=== PATIENT | female | born 1955 | race Caucasian/White ===

== ENCOUNTER 2023-06-10 09:51 | Outpatient (OUT) | payer MEDICARE, SELFPAY ==
[2023-06-10 12:44] LABS: Chol HDL Ratio 7.1; Cholesterol 234 mg/dL (<=200); HDL Cholesterol 33 mg/dL (40-60); Triglycerides 616 mg/dL (<=150); VLDL CHOLESTEROL 123.2 mg/dL
[2023-06-10 12:45] LABS: LDL Cholesterol Direct 93 mg/dL
== END 2023-06-10 09:52 | disposition home or self-care (01) ==
LOC: LAB 09:55
PROVIDERS: PCP Internal Medicine; Visit Provider Internal Medicine
DX: E78.5 Hyperlipidemia, unspecified (principal)
CPT/HCPCS: 36415; 80061; 83721

== ENCOUNTER 2023-08-19 11:21 | Emergency (ER) | payer MEDICARE, SELFPAY ==
[2023-08-19 11:28] VITALS: BP 184/100; PULSE 76; RESP 18; TEMP 36.6; O2SAT 96; BMI 27.8
--- NOTE | 2023-08-19 11:40 | ED_ITS ---
HPI - Back Pain/Injury General Chief Complaint: Back Pain/Injury Stated Complaint: GENERAL WEAKNESS Time Seen by Provider: 08/19/23 11:24 Source: patient Mode of arrival: Wheelchair Limitations: no limitations History of Present Illness HPI Narrative: Patient was doing a lot of housework, getting ready to move, and was on her hands and knees looking for a tack on the floor yesterday. She woke this morning with pain in the low back on the right and radiating into the right buttock and lateral right thigh. No bowel or bladder symptoms. No fever or chills. Related Data Home Medications Medication Instructions Recorded Confirmed dapagliflozin propanediol 10 mg 10 mg PO DAILY 08/19/23 08/19/23 tablet (Farxiga) glipizide 5 mg tablet, extended 5 mg PO DAILY 08/19/23 08/19/23 release 24 hr lisinopril 10 mg tablet 10 mg PO DAILY 08/19/23 08/19/23 omeprazole 40 mg capsule,delayed 40 mg PO DAILY 08/19/23 08/19/23 release rosuvastatin 40 mg tablet 40 mg PO DAILY 08/19/23 08/19/23 Previous Rx's Medication Instructions Recorded methocarbamol 750 mg tablet 750 mg PO Q6H PRN pain #30 tabs 08/19/23 nabumetone 750 mg tablet 750 mg PO BID PRN back pain #20 08/19/23 tabs Allergies Allergy/AdvReac Type Severity Reaction Status Date / Time No Known Drug Allergies Allergy Verified 08/19/23 11:32 [facility] Social History Smoking status: Current every day smoker Exam Narrative Exam Narrative: General: Alert, no acute distress, patient resting comfortably Skin: warm, intact, no pallor noted Head: Normocephalic, atraumatic Eye: Normal conjunctiva Respiratory: No acute distress Abdomen: Normal bowel sounds, soft, nontender, no masses detected. No rebound, guarding, or rigidity noted. Back: inspection of the back shows no obvious deformity, no swelling, no ecchymosis, contusion, abrasion, swelling, erythema, fluctuance or induration. Tenderness noted to right paralumbar soft tissue. Straight leg raise on left is negative. Straight leg raise on right is positive. No CVA tenderness noted bilaterally. Musculoskeletal: No deformity noted to bilateral lower extremities. no cyanosis or mottling noted. normal pulses at DP and PT 2+ bilaterally and symmetrically. Normal 5/5 strength at ankles with dorsiflexion and plantar flexion. Patient is able to ambulate. Normal sensation noted to both lower extremities. Neurological: AAOx4, normal sensory and motor observed. L5-S1 reflexes intact symmetrically. DTR 2+ at patellar bilaterally. Psychiatric: Cooperative and interactive. Constitutional Vital Signs, click to edit/add: Last Vital Signs Temp 97.8 F 08/19/23 11:28 Pulse 76 08/19/23 11:28 Resp 18 08/19/23 11:28 BP 184/100 H 08/19/23 11:28 Pulse Ox 96 08/19/23 11:28 O2 Del Method Room Air 08/19/23 11:28 Course Vital Signs Vital signs: Vital Signs Temperature 97.8 F 08/19/23 11:28 Pulse Rate 76 08/19/23 11:28 Respiratory Rate 18 08/19/23 11:28 Blood Pressure 184/100 H 08/19/23 11:28 Pulse Oximetry 96 08/19/23 11:28 Oxygen Delivery Method Room Air 08/19/23 11:28 Temperature 97.8 F 08/19/23 11:28 Pulse Rate 76 08/19/23 11:28 Respiratory Rate 18 08/19/23 11:28 Blood Pressure 184/100 H 08/19/23 11:28 Pulse Oximetry 96 08/19/23 11:28 Oxygen Delivery Method Room Air 08/19/23 11:28 MDM - Back Pain/Injury MDM Narrative Medical decision making narrative: no neurological deficit to suggest acute cauda equina syndrome. Exam is consistent with acute sciatica. She received IM Solu-Medrol and IM Toradol before being discharged home with prescriptions for Relafen and Robaxin. She can see Dr. Esteban follow-up. Of note, her blood pressure was elevated. She said that she took her daily medications as prescribed. I stressed follow-up with Dr. Esteban to have this reevaluated. It may be acutely elevated due to her pain. Discharge Plan Discharge Chief Complaint: Back Pain/Injury Clinical Impression: Sciatica Patient Disposition: Home, Self-Care Time of Disposition Decision: 11:43 Prescriptions / Home Meds: New nabumetone 750 mg tablet 750 mg PO BID PRN (Reason: back pain) Qty: 20 0RF methocarbamol 750 mg tablet 750 mg PO Q6H PRN (Reason: pain) Qty: 30 0RF No Action Farxiga 10 mg tablet 10 mg PO DAILY glipizide 5 mg tablet extended release 24hr 5 mg PO DAILY lisinopril 10 mg tablet 10 mg PO DAILY omeprazole 40 mg capsule,delayed release(DR/EC) 40 mg PO DAILY rosuvastatin 40 mg tablet 40 mg PO DAILY Instructions: Sciatica (ED), Back Pain (ED) Stand Alone Forms: Portal Instructions Referrals: Shaikh Esteban MD [Primary Care Provider] - 1 week
[2023-08-19] MEDS: METHYLPREDNISOLONE SOD SUCC PF 125 MG/2 ML VIAL IM (11:48)
[2023-08-19] MEDS: KETOROLAC TROMETHAMINE 60 MG/2 ML VIAL IM (11:48)
[2023-08-19 11:49] VITALS: BP 129/91
== END 2023-08-19 12:11 | disposition home or self-care (01) ==
LOC: ER 12:00
PROVIDERS: Emergency Provider Emergency Medicine; PCP Internal Medicine
DX: M54.41 Lumbago with sciatica, right side (principal); Z79.899 Other long term (current) drug therapy; F17.210 Nicotine dependence, cigarettes, uncomplicated
CPT/HCPCS: 96372; 99284; J2930

== ENCOUNTER 2023-09-05 11:44 | Outpatient (OUT) | payer MEDICARE, SELFPAY ==
[2023-09-05 12:12] LABS: Basophils Absolute Auto 0.1 10^3/uL (0.0-0.1); Basophils Percent Auto 1.2 % (0.2-2.0); Eosinophils Absolute Auto 0.1 10^3/uL (0.0-0.7); Eosinophils Percent Auto 1.2 % (0.9-7.0); Hematocrit 53.4 % (36.0-48.0); Hemoglobin 17.7 g/dL (12.0-16.0); Immature Granulocytes Abs Auto 0.04 10^3/uL (0.00-0.03); Immature Granulocytes Pct Auto 0.5 % (0.0-0.5); Lymphocytes Absolute Auto 1.5 10^3/uL (1.2-3.8); Lymphocytes Percent Auto 17.2 % (20.5-60.0); Mean Corpuscular HGB Conc 33.1 g/dL (29.9-35.2); Mean Corpuscular Hemoglobin 30.1 pg (26.7-34.0); Mean Corpuscular Volume 90.8 fL (81.0-99.0); Mean Platelet Volume 10.6 fL (9.5-13.5); Monocytes Absolute Auto 1.1 10^3/uL (0.3-0.8); Monocytes Percent Auto 12.4 % (1.7-12.0); Neutrophils Percent Auto 67.5 % (43.0-75.0); Platelet Count 227 10^3/uL (150-450); Red Blood Count 5.88 10^6/uL (4.20-5.40); Red Cell Distribution Width 14.3 % (11.0-15.0); White Blood Count 8.8 10^3/uL (4.0-11.0)
[2023-09-05 12:21] LABS: Estimated Average Glucose 157 mg/dL; Glycohemoglobin A1C 7.1 % (4.5-6.2)
[2023-09-05 12:29] LABS: Alanine Aminotransferase 18 U/L (14-59); Albumin Globulin Ratio 0.7; Albumin Level 3.1 g/dL (3.4-5.0); Alkaline Phosphatase 99 U/L (46-116); Anion Gap 12.5; Aspartate Amino Transferase 15 U/L (15-37); BUN Creatinine Ratio 14.3; Bilirubin Total 0.7 mg/dL (0.2-1.0); Calcium 9.2 mg/dL (8.5-10.1); Carbon Dioxide 28.6 mmol/L (21.0-32.0); Chloride 101 mmol/L (98-107); Chol HDL Ratio 6.3; Cholesterol 222 mg/dL (<=200); Estimated GFR (African America 51 (>=60); Estimated GFR (Non-African Ame 42 (>=60); Globulin 4.6 g/dL; Glucose 146 mg/dL (74-106); HDL Cholesterol 35 mg/dL (40-60); Potassium 4.1 mmol/L (3.5-5.1); Sodium 138 mmol/L (136-145); Total Protein 7.7 g/dL (6.4-8.2); Triglycerides 437 mg/dL (<=150); VLDL CHOLESTEROL 87.4 mg/dL
[2023-09-05 12:31] LABS: LDL Cholesterol Direct 111 mg/dL
[2023-09-05 12:37] LABS: Creatinine Urine Random 117.87 mg/dL (20.00-300.00); Protein Creatinine Ratio Urine 0.21; Total Protein Urine Random 24.9 mg/dL (<=11.9)
== END 2023-09-05 11:45 | disposition home or self-care (01) ==
LOC: LAB 11:45
PROVIDERS: PCP Internal Medicine; Visit Provider Internal Medicine
DX: E78.5 Hyperlipidemia, unspecified (principal); E11.22 Type 2 diabetes mellitus with diabetic chronic kidney disease; N18.31 Chronic kidney disease, stage 3a; I12.9 Hypertensive chronic kidney disease with stage 1 through stage 4 chronic kidney disease, or unspecified chronic kidney disease
CPT/HCPCS: 36415; 80053; 80061; 82570; 83036; 83721; 84156; 85025

== ENCOUNTER 2024-03-15 08:20 | Outpatient (OUT) | payer MEDICARE, SELFPAY ==
--- OUTSIDE RECORDS SUMMARY | 2024-03-15 08:29 | XMS_ITS | CCD ---
Author Organization [facility] Care Team Providers Care Financial Institution President Name Role Phone FAWWAD, QUINTERO H Admitting Unavailable FAWWAD, QUINTERO H Attending Unavailable FAWWAD, QUINTERO H Primary Care Unavailable FAWWAD, QUINTERO H Consulting Unavailable FAWWAD, QUINTERO H Admitting Unavailable FAWWAD, QUINTERO H Attending Unavailable FAWWAD, QUINTERO H Primary Care Unavailable FAWWAD, QUINTERO H Consulting Unavailable FAWWAD, QUINTERO H Admitting Unavailable FAWWAD, QUINTERO H Attending Unavailable FAWWAD, QUINTERO H Primary Care Unavailable FAWWAD, QUINTERO H Consulting Unavailable FAWWAD, QUINTERO H Primary Care Unavailable PAY ., DR KEBEDE Consulting Unavailable PAY ., DR KEBEDE Admitting Unavailable PAY ., DR KEBEDE Attending Unavailable SHADI CARRERO Consulting Unavailable FAWWAD, QUINTERO Attending Unavailable Allergies Allergy Classification Reported Allergen(s) Allergy Type Date of Onset Reaction(s) Facility (1 source) Dextroamphetamine Drug Allergy 6 [facility] Repository (1 source) quiNINE Drug Allergy 3 [facility] Problems Active Problems Problem Classification Problem Date Documented Da te Episodic/Chronic Coronary atherosclerosis and other heart disease (1 source) Old myocardial infarction; Translations: [OLD MYOCARDIAL INFARCTION] Onset: 01-11-2022 Chronic Diabetes mellitus with complications (4 sources) Type 2 diabetes mellitus with diabetic chronic kidney disease; Translations: [TYPE 2 DM W/DIABETIC CKD] Onset: 05-25-2022 Chronic Diabetes mellitus without complication (1 source) Type 2 diabetes mellitus without complications; Translations: [TYPE 2 DM WITHOUT COMPLICATIONS] Onset: 11-24-2022 Chronic Disorders of lipid metabolism (5 sources) Hyperlipidemia, unspecified; Translations: [HYPERLIPIDEMIA UNSPECIFIED] Onset: 05-28-2022 Chronic Essential hypertension (1 source) Essential (primary) hypertension; Translations: [ESSENTIAL PRIMARY HYPERTENSION] Onset: 11-24-2022 Chronic Unclassified (1 source) CHRN KIDNEY DISEASE STG 3 UNSP; Translations: [CHRN KIDNEY DISEASE STG 3 UNSP] Onset: 05-28-2022 Viral infection (1 source) COVID-19; Translations: [COVID-19] Onset: 02-08-2022 Past or Other Problems Problem Classification Problem Date Documented Da te Episodic/Chronic Coronary atherosclerosis and other heart disease (1 source) Presence of aortocoronary bypass graft; Translations: [PRESENCE AORTOCORONARY BYPASS GRAFT] Onset: 01-11-2022 Episodic Immunizations and screening for infectious disease (4 sources) Encounter for immunization; Translations: [ENCOUNTER FOR IMMUNIZATION] Onset: 02-04-2022 Episodic Other aftercare (1 source) Other longterm (current) drug therapy; Translations: [OTH SKILLED NURSING CURRENT DRUG THERAPY] Onset: 01-11-2022 Episodic Other aftercare (1 source) long-term (current) use of oral hypoglycemic drugs; Translations: [SKILLED NURSING USE ORAL HYPOGLYCEMIC DX] Onset: 01-11-2022 Episodic Other aftercare (1 source) 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; 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] Onset: 01-11-2022 Episodic Other connective tissue disease (1 source) Pain in right hand; Translations: [PAIN IN RIGHT HAND] Onset: 01-11-2022 Episodic Other non-traumatic joint disorders (4 sources) Pain in right wrist; Translations: [PAIN IN RIGHT WRIST] Onset: 01-08-2022 Episodic Phlebitis; thrombophlebitis and thromboembolism (1 source) Personal history of other venous thrombosis and embolism; Translations: [PERS HX OTH VENOUS THROMBOSIS AND EMBO] Onset: 01-11-2022 Episodic Results Test Name Value Interpretation Reference Range Facil ity DIRECT LDLon 11-23-2022 Cholesterol in LDL [Mass/Vol] 66 mg/dL Normal [facility] Comment on above: Performed By: #### C MP, DLDL, LIPID #### [facility] [address] [place] [address] Dr. Jose Miguel Plummer DLDL NORMAL SEE BELOW Normal [facility] Comment on above: Result Comment: <100 mg/dl OPTIMAL 100 - 129 mg/dl NEAR OR ABOVE OPTIMAL 130 - 159 mg/dl BORDERLINE HIGH 160 - 189 mg/dl HIGH >190 mg/dl VERY HIGH Performed By: #### C MP, DLDL, LIPID #### [facility] [address] [address] [address] Jose Miguel Plummer GLYCOHEMOGLOBIN A1Con 2022 ADA RECOMMENDATION SEE BELOW Normal [facility] Comment on above: Result Comment: ADA RECOMMENDED LIMIT 4.0 - 6.0 ADA THERAPEUTIC TARGET < 7.0 ACTION SUGGESTED > 7.0 Performed By: #### A 1C #### [facility] [address] [place] [address] Dr. Jose Miguel Plummer Glucose [Mass/Vol] 151 mg/dL Normal [facility] Comment on above: Performed By: #### A 1C #### [facility] [address] [address] [address] Jose Miguel Plummer HbA1c (Bld) [Mass fraction] 6.9 % Critically high 4.5-6.2 [facility] Comment on above: Performed By: #### A 1C #### [facility] [address] [place] [address] Dr. Jose Miguel Plummer LIPID PROFILEon 11-23-2022 CHOL-HDL RATIO NORM SEE BELOW Normal [facility] Comment on above: Result Comment: 3.3 - 4.4 LOW RISK 4.4 - 7.1 AVERAGE RISK 7.1 - 11.0 MODERATE RISK >11.0 HIGH RISK Performed By: #### C MP, DLDL, LIPID #### [facility] [address] [address] [address] Jose Miguel Plummer Cholesterol [Mass/Vol] 203 mg/dL Critically high <=200 [facility] Comment on above: Performed By: #### C MP, DLDL, LIPID #### [facility] [address] [address] [address] Jose Miguel Plummer Cholesterol in HDL [Mass/Vol] 22 mg/dL Critically low 40-60 [facility] Comment on above: Performed By: #### C MP, DLDL, LIPID #### [facility] [address] [address] [address] Jose Miguel Plummer Cholesterol.total/Cho lesterol in HDL [Mass ratio] 9.2 {ratio} Normal [facility] Comment on above: Performed By: #### C MP, DLDL, LIPID #### [facility] [address] [address] [address] Jose Miguel Plummer HDL NORMAL > or = 60 mg/dl - LOW CARDIOVASCULAR RISK <40 mg/dl - HIGH CARDIOVASCULAR RISK Normal [facility] Comment on above: Performed By: #### C MP, DLDL, LIPID #### [facility] [address] [address] [address] Jose Miguel Plummer LDL CALC NORMAL SEE BELOW Normal [facility] Comment on above: Result Comment: <100 mg/dl OPTIMAL 100 - 129 mg/dl NEAR OR ABOVE OPTIMAL 130 - 159 mg/dl BORDERLINE HIGH 160 - 189 mg/dl HIGH >190 mg/dl VERY HIGH Performed By: #### C MP, DLDL, LIPID #### [facility] [address] [place] [address] Dr. Jose Miguel Plummer Triglyceride [Mass/Vol] mg/dL Critically high <=150 [facility] Comment on above: Performed By: #### C MP, DLDL, LIPID #### [facility] [address] [address] [address] Jose Miguel Plummer PROF 14(COMP METB)on 023 Albumin [Mass/Vol] 3.3 g/dL Critically low 3.4-5.0 [facility] Comment on above: Performed By: #### C MP, DLDL, LIPID #### [facility] [address] [address] [address] Jose Miguel Plummer Albumin/Globulin [Mass ratio] 0.8 {ratio} Normal [facility] Comment on above: Performed By: #### C MP, DLDL, LIPID #### [facility] [address] [address] [address] Jose Miguel Plummer ALP [Catalytic activity/Vol] 115 U/L Normal 46-116 [facility] Comment on above: Performed By: #### C MP, DLDL, LIPID #### [facility] [address] [address] [address] Jose Miguel Plummer ALT [Catalytic activity/Vol] 20 U/L Normal 14-59 [facility] Comment on above: Performed By: #### C MP, DLDL, LIPID #### [facility] [address] [place] [address] Dr. Jose Miguel Plummer Anion gap [Moles/Vol] 8.9 mmol/L Normal [facility] Comment on above: Performed By: #### C MP, DLDL, LIPID #### [facility] [address] [place] [address] Dr. Joes Miguel Plummer AST [Catalytic activity/Vol] 21 U/L Normal 15-37 [facility] Comment on above: Performed By: #### C MP, DLDL, LIPID #### [facility] [address] [place] [address] Dr. Jose Miguel Plummer Bilirubin [Mass/Vol] 0.3 mg/dL Normal 0.2-1.0 [facility] Comment on above: Performed By: #### C MP, DLDL, LIPID #### [facility] [address] [place] [address] Dr. Jose Miguel Plummer Calcium [Mass/Vol] 8.8 mg/dL Normal 8.5-10.1 [facility] Comment on above: Performed By: #### C MP, DLDL, LIPID #### [facility] [address] [place] [address] Dr. Jose Miguel Plummer Chloride [Moles/Vol] 103 mmol/L Normal 98-107 [facility] Comment on above: Performed By: #### C MP, DLDL, LIPID #### [facility] [address] [place] [address] Dr. Jose Miguel Plummer CO2 [Moles/Vol] 28.0 mmol/L Normal 21.0-32.0 [facility] Comment on above: Performed By: #### C MP, DLDL, LIPID #### [facility] [address] [place] [address] Dr. Jose Miguel Plummer Creatinine [Mass/Vol] 1.09 mg/dL Critically high 0.55-1.02 [facility] Comment on above: Performed By: #### C MP, DLDL, LIPID #### [facility] [address] [place] [address] Dr. Jose Miguel Plummer EGFR-AF [place] 60 mL/min/1.73m2 Normal >=60 [facility] Comment on above: Performed By: #### C MP, DLDL, LIPID #### [facility] [address] [place] [address] Dr. Jose Miguel Plummer EGFR-NON AF [place] 50 mL/min/1.73m2 Critically low >=60 [facility] Comment on above: Performed By: #### C MP, DLDL, LIPID #### [facility] [address] [place] [address] Dr. Jose Miguel Plummer Globulin (S) [Mass/Vol] 4.0 g/dL Normal [facility] Comment on above: Performed By: #### C MP, DLDL, LIPID #### [facility] [address] [place] [address] Dr. Jose Miguel Plummer Glucose [Mass/Vol] 132 mg/dL Critically high 74-106 T [facility] Comment on above: Performed By: #### C MP, DLDL, LIPID #### [facility] [address] [place] [address] Dr. Jose Miguel Plummer Potassium [Moles/Vol] 4.9 mmol/L Normal 3.5-5.1 [facility] Comment on above: Performed By: #### C MP, DLDL, LIPID #### [facility] [address] [place] [address] Dr. Jose Miguel Plummer Protein [Mass/Vol] 7.3 g/dL Normal 6.4-8.2 [facility] Comment on above: Performed By: #### C MP, DLDL, LIPID #### [facility] [address] [place] [address] Dr. Jose Miguel Plummer Sodium [Moles/Vol] 135 mmol/L Critically low 136-145 [facility] Comment on above: Performed By: #### C MP, DLDL, LIPID #### [facility] [address] [address] [address] Jose Miguel Plummer Urea nitrogen [Mass/Vol] 20.0 mg/dL Critically high 7.0-18.0 [facility] Comment on above: Performed By: #### C MP, DLDL, LIPID #### [facility] [address] [place] [address] Dr. Jose Miguel Plummer Urea nitrogen/Creatinine [Mass ratio] 18.3 mg/mg Normal [facility] Comment on above: Performed By: #### C MP, DLDL, LIPID #### [facility] [address] [place] [address] Dr. Jose Miguel Plummer CBC AUTO DIFFon 05-25-2022 BASO # 0.1 103/ul Normal 0.0-0.1 [facility] Comment on above: Performed By: #### C BC #### [facility] [address] [place] [address] Dr. Jose Miguel Plummer Basophils/100 WBC (Bld) 1.5 % Normal 0.2-2.0 [facility] Comment on above: Performed By: #### C BC #### [facility] [address] [place] [address] Dr. Jose Miguel Plummer EO # 0.2 103/ul Normal 0.0-0.7 [facility] Comment on above: Performed By: #### C BC #### [facility] [address] [place] [address] Dr. Jose Miguel Plummer Eosinophils/100 WBC (Bld) 2.7 % Normal 0.9-7.0 [facility] Comment on above: Performed By: #### C BC #### [facility] [address] [place] [address] Dr. Jose Miguel Plummer Erythrocyte distribution width (RBC) [Ratio] 14.9 % Normal 11.0-15.0 [facility] Comment on above: Performed By: #### C BC #### [facility] [address] [place] [address] Dr. Jose Miguel Plummer Hematocrit (Bld) [Volume fraction] 50.0 % Critically high 36.0-48.0 [facility] Comment on above: Performed By: #### C BC #### [facility] [address] [address] [address] Jose Miguel Plummer Hemoglobin (Bld) [Mass/Vol] 16.5 g/dL Critically high 12.0-16.0 [facility] Comment on above: Performed By: #### C BC #### [facility] [address] [address] [address] Jose Miguel Plummer IG # 0.04 10e3/ul Critically high 0.00-0.03 [facility] Comment on above: Performed By: #### C BC #### [facility] [address] [place] [address] Dr. Jose Miguel Plummer IG % 0.5 % Normal 0.0-0.5 [facility] Comment on above: Performed By: #### C BC #### [facility] [address] [place] [address] Dr. Jose Miguel Plummer LYMPH # 1.4 103/ul Normal 1.2-3.8 [facility] Comment on above: Performed By: #### C BC #### [facility] [address] [place] [address] Dr. Jose Miguel Plummer Lymphocytes/100 WBC (Bld) 19.1 % Critically low 20.5-60.0 [facility] Comment on above: Performed By: #### C BC #### [facility] [address] [place] [address] Dr. Jose Miguel Plummer MANUAL DIFF REQ NO Normal [facility] Comment on above: Performed By: #### C BC #### [facility] [address] [place] [address] Dr. Jose Miguel Plummer MCH (RBC) [Entitic mass] 29.9 pg Normal 26.7-34.0 [facility] Comment on above: Performed By: #### C BC #### [facility] [address] [place] [address] Dr. Jose Miguel Plummer MCHC (RBC) [Mass/Vol] 33.0 g/dL Normal 29.9-35.2 [facility] Comment on above: Performed By: #### C BC #### [facility] [address] [address] [address] Jose Miguel Plummer MCV (RBC) [Entitic vol] 90.7 fL Normal 81.0-99.0 [facility] Comment on above: Performed By: #### C BC #### [facility] [address] [address] [address] Jose Miguel Plummer MONO # 1.0 103/ul Critically high 0.3-0.8 [facility] Comment on above: Performed By: #### C BC #### [facility] [address] [address] [address] Jose Miguel Plummer Monocytes/100 WBC (Bld) 14.0 % Critically high 1.7-12.0 [facility] Comment on above: Performed By: #### C BC #### [facility] [address] [place] [address] Dr. Jose Miguel Plummer NEUT # 4.6 103/ul Normal 1.4-6.5 [facility] Comment on above: Performed By: #### C BC #### [facility] [address] [place] [address] Dr. Jose Miguel Plummer Neutrophils/100 WBC (Bld) 62.2 % Normal 43.0-75.0 [facility] Comment on above: Performed By: #### C BC #### [facility] [address] [address] [address] Jose Miguel Plummer Platelet mean volume (Bld) [Entitic vol] 10.8 fL Normal 9.5-13.5 [facility] Comment on above: Performed By: #### C BC #### [facility] [address] [address] [address] Jose Miguel Plummer PLT 189 103/ul Normal 150-450 [facility] Comment on above: Performed By: #### C BC #### [facility] [address] [address] [address] Jose Miguel Plummer RBC 5.51 106/ul Critically high 4.20-5.[address] [facility] Comment on above: Performed By: #### C BC #### [facility] [address] [address] [address] Jose Miguel Plummer WBC 7.4 103/ul Normal 4.0-11.0 [facility] Comment on above: Performed By: #### C BC #### [facility] [address] [address] [address] Jose Miguel Plummer GLYCOHEMOGLOBIN A1Con 2021 ADA RECOMMENDATION SEE BELOW Normal [facility] Comment on above: Result Comment: ADA RECOMMENDED LIMIT 4.0 - 6.0 ADA THERAPEUTIC TARGET < 7.0 ACTION SUGGESTED > 7.0 Performed By: #### A 1C #### [facility] [address] [address] [address] Jose Miguel Plummer Glucose [Mass/Vol] 160 mg/dL Normal [facility] Comment on above: Performed By: #### A 1C #### [facility] [address] [place] [address] Dr. Jose Miguel Plummer HbA1c (Bld) [Mass fraction] 7.2 % Critically high 4.5-6.2 [facility] Comment on above: Performed By: #### A 1C #### [facility] [address] [place] [address] Dr. Jose Miguel Plummer LIPID PROFILEon 05-25-2022 CHOL-HDL RATIO NORM SEE BELOW Normal [facility] Comment on above: Result Comment: 3.3 - 4.4 LOW RISK 4.4 - 7.1 AVERAGE RISK 7.1 - 11.0 MODERATE RISK >11.0 HIGH RISK Performed By: #### L IPID, CMP #### [facility] [address] [place] [address] Dr. Jose Miguel Plummer Cholesterol [Mass/Vol] 155 mg/dL Normal <=200 [facility] Comment on above: Performed By: #### L IPID, CMP #### [facility] [address] [address] [address] Jose Miguel Plummer Cholesterol in HDL [Mass/Vol] 35 mg/dL Critically low 40-60 [facility] Comment on above: Performed By: #### L IPID, CMP #### [facility] [address] [address] [address] Jose Miguel Plummer Cholesterol in LDL [Mass/Vol] 40.8 mg/dL Normal [facility] Comment on above: Performed By: #### L IPID, CMP #### [facility] [address] [place] [address] Dr. Jose Miguel Plummer Cholesterol.total/Cho lesterol in HDL [Mass ratio] 4.4 {ratio} Normal [facility] Comment on above: Performed By: #### L IPID, CMP #### [facility] [address] [place] [address] Dr. Jose Miguel Plummer HDL NORMAL > or = 60 mg/dl - LOW CARDIOVASCULAR RISK <40 mg/dl - HIGH CARDIOVASCULAR RISK Normal [facility] Comment on above: Performed By: #### L IPID, CMP #### [facility] [address] [place] [address] Dr. Jose Miguel Plummer LDL CALC NORMAL SEE BELOW Normal [facility] Comment on above: Result Comment: <100 mg/dl OPTIMAL 100 - 129 mg/dl NEAR OR ABOVE OPTIMAL 130 - 159 mg/dl BORDERLINE HIGH 160 - 189 mg/dl HIGH >190 mg/dl VERY HIGH Performed By: #### L IPID, CMP #### [facility] [address] [place] [address] Dr. Jose Miguel Plummer Triglyceride [Mass/Vol] 396 mg/dL Critically high <=150 [facility] Comment on above: Performed By: #### L IPID, CMP #### [facility] [address] [place] [address] Dr. Jose Miguel Plummer VLDL CALC 79.2 mg/dL Normal [facility] Comment on above: Performed By: #### L IPID, CMP #### [facility] [address] [address] [address] Jose Miguel Plummer PROF 14(COMP METB)on 022 Albumin [Mass/Vol] 3.4 g/dL Normal 3.4-5.0 [facility] Comment on above: Performed By: #### L IPID, CMP #### [facility] [address] [place] [address] Dr. Jose Miguel Plummer Albumin/Globulin [Mass ratio] 0.8 {ratio} Normal [facility] Comment on above: Performed By: #### L IPID, CMP #### [facility] [address] [address] [address] Jose Miguel Plummer ALP [Catalytic activity/Vol] 82 U/L Normal 46-116 [facility] Comment on above: Performed By: #### L IPID, CMP #### [facility] [address] [address] [address] Jose Miguel Plummer ALT [Catalytic activity/Vol] 13 U/L Critically low 14-59 [facility] Comment on above: Performed By: #### L IPID, CMP #### [facility] [address] [place] [address] Dr. Jose Miguel Plummer Anion gap [Moles/Vol] 9.8 mmol/L Normal [facility] Comment on above: Performed By: #### L IPID, CMP #### [facility] [address] [place] [address] Dr. Jose Miguel Plummer AST [Catalytic activity/Vol] 10 U/L Critically low 15-37 [facility] Comment on above: Performed By: #### L IPID, CMP #### [facility] [address] [place] [address] Dr. Jose Miguel Plummer Bilirubin [Mass/Vol] 0.6 mg/dL Normal 0.2-1.0 [facility] Comment on above: Performed By: #### L IPID, CMP #### [facility] [address] [address] [address] Jose Miguel Plummer Calcium [Mass/Vol] 9.5 mg/dL Normal 8.5-10.1 [facility] Comment on above: Performed By: #### L IPID, CMP #### [facility] [address] [place] [address] Dr. Jose Miguel Plummer Chloride [Moles/Vol] 105 mmol/L Normal 98-107 [facility] Comment on above: Performed By: #### L IPID, CMP #### [facility] [address] [place] [address] Dr. Jose Miguel Plummer CO2 [Moles/Vol] 29.4 mmol/L Normal 21.0-32.0 [facility] Comment on above: Performed By: #### L IPID, CMP #### [facility] [address] [address] [address] Jose Miguel Plummer Creatinine [Mass/Vol] 1.01 mg/dL Normal 0.55-1.02 [facility] Comment on above: Performed By: #### L IPID, CMP #### [facility] [address] [address] [address] Jose Miguel Plummer EGFR-AF [place] >60 Normal >=60 [facility] Comment on above: Performed By: #### L IPID, CMP #### [facility] [address] [address] [address] Jose Miguel Plummer EGFR-NON AF [place] 55 mL/min/1.73m2 Critically low >=60 [facility] Comment on above: Performed By: #### L IPID, CMP #### [facility] [address] [address] [address] Jose Miguel Plummer Globulin (S) [Mass/Vol] 4.2 g/dL Normal [facility] Comment on above: Performed By: #### L IPID, CMP #### [facility] [address] [address] [address] Jose Miguel Plummer Glucose [Mass/Vol] 125 mg/dL Critically high 74-106 [facility] Comment on above: Performed By: #### L IPID, CMP #### [facility] [address] [address] [address] Jose Miguel Plummer Potassium [Moles/Vol] 4.2 mmol/L Normal 3.5-5.1 [facility] Comment on above: Performed By: #### L IPID, CMP #### [facility] [address] [address] [address] Jose Miguel Plummer Protein [Mass/Vol] 7.6 g/dL Normal 6.4-8.2 [facility] Comment on above: Performed By: #### L IPID, CMP #### [facility] [address] [address] [address] Jose Miguel Plummer Sodium [Moles/Vol] 140 mmol/L Normal 136-145 [facility] Comment on above: Performed By: #### L IPID, CMP #### [facility] [address] [address] [address] Jose Miguel Plummer Urea nitrogen [Mass/Vol] 13.0 mg/dL Normal 7.0-18.0 [facility] Comment on above: Performed By: #### L IPID, CMP #### [facility] [address] [address] [address] Jose Miguel Plummer Urea nitrogen/Creatinine [Mass ratio] 12.9 mg/mg Normal [facility] Comment on above: Performed By: #### L IPID, CMP #### [facility] [address] [address] [address] Jose Miguel Plummer XR WRIST RT MIN 3 Von 2021 XR WRIST RT MIN 3 V EXAM: Right wrist HISTORY: Pain since an injury yesterday. TECHNIQUE: 3 views of the right wrist were obtained. FINDINGS: There is no evidence of fracture or dislocation. There are no suspicious bone lesions. There are scattered degenerative changes. Soft tissues are normal. IMPRESSION: No acute findings. Electronically authenticated by: SHADI CARRERO Date: 2022-01-08 08:33 Normal [facility] Encounters Encounter Date Encounter Type Care Provider Facility Start: 09-01-2023 End: 09-01-2023 ambulatory [facility] Not Available Start: 11-23-2022 End: 11-23-2022 ambulatory [facility] Facility:[facility] Start: 05-25-2022 End: 05-26-2022 ambulatory [facility] Facility:[facility] Start: 02-04-2022 End: 02-04-2022 ambulatory [facility] Facility:[facility] Start: 01-08-2022 End: 01-08-2022 ambulatory [facility] Facility:[facility] Payers Date Payer Category Payer Medicare [id number] 1961 Medicare [id number] 1961 Medicare [id number] 1955 Unknown [id number] 2.16.84 [id number] 1955 Unknown [id number] 2.16.84 [id number] 1955 Unknown [id number] 2.16.84 [id number] 1955 Unknown [id number] 2.16.84 [id number] 1953 Unknown [id number] Summary Purpose Family History No Family History Records FoundNo Family History Records Found Advance Directives No Advanced Directives Records FoundNo Advanced Directives Records Found Additional Source Comments INFORMATION SOURCE (unrecogn ized section and content) DATE CREATED AUTHOR 11/25/2022 [facility] DATE CREATED AUTHOR 'S GUILLAUME ATJEREMIAH 09/03/2023 [facility] FOR RECORDS PERTAINING TO PATIENTS WHO ARE OR HAVE BEEN ENROLLED IN A CHEMICAL DEPENDENCY/SUBSTANCEABUSE PROGRAM, SOME INFORMATION MAY BE OMITTED. This clinical summary was aggregated from multiple sources. Caution should be exercised in using it in the provision of clinical care. This summary normalizes information from multiple sources, and as a consequence, information in this document may materially change the coding, format and clinical context of patient data. In addition, data may be omitted in some cases. CLINICAL DECISIONS SHOULD BE BASED ON THE PRIMARY CLINICAL RECORDS. [facility] [employer] provides no warranty or guarantee of the accuracy or completeness of information in this document.
[2024-03-15 08:51] LABS: Hematocrit 52.4 % (36.0-48.0); Hemoglobin 17.7 g/dL (12.0-16.0); Mean Corpuscular HGB Conc 33.8 g/dL (29.9-35.2); Mean Corpuscular Hemoglobin 30.4 pg (26.7-34.0); Mean Corpuscular Volume 89.9 fL (81.0-99.0); Mean Platelet Volume 9.7 fL (9.5-13.5); Platelet Count 200 10^3/uL (150-450); Red Blood Count 5.83 10^6/uL (4.20-5.40); Red Cell Distribution Width 14.6 % (11.0-15.0); White Blood Count 12.1 10^3/uL (4.0-11.0)
[2024-03-15 09:46] LABS: Lymphocytes Absolute Manual 1.81 10^3/uL (1.20-3.80); Metamyelocytes Absolute Manual 0.12; Monocytes Absolute Manual 1.08 10^3/uL (0.30-0.80); Segmented Neut Absolute Manual 9.07 10^3/uL (1.4-6.5)
[2024-03-15 11:10] LABS: Alanine Aminotransferase 13 U/L (14-59); Albumin Globulin Ratio 0.7; Albumin Level 3.4 g/dL (3.4-5.0); Alkaline Phosphatase 70 U/L (46-116); Anion Gap 14.1; Aspartate Amino Transferase 17 U/L (15-37); BUN Creatinine Ratio 15.9; Bilirubin Total 1.1 mg/dL (0.2-1.0); Calcium 9.7 mg/dL (8.5-10.1); Carbon Dioxide 28.9 mmol/L (21.0-32.0); Chloride 99 mmol/L (98-107); Estimated GFR (African America 46 (>=60); Estimated GFR (Non-African Ame 38 (>=60); Globulin 4.8 g/dL; Glucose 120 mg/dL (74-106); Sodium 138 mmol/L (136-145); Total Protein 8.2 g/dL (6.4-8.2)
[2024-03-15 12:57] LABS: Estimated Average Glucose 146 mg/dL; Glycohemoglobin A1C 6.7 % (4.5-6.2)
== END 2024-03-15 08:21 | disposition home or self-care (01) ==
LOC: LAB 08:22
PROVIDERS: PCP Internal Medicine; Visit Provider Internal Medicine
DX: E11.22 Type 2 diabetes mellitus with diabetic chronic kidney disease (principal); N18.31 Chronic kidney disease, stage 3a; I12.9 Hypertensive chronic kidney disease with stage 1 through stage 4 chronic kidney disease, or unspecified chronic kidney disease
CPT/HCPCS: 36415; 80053; 83036; 85007; 85027

== ENCOUNTER 2024-03-15 08:37 | Observation (INO) | payer MEDICARE, SELFPAY ==
[2024-03-15] VITALS (9 sets, daily range): BP systolic 126–147; BP diastolic 74–88; PULSE 61–70; TEMP 36.4–36.8; O2SAT 91–97; BMI 27.3; BMI 27.9
--- OUTSIDE RECORDS SUMMARY | 2024-03-15 08:45 | XMS_ITS | CCD ---
Author Organization [facility] Care Team Providers Care Paper Maker Name Role Phone FAWWAD, QUINTERO H Admitting [...] (1 source) Dextroamphetamine Drug Allergy 6 [facility] Repository (1 source) quiNINE Drug Allergy 3 [facility] Problems Active Problems Problem Classification [...] 02-04-2022 Episodic Other aftercare (1 source) Other m[facility] (current) drug therapy; Translations: [OTH [facility] CURRENT DRUG THERAPY] Onset: 01-11-2022 Episodic Other aftercare (1 source) senior care (current) use of oral hypoglycemic drugs; Translations: [FCI USE ORAL HYPOGLYCEMIC DX] Onset: 01-11-2022 Episodic Other aftercare (1 source) 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 Jose Miguel Plummer DLDL NORMAL SEE BELOW Normal [facility] Comment on above: Result Comment: <100 mg/dl OPTIMAL 100 - 129 mg/dl NEAR OR ABOVE OPTIMAL 130 - 159 mg/dl BORDERLINE HIGH 160 - 189 mg/dl HIGH >190 mg/dl VERY HIGH Performed By: #### C MP, DLDL, LIPID #### [facility] [address] [address] [address] Jose Miguel Plummer GLYCOHEMOGLOBIN A1Con 2022 ADA RECOMMENDATION SEE BELOW Normal [facility] Comment on above: Result Comment: ADA RECOMMENDED LIMIT 4.0 - 6.0 ADA THERAPEUTIC TARGET < 7.0 ACTION SUGGESTED > 7.0 Performed By: #### A 1C #### [facility] [address] [place] [address] Dr. Jose Miguel Plummer Glucose [Mass/Vol] 151 mg/dL Normal [facility] Comment on above: Performed By: #### A 1C #### [facility] [address] [address] [address] Jose Miguel Plummer HbA1c (Bld) [Mass fraction] 6.9 % Critically high 4.5-6.2 [facility] Comment on above: Performed By: #### A 1C #### [facility] [address] [place] [address] Dr. Jose Miguel Plummer LIPID PROFILEon 11-23-2022 CHOL-HDL RATIO NORM SEE BELOW Normal [facility] Comment on above: Result Comment: 3.3 - 4.4 LOW RISK 4.4 - 7.1 AVERAGE RISK 7.1 - 11.0 MODERATE RISK >11.0 HIGH RISK Performed By: #### C MP, DLDL, LIPID #### [facility] [address] [address] [address] Jose Miguel Plummer Cholesterol [Mass/Vol] 203 mg/dL Critically high <=200 [facility] Comment on above: Performed By: #### C MP, DLDL, LIPID #### [facility] [address] [address] [address] Jose Miguel Plummer Cholesterol in HDL [Mass/Vol] 22 mg/dL Critically low 40-60 [facility] Comment on above: Performed By: #### C MP, DLDL, LIPID #### [facility] [address] [address] [address] Jose Miguel Plummer Cholesterol.total/Cho lesterol in HDL [Mass ratio] 9.2 {ratio} Normal [facility] Comment on above: Performed By: #### C MP, DLDL, LIPID #### [facility] [address] [address] [address] Jose Miguel Plummer HDL NORMAL > or = 60 mg/dl - LOW CARDIOVASCULAR RISK <40 mg/dl - HIGH CARDIOVASCULAR RISK Normal [facility] Comment on above: Performed By: #### C MP, DLDL, LIPID #### [facility] [address] [address] [address] Jose Miguel Plummer LDL CALC NORMAL SEE BELOW Normal [facility] Comment on above: Result Comment: <100 mg/dl OPTIMAL 100 - 129 mg/dl NEAR OR ABOVE OPTIMAL 130 - 159 mg/dl BORDERLINE HIGH 160 - 189 mg/dl HIGH >190 mg/dl VERY HIGH Performed By: #### C MP, DLDL, LIPID #### [facility] [address] [place] [address] Dr. Jose Miguel Plummer Triglyceride [Mass/Vol] mg/dL Critically high <=150 [facility] Comment on above: Performed By: #### C MP, DLDL, LIPID #### [facility] [address] [address] [address] Jose Miguel Plummer PROF 14(COMP METB)on 023 Albumin [Mass/Vol] 3.3 g/dL Critically low 3.4-5.0 Th [facility] Comment on above: Performed By: #### C MP, DLDL, LIPID #### [facility] [address] [address] [address] Jose Miguel Plummer Albumin/Globulin [Mass ratio] 0.8 {ratio} Normal [facility] Comment on above: Performed By: #### C MP, DLDL, LIPID #### [facility] [address] [address] [address] Jose Miguel Plummer ALP [Catalytic activity/Vol] 115 U/L Normal 46-116 [facility] Comment on above: Performed By: #### C MP, DLDL, LIPID #### [facility] [address] [address] [address] Jose Miguel Plummer ALT [Catalytic activity/Vol] 20 U/L Normal 14-59 [facility] Comment on above: Performed By: #### C MP, DLDL, LIPID #### [facility] [address] [place] [address] Dr. Jose Miguel Plummer Anion gap [Moles/Vol] 8.9 mmol/L Normal [facility] Comment on above: Performed By: #### C MP, DLDL, LIPID #### [facility] [address] [place] [address] Dr. Jose Miguel Plummer AST [Catalytic activity/Vol] 21 U/L Normal 15-37 [facility] Comment on above: Performed By: #### C MP, DLDL, LIPID #### [facility] [address] [place] [address] Dr. Jose Miguel Plummer Bilirubin [Mass/Vol] 0.3 mg/dL Normal 0.2-1.0 [facility] Comment on above: Performed By: #### C MP, DLDL, LIPID #### [facility] [address] [place] [address] Dr. Jose Miguel Plummer Calcium [Mass/Vol] 8.8 mg/dL Normal 8.5-10.1 [facility] Comment on above: Performed By: #### C MP, DLDL, LIPID #### [facility] [address] [place] [address] Dr. Jose Miguel Plummer Chloride [Moles/Vol] 103 mmol/L Normal 98-107 [facility] Comment on above: Performed By: #### C MP, DLDL, LIPID #### [facility] [address] [place] [address] Dr. Jose Miguel Plummer CO2 [Moles/Vol] 28.0 mmol/L Normal 21.0-32.0 [facility] Comment on above: Performed By: #### C MP, DLDL, LIPID #### [facility] [address] [place] [address] Dr. Jose Miguel Plummer Creatinine [Mass/Vol] 1.09 mg/dL Critically high 0.55-1.02 [facility] Comment on above: Performed By: #### C MP, DLDL, LIPID #### [facility] [address] [place] [address] Dr. Jose Miguel Plummer EGFR-AF CONGOLESE 60 mL/min/1.73m2 Normal >=60 Th [facility] Comment on above: Performed By: #### C MP, DLDL, LIPID #### [facility] [address] [place] [address] Dr. Jose Miguel Plummer EGFR-NON AF CONGOLESE 50 mL/min/1.73m2 Critically low >=60 [facility] Comment on above: Performed By: #### C MP, DLDL, LIPID #### [facility] [address] [place] [address] Dr. Jose Miguel Plummer Globulin (S) [Mass/Vol] 4.0 g/dL Normal [facility] Comment on above: Performed By: #### C MP, DLDL, LIPID #### [facility] [address] [place] [address] Dr. Jose Miguel Plummer Glucose [Mass/Vol] 132 mg/dL Critically high 74-106 T [facility] Comment on above: Performed By: #### C MP, DLDL, LIPID #### [facility] [address] [place] [address] Dr. Jose Miguel Plummer Potassium [Moles/Vol] 4.9 mmol/L Normal 3.5-5.1 [facility] Comment on above: Performed By: #### C MP, DLDL, LIPID #### [facility] [address] [place] [address] Dr. Jose Miguel Plummer Protein [Mass/Vol] 7.3 g/dL Normal 6.4-8.2 [facility] Comment on above: Performed By: #### C MP, DLDL, LIPID #### [facility] [address] [place] [address] Dr. Jose Miguel lPummer Sodium [Moles/Vol] 135 mmol/L Critically low 136-145 Th [facility] Comment on above: Performed By: #### C MP, DLDL, LIPID #### [facility] [address] [address] [address] Jose Miguel Plummer Urea nitrogen [Mass/Vol] 20.0 mg/dL Critically high 7.0-18.0 [facility] Comment on above: Performed By: #### C MP, DLDL, LIPID #### [facility] [address] [place] [address] Dr. Jose Miguel Plummer Urea nitrogen/Creatinine [Mass ratio] 18.3 mg/mg Normal [facility] Comment on above: Performed By: #### C MP, DLDL, LIPID #### [facility] [address] [place] [address] Dr. Jose Miguel Plummer CBC AUTO DIFFon 05-25-2022 BASO # 0.1 103/ul Normal 0.0-0.1 [facility] Comment on above: Performed By: #### C BC #### [facility] [address] [place] [address] Dr. Jose Miguel Plummer Basophils/100 WBC (Bld) 1.5 % Normal 0.2-2.0 [facility] Comment on above: Performed By: #### C BC #### [facility] [address] [place] [address] Dr. Jose Miguel Plummer EO # 0.2 103/ul Normal 0.0-0.7 [facility] Comment on above: Performed By: #### C BC #### [facility] [address] [place] [address] Dr. Jose Miguel Plummer Eosinophils/100 WBC (Bld) 2.7 % Normal 0.9-7.0 [facility] Comment on above: Performed By: #### C BC #### [facility] [address] [place] [address] Dr. Jose Miguel Plummer Erythrocyte distribution width (RBC) [Ratio] 14.9 % Normal 11.0-15.0 [facility] Comment on above: Performed By: #### C BC #### [facility] [address] [place] [address] Dr. Jose Miguel Plummer Hematocrit (Bld) [Volume fraction] 50.0 % Critically high 36.0-48.0 [facility] Comment on above: Performed By: #### C BC #### [facility] [address] [address] [address] Jose Miguel Plummer Hemoglobin (Bld) [Mass/Vol] 16.5 g/dL Critically high 12.0-16.0 [facility] Comment on above: Performed By: #### C BC #### [facility] [address] [address] [address] Jose Miguel Plummer IG # 0.04 10e3/ul Critically high 0.00-0.03 [facility] Comment on above: Performed By: #### C BC #### [facility] [address] [place] [address] Dr. Jose Miguel Plummer IG % 0.5 % Normal 0.0-0.5 [facility] Comment on above: Performed By: #### C BC #### [facility] [address] [place] [address] Dr. Jose Miguel Plummer LYMPH # 1.4 103/ul Normal 1.2-3.8 [facility] Comment on above: Performed By: #### C BC #### [facility] [address] [place] [address] Dr. Jose Miguel Plummer Lymphocytes/100 WBC (Bld) 19.1 % Critically low 20.5-60.0 [facility] Comment on above: Performed By: #### C BC #### [facility] [address] [place] [address] Dr. Jose Miguel Plummer MANUAL DIFF REQ NO Normal [facility] Comment on above: Performed By: #### C BC #### [facility] [address] [place] [address] Dr. Jose Miguel Plummer MCH (RBC) [Entitic mass] 29.9 pg Normal 26.7-34.0 [facility] Comment on above: Performed By: #### C BC #### [facility] [address] [place] [address] Dr. Jose Miguel Plummer MCHC (RBC) [Mass/Vol] 33.0 g/dL Normal 29.9-35.2 [facility] Comment on above: Performed By: #### C BC #### [facility] [address] [address] [address] Jose Miguel Plummer MCV (RBC) [Entitic vol] 90.7 fL Normal 81.0-99.0 [facility] Comment on above: Performed By: #### C BC #### [facility] [address] [address] [address] Jose Miguel Plummer MONO # 1.0 103/ul Critically high 0.3-0.8 [facility] Comment on above: Performed By: #### C BC #### [facility] [address] [address] [address] Jose Miguel Plummer Monocytes/100 WBC (Bld) 14.0 % Critically high 1.7-12.0 [facility] Comment on above: Performed By: #### C BC #### [facility] [address] [place] [address] Dr. Jose Miguel Plummer NEUT # 4.6 103/ul Normal 1.4-6.5 [facility] Comment on above: Performed By: #### C BC #### [facility] [address] [place] [address] Dr. Jose Miguel Plummer Neutrophils/100 WBC (Bld) 62.2 % Normal 43.0-75.0 [facility] Comment on above: Performed By: #### C BC #### [facility] [address] [address] [address] Jose Miguel Plummer Platelet mean volume (Bld) [Entitic vol] 10.8 fL Normal 9.5-13.5 [facility] Comment on above: Performed By: #### C BC #### [facility] [address] [address] [address] Jose Miguel Plummer PLT 189 103/ul Normal 150-450 [facility] Comment on above: Performed By: #### C BC #### [facility] [address] [address] [address] Jose Miguel Plummer RBC 5.51 106/ul Critically high 4.20-5.40 [facility] Comment on above: Performed By: #### C BC #### [facility] [address] [address] [address] Jose Miguel Plummer WBC 7.4 103/ul Normal 4.0-11.0 [facility] Comment on above: Performed By: #### C BC #### [facility] [address] [address] [address] Jose Miguel Plummer GLYCOHEMOGLOBIN A1Con 2021 ADA RECOMMENDATION SEE BELOW Normal [facility] Comment on above: Result Comment: ADA RECOMMENDED LIMIT 4.0 - 6.0 ADA THERAPEUTIC TARGET < 7.0 ACTION SUGGESTED > 7.0 Performed By: #### A 1C #### [facility] [address] [address] [address] Jose Miguel Plummer Glucose [Mass/Vol] 160 mg/dL Normal [facility] Comment on above: Performed By: #### A 1C #### [facility] [address] [place] [address] Dr. Jose Miguel Plummer HbA1c (Bld) [Mass fraction] 7.2 % Critically high 4.5-6.2 [facility] Comment on above: Performed By: #### A 1C #### [facility] [address] [place] [address] Dr. Jose Miguel Plummer LIPID PROFILEon 05-25-2022 CHOL-HDL RATIO NORM SEE BELOW Normal [facility] Comment on above: Result Comment: 3.3 - 4.4 LOW RISK 4.4 - 7.1 AVERAGE RISK 7.1 - 11.0 MODERATE RISK >11.0 HIGH RISK Performed By: #### L IPID, CMP #### [facility] [address] [place] [address] Dr. Jose Miguel Plummer Cholesterol [Mass/Vol] 155 mg/dL Normal <=200 [facility] Comment on above: Performed By: #### L IPID, CMP #### [facility] [address] [address] [address] Jose Miguel Plummer Cholesterol in HDL [Mass/Vol] 35 mg/dL Critically low 40-60 [facility] Comment on above: Performed By: #### L IPID, CMP #### [facility] [address] [address] [address] Jose Miguel Plummer Cholesterol in LDL [Mass/Vol] 40.8 mg/dL Normal [facility] Comment on above: Performed By: #### L IPID, CMP #### [facility] [address] [place] [address] Dr. Jose Miguel Plummer Cholesterol.total/Cho lesterol in HDL [Mass ratio] 4.4 {ratio} Normal [facility] Comment on above: Performed By: #### L IPID, CMP #### [facility] [address] [place] [address] Dr. Jose Miguel Plummer HDL NORMAL > or = 60 mg/dl - LOW CARDIOVASCULAR RISK <40 mg/dl - HIGH CARDIOVASCULAR RISK Normal [facility] Comment on above: Performed By: #### L IPID, CMP #### [facility] [address] [place] [address] Dr. Jose Miguel Plummer LDL CALC NORMAL SEE BELOW Normal [facility] Comment on above: Result Comment: <100 mg/dl OPTIMAL 100 - 129 mg/dl NEAR OR ABOVE OPTIMAL 130 - 159 mg/dl BORDERLINE HIGH 160 - 189 mg/dl HIGH >190 mg/dl VERY HIGH Performed By: #### L IPID, CMP #### [facility] [address] [place] [address] Dr. Jose Miguel Plummer Triglyceride [Mass/Vol] 396 mg/dL Critically high <=150 [facility] Comment on above: Performed By: #### L IPID, CMP #### [facility] [address] [place] [address] Dr. Jose Miguel Plummer VLDL CALC 79.2 mg/dL Normal [facility] Comment on above: Performed By: #### L IPID, CMP #### [facility] [address] [address] [address] Jose Miguel Plummer PROF 14(COMP METB)on 022 Albumin [Mass/Vol] 3.4 g/dL Normal 3.4-5.0 [facility] Comment on above: Performed By: #### L IPID, CMP #### [facility] [address] [place] [address] Dr. Jose Miguel Plummer Albumin/Globulin [Mass ratio] 0.8 {ratio} Normal [facility] Comment on above: Performed By: #### L IPID, CMP #### [facility] [address] [address] [address] Jose Miguel Plummer ALP [Catalytic activity/Vol] 82 U/L Normal 46-116 [facility] Comment on above: Performed By: #### L IPID, CMP #### [facility] [address] [address] [address] Jose Miguel Plummer ALT [Catalytic activity/Vol] 13 U/L Critically low 14-59 [facility] Comment on above: Performed By: #### L IPID, CMP #### [facility] [address] [place] [address] Dr. Jose Miguel Plummer Anion gap [Moles/Vol] 9.8 mmol/L Normal [facility] Comment on above: Performed By: #### L IPID, CMP #### [facility] [address] [place] [address] Dr. Jose Miguel Plummer AST [Catalytic activity/Vol] 10 U/L Critically low 15-37 [facility] Comment on above: Performed By: #### L IPID, CMP #### [facility] [address] [place] [address] Dr. Jose Miguel Plummer Bilirubin [Mass/Vol] 0.6 mg/dL Normal 0.2-1.0 [facility] Comment on above: Performed By: #### L IPID, CMP #### [facility] [address] [address] [address] Jose Miguel Plummer Calcium [Mass/Vol] 9.5 mg/dL Normal 8.5-10.1 [facility] Comment on above: Performed By: #### L IPID, CMP #### [facility] [address] [place] [address] Dr. Jose Miguel Plummer Chloride [Moles/Vol] 105 mmol/L Normal 98-107 [facility] Comment on above: Performed By: #### L IPID, CMP #### [facility] [address] [place] [address] Dr. Jose Miguel Plummer CO2 [Moles/Vol] 29.4 mmol/L Normal 21.0-32.0 [facility] Comment on above: Performed By: #### L IPID, CMP #### [facility] [address] [address] [address] Jose Miguel Plummer Creatinine [Mass/Vol] 1.01 mg/dL Normal 0.55-1.02 [facility] Comment on above: Performed By: #### L IPID, CMP #### [facility] [address] [address] [address] Jose Miguel Plummer EGFR-AF CONGOLESE >60 Normal >=60 [facility] Comment on above: Performed By: #### L IPID, CMP #### [facility] [address] [address] [address] Jose Miguel Plummer EGFR-NON AF CONGOLESE 55 mL/min/1.73m2 Critically low >=60 [facility] Comment on above: Performed By: #### L IPID, CMP #### [facility] [address] [address] [address] Jose Miguel Plummer Globulin (S) [Mass/Vol] 4.2 g/dL Normal [facility] Comment on above: Performed By: #### L IPID, CMP #### [facility] [address] [address] [address] Jose Miguel Plummer Glucose [Mass/Vol] 125 mg/dL Critically high 74-106 [facility] Comment on above: Performed By: #### L IPID, CMP #### [facility] [address] [address] [address] Jose Miguel Plummer Potassium [Moles/Vol] 4.2 mmol/L Normal 3.5-5.1 [facility] Comment on above: Performed By: #### L IPID, CMP #### [facility] [address] [address] [address] Jose Miguel Plummer Protein [Mass/Vol] 7.6 g/dL Normal 6.4-8.2 [facility] Comment on above: Performed By: #### L IPID, CMP #### [facility] [address] [address] [address] Jose Miguel Plummer Sodium [Moles/Vol] 140 mmol/L Normal 136-145 [facility] Comment on above: Performed By: #### L IPID, CMP #### [facility] [address] [address] [address] Jose Miguel Plummer Urea nitrogen [Mass/Vol] 13.0 mg/dL Normal 7.0-18.0 [facility] Comment on above: Performed By: #### L IPID, CMP #### [facility] [address] [address] [address] Jose Miguel Plummer Urea nitrogen/Creatinine [Mass ratio] 12.9 mg/mg Normal [facility] Comment on above: Performed By: #### L IPID, CMP #### [facility] [address] [address] [address] Jose Miguel Plummer XR WRIST RT [...] by: SHADI CARRERO Date: 2022-01-08 08:33 Normal [facility] Encounters Encounter Date Encounter Type Care Provider Facility Start: 09-01-2023 End: 09-01-2023 ambulatory QUINTERO FAWWAD Not Available Start: 11-23-2022 End: 11-23-2022 ambulatory QUINTERO H FAWWAD Facility:[facility] Start: 05-25-2022 End: 05-26-2022 ambulatory QUINTERO H FAWWAD Facility:[facility] Start: 02-04-2022 End: 02-04-2022 ambulatory QUINTERO H FAWWAD Facility:[facility] Start: 01-08-2022 End: 01-08-2022 ambulatory QUINTERO H FAWWAD Facility:[facility] Payers Date Payer Category Payer Medicare [id number] 1961 Medicare [id number] 1961 Medicare [id number] 1955 Unknown [id number] [id number] 1955 Unknown [id number] [id number] 1955 Unknown [id number] [id number] 1955 Unknown [id number] [id number] 1955 Unknown [id number] Summary Purpose Family History No Family History Records FoundNo Family History Records Found Advance Directives No Advanced Directives Records FoundNo Advanced Directives Records Found Additional Source Comments INFORMATION SOURCE (unrecogn ized section and content) DATE CREATED AUTHOR 11/25/2022 [facility] DATE CREATED AUTHOR 'S GUILLAUME ATJEREMIAH 09/03/2023 [facility] FOR RECORDS PERTAINING TO PATIENTS WHO [...] BE BASED ON THE PRIMARY CLINICAL RECORDS. [facility] [employer] provides no warranty or guarantee of the accuracy or completeness of information in this document.
--- NOTE | 2024-03-15 09:11 | ED_ITS ---
HPI HPI - General Adult General Chief complaint: Abdominal Pain Stated complaint: RIGHT ABDOMINAL PAIN Time Seen by Provider: 03/15/24 09:06 Source: patient and family Mode of arrival: walk-in History of Present Illness HPI narrative: This patient complaining of pain in her right lateral chest wall radiating underneath her right breast area. She said yesterday the discomfort was over underneath her left breast and lateral chest wall and it went away in that area and now it is over on her right side. It is made worse by moving twisting and turning. She still continues to smoke cigarettes. She does not use any oxygen or inhalers at home. She has not had a change in her sputum production. She has not had a change in her breathing habits she has not had severe coughing or fever or purulent sputum at home. She has had coronary bypass grafting in the past. She says she does not have any heaviness or discomfort in the sternum area it is off to the side. Related Data Home Medications ?Medication ?Instructions ?Recorded ?Confirmed dapagliflozin propanediol 10 mg 10 mg PO DAILY 08/19/23 03/15/24 tablet (Farxiga) glipizide 5 mg tablet, extended 5 mg PO DAILY 08/19/23 03/15/24 release 24 hr lisinopril 10 mg tablet 10 mg PO DAILY 08/19/23 03/15/24 omeprazole 40 mg capsule,delayed 40 mg PO DAILY 08/19/23 03/15/24 release rosuvastatin 40 mg tablet 40 mg PO DAILY 08/19/23 03/15/24 escitalopram oxalate 10 mg tablet 10 mg PO QAM 03/15/24 03/15/24 ezetimibe 10 mg tablet 10 mg PO DAILY 03/15/24 03/15/24 fenofibrate nanocrystallized 145 145 mg PO DAILY 03/15/24 03/15/24 mg tablet metformin 500 mg tablet 500 mg PO BID 03/15/24 03/15/24 metoprolol succinate 100 mg 100 mg PO DAILY 03/15/24 03/15/24 tablet,extended release 24 hr Allergies Allergy/AdvReac Type Severity Reaction Status Date / Time No Known Drug Allergies Allergy Verified 08/19/23 11:32 Opioid HPI Opioid Management Most Recent Opioid Data: Last Pain Scale 10 08/19/23 11:48 PFSH PFS Medical History (Updated 03/15/24 @ 10:37 by Júnior Hurtado MD) Diabetes mellitus ?E11.9 - Type 2 diabetes mellitus without complications (ICD-10) GERD (gastroesophageal reflux disease) ?K21.9 - Gastro-esophageal reflux disease without esophagitis (ICD-10) High cholesterol ?E78.00 - Pure hypercholesterolemia, unspecified (ICD-10) Hypertension ?I10 - Essential (primary) hypertension (ICD-10) Social History Smoking status: Current every day smoker Exam Narrative Exam Narrative: Patient is awake alert [place] x 3 very pleasant and noted stress is. Denies any shortness of breath. Movement makes the discomfort worse. She is afebrile and her pulse oximetry is normal. Blood pressure 143/88 overall she does not appear ill or toxic orientation cognition and mental status are all normal. She points to the posterior lateral right chest wall as the area of most discomfort. I have examined the skin and make sure there is no skin lesions or evidence of shingles and there is none. The breast was elevated there is no evidence of cellulitis trauma injury. There is no subcutaneous emphysema. Breath sounds are good bilaterally there is no abnormality on the left chest wall. Heart sounds are normal with no S3-S4 or murmur. Extremities have no peripheral edema. Skin is warm and dry with no pallor or diaphoresis Constitutional Vital Signs, click to edit/add: Last Vital Signs Temp 98.2 F 03/15/24 08:45 Pulse 70 03/15/24 08:45 Resp 18 03/15/24 08:45 BP 143/88 H 03/15/24 08:45 Pulse Ox 97 03/15/24 08:45 O2 Del Method Room Air 03/15/24 08:52 Course Vital Signs Vital signs: Vital Signs Temperature 98.2 F 03/15/24 08:45 Pulse Rate 70 03/15/24 08:45 Respiratory Rate 18 03/15/24 08:45 Blood Pressure 143/88 H 03/15/24 08:45 Pulse Oximetry 97 03/15/24 08:45 Oxygen Delivery Method Room Air 03/15/24 08:45 Temperature 98.2 F 03/15/24 08:45 Pulse Rate 70 03/15/24 08:45 Respiratory Rate 18 03/15/24 08:45 Blood Pressure 143/88 H 03/15/24 08:45 Pulse Oximetry 97 03/15/24 08:45 Oxygen Delivery Method Room Air 03/15/24 08:52 Medical Decision Making MDM Narrative Medical decision making narrative: Patient's symptoms and physical examination suggest musculoskeletal. Her cardiac troponin EKG chest x-ray are all normal. Symptomatic advice and care were advised with [id number] analgesics Discharge Plan Discharge Stand Alone Forms: Portal Instructions Chief Complaint: Abdominal Pain Clinical Impression: Right-sided chest wall pain Patient Disposition: Home, Self-Care Time of Disposition Decision: 10:37 Prescriptions / Home Meds: No Action dapagliflozin propanediol [Farxiga] 10 mg tablet 10 mg PO DAILY glipizide 5 mg tablet extended release 24hr 5 mg PO DAILY lisinopril 10 mg tablet 10 mg PO DAILY omeprazole 40 mg capsule,delayed release(DR/EC) 40 mg PO DAILY rosuvastatin 40 mg tablet 40 mg PO DAILY escitalopram oxalate 10 mg tablet 10 mg PO QAM ezetimibe 10 mg tablet 10 mg PO DAILY fenofibrate nanocrystallized 145 mg tablet 145 mg PO DAILY metformin 500 mg tablet 500 mg PO BID metoprolol succinate 100 mg tablet extended release 24 hr 100 mg PO DAILY Print Language: Citizen Of [place] Additional Instructions: May use [id number] NSAIDs warm compresses, follow-up with your primary care doctor Referrals: Shaikh Esteban MD [Primary Care Provider] - 1 week
--- NOTE | 2024-03-15 09:13 | XR_ITS ---
The [address] [address] Patient Name: DAVID ANTHONY MRN: [id number] date: 1955 Sex: F Assigned Patient Location: ER Current Patient Location: ER Accession/Order Number: [id number] Exam Date: 03/15/2024 09:20 Report Date: 03/15/2024 09:41 At the request of: SHIRA VALENZUELA Procedure: XR chest 2V EXAM: Chest x-ray HISTORY: . Right lateral chest pain . COMPARISON: 09/28/2015 TECHNIQUE: Frontal and lateral chest FINDINGS: Heart is upper limits of normal in size. There is slight prominence of the bronchovascular markings. Lungs are free of focal infiltrates. There is a linear area of increased density in the left midlung field consistent with platelike atelectasis or scarring. Atherosclerotic changes of the thoracic aorta are noted. Median sternotomy sutures are noted. XR/XR chest 2V IMPRESSION: 1 cardiac enlargement. 2. Prominence of the bronchovascular markings. Findings could be chronic. Bronchitis or an interstitial pneumonitis cannot be excluded. 3. Linear density in the left midlung field consistent with an area of platelike atelectasis versus scarring. Electronically authenticated by: SHANA RIVERA Date: 03/15/2024 09:41
[2024-03-15] MEDS: 0.9 % SODIUM CHLORIDE 1,000 ML 100 ML IV (09:28)
[2024-03-15 09:37] LABS: Hematocrit 50.2 % (36.0-48.0); Hemoglobin 17.3 g/dL (12.0-16.0); Mean Corpuscular HGB Conc 34.5 g/dL (29.9-35.2); Mean Corpuscular Hemoglobin 30.5 pg (26.7-34.0); Mean Corpuscular Volume 88.4 fL (81.0-99.0); Mean Platelet Volume 10.1 fL (9.5-13.5); Platelet Count 210 10^3/uL (150-450); Red Blood Count 5.68 10^6/uL (4.20-5.40); Red Cell Distribution Width 14.5 % (11.0-15.0); White Blood Count 11.7 10^3/uL (4.0-11.0)
[2024-03-15 09:50] LABS: Alanine Aminotransferase 12 U/L (14-59); Albumin Globulin Ratio 0.7; Albumin Level 3.2 g/dL (3.4-5.0); Alkaline Phosphatase 66 U/L (46-116); Anion Gap 14.8; Aspartate Amino Transferase 16 U/L (15-37); BUN Creatinine Ratio 17.6; Calcium 9.2 mg/dL (8.5-10.1); Carbon Dioxide 25.9 mmol/L (21.0-32.0); Chloride 101 mmol/L (98-107); Estimated GFR (African America 49 (>=60); Estimated GFR (Non-African Ame 40 (>=60); Globulin 4.4 g/dL; Glucose 116 mg/dL (74-106); Potassium 3.7 mmol/L (3.5-5.1); Sodium 138 mmol/L (136-145); Total Protein 7.6 g/dL (6.4-8.2); Troponin I High Sensitivity 13.5 pg/mL (4.0-51.3)
[2024-03-15 10:21] LABS: Band Neutrophils Absolute 0.1 10^3/uL (0.0-0.3); Lymphocytes Absolute Manual 2.45 10^3/uL (1.20-3.80); Segmented Neut Absolute Manual 7.83 10^3/uL (1.4-6.5)
[2024-03-15 10:22] LABS: Eosinophils Absolute Manual 0.11 10^3/uL (0.00-0.70); Monocytes Absolute Manual 1.17 10^3/uL (0.30-0.80)
[2024-03-15 10:37] LABS: D Dimer 3.95 mg/L FEU (<=0.59)
--- NOTE | 2024-03-15 11:40 | CT_ITS ---
The [address] [address] Patient Name: DAVID ANTHONY MRN: [id number] date: 1955 Sex: F Assigned Patient Location: ER Current Patient Location: ER Accession/Order Number: [id number] Exam Date: 03/15/2024 11:30 Report Date: 03/15/2024 12:01 At the request of: SHIRA HURTADO Procedure: CT angio chest EXAMINATION: CT angio chest HISTORY: Right chest wall/elevated D-dimer COMPARISON: No relevant comparison available. TECHNIQUE: Multi-planar CT images were created with IV contrast. Axial, Coronal, and Sagittal images. Dose reduction techniques were achieved by using automated exposure control and/or adjustment of mA and/or kV according to patient size and/or use of iterative reconstruction technique. FINDINGS: LUNGS: Scattered solid and groundglass pulmonary nodules the largest is bilobed in the right upper lobe marginating the major fissure best seen on sagittal image 79 and axial image 43 overall measuring 2.1 x 0.9 cm in size. Some adjacent bullous change is noted. Area of subpleural groundglass infiltrate measuring 2.5 x 1.5 cm right lower lobe axial image 55. Additional punctate pulmonary nodules. PLEURA: No mass, effusion, or pneumothorax. VASCULATURE: The post contrast opacification of the central pulmonary arterial tree. Filling defects are demonstrated in the right lower lobe segmental pulmonary arteries most significant to the lateral basilar segment, axial image 53. Additional filling defects are suspected in the left lower lobe subsegmental pulmonary arteries DORIS: No mass or adenopathy. MEDIASTINUM: No mass or adenopathy. CARDIAC: No enlargement. Normal intraventricular septum. No pericardial effusion Coronary arteries: Heavy calcifications AORTA: No aortic aneurysm. Calcific atherosclerosis CHEST WALL: No mass or axillary adenopathy. BONES: No bone lesion or fracture. Median sternotomy wires LIMITED ABDOMEN: No suspicious findings. Limited images of the upper abdomen. OTHER: Findings discussed with the Dr. Hurtado by telephone 12:[address]/CT angio chest IMPRESSION: Bilateral lower lobe pulmonary thromboembolic disease most significant to the right lower lobe lateral basilar segmental artery No evidence of right ventricular strain Electronically authenticated by: SHANA GILES Date: 03/15/2024 12:01
--- NOTE | 2024-03-15 12:00 | ECG_ITS ---
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
[2024-03-15] MEDS: ENOXAPARIN SODIUM 80 MG/0.8 ML SYRINGE 70 MG SUBQ (12:33)
[2024-03-15 17:46] LABS: Hematocrit 47.5 % (36.0-48.0); Hemoglobin 16.1 g/dL (12.0-16.0); Mean Corpuscular HGB Conc 33.9 g/dL (29.9-35.2); Mean Corpuscular Hemoglobin 30.3 pg (26.7-34.0); Mean Corpuscular Volume 89.3 fL (81.0-99.0); Mean Platelet Volume 9.8 fL (9.5-13.5); Platelet Count 200 10^3/uL (150-450); Red Blood Count 5.32 10^6/uL (4.20-5.40); Red Cell Distribution Width 14.6 % (11.0-15.0); White Blood Count 11.6 10^3/uL (4.0-11.0)
[2024-03-15 18:02] LABS: Glucometer 107 mg/dL (74-106)
[2024-03-15 18:23] LABS: Lymphocytes Absolute Manual 1.62 10^3/uL (1.20-3.80); Monocytes Absolute Manual 1.16 10^3/uL (0.30-0.80); Segmented Neut Absolute Manual 8.81 10^3/uL (1.4-6.5)
--- NOTE | 2024-03-15 20:27 | P.HP_ITS ---
HPI H&P: HPI History of Present Illness Chief complaint: BILATERAL PE Narrative: Patient presented to the emergency room with left-sided chest pain, somewhat reproducible, evaluation was really unremarkable until decided to check a D- dimer that was positive, CTA of chest shows bilateral lower lobe pulmonary embolism. No heart strain. When I saw patient up on the medical surgical floor, he was resting comfortably, no conversational dyspnea. Chest pain that she had previously has essentially resolved at this point. Opioid HPI Opioid Management Most Recent Pain and Opioid Data: Last Pain Scale 5 03/15/24 18:00 Last Pain Assessment 03/15/24 18:00 Last ORT Total Score 0 03/15/24 13:03 Last ORT Risk Category Low Risk 03/15/24 13:03 Review of Systems ROS Status of ROS 10 or more systems reviewed and unremark able except as noted in history and below [facility] Medical History (Updated 03/15/24 @ 12:10 by Júnior Hurtado MD) Diabetes mellitus ?E11.9 - Type 2 diabetes mellitus without complications (ICD-10) GERD (gastroesophageal reflux disease) ?K21.9 - Gastro-esophageal reflux disease without esophagitis (ICD-10) High cholesterol ?E78.00 - Pure hypercholesterolemia, unspecified (ICD-10) Hypertension ?I10 - Essential (primary) hypertension (ICD-10) Social History Smoking status: Current every day smoker Highest level of school completed/degree received: high school graduate Meds Home Medications and Allergies Home Medications ?Medication ?Instructions ?Recorded ?Confirmed ?Type dapagliflozin propanediol 10 mg 10 mg PO DAILY 08/19/23 03/15/24 History tablet (Farxiga) glipizide 5 mg tablet, extended 5 mg PO DAILY 08/19/23 03/15/24 History release 24 hr lisinopril 10 mg tablet 10 mg PO DAILY 08/19/23 03/15/24 History omeprazole 40 mg capsule,delayed 40 mg PO DAILY 08/19/23 03/15/24 History release rosuvastatin 40 mg tablet 40 mg PO DAILY 08/19/23 03/15/24 History escitalopram oxalate 10 mg tablet 10 mg PO QAM 03/15/24 03/15/24 History ezetimibe 10 mg tablet 10 mg PO DAILY 03/15/24 03/15/24 History fenofibrate nanocrystallized 145 145 mg PO DAILY 03/15/24 03/15/24 History mg tablet metformin 500 mg tablet 500 mg PO BID 03/15/24 03/15/24 History metoprolol succinate 100 mg 100 mg PO DAILY 03/15/24 03/15/24 History tablet,extended release 24 hr Allergies Allergy/AdvReac Type Severity Reaction Status Date / Time No Known Drug Allergies Allergy Verified 08/19/23 11:32 Exam Constitutional Vital Signs, click to edit/add: Last Vital Signs Temp 97.8 F 03/15/24 16:10 Pulse 64 03/15/24 16:10 Resp 18 03/15/24 16:10 BP 132/82 03/15/24 16:10 Pulse Ox 91 L 03/15/24 16:10 O2 Del Method Room Air 03/15/24 16:10 Documenting provider has reviewed patient's vital signs: yes Common normals: no apparent distress Chest Common normals: inspection of chest normal Respiratory Common normals: normal respiratory effort Cardio Common normals: regular rate and regular rhythm GI Common normals: Normal to inspection, nondistended, normoactive bowel sounds present Extremity Common normals: normal to inspection and full ROM Results Labs Labs: Short CBC 03/15/24 03/15/24 Range/Units 09:20 17:35 WBC 11.7 H 11.6 H (4.0-11.0) 10^3/uL Hgb 17.3 H 16.1 H (12.0-16.0) g/dL Hct 50.2 H 47.5 (36.0-48.0) % Plt Count 210 200 (150-450) 10^3/uL BMP 03/15/24 09:20 Sodium 138 Potassium 3.7 Chloride 101 Carbon Dioxide 25.9 BUN 23.0 H Creatinine 1.31 H Glucose 116 H Calcium 9.2 Liver Function 03/15/24 Range/Units 09:20 Total Bilirubin 1.0 (0.2-1.0) mg/dL AST 16 (15-37) U/L ALT 12 L (14-59) U/L Alkaline Phosphatase 66 (46-116) U/L Albumin 3.2 L (3.4-5.0) g/dL Assessment and Plan Assessment and Plan (1) Bilateral pulmonary embolism: Plan Chest pain related to bilateral pulmonary embolism without heart strain and no hypoxia. Concern for risk of progression so observe patient overnight. Start patient on Eliquis after getting loading dose of Lovenox. Currently patient stable without complaints NIDDM-insulin sliding scale COPD-mild no current active symptoms Hypertension with hypercholesterolemia-continue with home medications Admission status: Patient has bilateral pulmonary embolism but without heart strain and hypoxia, watch patient overnight after dose of Lovenox and starting Eliquis, greater than 50% chance she will be discharged home tomorrow. Observation status.
[2024-03-15] MEDS: APIXABAN 5 MG TABLET 10 MG PO (23:18)
[2024-03-16] VITALS (9 sets, daily range): BP systolic 116–152; BP diastolic 61–83; PULSE 57–66; TEMP 36.7–36.8; O2SAT 90–96
[2024-03-16 05:00] LABS: BUN Creatinine Ratio 17.9; Calcium 9.1 mg/dL (8.5-10.1); Carbon Dioxide 26.5 mmol/L (21.0-32.0); Chloride 104 mmol/L (98-107); Estimated GFR (African America >60 (>=60); Estimated GFR (Non-African Ame 51 (>=60); Glucose 54 mg/dL (74-106); Potassium 4.5 mmol/L (3.5-5.1); Sodium 138 mmol/L (136-145)
[2024-03-16] MEDS: OMEPRAZOLE 40 MG CAPSULE.DR PO (06:05)
[2024-03-16 08:41] LABS: Glucometer 64 mg/dL (74-106)
[2024-03-16] MEDS: FENOFIBRATE 54 MG TABLET 162 MG PO (09:24)
[2024-03-16] MEDS: METOPROLOL SUCCINATE 100 MG TAB.ER.24H PO (09:24)
[2024-03-16] MEDS: GLIPIZIDE 5 MG TAB.ER.24 PO (09:24)
[2024-03-16] MEDS: APIXABAN 5 MG TABLET 10 MG PO (09:24)
[2024-03-16] MEDS: EZETIMIBE 10 MG TABLET PO (09:24)
[2024-03-16] MEDS: ESCITALOPRAM 10 MG TABLET PO (09:24)
[2024-03-16] MEDS: LISINOPRIL 10 MG TABLET PO (09:25)
--- NOTE | 2024-03-16 09:33 | SWNOTE1 ---
SW met with pt to discuss dc needs. Pt was up and ambulatory taking her tray to the counter. Pt is independent and voices no needs at discharge. Medicare Outpatient Observation Notice reviewed and discussed with patient. Pt. verbalized understanding and signed the form. Original given to patient and copy placed in patient?s chart.
--- NOTE | 2024-03-16 11:12 | P.DS_ITS ---
DS: Providers Provider Date of admission: 03/15/24 12:43 Primary care physician: Shaikh Carlito MD Consults: 03/15/24 16:56 Consult to Pharmacy Routine Consulting Provider: Reason for consultation: Please [place] me when Med Rec is Updated Has provider been notified: No Occupational Therapy Eval and Treat Routine Reason for consultation: Only if needed for Rehab Has provider been notified: No Physical Therapy Eval and Treat Routine Reason for consultation: Eval and Treat Has provider been notified: No DS: Diagnosis Discharge Diagnosis (1) Bilateral pulmonary embolism: Plan Chest pain related to bilateral pulmonary embolism without heart strain and no hypoxia. Stable at the time of discharge NIDDM-insulin sliding scale COPD-mild no current active symptoms Hypertension with hypercholesterolemia-continue with home medications Admission status: Patient has bilateral pulmonary embolism but without heart strain and hypoxia, watch patient overnight after dose of Lovenox and starting Eliquis, greater than 50% chance she will be discharged home tomorrow. Observation status. ? DS: Summary Hospital Course Hospital Course: Patient presented to the emergency room with increasing shortness of breath. Initial workup was all negative. D-dimer was then checked which showed significantly positive. CTA confirmed bilateral lower lobe pulmonary emboli. Uncertain source. Patient was observed overnight after being placed on Eliquis. She had no issues overnight. She does still have some pleuritic type chest pain. But she feels overall improved. Ambulating without hypoxia. CTA without heart strain. Will defer on echocardiogram at this time. Since she is overall improved. Medication status. Discharge patient to home in improving condition. Status at Discharge Overall status at discharge: patient is back to baseline Time Spent with Patient Time attestation: Total time spent providing and/or coordinating discharge services: Time spent: greater than 30 minutes Exam Constitutional Vital Signs, click to edit/add: Last Vital Signs Temp 98.2 F 03/16/24 09:07 Pulse 66 03/16/24 10:38 Resp 18 03/16/24 09:07 BP 141/83 03/16/24 09:07 Pulse Ox 92 L 03/16/24 09:07 O2 Del Method Room Air 03/16/24 09:07 Documenting provider has reviewed patient's vital signs: yes Common normals: no apparent distress Chest Common normals: inspection of chest normal Respiratory Common normals: normal respiratory effort Cardio Common normals: regular rate and regular rhythm GI Common normals: Normal to inspection, nondistended, normoactive bowel sounds present Extremity Common normals: normal to inspection and full ROM DS: Data Data Completed and Pending Labs on day of discharge: Labs from last 24 hours 03/16/24 03/16/24 03/15/24 08:40 04:00 18:02 WBC RBC Hgb Hct MCV MCH MCHC RDW Plt Count MPV Seg Neuts % (Manual) Lymphocytes % (Manual) Monocytes % (Manual) Eosinophils % (Manual) Basophils % (Manual) Neutrophils # (Manual) Lymphocytes # (Manual) Monocytes # (Manual) Eosinophils # (Manual) Basophils # (Manual) Sodium 138 Potassium 4.5 Chloride 104 Carbon Dioxide 26.5 Anion Gap 12.0 BUN 19.0 H Creatinine 1.06 H Est GFR ( Amer) >60 Est GFR (Non-Af Amer) 51 L BUN/Creatinine Ratio 17.9 Glucose 54 L Calcium 9.1 Troponin I High Sens 17.0 NT-Pro-B Natriuret Pep 1470.0 H* POC Glucose 64 L 107 H 03/15/24 17:35 WBC 11.6 H RBC 5.32 Hgb 16.1 H Hct 47.5 MCV 89.3 MCH 30.3 MCHC 33.9 RDW 14.6 Plt Count 200 MPV 9.8 Seg Neuts % (Manual) 76.0 Lymphocytes % (Manual) 14.0 L Monocytes % (Manual) 10.0 Eosinophils % (Manual) 0.0 L Basophils % (Manual) 0.0 L Neutrophils # (Manual) 8.81 H Lymphocytes # (Manual) 1.62 Monocytes # (Manual) 1.16 H Eosinophils # (Manual) 0.00 Basophils # (Manual) 0.00 Sodium Potassium Chloride Carbon Dioxide Anion Gap BUN Creatinine Est GFR ( Amer) Est GFR (Non-Af Amer) BUN/Creatinine Ratio Glucose Calcium Troponin I High Sens NT-Pro-B Natriuret Pep POC Glucose Discharge Plan Discharge Disposition: Home, Self-Care Discharge Medications: New Eliquis 5 mg Tablet 10 mg PO BID Qty: 60 11RF Rx Instructions: 2 po BID for 6 days then 1 po BID Continued dapagliflozin propanediol [Farxiga] 10 mg tablet 10 mg PO DAILY glipizide 5 mg tablet extended release 24hr 5 mg PO DAILY lisinopril 10 mg tablet 10 mg PO DAILY omeprazole 40 mg capsule,delayed release(DR/EC) 40 mg PO DAILY rosuvastatin 40 mg tablet 40 mg PO DAILY escitalopram oxalate 10 mg tablet 10 mg PO QAM ezetimibe 10 mg tablet 10 mg PO DAILY fenofibrate nanocrystallized 145 mg tablet 145 mg PO DAILY metformin 500 mg tablet 500 mg PO BID metoprolol succinate 100 mg tablet extended release 24 hr 100 mg PO DAILY Activity: resume usual activities as tolerated Diet: advance to your usual diet Print Language: Slovak Patient Instructions: Apixaban (By mouth), Pulmonary Embolism (DC) Forms: Portal Instructions Follow Up Appointments: March 21 @ 9:15am with Dr. De Souza [phone] [id number] [facility] Discharge Date/Time: 03/16/24 11:08
--- NOTE | 2024-03-19 11:42 | CM.DCFOLLOWU ---
1st attempt 03/19/24
--- NOTE | 2024-03-20 15:48 | CM.DCFOLLOWU ---
2nd attempt 03/20/24
--- NOTE | 2024-03-21 15:13 | CM.DCFOLLOWU ---
3rd attempt 03/21/24
== END 2024-03-16 11:08 | disposition home or self-care (01) ==
LOC: ER 12:10 → MS 12:50
PROVIDERS: Admitting Provider Family Medicine; Emergency Provider Emergency Medicine Emergency Medical Services; PCP Internal Medicine; Visit Provider Family Medicine
DX: I26.99 Other pulmonary embolism without acute cor pulmonale (principal); R07.9 Chest pain, unspecified; E11.22 Type 2 diabetes mellitus with diabetic chronic kidney disease; N18.31 Chronic kidney disease, stage 3a; J44.9 Chronic obstructive pulmonary disease, unspecified; I12.9 Hypertensive chronic kidney disease with stage 1 through stage 4 chronic kidney disease, or unspecified chronic kidney disease; E78.00 Pure hypercholesterolemia, unspecified; R09.02 Hypoxemia; Z95.1 Presence of aortocoronary bypass graft; F17.210 Nicotine dependence, cigarettes, uncomplicated
CPT/HCPCS: 36415; 71046; 71275; 80048; 80053; 82948; 83036; 83605; 83880; 84484; 85007; 85027; 85378; 93005; 94761; 96372; 99285; G0378; J1650; Q9967

== ENCOUNTER 2024-06-29 09:40 | Outpatient (OUT) | payer MEDICARE, SELFPAY ==
--- OUTSIDE RECORDS SUMMARY | 2024-06-29 09:45 | XMS_ITS | CCD ---
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) drug therapy; Translations: [OTH INTERMEDIATE CURRENT DRUG THERAPY] Onset: 01-11-2022 Episodic Other aftercare (1 source) [facility] (current) use of oral hypoglycemic drugs; Translations: [RN PHYSICIAN OFFICE USE ORAL HYPOGLYCEMIC DX] Onset: 01-11-2022 Episodic Other aftercare (1 source) 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 Jose Miguel Plummer DLDL NORMAL SEE BELOW Normal [facility] Comment on above: Result Comment: <100 mg/dl OPTIMAL 100 - 129 mg/dl NEAR OR ABOVE OPTIMAL 130 - 159 mg/dl BORDERLINE HIGH 160 - 189 mg/dl HIGH >190 mg/dl VERY HIGH Performed By: #### C MP, DLDL, LIPID #### [facility] [address] [address] [address] Jose Miguel Plummer GLYCOHEMOGLOBIN A1Con 2022 ADA RECOMMENDATION SEE BELOW Normal [facility] Comment on above: Result Comment: ADA RECOMMENDED LIMIT 4.0 - 6.0 ADA THERAPEUTIC TARGET < 7.0 ACTION SUGGESTED > 7.0 Performed By: #### A 1C #### [facility] [address] [place] [address] Dr. Jose Miguel Plummer Glucose [Mass/Vol] 151 mg/dL Normal [facility] Comment on above: Performed By: #### A 1C #### [facility] [address] [address] [address] Jose Miguel Plummer HbA1c (Bld) [Mass fraction] 6.9 % Critically high 4.5-6.2 [facility] Comment on above: Performed By: #### A 1C #### [facility] [address] [place] [address] Dr. Jose Miguel Plummer LIPID PROFILEon 11-23-2022 CHOL-HDL RATIO NORM SEE BELOW Normal [facility] Comment on above: Result Comment: 3.3 - 4.4 LOW RISK 4.4 - 7.1 AVERAGE RISK 7.1 - 11.0 MODERATE RISK >11.0 HIGH RISK Performed By: #### C MP, DLDL, LIPID #### [facility] [address] [address] [address] Jose Miguel Plummer Cholesterol [Mass/Vol] 203 mg/dL Critically high <=200 [facility] Comment on above: Performed By: #### C MP, DLDL, LIPID #### [facility] [address] [address] [address] Jose Miguel Plummer Cholesterol in HDL [Mass/Vol] 22 mg/dL Critically low 40-60 [facility] Comment on above: Performed By: #### C MP, DLDL, LIPID #### [facility] [address] [address] [address] Jose Miguel Plummer Cholesterol.total/Cho lesterol in HDL [Mass ratio] 9.2 {ratio} Normal [facility] Comment on above: Performed By: #### C MP, DLDL, LIPID #### [facility] [address] [address] [address] Jose Miguel Plummer HDL NORMAL > or = 60 mg/dl - LOW CARDIOVASCULAR RISK <40 mg/dl - HIGH CARDIOVASCULAR RISK Normal [facility] Comment on above: Performed By: #### C MP, DLDL, LIPID #### [facility] [address] [address] [address] Jose Miguel Plummer LDL CALC NORMAL SEE BELOW Normal [facility] Comment on above: Result Comment: <100 mg/dl OPTIMAL 100 - 129 mg/dl NEAR OR ABOVE OPTIMAL 130 - 159 mg/dl BORDERLINE HIGH 160 - 189 mg/dl HIGH >190 mg/dl VERY HIGH Performed By: #### C MP, DLDL, LIPID #### [facility] [address] [place] [address] Dr. Jose Miguel Plummer Triglyceride [Mass/Vol] mg/dL Critically high <=150 [facility] Comment on above: Performed By: #### C MP, DLDL, LIPID #### [facility] [address] [address] [address] Jose Miguel Plummer PROF 14(COMP METB)on 023 Albumin [Mass/Vol] 3.3 g/dL Critically low 3.4-5.0 [facility] Comment on above: Performed By: #### C MP, DLDL, LIPID #### [facility] [address] [address] [address] Jose Miguel Plummer Albumin/Globulin [Mass ratio] 0.8 {ratio} Normal [facility] Comment on above: Performed By: #### C MP, DLDL, LIPID #### [facility] [address] [address] [address] Jose Miguel Plummer ALP [Catalytic activity/Vol] 115 U/L Normal 46-116 [facility] Comment on above: Performed By: #### C MP, DLDL, LIPID #### [facility] [address] [address] [address] Jose Miguel Plummer ALT [Catalytic activity/Vol] 20 U/L Normal 14-59 [facility] Comment on above: Performed By: #### C MP, DLDL, LIPID #### [facility] [address] [place] [address] Dr. Jose Miguel Plummer Anion gap [Moles/Vol] 8.9 mmol/L Normal [facility] Comment on above: Performed By: #### C MP, DLDL, LIPID #### [facility] [address] [place] [address] Dr. Jose Miguel Plummer AST [Catalytic activity/Vol] 21 U/L Normal 15-37 [facility] Comment on above: Performed By: #### C MP, DLDL, LIPID #### [facility] [address] [place] [address] Dr. Jose Miguel Plummer Bilirubin [Mass/Vol] 0.3 mg/dL Normal 0.2-1.0 [facility] Comment on above: Performed By: #### C MP, DLDL, LIPID #### [facility] [address] [place] [address] Dr. Jose Miguel Plummer Calcium [Mass/Vol] 8.8 mg/dL Normal 8.5-10.1 [facility] Comment on above: Performed By: #### C MP, DLDL, LIPID #### [facility] [address] [place] [address] Dr. Jose Miguel Plummer Chloride [Moles/Vol] 103 mmol/L Normal 98-107 [facility] Comment on above: Performed By: #### C MP, DLDL, LIPID #### [facility] [address] [place] [address] Dr. Jose Miguel Plummer CO2 [Moles/Vol] 28.0 mmol/L Normal 21.0-32.0 [facility] Comment on above: Performed By: #### C MP, DLDL, LIPID #### [facility] [address] [place] [address] Dr. Jose Miguel Plummer Creatinine [Mass/Vol] 1.09 mg/dL Critically high 0.55-1.02 [facility] Comment on above: Performed By: #### C MP, DLDL, LIPID #### [facility] [address] [place] [address] Dr. Jose Miguel Plummer EGFR-AF [place] 60 mL/min/1.73m2 Normal >=60 [facility] Comment on above: Performed By: #### C MP, DLDL, LIPID #### [facility] [address] [place] [address] Dr. Jose Miguel Plummer EGFR-NON AF [place] 50 mL/min/1.73m2 Critically low >=60 [facility] Comment on above: Performed By: #### C MP, DLDL, LIPID #### [facility] [address] [place] [address] Dr. Jose Miguel Plummer Globulin (S) [Mass/Vol] 4.0 g/dL Normal [facility] Comment on above: Performed By: #### C MP, DLDL, LIPID #### [facility] [address] [place] [address] Dr. Jose Miguel Plummer Glucose [Mass/Vol] 132 mg/dL Critically high 74-106 T [facility] Comment on above: Performed By: #### C MP, DLDL, LIPID #### [facility] [address] [place] [address] Dr. Jose Miguel Plummer Potassium [Moles/Vol] 4.9 mmol/L Normal 3.5-5.1 [facility] Comment on above: Performed By: #### C MP, DLDL, LIPID #### [facility] [address] [place] [address] Dr. Jose Miguel Plummer Protein [Mass/Vol] 7.3 g/dL Normal 6.4-8.2 [facility] Comment on above: Performed By: #### C MP, DLDL, LIPID #### [facility] [address] [place] [address] Dr. Jose Miguel Plummer Sodium [Moles/Vol] 135 mmol/L Critically low 136-145 Th [facility] Comment on above: Performed By: #### C MP, DLDL, LIPID #### [facility] [address] [address] [address] Jose Miguel Plummer Urea nitrogen [Mass/Vol] 20.0 mg/dL Critically high 7.0-18.0 [facility] Comment on above: Performed By: #### C MP, DLDL, LIPID #### [facility] [address] [place] [address] Dr. Jose Miguel Plummer Urea nitrogen/Creatinine [Mass ratio] 18.3 mg/mg Normal [facility] Comment on above: Performed By: #### C MP, DLDL, LIPID #### [facility] [address] [place] [address] Dr. Jose Miguel Plummer CBC AUTO DIFFon 05-25-2022 BASO # 0.1 103/ul Normal 0.0-0.1 [facility] Comment on above: Performed By: #### C BC #### [facility] [address] [place] [address] Dr. Jose Miguel Plummer Basophils/100 WBC (Bld) 1.5 % Normal 0.2-2.0 [facility] Comment on above: Performed By: #### C BC #### [facility] [address] [place] [address] Dr. Jose Miguel Plummer EO # 0.2 103/ul Normal 0.0-0.7 [facility] Comment on above: Performed By: #### C BC #### [facility] [address] [place] [address] Dr. Jose Miguel Plummer Eosinophils/100 WBC (Bld) 2.7 % Normal 0.9-7.0 [facility] Comment on above: Performed By: #### C BC #### [facility] [address] [place] [address] Dr. Jose Miguel Plummer Erythrocyte distribution width (RBC) [Ratio] 14.9 % Normal 11.0-15.0 [facility] Comment on above: Performed By: #### C BC #### [facility] [address] [place] [address] Dr. Jose Miguel Plummer Hematocrit (Bld) [Volume fraction] 50.0 % Critically high 36.0-48.0 [facility] Comment on above: Performed By: #### C BC #### [facility] [address] [address] [address] Jose Miguel Plummer Hemoglobin (Bld) [Mass/Vol] 16.5 g/dL Critically high 12.0-16.0 [facility] Comment on above: Performed By: #### C BC #### [facility] [address] [address] [address] Jose Miguel Plummer IG # 0.04 10e3/ul Critically high 0.00-0.03 [facility] Comment on above: Performed By: #### C BC #### [facility] [address] [place] [address] Dr. Jose Miguel Plummer IG % 0.5 % Normal 0.0-0.5 [facility] Comment on above: Performed By: #### C BC #### [facility] [address] [place] [address] Dr. Jose Miguel Plummer LYMPH # 1.4 103/ul Normal 1.2-3.8 [facility] Comment on above: Performed By: #### C BC #### [facility] [address] [place] [address] Dr. Jose Miguel Plummer Lymphocytes/100 WBC (Bld) 19.1 % Critically low 20.5-60.0 [facility] Comment on above: Performed By: #### C BC #### [facility] [address] [place] [address] Dr. Jose Miguel Plummer MANUAL DIFF REQ NO Normal [facility] Comment on above: Performed By: #### C BC #### [facility] [address] [place] [address] Dr. Jose Miguel Plummer MCH (RBC) [Entitic mass] 29.9 pg Normal 26.7-34.0 [facility] Comment on above: Performed By: #### C BC #### [facility] [address] [place] [address] Dr. Jose Miguel Plummer MCHC (RBC) [Mass/Vol] 33.0 g/dL Normal 29.9-35.2 [facility] Comment on above: Performed By: #### C BC #### [facility] [address] [address] [address] Jose Miguel Plummer MCV (RBC) [Entitic vol] 90.7 fL Normal 81.0-99.0 [facility] Comment on above: Performed By: #### C BC #### [facility] [address] [address] [address] Jose Miguel Plummer MONO # 1.0 103/ul Critically high 0.3-0.8 [facility] Comment on above: Performed By: #### C BC #### [facility] [address] [address] [address] Jose Miguel Plummer Monocytes/100 WBC (Bld) 14.0 % Critically high 1.7-12.0 [facility] Comment on above: Performed By: #### C BC #### [facility] [address] [place] [address] Dr. Jose Miguel Plummer NEUT # 4.6 103/ul Normal 1.4-6.5 [facility] Comment on above: Performed By: #### C BC #### [facility] [address] [place] [address] Dr. Jose Miguel Plummer Neutrophils/100 WBC (Bld) 62.2 % Normal 43.0-75.0 [facility] Comment on above: Performed By: #### C BC #### [facility] [address] [address] [address] Jose Miguel Plummer Platelet mean volume (Bld) [Entitic vol] 10.8 fL Normal 9.5-13.5 [facility] Comment on above: Performed By: #### C BC #### [facility] [address] [address] [address] Jose Miguel Plummer PLT 189 103/ul Normal 150-450 [facility] Comment on above: Performed By: #### C BC #### [facility] [address] [address] [address] Jose Miguel Plummer RBC 5.51 106/ul Critically high 4.20-5.40 [facility] Comment on above: Performed By: #### C BC #### [facility] [address] [address] [address] Jose Miguel Plummer WBC 7.4 103/ul Normal 4.0-11.0 [facility] Comment on above: Performed By: #### C BC #### [facility] [address] [address] [address] Jose Miguel Plummer GLYCOHEMOGLOBIN A1Con 2021 ADA RECOMMENDATION SEE BELOW Normal [facility] Comment on above: Result Comment: ADA RECOMMENDED LIMIT 4.0 - 6.0 ADA THERAPEUTIC TARGET < 7.0 ACTION SUGGESTED > 7.0 Performed By: #### A 1C #### [facility] [address] [address] [address] Jose Miguel Plummer Glucose [Mass/Vol] 160 mg/dL Normal [facility] Comment on above: Performed By: #### A 1C #### [facility] [address] [place] [address] Dr. Jose Miguel Plummer HbA1c (Bld) [Mass fraction] 7.2 % Critically high 4.5-6.2 [facility] Comment on above: Performed By: #### A 1C #### [facility] [address] [place] [address] Dr. Jose Miguel Plummer LIPID PROFILEon 05-25-2022 CHOL-HDL RATIO NORM SEE BELOW Normal [facility] Comment on above: Result Comment: 3.3 - 4.4 LOW RISK 4.4 - 7.1 AVERAGE RISK 7.1 - 11.0 MODERATE RISK >11.0 HIGH RISK Performed By: #### L IPID, CMP #### [facility] [address] [place] [address] Dr. Jose Miguel Plummer Cholesterol [Mass/Vol] 155 mg/dL Normal <=200 [facility] Comment on above: Performed By: #### L IPID, CMP #### [facility] [address] [address] [address] Jose Miguel Plummer Cholesterol in HDL [Mass/Vol] 35 mg/dL Critically low 40-60 [facility] Comment on above: Performed By: #### L IPID, CMP #### [facility] [address] [address] [address] Jose Miguel Plummer Cholesterol in LDL [Mass/Vol] 40.8 mg/dL Normal [facility] Comment on above: Performed By: #### L IPID, CMP #### [facility] [address] [place] [address] Dr. Jose Miguel Plummer Cholesterol.total/Cho lesterol in HDL [Mass ratio] 4.4 {ratio} Normal [facility] Comment on above: Performed By: #### L IPID, CMP #### [facility] [address] [place] [address] Dr. Jose Miguel Plummer HDL NORMAL > or = 60 mg/dl - LOW CARDIOVASCULAR RISK <40 mg/dl - HIGH CARDIOVASCULAR RISK Normal [facility] Comment on above: Performed By: #### L IPID, CMP #### [facility] [address] [place] [address] Dr. Jose Miguel Plummer LDL CALC NORMAL SEE BELOW Normal [facility] Comment on above: Result Comment: <100 mg/dl OPTIMAL 100 - 129 mg/dl NEAR OR ABOVE OPTIMAL 130 - 159 mg/dl BORDERLINE HIGH 160 - 189 mg/dl HIGH >190 mg/dl VERY HIGH Performed By: #### L IPID, CMP #### [facility] [address] [place] [address] Dr. Jose Miguel Plummer Triglyceride [Mass/Vol] 396 mg/dL Critically high <=150 [facility] Comment on above: Performed By: #### L IPID, CMP #### [facility] [address] [place] [address] Dr. Jose Miguel Plummer VLDL CALC 79.2 mg/dL Normal [facility] Comment on above: Performed By: #### L IPID, CMP #### [facility] [address] [address] [address] Jose Miguel Plummer PROF 14(COMP METB)on 022 Albumin [Mass/Vol] 3.4 g/dL Normal 3.4-5.0 [facility] Comment on above: Performed By: #### L IPID, CMP #### [facility] [address] [place] [address] Dr. Jose Miguel Plummer Albumin/Globulin [Mass ratio] 0.8 {ratio} Normal [facility] Comment on above: Performed By: #### L IPID, CMP #### [facility] [address] [address] [address] Jose Miguel Plummer ALP [Catalytic activity/Vol] 82 U/L Normal 46-116 [facility] Comment on above: Performed By: #### L IPID, CMP #### [facility] [address] [address] [address] Jose Miguel Plummer ALT [Catalytic activity/Vol] 13 U/L Critically low 14-59 [facility] Comment on above: Performed By: #### L IPID, CMP #### [facility] [address] [place] [address] Dr. Jose Miguel Plummer Anion gap [Moles/Vol] 9.8 mmol/L Normal [facility] Comment on above: Performed By: #### L IPID, CMP #### [facility] [address] [place] [address] Dr. Jose Miguel Plummer AST [Catalytic activity/Vol] 10 U/L Critically low 15-37 [facility] Comment on above: Performed By: #### L IPID, CMP #### [facility] [address] [place] [address] Dr. Jose Miguel Plummer Bilirubin [Mass/Vol] 0.6 mg/dL Normal 0.2-1.0 [facility] Comment on above: Performed By: #### L IPID, CMP #### [facility] [address] [address] [address] Jose Miguel Plummer Calcium [Mass/Vol] 9.5 mg/dL Normal 8.5-10.1 [facility] Comment on above: Performed By: #### L IPID, CMP #### [facility] [address] [place] [address] Dr. Jose Miguel Plummer Chloride [Moles/Vol] 105 mmol/L Normal 98-107 [facility] Comment on above: Performed By: #### L IPID, CMP #### [facility] [address] [place] [address] Dr. Jose Miguel Plummer CO2 [Moles/Vol] 29.4 mmol/L Normal 21.0-32.0 [facility] Comment on above: Performed By: #### L IPID, CMP #### [facility] [address] [address] [address] Jose Miguel Plummer Creatinine [Mass/Vol] 1.01 mg/dL Normal 0.55-1.02 [facility] Comment on above: Performed By: #### L IPID, CMP #### [facility] [address] [address] [address] Jose Miguel Plummer EGFR-AF [place] >60 Normal >=60 [facility] Comment on above: Performed By: #### L IPID, CMP #### [facility] [address] [address] [address] Jose Miguel Plummer EGFR-NON AF [place] 55 mL/min/1.73m2 Critically low >=60 [facility] Comment on above: Performed By: #### L IPID, CMP #### [facility] [address] [address] [address] Jose Miguel Plummer Globulin (S) [Mass/Vol] 4.2 g/dL Normal [facility] Comment on above: Performed By: #### L IPID, CMP #### [facility] [address] [address] [address] Jose Miguel Plummer Glucose [Mass/Vol] 125 mg/dL Critically high 74-106 [facility] Comment on above: Performed By: #### L IPID, CMP #### [facility] [address] [address] [address] Jose Miguel Plummer Potassium [Moles/Vol] 4.2 mmol/L Normal 3.5-5.1 [facility] Comment on above: Performed By: #### L IPID, CMP #### [facility] [address] [address] [address] Jose Miguel Plummer Protein [Mass/Vol] 7.6 g/dL Normal 6.4-8.2 [facility] Comment on above: Performed By: #### L IPID, CMP #### [facility] [address] [address] [address] Jose Miguel Plummer Sodium [Moles/Vol] 140 mmol/L Normal 136-145 [facility] Comment on above: Performed By: #### L IPID, CMP #### [facility] [address] [address] [address] Jose Miguel Plummer Urea nitrogen [Mass/Vol] 13.0 mg/dL Normal 7.0-18.0 [facility] Comment on above: Performed By: #### L IPID, CMP #### [facility] [address] [address] [address] Jose Miguel Plummer Urea nitrogen/Creatinine [Mass ratio] 12.9 mg/mg Normal [facility] Comment on above: Performed By: #### L IPID, CMP #### [facility] [address] [address] [address] Jose Miguel Plummer XR WRIST RT [...] by: SHADI CARRERO Date: 2022-01-08 08:33 Normal [facility] Encounters Encounter Date Encounter Type Care Provider Facility Start: 09-01-2023 End: 09-01-2023 ambulatory QUINTERO FAWWAD Not Available Start: 11-23-2022 End: 11-23-2022 ambulatory QUINTERO H FAWWAD Facility:[facility] Start: 05-25-2022 End: 05-26-2022 ambulatory QUINTERO H FAWWAD Facility:[facility] Start: 02-04-2022 End: 02-04-2022 ambulatory QUINTERO H FAWWAD Facility:[facility] Start: 01-08-2022 End: 01-08-2022 ambulatory QUINTERO H FAWWAD Facility:[facility] Payers Date Payer Category Payer Medicare [id number] 1961 Medicare [id number] 1961 Medicare [id number] 1955 Unknown [id number] 1955 Unknown [id number] 1955 Unknown [id number] 1955 Unknown [id number] [id number] 1953 Unknown [id number] Summary Purpose Family History No Family History Records FoundNo Family History Records Found Advance Directives No Advanced Directives Records FoundNo Advanced Directives Records Found Additional Source Comments INFORMATION SOURCE (unrecogn ized section and content) DATE CREATED AUTHOR 11/25/2022 [facility] DATE CREATED AUTHOR 'S GUILLAUME ATJEREMIAH 09/03/2023 [facility] FOR RECORDS PERTAINING TO PATIENTS WHO [...] BE BASED ON THE PRIMARY CLINICAL RECORDS. [facility] [employer] provides no warranty or guarantee of the accuracy or completeness of information in this document.
[2024-06-29 10:10] LABS: Basophils Absolute Auto 0.1 10^3/uL (0.0-0.1); Basophils Percent Auto 1.5 % (0.2-2.0); Eosinophils Absolute Auto 0.3 10^3/uL (0.0-0.7); Eosinophils Percent Auto 3.2 % (0.9-7.0); Hematocrit 53.2 % (36.0-48.0); Hemoglobin 17.7 g/dL (12.0-16.0); Immature Granulocytes Abs Auto 0.05 10^3/uL (0.00-0.03); Immature Granulocytes Pct Auto 0.6 % (0.0-0.5); Lymphocytes Absolute Auto 2.1 10^3/uL (1.2-3.8); Lymphocytes Percent Auto 23.5 % (20.5-60.0); Mean Corpuscular HGB Conc 33.3 g/dL (29.9-35.2); Mean Corpuscular Hemoglobin 30.6 pg (26.7-34.0); Mean Corpuscular Volume 91.9 fL (81.0-99.0); Monocytes Absolute Auto 1.2 10^3/uL (0.3-0.8); Monocytes Percent Auto 13.6 % (1.7-12.0); Neutrophils Percent Auto 57.6 % (43.0-75.0); Platelet Count 243 10^3/uL (150-450); Red Blood Count 5.79 10^6/uL (4.20-5.40); Red Cell Distribution Width 13.8 % (11.0-15.0); White Blood Count 8.7 10^3/uL (4.0-11.0)
[2024-06-29 10:19] LABS: Estimated Average Glucose 151 mg/dL; Glycohemoglobin A1C 6.9 % (4.5-6.2)
[2024-06-29 10:45] LABS: Alanine Aminotransferase 13 U/L (14-59); Albumin Globulin Ratio 0.7; Albumin Level 3.1 g/dL (3.4-5.0); Alkaline Phosphatase 75 U/L (46-116); Anion Gap 8.5; Aspartate Amino Transferase 14 U/L (15-37); BUN Creatinine Ratio 16.1; Bilirubin Total 0.5 mg/dL (0.2-1.0); Calcium 9.8 mg/dL (8.5-10.1); Chloride 99 mmol/L (98-107); Chol HDL Ratio 5.4; Cholesterol 196 mg/dL (<=200); Estimated GFR (African America 52 (>=60 mL/min/1.73m^2); Estimated GFR (Non-African Ame 43 (>=60 mL/min/1.73m^2); Free T3 1.78 pg/mL (2.18-3.98); Globulin 4.5 g/dL; Glucose 88 mg/dL (74-106); HDL Cholesterol 36 mg/dL (40-60); Potassium 3.5 mmol/L (3.5-5.1); Sodium 135 mmol/L (136-145); Thyroid Stimulating Hormone 4.315 uIU/mL (0.358-3.740); Total Protein 7.6 g/dL (6.4-8.2); Triglycerides 285 mg/dL (<=150)
== END 2024-06-29 09:41 | disposition home or self-care (01) ==
LOC: LAB 09:42
PROVIDERS: PCP Family Medicine; Visit Provider Family Medicine
DX: I10 Essential (primary) hypertension (principal); R53.83 Other fatigue; E11.9 Type 2 diabetes mellitus without complications; J44.9 Chronic obstructive pulmonary disease, unspecified; E78.00 Pure hypercholesterolemia, unspecified; D64.9 Anemia, unspecified; E03.9 Hypothyroidism, unspecified
CPT/HCPCS: 36415; 80053; 80061; 83036; 83540; 84436; 84443; 84481; 85025

== ENCOUNTER 2024-07-17 14:14 | Outpatient (OUT) | payer MEDICARE, SELFPAY ==
--- OUTSIDE RECORDS SUMMARY | 2024-07-17 14:18 | XMS_ITS | CCD ---
Author Organization [facility] [employer] [facility] Care Team Providers Care Police Chief Deputy Name Role Phone FAWWAD, QUINTERO H Admitting [...] Unavailable PAY ., DR KEBEDE Attending Unavailable MAGANSHADI BRYANT Consulting Unavailable FAWWAD, QUINTERO Attending Unavailable Allergies Allergy Classification Reported Allergen(s) Allergy Type Date of Onset Reaction(s) Facility (1 source) Dextroamphetamine Drug Allergy 6 [facility] Repository (1 source) quiNINE Drug Allergy 3 [facility] Problems Active Problems Problem Classification [...] 02-04-2022 Episodic Other aftercare (1 source) Other [facility] (current) drug therapy; Translations: [OTH SNF CURRENT DRUG THERAPY] Onset: 01-11-2022 Episodic Other aftercare (1 source) care home (current) use of oral hypoglycemic drugs; Translations: [SNF USE ORAL HYPOGLYCEMIC DX] Onset: 01-11-2022 Episodic Other aftercare (1 source) care home (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; Translations: [SNF CURRENT USE OF ASPIRIN] Onset: 01-11-2022 Episodic [...] in LDL [Mass/Vol] 66 mg/dL Normal [facility] Comment on above: Performed By: #### C MP, DLDL, LIPID #### [facility] [address] [place] [address] Dr. Jose Miguel Plummer DLDL NORMAL SEE BELOW Normal [facility] Comment on above: Result Comment: <100 mg/dl OPTIMAL 100 - 129 mg/dl NEAR OR ABOVE OPTIMAL 130 - 159 mg/dl BORDERLINE HIGH 160 - 189 mg/dl HIGH >190 mg/dl VERY HIGH Performed By: #### C MP, DLDL, LIPID #### [facility] [address] [address] [address] Jose Miguel Plummer GLYCOHEMOGLOBIN A1Con 2022 ADA RECOMMENDATION SEE BELOW Normal [facility] Comment on above: Result Comment: ADA RECOMMENDED LIMIT 4.0 - 6.0 ADA THERAPEUTIC TARGET < 7.0 ACTION SUGGESTED > 7.0 Performed By: #### A 1C #### [facility] [address] [address] [address] Jose Miguel Plummer Glucose [Mass/Vol] 151 mg/dL Normal [facility] Comment on above: Performed By: #### A 1C #### [facility] [address] [address] [address] Jose Miguel Plummer HbA1c (Bld) [Mass fraction] 6.9 % Critically high 4.5-6.2 [facility] Comment on above: Performed By: #### A 1C #### [facility] [address] [address] [address] Jose Miguel Plummer LIPID PROFILEon 11-23-2022 CHOL-HDL RATIO NORM SEE BELOW Normal [facility] Comment on above: Result Comment: 3.3 - 4.4 LOW RISK 4.4 - 7.1 AVERAGE RISK 7.1 - 11.0 MODERATE RISK >11.0 HIGH RISK Performed By: #### C MP, DLDL, LIPID #### [facility] [address] [address] [address] Jose Miguel Plummer Cholesterol [Mass/Vol] 203 mg/dL Critically high <=200 [facility] Comment on above: Performed By: #### C MP, DLDL, LIPID #### [facility] [address] [address] [address] Jose Miguel Plummer Cholesterol in HDL [Mass/Vol] 22 mg/dL Critically low 40-60 [facility] Comment on above: Performed By: #### C MP, DLDL, LIPID #### [facility] [address] [address] [address] Jose Miguel Plummer Cholesterol.total/Cho lesterol in HDL [Mass ratio] 9.2 {ratio} Normal [facility] Comment on above: Performed By: #### C MP, DLDL, LIPID #### [facility] [address] [address] [address] Jose Miguel Plummer HDL NORMAL > or = 60 mg/dl - LOW CARDIOVASCULAR RISK <40 mg/dl - HIGH CARDIOVASCULAR RISK Normal [facility] Comment on above: Performed By: #### C MP, DLDL, LIPID #### [facility] [address] [address] [address] Jose Miguel Plummer LDL CALC NORMAL SEE BELOW Normal [facility] Comment on above: Result Comment: <100 mg/dl OPTIMAL 100 - 129 mg/dl NEAR OR ABOVE OPTIMAL 130 - 159 mg/dl BORDERLINE HIGH 160 - 189 mg/dl HIGH >190 mg/dl VERY HIGH Performed By: #### C MP, DLDL, LIPID #### [facility] [address] [address] [address] Jose Miguel Plummer Triglyceride [Mass/Vol] mg/dL Critically high <=150 [facility] Comment on above: Performed By: #### C MP, DLDL, LIPID #### [facility] [address] [address] [address] Jose Miguel Plummer PROF 14(COMP METB)on 023 Albumin [Mass/Vol] 3.3 g/dL Critically low 3.4-5.0 [facility] Comment on above: Performed By: #### C MP, DLDL, LIPID #### [facility] [address] [address] [address] Jose Miguel Plummer Albumin/Globulin [Mass ratio] 0.8 {ratio} Normal [facility] Comment on above: Performed By: #### C MP, DLDL, LIPID #### [facility] [address] [address] [address] Jose Miguel Plummer ALP [Catalytic activity/Vol] 115 U/L Normal 46-116 [facility] Comment on above: Performed By: #### C MP, DLDL, LIPID #### [facility] [address] [address] [address] Jose Miguel Plummer ALT [Catalytic activity/Vol] 20 U/L Normal 14-59 [facility] Comment on above: Performed By: #### C MP, DLDL, LIPID #### [facility] [address] [address] [address] Jose Miguel Plummer Anion gap [Moles/Vol] 8.9 mmol/L Normal [facility] Comment on above: Performed By: #### C MP, DLDL, LIPID #### [facility] [address] [address] [address] Jose Miguel Plummer AST [Catalytic activity/Vol] 21 U/L Normal 15-37 [facility] Comment on above: Performed By: #### C MP, DLDL, LIPID #### [facility] [address] [place] [address] Dr. Jose Miguel Plummer Bilirubin [Mass/Vol] 0.3 mg/dL Normal 0.2-1.0 [facility] Comment on above: Performed By: #### C MP, DLDL, LIPID #### [facility] [address] [place] [address] Dr. Jose Miguel Plummer Calcium [Mass/Vol] 8.8 mg/dL Normal 8.5-10.1 [facility] Comment on above: Performed By: #### C MP, DLDL, LIPID #### [facility] [address] [place] [address] Dr. Jose Miguel Plummer Chloride [Moles/Vol] 103 mmol/L Normal 98-107 [facility] Comment on above: Performed By: #### C MP, DLDL, LIPID #### [facility] [address] [place] [address] Dr. Jose Miguel Plummer CO2 [Moles/Vol] 28.0 mmol/L Normal 21.0-32.0 [facility] Comment on above: Performed By: #### C MP, DLDL, LIPID #### [facility] [address] [place] [address] Dr. Jose Miguel Plummer Creatinine [Mass/Vol] 1.09 mg/dL Critically high 0.55-1.02 [facility] Comment on above: Performed By: #### C MP, DLDL, LIPID #### [facility] [address] [address] [address] Jose Miguel Plummer EGFR-AF NICARAGUAN 60 mL/min/1.73m2 Normal >=60 [facility] Comment on above: Performed By: #### C MP, DLDL, LIPID #### [facility] [address] [place] [address] Dr. Jose Miguel Plummer EGFR-NON AF NICARAGUAN 50 mL/min/1.73m2 Critically low >=60 [facility] Comment on above: Performed By: #### C MP, DLDL, LIPID #### [facility] [address] [place] [address] Dr. Jose Miguel Plummer Globulin (S) [Mass/Vol] 4.0 g/dL Normal [facility] Comment on above: Performed By: #### C MP, DLDL, LIPID #### [facility] [address] [address] [address] Jose Miguel Plummer Glucose [Mass/Vol] 132 mg/dL Critically high 74-106 [facility] Comment on above: Performed By: #### C MP, DLDL, LIPID #### [facility] [address] [place] [address] Dr. Jose Miguel Plummer Potassium [Moles/Vol] 4.9 mmol/L Normal 3.5-5.1 [facility] Comment on above: Performed By: #### C MP, DLDL, LIPID #### [facility] [address] [address] [address] Jose Miguel Plummer Protein [Mass/Vol] 7.3 g/dL Normal 6.4-8.2 [facility] Comment on above: Performed By: #### C MP, DLDL, LIPID #### [facility] [address] [address] [address] Jose Miguel Plummer Sodium [Moles/Vol] 135 mmol/L Critically low 136-145 [facility] Comment on above: Performed By: #### C MP, DLDL, LIPID #### [facility] [address] [place] [address] Dr. Jose Miguel Plummer Urea nitrogen [Mass/Vol] 20.0 mg/dL Critically high 7.0-18.0 [facility] Comment on above: Performed By: #### C MP, DLDL, LIPID #### [facility] [address] [place] [address] Dr. Jose Miguel Plummer Urea nitrogen/Creatinine [Mass ratio] 18.3 mg/mg Normal [facility] Comment on above: Performed By: #### C MP, DLDL, LIPID #### [facility] [address] [place] [address] Dr. Jose Miguel Plummer CBC AUTO DIFFon 05-25-2022 BASO # 0.1 103/ul Normal 0.0-0.1 [facility] Comment on above: Performed By: #### C BC #### [facility] [address] [place] [address] Dr. Jose Miguel Plummer Basophils/100 WBC (Bld) 1.5 % Normal 0.2-2.0 [facility] Comment on above: Performed By: #### C BC #### [facility] [address] [place] [address] Dr. Jose Miguel Plummer EO # 0.2 103/ul Normal 0.0-0.7 [facility] Comment on above: Performed By: #### C BC #### [facility] [address] [place] [address] Dr. Jose Miguel Plummer Eosinophils/100 WBC (Bld) 2.7 % Normal 0.9-7.0 [facility] Comment on above: Performed By: #### C BC #### [facility] [address] [place] [address] Dr. Jose Miguel Plummer Erythrocyte distribution width (RBC) [Ratio] 14.9 % Normal 11.0-15.0 [facility] Comment on above: Performed By: #### C BC #### [facility] [address] [place] [address] Dr. Jose Miguel Plummer Hematocrit (Bld) [Volume fraction] 50.0 % Critically high 36.0-48.0 [facility] Comment on above: Performed By: #### C BC #### [facility] [address] [place] [address] Dr. Jose Miguel Plummer Hemoglobin (Bld) [Mass/Vol] 16.5 g/dL Critically high 12.0-16.0 [facility] Comment on above: Performed By: #### C BC #### [facility] [address] [place] [address] Dr. Jose Miguel Plummer IG # 0.04 10e3/ul Critically high 0.00-0.03 [facility] Comment on above: Performed By: #### C BC #### [facility] [address] [place] [address] Dr. Jose Miguel Plummer IG % 0.5 % Normal 0.0-0.5 [facility] Comment on above: Performed By: #### C BC #### [facility] [address] [place] [address] Dr. Jose Miguel Plummer LYMPH # 1.4 103/ul Normal 1.2-3.8 [facility] Comment on above: Performed By: #### C BC #### [facility] [address] [place] [address] Dr. Jose Miguel Plummer Lymphocytes/100 WBC (Bld) 19.1 % Critically low 20.5-60.0 [facility] Comment on above: Performed By: #### C BC #### [facility] [address] [place] [address] Dr. Jose Miguel Plummer MANUAL DIFF REQ NO Normal [facility] Comment on above: Performed By: #### C BC #### [facility] [address] [place] [address] Dr. Jose Miguel Plummer MCH (RBC) [Entitic mass] 29.9 pg Normal 26.7-34.0 [facility] Comment on above: Performed By: #### C BC #### [facility] [address] [place] [address] Dr. Jose Miguel Plummer MCHC (RBC) [Mass/Vol] 33.0 g/dL Normal 29.9-35.2 [facility] Comment on above: Performed By: #### C BC #### [facility] [address] [address] [address] Jose Miguel Plummer MCV (RBC) [Entitic vol] 90.7 fL Normal 81.0-99.0 [facility] Comment on above: Performed By: #### C BC #### [facility] [address] [address] [address] Jose Miguel Plummer MONO # 1.0 103/ul Critically high 0.3-0.8 [facility] Comment on above: Performed By: #### C BC #### [facility] [address] [address] [address] Jose Miguel Plummer Monocytes/100 WBC (Bld) 14.0 % Critically high 1.7-12.0 [facility] Comment on above: Performed By: #### C BC #### [facility] [address] [address] [address] Jose Miguel Plummer NEUT # 4.6 103/ul Normal 1.4-6.5 [facility] Comment on above: Performed By: #### C BC #### [facility] [address] [address] [address] Jose Miguel Plummer Neutrophils/100 WBC (Bld) 62.2 % Normal 43.0-75.0 [facility] Comment on above: Performed By: #### C BC #### [facility] [address] [address] [address] Jose Miguel Plummer Platelet mean volume (Bld) [Entitic vol] 10.8 fL Normal 9.5-13.5 [facility] Comment on above: Performed By: #### C BC #### [facility] [address] [address] [address] Jose Miguel Plummer PLT 189 103/ul Normal 150-450 [facility] Comment on above: Performed By: #### C BC #### [facility] [address] [address] [address] Jose Miguel Plummer RBC 5.51 106/ul Critically high 4.20-5.40 [facility] Comment on above: Performed By: #### C BC #### [facility] [address] [address] [address] Jose Miguel Plummer WBC 7.4 103/ul Normal 4.0-11.0 [facility] Comment on above: Performed By: #### C BC #### [facility] [address] [address] [address] Jose Miguel Plummer GLYCOHEMOGLOBIN A1Con 2021 ADA RECOMMENDATION SEE BELOW Normal [facility] Comment on above: Result Comment: ADA RECOMMENDED LIMIT 4.0 - 6.0 ADA THERAPEUTIC TARGET < 7.0 ACTION SUGGESTED > 7.0 Performed By: #### A 1C #### [facility] [address] [place] [address] Dr. Jose Miguel Plummer Glucose [Mass/Vol] 160 mg/dL Normal [facility] Comment on above: Performed By: #### A 1C #### [facility] [address] [place] [address] Dr. Jose Miguel Plummer HbA1c (Bld) [Mass fraction] 7.2 % Critically high 4.5-6.2 [facility] Comment on above: Performed By: #### A 1C #### [facility] [address] [place] [address] Dr. Jose Miguel Plummer LIPID PROFILEon 05-25-2022 CHOL-HDL RATIO NORM SEE BELOW Normal [facility] Comment on above: Result Comment: 3.3 - 4.4 LOW RISK 4.4 - 7.1 AVERAGE RISK 7.1 - 11.0 MODERATE RISK >11.0 HIGH RISK Performed By: #### L IPID, CMP #### [facility] [address] [place] [address] Dr. Jose Miguel Plummer Cholesterol [Mass/Vol] 155 mg/dL Normal <=200 [facility] Comment on above: Performed By: #### L IPID, CMP #### [facility] [address] [place] [address] Dr. Jose Miguel Plummer Cholesterol in HDL [Mass/Vol] 35 mg/dL Critically low 40-60 [facility] Comment on above: Performed By: #### L IPID, CMP #### [facility] [address] [address] [address] Jose Miguel Plummer Cholesterol in LDL [Mass/Vol] 40.8 mg/dL Normal [facility] Comment on above: Performed By: #### L IPID, CMP #### [facility] [address] [address] [address] Jose Miguel Plummer Cholesterol.total/Cho lesterol in HDL [Mass ratio] 4.4 {ratio} Normal [facility] Comment on above: Performed By: #### L IPID, CMP #### [facility] [address] [address] [address] Jose Miguel Plummer HDL NORMAL > or = 60 mg/dl - LOW CARDIOVASCULAR RISK <40 mg/dl - HIGH CARDIOVASCULAR RISK Normal [facility] Comment on above: Performed By: #### L IPID, CMP #### [facility] [address] [place] [address] Dr. Jose Miguel Plummer LDL CALC NORMAL SEE BELOW Normal [facility] Comment on above: Result Comment: <100 mg/dl OPTIMAL 100 - 129 mg/dl NEAR OR ABOVE OPTIMAL 130 - 159 mg/dl BORDERLINE HIGH 160 - 189 mg/dl HIGH >190 mg/dl VERY HIGH Performed By: #### L IPID, CMP #### [facility] [address] [place] [address] Dr. Jose Miguel Plummer Triglyceride [Mass/Vol] 396 mg/dL Critically high <=150 [facility] Comment on above: Performed By: #### L IPID, CMP #### [facility] [address] [address] [address] Jose Miguel Plummer VLDL CALC 79.2 mg/dL Normal [facility] Comment on above: Performed By: #### L IPID, CMP #### [facility] [address] [address] [address] Jose Miguel Plummer PROF 14(COMP METB)on 022 Albumin [Mass/Vol] 3.4 g/dL Normal 3.4-5.0 [facility] Comment on above: Performed By: #### L IPID, CMP #### [facility] [address] [address] [address] Jose Miguel Plummer Albumin/Globulin [Mass ratio] 0.8 {ratio} Normal [facility] Comment on above: Performed By: #### L IPID, CMP #### [facility] [address] [address] [address] Jose Miguel Plummer ALP [Catalytic activity/Vol] 82 U/L Normal 46-116 [facility] Comment on above: Performed By: #### L IPID, CMP #### [facility] [address] [address] [address] Jose Miguel Plummer ALT [Catalytic activity/Vol] 13 U/L Critically low 14-59 [facility] Comment on above: Performed By: #### L IPID, CMP #### [facility] [address] [address] [address] Jose Miguel Plummer Anion gap [Moles/Vol] 9.8 mmol/L Normal [facility] Comment on above: Performed By: #### L IPID, CMP #### [facility] [address] [address] [address] Jose Miguel Plummer AST [Catalytic activity/Vol] 10 U/L Critically low 15-37 [facility] Comment on above: Performed By: #### L IPID, CMP #### [facility] [address] [place] [address] Dr. Jose Miguel Plummer Bilirubin [Mass/Vol] 0.6 mg/dL Normal 0.2-1.0 [facility] Comment on above: Performed By: #### L IPID, CMP #### [facility] [address] [place] [address] Dr. Jose Miguel Plummer Calcium [Mass/Vol] 9.5 mg/dL Normal 8.5-10.1 [facility] Comment on above: Performed By: #### L IPID, CMP #### [facility] [address] [address] [address] Jose Miguel Plummer Chloride [Moles/Vol] 105 mmol/L Normal 98-107 [facility] Comment on above: Performed By: #### L IPID, CMP #### [facility] [address] [place] [address] Dr. Jose Miguel Plummer CO2 [Moles/Vol] 29.4 mmol/L Normal 21.0-32.0 [facility] Comment on above: Performed By: #### L IPID, CMP #### [facility] [address] [address] [address] Jose Miguel Plummer Creatinine [Mass/Vol] 1.01 mg/dL Normal 0.55-1.02 [facility] Comment on above: Performed By: #### L IPID, CMP #### [facility] [address] [address] [address] Jose Miguel Plummer EGFR-AF NICARAGUAN >60 Normal >=60 [facility] Comment on above: Performed By: #### L IPID, CMP #### [facility] [address] [address] [address] Jose Miguel Plummer EGFR-NON AF NICARAGUAN 55 mL/min/1.73m2 Critically low >=60 [facility] Comment on above: Performed By: #### L IPID, CMP #### [facility] [address] [address] [address] Jose Miguel Plummer Globulin (S) [Mass/Vol] 4.2 g/dL Normal [facility] Comment on above: Performed By: #### L IPID, CMP #### [facility] [address] [address] [address] Jose Miguel Plummer Glucose [Mass/Vol] 125 mg/dL Critically high 74-106 [facility] Comment on above: Performed By: #### L IPID, CMP #### [facility] [address] [address] [address] Jose Miguel Plummer Potassium [Moles/Vol] 4.2 mmol/L Normal 3.5-5.1 [facility] Comment on above: Performed By: #### L IPID, CMP #### [facility] [address] [address] [address] Jose Miguel Plummer Protein [Mass/Vol] 7.6 g/dL Normal 6.4-8.[address] [facility] Comment on above: Performed By: #### L IPID, CMP #### [facility] [address] [address] [address] Jose Miguel Plummer Sodium [Moles/Vol] 140 mmol/L Normal 136-145 [facility] Comment on above: Performed By: #### L IPID, CMP #### [facility] [address] [address] [address] Jose Miguel Plummer Urea nitrogen [Mass/Vol] 13.0 mg/dL Normal 7.0-18.0 [facility] Comment on above: Performed By: #### L IPID, CMP #### [facility] [address] [address] [address] Jose Miguel Plummer Urea nitrogen/Creatinine [Mass ratio] 12.9 mg/mg Normal [facility] Comment on above: Performed By: #### L IPID, CMP #### [facility] [address] [address] [address] Jose Miguel Plummer XR WRIST RT [...] by: SHADI CARRERO Date: 2022-01-08 08:33 Normal [facility] Encounters Encounter Date Encounter Type Care Provider Facility Start: 07-05-2024 ambulatory [facility] Start: 09-01-2023 End: 09-01-2023 ambulatory QUINTERO FAWWAD Not Available Start: 11-23-2022 End: 11-23-2022 ambulatory QUINTERO H FAWWAD Facility:[facility] Start: 05-25-2022 End: 05-26-2022 ambulatory QUINTERO H FAWWAD Facility:[facility] Start: 02-04-2022 End: 02-04-2022 ambulatory QUINTERO H FAWWAD Facility:[facility] Start: 01-08-2022 End: 01-08-2022 ambulatory QUINTERO H FAWWAD Facility:[facility] Payers Date Payer Category Payer Medicare [id number] 1961 Medicare [id number] 1961 Medicare [id number] 1955 Unknown [id number] [id number] 1955 Unknown [id number] [id number] 1955 Unknown [id number] [id number] 1955 Unknown [id number] [id number] 1955 Unknown [id number] Summary Purpose Family History No Family History Records FoundNo Family History Records FoundNo Family History Records Found Advance Directives No Advanced Directives Records FoundNo Advanced Directives Records FoundNo Advanced Directives Records Found Additional Source Comments INFORMATION SOURCE (unrecogn ized section and content) DATE CREATED AUTHOR 11/25/2022 [facility] DATE CREATED AUTHOR AUTHOR'S ORGANIZ ATION 09/03/2023 [facility] DATE CREATED AUTHOR AUTHOR'S ORGANIZ ATION 07/07/[address] [facility] FOR RECORDS PERTAINING TO PATIENTS WHO ARE [...] BE BASED ON THE PRIMARY CLINICAL RECORDS. [employer] provides no warranty or guarantee of the accuracy or completeness of information in this document.
--- NOTE | 2024-07-17 14:22 | CT_ITS ---
[address] [address] Patient Name: DAVID ANTHONY MRN: [id number] date: 1955 Sex: F Assigned Patient Location: CT Current Patient Location: Accession/Order Number: [id number] Exam Date: 07/17/2024 14:23 Report Date: 07/18/2024 06:33 At the request of: ANA MORENO Procedure: CT lung screening low-dose EXAMINATION: CT lung screening low-dose HISTORY: Nicotine Dependence COMPARISON: CTA chest 03/15/2024 TECHNIQUE: Axial, Coronal, and Sagittal images were created without the administration of IV contrast material. Dose reduction techniques were achieved by using automated exposure control and/or adjustment of mA and/or kV according to patient size and/or use of iterative reconstruction technique. FINDINGS: LUNGS: Within the right upper lobe posterior segment adjacent the minor fissure are 3 adjacent lobular and spiculated nodules which appear to be connected, 1.4 cm, 1.1 cm, 0.9 cm in size respectively. Mild adjacent emphysematous versus bullous changes. PLEURA: No mass, effusion, or pneumothorax. VASCULATURE: No abnormality. KASH: Small calcified lymph nodes bilaterally favoring chronic granulomatous disease. MEDIASTINUM: Small calcified lymph nodes. CARDIAC: No enlargement, pericardial thickening, or pericardial effusion. Coronary Artery calcifications: Coronary calcifications are heavy. AORTA: No aneurysm or dissection. CHEST WALL: No mass or axillary adenopathy BONES: No bone lesion or fracture. LIMITED ABDOMEN: No suspicious findings. Limited images of the upper abdomen. OTHER: Negative. CT/CT lung screening low-dose IMPRESSION: 1. 3 adjacent suspicious nodules within right lower lobe posterior segment suspected represent neoplasm. Granulomatous reaction scarring is not excluded, and there is evidence of chronic granulomatous disease within the mediastinum and bilateral kash, however, given the appearance of the nodules neoplasm needs to be excluded. PET imaging is recommended for further evaluation. Electronically authenticated by: HERBERT VILLARREAL Date: 07/18/2024 06:33
== END 2024-07-17 14:15 | disposition home or self-care (01) ==
LOC: CT 14:14
PROVIDERS: PCP Family Medicine; Visit Provider Family Medicine
DX: F17.210 Nicotine dependence, cigarettes, uncomplicated (principal); R91.8 Other nonspecific abnormal finding of lung field
CPT/HCPCS: 71271

== ENCOUNTER 2024-08-06 14:20 | Outpatient (OUT) | payer MEDICARE, SELFPAY ==
--- NOTE | 2024-08-06 14:22 | PE_ITS ---
[address] [address] Patient Name: DAVID ANTHONY MRN: [id number] date: 1955 Sex: F Assigned Patient Location: PETCT Current Patient Location: PETCT Accession/Order Number: [id number] Exam Date: 08/06/2024 15:56 Report Date: 08/13/2024 14:41 At the request of: MIR MONTANA Procedure: PET skull to mid thigh NUCLEAR MEDICINE PET/CT HISTORY: Solitary pulmonary nodule. COMPARISON: CT chest 07/17/2024. METHOD: 13.57 mCi of F-18 FDG was administered intravenously. Blood sugar level at the time of the injection: 70. At 52 minutes from injection, PET images were obtained from the skull base through the midthigh levels in the axial plane. Reformatted images were performed in the sagittal and coronal planes. A low-dose, noncontrast CT scan was performed for attenuation correction and anatomical localization. A low dose, noncontrast and nondiagnostic CT scan was performed for attenuation correction and anatomic localization. Mediastinal blood pool SUV max 2.8 using the patient's body weight as the normalization method. FINDINGS: HEAD AND NECK: There is a right parotid gland 1.4 x 0.7 cm metabolically active nodule with a maximum SUV of 17.7. There are two left parotid metabolically active nodules measuring 7 x 4 mm with a maximum SUV of 15.7. CHEST: There are no metabolically active mediastinal, hilar, or axillary lymph nodes. The major airways are patent. There is no pericardial effusion. There is no evidence of abnormal metabolic uptake in the esophagus. There are adjacent metabolically active right upper lobe pulmonary nodules measuring 1.3 x 0.6 cm and 0.9 x 0.4 cm with a maximum SUV of 13.9. There are no pleural effusions. There is no pneumothorax. ABDOMEN AND PELVIS: There is no evidence of abnormal metabolic activity in the liver or adrenal glands. There is no evidence of abnormal metabolic active lymph nodes in the abdomen or pelvis. There is no free fluid. There is physiologic uptake in the urinary system and bowel. There are uterine fibroids. MUSCULOSKELETAL: There is no evidence of abnormal metabolically active bony lesions. PET/PET skull to mid thigh IMPRESSION: Adjacent metabolically active right upper lobe pulmonary nodules. Recommend tissue sampling of each nodule. Bilateral metabolically active parotid gland nodules, favor pleomorphic adenomas. Given that there are multiple lesions, recommend follow-up CT neck with contrast in 3 months to confirm stability. Uterine fibroids. Electronically authenticated by: MUNIRA WEBSTER Date: 08/13/2024 14:41
== END 2024-08-06 14:21 | disposition home or self-care (01) ==
LOC: PETCT 14:20
PROVIDERS: PCP Family Medicine; Visit Provider Nurse Practitioner Family
DX: C34.90 Malignant neoplasm of unspecified part of unspecified bronchus or lung (principal); R91.1 Solitary pulmonary nodule; R91.8 Other nonspecific abnormal finding of lung field; D25.9 Leiomyoma of uterus, unspecified
CPT/HCPCS: 78815; A9552

== ENCOUNTER 2024-10-08 18:32 | Emergency (ER) | payer OTHER, SELFPAY ==
[2024-10-08 18:37] VITALS: BP 197/98; PULSE 91; TEMP 36.6; O2SAT 98; BMI 30.1
--- OUTSIDE RECORDS SUMMARY | 2024-10-08 18:37 | XMS_ITS | CCD ---
Author Organization [facility] ion Partnership [facility] Care Team Providers Care Weigher And Mixer Name Role Phone FAWWAD, QUINTERO H Admitting [...] CARRERO Consulting Unavailable FAWWAD, QUINTERO Attending Unavailable KOKO FERRELL Referring Unavailable KOKO FERRELL Attending Unavailable Allergies Allergy Classification Reported Allergen(s) Allergy Type Date of Onset Reaction(s) Facility (1 source) Dextroamphetamine Drug Allergy 10-06-19 16 [facility] Repository (1 source) quiNINE Drug Allergy 06-01-20 13 [facility] Repository (1 source) ALLERGIES NOT ON FILE; Translations: [ALLERGIES NOT ON FILE] Propensity to adverse reactions (disorder) [facility] Repository Problems Active Problems Problem Classification [...] Translations: [ESSENTIAL PRIMARY HYPERTENSION] Onset: 11-24-2022 Chronic Other lower respiratory disease (2 sources) Solitary pulmonary nodule; Translations: [Solitary pulmonary nodule] Onset: 09-03-2024 Episodic Unclassified (1 source) CHRN KIDNEY DISEASE STG [...] 02-04-2022 Episodic Other aftercare (1 source) Other terminal supervisor (current) drug therapy; Translations: [OTH AUDIENCE DEVELOPMENT MANAGER CURRENT DRUG THERAPY] Onset: 01-11-2022 Episodic Other aftercare (1 source) 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 hypoglycemic drugs; Translations: [AUDIENCE DEVELOPMENT MANAGER USE ORAL HYPOGLYCEMIC DX] Onset: 01-11-2022 Episodic Other aftercare (1 source) 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 harvesting supervisor (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; Translations: [AUDIENCE DEVELOPMENT MANAGER CURRENT USE OF ASPIRIN] Onset: 01-11-2022 Episodic [...] Results Test Name Value Interpretation Reference Range Facility Prep for Procedureon 025 Prep for Procedure [id number] Carolina Hernandez 1955 Provider Department Center 09/21/2024 KOKO MULLEN [facility] Family History Problem Relation Age of Onset Diabetes Father Cancer Sister Family Status - Relation Status Age at Father Sister Normal [facility] Telemedicineon 09-03-2024 Telemedicine [id number] Carolina Hernandez 1955 Provider Department Center 09/03/2024 KOKO MULLEN DCC ONC DCC Family History Problem Relation Age of Onset Diabetes Father Cancer Sister Family Status - Relation Status Age at Father Sister Level of Service:99224 [place] PHYS/QHP TELEPHONE EVALUATION 21-30 MIN () Reason for Visit and Comments: New Patient [632] - HOSPITAL LIBRARIAN ref Dr. De Souza ([place]), positive LDCT. Scan in system. ao Normal [facility] Abstracton 08-21-2024 Abstract [id number] Carolina Hernandez 1955 Provider Department Center 08/21/2024 2020-BLACK, SILVINO HVCTS CT HeartVAS No family history on file Normal [facility] DIRECT LDLon 11-23-2022 Cholesterol in LDL [Mass/Vol] 66 mg/dL Normal [facility] Comment on above: Performed By: #### C MP, DLDL, LIPID #### [facility] [address] [address] [address] Jose Miguel Plummer DLDL NORMAL SEE BELOW Normal [facility] Comment on above: Result Comment: <100 mg/dl OPTIMAL 100 - 129 mg/dl NEAR OR ABOVE OPTIMAL 130 - 159 mg/dl BORDERLINE HIGH 160 - 189 mg/dl HIGH >190 mg/dl VERY HIGH Performed By: #### C MP, DLDL, LIPID #### [facility] [address] [address] [address] Jose Miguel Plummer GLYCOHEMOGLOBIN A1Con 2022 ADA RECOMMENDATION SEE BELOW Normal [facility] Comment on above: Result Comment: ADA RECOMMENDED LIMIT 4.0 - 6.0 ADA THERAPEUTIC TARGET < 7.0 ACTION SUGGESTED > 7.0 Performed By: #### A 1C #### [facility] [address] [address] [address] Jose Miguel Plummer Glucose [Mass/Vol] 151 mg/dL Normal [facility] Comment on above: Performed By: #### A 1C #### [facility] [address] [address] [address] Jose Miguel Plummer HbA1c (Bld) [Mass fraction] 6.9 % Critically high 4.5-6.2 [facility] Comment on above: Performed By: #### A 1C #### [facility] [address] [place] [address] Dr. Jose Miguel Plummer LIPID PROFILEon 11-23-2022 CHOL-HDL RATIO NORM SEE BELOW Normal [facility] Comment on above: Result Comment: 3.3 - 4.4 LOW RISK 4.4 - 7.1 AVERAGE RISK 7.1 - 11.0 MODERATE RISK >11.0 HIGH RISK Performed By: #### C MP, DLDL, LIPID #### [facility] [address] [place] [address] Dr. Jose Miguel Plummer Cholesterol [Mass/Vol] 203 mg/dL Critically high <=200 [facility] Comment on above: Performed By: #### C MP, DLDL, LIPID #### [facility] [address] [place] [address] Dr. Jose Miguel Plummer Cholesterol in HDL [Mass/Vol] 22 mg/dL Critically low 40-60 [facility] Comment on above: Performed By: #### C MP, DLDL, LIPID #### [facility] [address] [place] [address] Dr. Jose Miguel Plummer Cholesterol.total/Cho lesterol in HDL [Mass ratio] 9.2 {ratio} Normal [facility] Comment on above: Performed By: #### C MP, DLDL, LIPID #### [facility] [address] [place] [address] Dr. Jose Miguel Plummer HDL NORMAL > or = 60 mg/dl - LOW CARDIOVASCULAR RISK <40 mg/dl - HIGH CARDIOVASCULAR RISK Normal [facility] Comment on above: Performed By: #### C MP, DLDL, LIPID #### [facility] [address] [address] [address] Jose Miguel Plummer LDL CALC NORMAL SEE BELOW Normal [facility] Comment on above: Result Comment: <100 mg/dl OPTIMAL 100 - 129 mg/dl NEAR OR ABOVE OPTIMAL 130 - 159 mg/dl BORDERLINE HIGH 160 - 189 mg/dl HIGH >190 mg/dl VERY HIGH Performed By: #### C MP, DLDL, LIPID #### [facility] [address] [address] [address] Jose Miguel Plummer Triglyceride [Mass/Vol] mg/dL Critically high <=150 [facility] Comment on above: Performed By: #### C MP, DLDL, LIPID #### [facility] [address] [place] [address] Dr. Jose Miguel Plummer PROF 14(COMP METB)on 023 Albumin [Mass/Vol] 3.3 g/dL Critically low 3.4-5.0 [facility] Comment on above: Performed By: #### C MP, DLDL, LIPID #### [facility] [address] [place] [address] Dr. Jose Miguel Plummer Albumin/Globulin [Mass ratio] 0.8 {ratio} Normal [facility] Comment on above: Performed By: #### C MP, DLDL, LIPID #### [facility] [address] [place] [address] Dr. Jose Miguel Plummer ALP [Catalytic activity/Vol] 115 U/L Normal 46-116 [facility] Comment on above: Performed By: #### C MP, DLDL, LIPID #### [facility] [address] [place] [address] Dr. Jose Miguel Plummer ALT [Catalytic activity/Vol] 20 U/L Normal 14-59 [facility] Comment on above: Performed By: #### C MP, DLDL, LIPID #### [facility] [address] [place] [address] Dr. Jose Miguel Plummer Anion gap [Moles/Vol] 8.9 mmol/L Normal [facility] Comment on above: Performed By: #### C MP, DLDL, LIPID #### [facility] [address] [address] [address] Jose Miguel Plummer AST [Catalytic activity/Vol] 21 U/L Normal 15-37 [facility] Comment on above: Performed By: #### C MP, DLDL, LIPID #### [facility] [address] [address] [address] Jose Miguel Plummer Bilirubin [Mass/Vol] 0.3 mg/dL Normal 0.2-1.0 [facility] Comment on above: Performed By: #### C MP, DLDL, LIPID #### [facility] [address] [address] [address] Jose Miguel Plummer Calcium [Mass/Vol] 8.8 mg/dL Normal 8.5-10.1 [facility] Comment on above: Performed By: #### C MP, DLDL, LIPID #### [facility] [address] [address] [address] Jose Miguel Plummer Chloride [Moles/Vol] 103 mmol/L Normal 98-107 [facility] Comment on above: Performed By: #### C MP, DLDL, LIPID #### [facility] [address] [address] [address] Jose Miguel Plummer CO2 [Moles/Vol] 28.0 mmol/L Normal 21.0-32.0 [facility] Comment on above: Performed By: #### C MP, DLDL, LIPID #### [facility] [address] [address] [address] Jose Miguel Plummer Creatinine [Mass/Vol] 1.09 mg/dL Critically high 0.55-1.02 [facility] Comment on above: Performed By: #### C MP, DLDL, LIPID #### [facility] [address] [address] [address] Jose Miguel Plummer EGFR-AF BURKINAN 60 mL/min/1.73m2 Normal >=60 [facility] Comment on above: Performed By: #### C MP, DLDL, LIPID #### [facility] [address] [address] [address] Jose Miguel Plummer EGFR-NON AF BURKINAN 50 mL/min/1.73m2 Critically low >=60 [facility] Comment on above: Performed By: #### C MP, DLDL, LIPID #### [facility] [address] [address] [address] Jose Miguel Plummer Globulin (S) [Mass/Vol] 4.0 g/dL Normal [facility] Comment on above: Performed By: #### C MP, DLDL, LIPID #### [facility] [address] [address] [address] Jose Miguel Plummer Glucose [Mass/Vol] 132 mg/dL Critically high 74-106 [facility] Comment on above: Performed By: #### C MP, DLDL, LIPID #### [facility] [address] [place] [address] Dr. Jose Miguel Plummer Potassium [Moles/Vol] 4.9 mmol/L Normal 3.5-5.1 [facility] Comment on above: Performed By: #### C MP, DLDL, LIPID #### [facility] [address] [place] [address] Dr. Jose Miguel Plummer Protein [Mass/Vol] 7.3 g/dL Normal 6.4-8.2 [facility] Comment on above: Performed By: #### C MP, DLDL, LIPID #### [facility] [address] [place] [address] Dr. Jose Miguel Plummer Sodium [Moles/Vol] 135 mmol/L Critically low 136-145 Th [facility] Comment on above: Performed By: #### C MP, DLDL, LIPID #### [facility] [address] [place] [address] Dr. Jose Miguel Plummer Urea nitrogen [Mass/Vol] 20.0 mg/dL Critically high 7.0-18.0 [facility] Comment on above: Performed By: #### C MP, DLDL, LIPID #### [facility] [address] [place] [address] Dr. Jose Miguel Plummer Urea nitrogen/Creatinine [Mass ratio] 18.3 mg/mg Normal [facility] Comment on above: Performed By: #### C MP, DLDL, LIPID #### [facility] [address] [address] [address] Jose Miguel Plummer CBC AUTO DIFFon 05-25-2022 BASO # 0.1 103/ul Normal 0.0-0.1 [facility] Comment on above: Performed By: #### C BC #### [facility] [address] [address] [address] Jose Miguel Plummer Basophils/100 WBC (Bld) 1.5 % Normal 0.2-2.0 [facility] Comment on above: Performed By: #### C BC #### [facility] [address] [address] [address] Jose Miguel Plummer EO # 0.2 103/ul Normal 0.0-0.7 [facility] Comment on above: Performed By: #### C BC #### [facility] [address] [place] [address] Dr. Jose Miguel Plummer Eosinophils/100 WBC (Bld) 2.7 % Normal 0.9-7.0 [facility] Comment on above: Performed By: #### C BC #### [facility] [address] [place] [address] Dr. Jose Miguel Plummer Erythrocyte distribution width (RBC) [Ratio] 14.9 % Normal 11.0-15.0 [facility] Comment on above: Performed By: #### C BC #### [facility] [address] [place] [address] Dr. Jose Miguel Plummer Hematocrit (Bld) [Volume fraction] 50.0 % Critically high 36.0-48.0 [facility] Comment on above: Performed By: #### C BC #### [facility] [address] [address] [address] Jose Miguel Plummer Hemoglobin (Bld) [Mass/Vol] 16.5 g/dL Critically high 12.0-16.0 [facility] Comment on above: Performed By: #### C BC #### [facility] [address] [place] [address] Dr. Jose Miguel Plummer IG # 0.04 10e3/ul Critically high 0.00-0.03 [facility] Comment on above: Performed By: #### C BC #### [facility] [address] [place] [address] Dr. Jose Miguel Plummer IG % 0.5 % Normal 0.0-0.5 [facility] Comment on above: Performed By: #### C BC #### [facility] [address] [place] [address] Dr. Jose Miguel Plummer LYMPH # 1.4 103/ul Normal 1.2-3.8 [facility] Comment on above: Performed By: #### C BC #### [facility] [address] [place] [address] Dr. Jose Miguel Plummer Lymphocytes/100 WBC (Bld) 19.1 % Critically low 20.5-60.0 [facility] Comment on above: Performed By: #### C BC #### [facility] [address] [place] [address] Dr. Jose Miguel Plummer MANUAL DIFF REQ NO Normal [facility] Comment on above: Performed By: #### C BC #### [facility] [address] [place] [address] Dr. Jose Miguel Plummer MCH (RBC) [Entitic mass] 29.9 pg Normal 26.7-34.0 [facility] Comment on above: Performed By: #### C BC #### [facility] [address] [place] [address] Dr. Jose Miguel Plummer MCHC (RBC) [Mass/Vol] 33.0 g/dL Normal 29.9-35.2 [facility] Comment on above: Performed By: #### C BC #### [facility] [address] [place] [address] Dr. Jose Miguel Plummer MCV (RBC) [Entitic vol] 90.7 fL Normal 81.0-99.0 [facility] Comment on above: Performed By: #### C BC #### [facility] [address] [place] [address] Dr. Jose Miguel Plummer MONO # 1.0 103/ul Critically high 0.3-0.8 [facility] Comment on above: Performed By: #### C BC #### [facility] [address] [place] [address] Dr. Jose Miguel Plummer Monocytes/100 WBC (Bld) 14.0 % Critically high 1.7-12.0 [facility] Comment on above: Performed By: #### C BC #### [facility] [address] [place] [address] Dr. Jose Miguel Plummer NEUT # 4.6 103/ul Normal 1.4-6.5 [facility] Comment on above: Performed By: #### C BC #### [facility] [address] [place] [address] Dr. Jose Miguel Plummer Neutrophils/100 WBC (Bld) 62.2 % Normal 43.0-75.0 [facility] Comment on above: Performed By: #### C BC #### [facility] [address] [place] [address] Dr. Jose Miguel Plummer Platelet mean volume (Bld) [Entitic vol] 10.8 fL Normal 9.5-13.5 [facility] Comment on above: Performed By: #### C BC #### [facility] [address] [place] [address] Dr. Jose Miguel Plummer PLT 189 103/ul Normal 150-450 [facility] Comment on above: Performed By: #### C BC #### [facility] [address] [place] [address] Dr. Jose Miguel Plummer RBC 5.51 106/ul Critically high 4.20-5.40 [facility] Comment on above: Performed By: #### C BC #### [facility] [address] [place] [address] Dr. Jose Miguel Plummer WBC 7.4 103/ul Normal 4.0-11.0 [facility] Comment on above: Performed By: #### C BC #### [facility] [address] [place] [address] Dr. Jose Miguel Plummer GLYCOHEMOGLOBIN A1Con 2021 ADA RECOMMENDATION SEE BELOW Normal [facility] Comment on above: Result Comment: ADA RECOMMENDED LIMIT 4.0 - 6.0 ADA THERAPEUTIC TARGET < 7.0 ACTION SUGGESTED > 7.0 Performed By: #### A 1C #### [facility] [address] [address] [address] Jose Miguel Plummer Glucose [Mass/Vol] 160 mg/dL Normal [facility] Comment on above: Performed By: #### A 1C #### [facility] [address] [address] [address] Jose Miguel Plummer HbA1c (Bld) [Mass fraction] 7.2 % Critically high 4.5-6.2 [facility] Comment on above: Performed By: #### A 1C #### [facility] [address] [place] [address] Dr. Jose Miguel Plummer LIPID PROFILEon 05-25-2022 CHOL-HDL RATIO NORM SEE BELOW Normal [facility] Comment on above: Result Comment: 3.3 - 4.4 LOW RISK 4.4 - 7.1 AVERAGE RISK 7.1 - 11.0 MODERATE RISK >11.0 HIGH RISK Performed By: #### L IPID, CMP #### [facility] [address] [place] [address] Dr. Jose Miguel Plummer Cholesterol [Mass/Vol] 155 mg/dL Normal <=200 [facility] Comment on above: Performed By: #### L IPID, CMP #### [facility] [address] [place] [address] Dr. Jose Miguel Plummer Cholesterol in HDL [Mass/Vol] 35 mg/dL Critically low 40-60 [facility] Comment on above: Performed By: #### L IPID, CMP #### [facility] [address] [address] [address] Jose Miguel Plummer Cholesterol in LDL [Mass/Vol] 40.8 mg/dL Normal [facility] Comment on above: Performed By: #### L IPID, CMP #### [facility] [address] [address] [address] Jose Miguel Plummer Cholesterol.total/Cho lesterol in HDL [Mass ratio] 4.4 {ratio} Normal [facility] Comment on above: Performed By: #### L IPID, CMP #### [facility] [address] [address] [address] Jose Miguel Plummer HDL NORMAL > or = 60 mg/dl - LOW CARDIOVASCULAR RISK <40 mg/dl - HIGH CARDIOVASCULAR RISK Normal [facility] Comment on above: Performed By: #### L IPID, CMP #### [facility] [address] [address] [address] Jose Miguel Plummer LDL CALC NORMAL SEE BELOW Normal [facility] Comment on above: Result Comment: <100 mg/dl OPTIMAL 100 - 129 mg/dl NEAR OR ABOVE OPTIMAL 130 - 159 mg/dl BORDERLINE HIGH 160 - 189 mg/dl HIGH >190 mg/dl VERY HIGH Performed By: #### L IPID, CMP #### [facility] [address] [address] [address] Jose Miguel Plummer Triglyceride [Mass/Vol] 396 mg/dL Critically high <=150 [facility] Comment on above: Performed By: #### L IPID, CMP #### [facility] [address] [place] [address] Dr. Jose Miguel Plummer VLDL CALC 79.2 mg/dL Normal [facility] Comment on above: Performed By: #### L IPID, CMP #### [facility] [address] [address] [address] Jose Miguel Plummer PROF 14(COMP METB)on 022 Albumin [Mass/Vol] 3.4 g/dL Normal 3.4-5.0 [facility] Comment on above: Performed By: #### L IPID, CMP #### [facility] [address] [address] [address] Jose Miguel Plummer Albumin/Globulin [Mass ratio] 0.8 {ratio} Normal [facility] Comment on above: Performed By: #### L IPID, CMP #### [facility] [address] [address] [address] Jose Miguel Plummer ALP [Catalytic activity/Vol] 82 U/L Normal 46-116 [facility] Comment on above: Performed By: #### L IPID, CMP #### [facility] [address] [address] [address] Jose Miguel Plummer ALT [Catalytic activity/Vol] 13 U/L Critically low 14-59 [facility] Comment on above: Performed By: #### L IPID, CMP #### [facility] [address] [address] [address] Jose Miguel Plummer Anion gap [Moles/Vol] 9.8 mmol/L Normal [facility] Comment on above: Performed By: #### L IPID, CMP #### [facility] [address] [address] [address] Jose Miguel Plummer AST [Catalytic activity/Vol] 10 U/L Critically low 15-37 [facility] Comment on above: Performed By: #### L IPID, CMP #### [facility] [address] [address] [address] Jose Miguel Plummer Bilirubin [Mass/Vol] 0.6 mg/dL Normal 0.2-1.0 [facility] Comment on above: Performed By: #### L IPID, CMP #### [facility] [address] [address] [address] Jose Miguel Plummer Calcium [Mass/Vol] 9.5 mg/dL Normal 8.5-10.1 [facility] Comment on above: Performed By: #### L IPID, CMP #### [facility] [address] [address] [address] Jose Miguel Plummer Chloride [Moles/Vol] 105 mmol/L Normal 98-107 [facility] Comment on above: Performed By: #### L IPID, CMP #### [facility] [address] [address] [address] Jose Miguel Plummer CO2 [Moles/Vol] 29.4 mmol/L Normal 21.0-32.0 [facility] Comment on above: Performed By: #### L IPID, CMP #### [facility] [address] [address] [address] Jose Miguel Plummer Creatinine [Mass/Vol] 1.01 mg/dL Normal 0.55-1.02 [facility] Comment on above: Performed By: #### L IPID, CMP #### [facility] [address] [address] [address] Jose Miguel Plummer EGFR-AF BURKINAN >60 Normal >=60 [facility] Comment on above: Performed By: #### L IPID, CMP #### [facility] [address] [address] [address] Jose Miguel Plummer EGFR-NON AF BURKINAN 55 mL/min/1.73m2 Critically low >=60 [facility] Comment on above: Performed By: #### L IPID, CMP #### [facility] [address] [address] [address] Jose Miguel Plummer Globulin (S) [Mass/Vol] 4.2 g/dL Normal [facility] Comment on above: Performed By: #### L IPID, CMP #### [facility] [address] [address] [address] Jose Miguel Plummer Glucose [Mass/Vol] 125 mg/dL Critically high 74-106 [facility] Comment on above: Performed By: #### L IPID, CMP #### [facility] [address] [place] [address] Dr. Jose Miguel Plummer Potassium [Moles/Vol] 4.2 mmol/L Normal 3.5-5.1 [facility] Comment on above: Performed By: #### L IPID, CMP #### [facility] [address] [place] [address] Dr. Jose Miguel Plummer Protein [Mass/Vol] 7.6 g/dL Normal 6.4-8.2 [facility] Comment on above: Performed By: #### L IPID, CMP #### [facility] [address] [place] [address] Dr. Jose Miguel Plummer Sodium [Moles/Vol] 140 mmol/L Normal 136-145 [facility] Comment on above: Performed By: #### L IPID, CMP #### [facility] [address] [place] [address] Dr. Jose Miguel Plummer Urea nitrogen [Mass/Vol] 13.0 mg/dL Normal [facility]0 [facility] Comment on above: Performed By: #### L IPID, CMP #### [facility] [address] [address] [address] Jose Miguel Plummer Urea nitrogen/Creatinine [Mass ratio] 12.9 mg/mg Normal [facility] Comment on above: Performed By: #### L IPID, [facility] #### [facility] [address] [place] [address] Dr. Jose Miguel Plummer XR WRIST RT [...] by: SHADI CARRERO Date: 2022-01-08 08:33 [facility] Encounters Encounter Date Encounter Type Care Provider Facility Start: 09-03-2024 ambulatory [facility] Start: 08-23-2024 End: 08-23-2024 ambulatory [facility] Start: 07-05-2024 ambulatory Facility:[facility] Start: 09-01-2023 End: 09-01-2023 ambulatory [facility] Not Available Start: 11-23-2022 End: 11-23-2022 ambulatory [facility] Facility:[facility] Start: 05-25-2022 End: 05-26-2022 ambulatory [facility] Facility:[facility] Start: 02-04-2022 End: 02-04-2022 ambulatory [facility] Facility:[facility] Start: 01-08-2022 End: 01-08-2022 ambulatory [facility] Facility:[facility] Payers Date Payer Category Payer Medicare [id number] 2022 Medicare [id number] 1961 Medicare [id number] 1961 Medicare [id number] 1955 Unknown [id number] 1955 Unknown [id number] [id number] 1955 Unknown [id number] [id number] [id number] 1955 Unknown [id number] 2.16.84 [id number] 1955 Unknown [id number] Progress note 09-03-2024 Note Date & Type Note Facility 09-03-2024 Note Pulmonary Telehealth Visit Note Patient: Carolina Hernandez Age: 68 y.o. : 1955 Account No.: [id number] Referring physician: Nolvia HORN Chief complaint: Lung nodule Date of phone call: 09/03/2024 HPI Carolina Hernandez is a 68 y.o. female lifelong smoker with a [id number] smoking history. Patient with a history of diabetes, hyperlipidemia, CAD on Eliquis. She was found to have a right upper lobe nodule. PET CT scan showed the lesion to be active. Patient was kindly referred for consideration of a biopsy. Patient has intermittent dry cough, baseline dyspnea with moderate exertion. She denies any chest pain, fever, chills. No change in appetite or weight loss. No personal history of cancer. Sister with a history of breast cancer. No hazardous occupational bronchial exposures Past Medical History: Diagnosis Date Depression Diabetes (CMS/HCC) Past Surgical History: Procedure Laterality Date CARDIAC SURGERY GALLBLADDER SURGERY Allergies: Patient has no known allergies. Prior to Admission medications Medication Sig Start Date End Date Taking? Authorizing Provider aspirin 81 mg chewable tablet Chew 81 mg in the morning. 11/06/22 Yes Historical Provider, buPROPion XL (Wellbutrin XL) 150 mg 24 hr tablet TAKE 1 TABLET BY MOUTH EVERY DAY IN THE MORNING FOR 30 DAYS 04/17/24 Yes Historical Provider, citalopram (CeleXA) 20 mg tablet Take 20 mg by mouth in the morning. 08/28/24 Yes Historical Provider, Eliquis 5 mg tablet TAKE 2 TABLETS BY MOUTH TWICE A DAY FOR 6 DAYS, THEN 1 TABLET TWICE A DAY 05/26/24 Yes Historical Provider, Farxiga 10 mg Take 10 mg by mouth in the morning. Yes Historical Provider, fenofibrate (Tricor) 145 mg tablet Take 145 mg by mouth in the morning. Yes Historical Provider, glipiZIDE (Glucotrol) 10 mg tablet TAKE 1 TABLET DAILY 30 MINUTES BEFORE BREAKFAST 08/28/24 Yes Historical Provider, metFORMIN (Glucophage) 500 mg tablet TAKE 1 TABLET (500 MG) BY MOUTH IN THE MORNING AND IN THE EVENING WITH MEALS Yes Historical Provider, metoprolol succinate XL (Toprol-XL) 100 mg 24 hr tablet Take 100 mg by mouth in the morning. Yes Historical Provider, omeprazole (PriLOSEC) [address] capsule Take by mouth in the morning. Yes Historical Provider, rosuvastatin (Crestor) 40 mg tablet TAKE 1 TABLET BY MOUTH EVERYDAY AT BEDTIME Yes Historical Provider, Social history: reports that she has been smoking cigarettes. She has never used smokeless tobacco. She reports that she does not drink alcohol and does not use drugs. Family History Problem Relation Name Age of Onset Diabetes Father Cancer Sister Review of Systems: As mentioned in the History of Present Illness. Physical examination: No physical examination was performed. Encounter was held over the phone. Labs Results: No results found for: HGB , HCT , WBC , BUN , CREATININE , NA , K , BICARB , CO2 , PH , PHART , PHVEN , RKN8UUJ , LBE4GEQ , FJE0FAU , PO2POC , PO2ART , PO2VEN , GWO3DPD , NJA0VAQ Radiology: Chest CT scan as well as PET scan were personally reviewed and there is emphysema. 2 PET avid nodules in the right upper lobe. No significant adenopathy. Findings concerning for primary lung cancer Assessment and Plan: 68-year-old woman with [id number] smoking history who was found to have a right upper lobe nodule. Nodule was found to be active on the PET scan. Obvious concern is lung cancer. Right upper lobe nodule, PET avid concerning for primary lung cancer Plan: Discussed with the patient and we will schedule her for a robotic assisted bronchoscopy along with a staging EBUS. Patient will need a preprocedural CT scan for planning of the navigational bronchoscopy. Patient was advised to stop Eliquis 2 days prior to the procedure Orders placed, will schedule her as soon as possible Thank you very much Dr. De Souza for sending Raj Total time spent in Medical Discussion: 15 minutes. Total 30 minutes. The visit was initiated by the patient and conducted ski-nptb-cp-face with use of audio-only real time telephone communication between patient and provider for a virtual visit. Verbal consent to provide and bill for this service was obtained on 09/03/2024. Koko Ferrell MD Interventional Pulmonary Medicine Pulmonary and Critical Care Medicine [facility] Clinical Note 08-28-2024 Note Date & Type Note Facility 08-28-2024 Note [facility] Worker spoke with [facility] from Dr. De Souza's office (patient's PCP) regarding referral for pulmonary nodule and the inability to reach the patient to schedule an appt. Staff stated they would inform Dr. De Souza of the closed referral at this time. [facility] Clinical Note 08-28-2024 Note Date & Type Note Facility 08-28-2024 Note The sports book writer has attem pted to contact this patient 3 times to schedule an appt for pulmonary nodule referral. 2 previous voicemail's have been left with return number to call for appt scheduling. The sports book writer was unable to leave a voicemail during this last contact attempt due to voicemail box being full. [facility] Summary Purpose Family History No Family History Records FoundNo Family History Records FoundNo Family History Records FoundNo Family History Records Found Advance Directives No Advanced Directives Records FoundNo Advanced Directives Records FoundNo Advanced Directives Records FoundNo Advanced Directives Records Found Additional Source Comments INFORMATION SOURCE (unrecogn ized section and content) DATE CREATED AUTHOR 11/25/2022 [facility] DATE CREATED AUTHOR AUTHOR'S ORGANIZ ATION 09/03/2023 [facility] DATE CREATED AUTHOR AUTHOR'S ORGANIZ ATION 07/07/2024 [facility] DATE CREATED AUTHOR AUTHOR'S ORGANIZ ATION 09/30/[address] [facility] FOR RECORDS PERTAINING TO PATIENTS WHO ARE [...] BE BASED ON THE PRIMARY CLINICAL RECORDS. [employer] provides no warranty or guarantee of the accuracy or completeness of information in this document.
--- NOTE | 2024-10-08 18:59 | CT_ITS ---
The [address] [address] Patient Name: DAVID ANTHONY MRN: [id number] date: 1955 Sex: F Assigned Patient Location: ED.MAIN Current Patient Location: Accession/Order Number: [id number] Exam Date: 10/08/2024 19:15 Report Date: 10/08/2024 20:17 At the request of: SHADI BOWMAN Procedure: CT head/brain wo con EXAM: CT head/brain wo con HISTORY: head trauma COMPARISON: None. TECHNIQUE: Axial CT scans through the head were obtained without IV contrast administration. Dose reduction techniques were achieved by using: automated exposure control and/or adjustment of mA and /or kV according to patient size and/or use of iterative reconstruction technique. FINDINGS: There is no evidence of acute intracranial hemorrhage or abnormal extra-axial fluid collection. No mass effect or midline shift is seen. There is no evidence of large acute territorial infarction. There is no hydrocephalus. The cortical sulci and ventricles are within normal limits. 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 Moderate decreased attenuation of the supratentorial white matter, likely represents chronic microvascular ischemia. There are atherosclerotic calcifications of left V4 vertebral artery. No definite acute fracture is identified. Soft tissues are unremarkable. The visualized orbits show no abnormality. The visualized paranasal sinuses show no air-fluid level. Mastoid air cells are clear. CT/CT head/brain wo con IMPRESSION: No CT evidence of acute intracranial abnormality. Chronic findings, as detailed above. Electronically authenticated by: BETZY BELLOU Date: 10/08/2024 20:17
--- NOTE | 2024-10-08 18:59 | CT_ITS ---
The [address] [address] Patient Name: DAVID ANTHONY MRN: [facility]:[id number] date: 1955 Sex: F Assigned Patient Location: ER Current Patient Location: ER Accession/Order Number: [id number] Exam Date: 10/08/2024 19:15 Report Date: 10/08/2024 20:21 At the request of: SHADI BOWMAN Procedure: CT cervical spine wo con EXAMINATION: CT cervical spine wo con HISTORY: pain, injury COMPARISON: No relevant comparison available. TECHNIQUE: Axial, Coronal, and Sagittal images were created without IV contrast. Dose reduction techniques were achieved by using automated exposure control and/or adjustment of mA and/or kV according to patient size and/or use of iterative reconstruction technique. FINDINGS: VERTEBRAL BODIES: No fracture, significant spondylolisthesis, or bone lesion. FACET JOINTS: Marked degenerative facet arthropathy C4-C5, C5-C6. Multilevel moderate degenerative changes. No disruption or abnormal widening. DISCS: Mild narrowing C4-C5. Small posterior disc osteophyte complex at C4-C5 and C5-C6 causing mild central canal narrowing. Comminution disc bulging and facet arthropathy result in moderate or greater foramen narrowing at C5-C6 and C6-C7. CENTRAL CANAL: No evidence of hemorrhage. PARASPINAL AREA: 1.9 cm mass within right parotid gland; 1.0 cm mass within left parotid gland. CT/CT cervical spine wo con IMPRESSION: 1. No appreciable acute abnormality. 2. 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 Electronically authenticated by: HERBERT VILLARREAL Date: 10/08/2024 20:21
[2024-10-08] MEDS: TIZANIDINE HCL 4 MG TABLET 2 MG PO (19:08)
[2024-10-08] MEDS: MORPHINE SULFATE 4 MG/ML VIAL IM (19:09)
--- NOTE | 2024-10-08 19:22 | ED_ITS ---
HPI HPI - Head Injury General Chief complaint: Head Injury Stated complaint: Fell Head Injury Time Seen by Provider: 10/08/24 18:48 Source: patient Mode of arrival: walk-in Limitations: no limitations History of Present Illness HPI Narrative: 69-year-old female presents to the emergency department with complaint of head and neck pain. States she tripped and fell in her bathroom, falling backwards 5 days ago. Complains of persistent pain. She is on Eliquis. Denies any loss of consciousness, confusion, vomiting, focal weakness. Quality:?blunt trauma Severity:?moderate Timing:?as above, constant Context: Normal setting and activity? Modifying factors:?pain worse with palpation Associated symptoms: as above Related Data Home Medications ?Medication ?Instructions ?Recorded ?Confirmed dapagliflozin propanediol 10 mg 10 mg PO DAILY 08/19/23 03/15/24 tablet (Farxiga) glipizide 5 mg tablet, extended 5 mg PO DAILY 08/19/23 03/15/24 release 24 hr lisinopril 10 mg tablet 10 mg PO DAILY 08/19/23 03/15/24 omeprazole 40 mg capsule,delayed 40 mg PO DAILY 08/19/23 03/15/24 release rosuvastatin 40 mg tablet 40 mg PO DAILY 08/19/23 03/15/24 escitalopram oxalate 10 mg tablet 10 mg PO QAM 03/15/24 03/15/24 ezetimibe 10 mg tablet 10 mg PO DAILY 03/15/24 03/15/24 fenofibrate nanocrystallized 145 145 mg PO DAILY 03/15/24 03/15/24 mg tablet metformin 500 mg tablet 500 mg PO BID 03/15/24 03/15/24 metoprolol succinate 100 mg 100 mg PO DAILY 03/15/24 03/15/24 tablet,extended release 24 hr Previous Rx's ?Medication ?Instructions ?Recorded apixaban 5 mg tablet (Eliquis) 10 mg (2 x 5 mg) PO BID #60 tabs 03/16/24 tizanidine 4 mg capsule 4 mg PO TID PRN muscle spasticity 10/08/24 #14 caps Allergies Allergy/AdvReac Type Severity Reaction Status Date / Time No Known Drug Allergies Allergy Verified 10/08/24 18:43 Opioid HPI Opioid Management Most Recent Pain and Opioid Data: Last Pain Scale 8 10/08/24 18:46 10/08/24 Last ORT Total Score 0 03/15/24 13:03 03/15/24 Last ORT Risk Category Low Risk 03/15/24 13:03 03/15/24 [facility] Medical History Bilateral pulmonary embolism ?I26.99 - Other pulmonary embolism without acute cor pulmonale (ICD-10) Right-sided chest wall pain ?R07.89 - Other chest pain (ICD-10) Diabetes mellitus ?E11.9 - Type 2 diabetes mellitus without complications (ICD-10) GERD (gastroesophageal reflux disease) ?K21.9 - Gastro-esophageal reflux disease without esophagitis (ICD-10) High cholesterol ?E78.00 - Pure hypercholesterolemia, unspecified (ICD-10) Hypertension ?I10 - Essential (primary) hypertension (ICD-10) Social History Smoking status: Current every day smoker Highest level of school completed/degree received: high school graduate Little interest or pleasure in doing things: not at all Feeling down, depressed, or hopeless: not at all Exam Narrative Exam Narrative: Vital signs reviewed Nurses notes noted CONST: Nontoxic, well appearing, well nourished, in no distress.? No diaphoresis.?? HENT: normocephalic.? + tenderness to the occipital region. No swelling, ecchym osis, discoloration, crepitus, deformity, instability, warmth of the scalp. There is no tenderness, edema, crepitus, instability, step off of the face. Moist mucous membrane, no abnormalities of the nose noted, normal appearing ext ears.? No drainage, blood from ears.? Hearing normal.? No dental injury. EYES: PERRL, EOMI.? Normal appearing conjunctiva, no apparent discharge bilat.? No orbital or periorbital swelling or tenderness. NECK: normal appearance, + diffuse tenderness. No swelling, ecchymosis, discoloration, crepitus, deformity, instability, warmth. CV: normal rate, regular rhythm, no murmur RESP: normal effort, speaking in complete sentences, Lung sounds clear and equal bilat.? No wheezes, rales, rhonchi.? 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 No extremity tenderness, swelling.? No tenderness of the spinous process, paraspinal musculature of the T, L-S spines SKIN: intact.? Warm, dry.? No abrasions, lacerations, pallor NEURO: A&Ox 3, GCS = 15, no sensory, motor deficits.? CN II-XII normal as tested.? No abnormalities noted with coordination PSYCH: normal mood, affect.? Normal speech.? Memory intact. Constitutional Vital Signs, click to edit/add: Last Vital Signs Temp 98 F 10/08/24 18:37 Pulse 79 10/08/24 19:54 Resp 18 10/08/24 19:54 BP 170/96 H 10/08/24 19:54 Pulse Ox 95 10/08/24 19:54 O2 Del Method Room Air 10/08/24 18:37 Course Reevaluation(s) Reevaluation #1: On reevaluation, patient was asleep. She was easily aroused. Niece at bedside. Discussed with patient and niece results, plan, and disposition. Patient and niece are agreeable. Time: 20:54 Vital Signs Vital signs: Vital Signs Temperature 98 F 10/08/24 18:37 Pulse Rate 91 H 10/08/24 18:37 Respiratory Rate 20 10/08/24 18:37 Blood Pressure 197/98 H 10/08/24 18:37 Pulse Oximetry 98 10/08/24 18:37 Oxygen Delivery Method Room Air 10/08/24 18:37 Temperature 98 F 10/08/24 18:37 Pulse Rate 79 10/08/24 19:54 Respiratory Rate 18 10/08/24 19:54 Blood Pressure 170/96 H 10/08/24 19:54 Pulse Oximetry 95 10/08/24 19:54 Oxygen Delivery Method Room Air 10/08/24 18:37 MDM - Head Injury MDM Narrative Medical decision making narrative: This is a pleasant 69 y/o female who presents to the emergency department for evaluation of head and neck injury that occurred 5 days ago On arrival, afebrile, vital signs are stable Exam, nontoxic, well-appearing patient in no distress. She has tenderness to the occipital region of her scalp and diffusely of the cervical spine region. No tenderness to the thoracic, lumbar sacral spines. No focal deficits. Cranial nerves intact. Heart regular rate and rhythm. Lung sounds clear and equal bilaterally. Patient is ambulatory. CT head and neck imaging, per radiologist reveals no acute findings Favor head contusion, concussion, neck strain ICH, fracture, dislocation less likely based on imaging History and Record Review Discussion with independent historian: Niece Re-Evaluation See ED course Disposition ? The patient was discharged. Prescriptions sent to pharmacy: Tizanidine Plan: Patient will be discharged to home.? Condition at time of disposition: stable, improved.? Advised to follow up with primary provider. Advised to return for any worsening and/or development of new, concerning signs or symptoms PLEASE NOTE: Portions of the medical record may have been produced using electronic outbound supervisor and may contain errors with respect to translation of words which may not have been identified prior to finalization of the chart. Imaging Data CT Head/Neck: Radiologist's impression: ITS Impressions Cervical Spine CT 10/08/24 18:59 IMPRESSION: 1. No appreciable acute abnormality. 2. 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 Electronically authenticated by: HERBERT VILLARREAL Date: 10/08/2024 20:[address] 10/08/24 18:59 IMPRESSION: No CT evidence of acute intracranial abnormality. Chronic findings, as detailed above. Electronically authenticated by: BETZY BURK Date: 10/08/2024 20:17 Discharge Plan Discharge Chief Complaint: Head Injury Clinical Impression: Contusion of head Qualifiers: Encounter type: initial encounter Contusion of head detail: scalp Qualified Code(s): S00.03XA - Contusion of scalp, initial encounter Concussion Qualifiers: Encounter type: initial encounter Loss of consciousness presence/duration: without LOC Qualified Code(s): S06.0X0A - Concussion without loss of consciousness, initial encounter Acute strain of neck muscle Qualifiers: Encounter type: initial encounter Qualified Code(s): S16.1XXA - Strain of muscle, fascia and tendon at neck level, initial encounter Patient Disposition: Home, Self-Care Time of Disposition Decision: 20:49 Condition: Good Mode of Transportation: Private Vehicle Prescriptions / Home Meds: New tizanidine 4 mg capsule 4 mg PO TID PRN (Reason: muscle spasticity) Qty: 14 0RF No Action dapagliflozin propanediol [Farxiga] 10 mg tablet 10 mg PO DAILY glipizide 5 mg tablet extended release 24hr 5 mg PO DAILY lisinopril 10 mg tablet 10 mg PO DAILY omeprazole 40 mg capsule,delayed release(DR/EC) 40 mg PO DAILY rosuvastatin 40 mg tablet 40 mg PO DAILY escitalopram oxalate 10 mg tablet 10 mg PO QAM ezetimibe 10 mg tablet 10 mg PO DAILY fenofibrate nanocrystallized 145 mg tablet 145 mg PO DAILY metformin 500 mg tablet 500 mg PO BID metoprolol succinate 100 mg tablet extended release 24 hr 100 mg PO DAILY Eliquis 5 mg Tablet 10 mg PO BID Qty: 60 11RF Rx Instructions: 2 po BID for 6 days then 1 po BID Print Language: Luxembourgish Instructions: Cervical Strain (ED), Concussion (ED), Head Injury (ED) Referrals: Brennon De Souza MD [Primary Care Provider] - 1 week
[2024-10-08 19:54] VITALS: BP 170/96; PULSE 79; O2SAT 95
[2024-10-08 21:22] VITALS: BP 130/82; PULSE 72; O2SAT 95
== END 2024-10-08 21:23 | disposition home or self-care (01) ==
PROVIDERS: Emergency Provider Emergency Medicine; PCP Family Medicine
DX: S06.0X0A Concussion without loss of consciousness, initial encounter (principal); S16.1XXA Strain of muscle, fascia and tendon at neck level, initial encounter; S00.03XA Contusion of scalp, initial encounter; Z79.01 Long term (current) use of anticoagulants; F17.200 Nicotine dependence, unspecified, uncomplicated; W01.0XXA Fall on same level from slipping, tripping and stumbling without subsequent striking against object, initial encounter
CPT/HCPCS: 70450; 72125; 96372; 99285; J2270

== ENCOUNTER 2024-12-14 08:54 | Inpatient (IN) | payer MEDICARE, SELFPAY ==
[2024-12-14] VITALS (82 sets, daily range): BP systolic 116–262; BP diastolic 72–158; PULSE 70–98; TEMP 35.3–37.1; O2SAT 87–100; BMI 32.3; BMI 27.0
--- NOTE | 2024-12-14 08:56 | ECG_ITS ---
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 Measurements Intervals Moran Rate: 74 P: 90 AR: 210 QRS: -76 QRSD: 92 T: 82 QT: 408 QTc: 435 Interpretive Statements 1100 Sinus rhythm 2231 First degree AV block 2440 Incomplete right bundle branch block 4068 Nonspecific Twave abnormality 7200 Abnormal left axis deviation 9150 abnormal ECG Compared to ECG 03/15/2024 12:07:00 First degree AV block now present Electronically Signed On 12-14-2024 19:24:56 EDT by MARIE LIZ M.D.
--- NOTE | 2024-12-14 09:05 | ED.GENADUL1 ---
HPI HPI - General Adult General Chief complaint: Altered Mental Status Stated complaint: altered mental status Time Seen by Provider: 12/14/24 08:56 History of Present Illness HPI narrative: 69-year-old female presented to the emergency department for altered mental status. She is unable to provide any history and all of the history is initially obtained from the paramedics. She was last seen about 9 PM last night. She lives with her son and he went to work and when he got home this morning he found her on the floor. He called paramedics and they transported her here. Her blood sugar was not low, she is diabetic. She is on Eliquis. The paramedics found her to be minimally responsive, she would open her eyes to sternal rub but was not talking at any point or following any commands. No further history is initially obtainable. Related Data Home Medications ?Medication ?Instructions ?Recorded ?Confirmed rosuvastatin 40 mg tablet 40 mg PO DAILY 08/19/23 12/14/24 metformin 500 mg tablet 500 mg PO BID 03/15/24 12/14/24 metoprolol succinate 100 mg 100 mg PO DAILY 03/15/24 12/14/24 tablet,extended release 24 hr baclofen 20 mg tablet 10 mg PO .qhs PRN muscle spasm 12/14/24 12/14/24 citalopram 20 mg tablet 20 mg PO DAILY 12/14/24 12/14/24 glipizide 10 mg tablet 10 mg PO QAM 12/14/24 12/14/24 Previous Rx's ?Medication ?Instructions ?Recorded apixaban 5 mg tablet (Eliquis) 10 mg (2 x 5 mg) PO BID #60 tabs 03/16/24 Allergies Allergy/AdvReac Type Severity Reaction Status Date / Time No Known Drug Allergies Allergy Verified 10/08/24 18:43 Opioid HPI Opioid Management Most Recent Opioid Data: Last Pain Scale 8 10/08/24 18:46 10/08/24 Last ORT Total Score 0 03/15/24 13:03 03/15/24 Last ORT Risk Category Low Risk 03/15/24 13:03 03/15/24 Ur Phencyclidine Scrn Negative (NEGATIVE) 12/14/24 09:27 12/14/24 Review of Systems ROS Narrative Not obtainable, altered mental status PFSH PFSH Medical History Bilateral pulmonary embolism ?I26.99 - Other pulmonary embolism without acute cor pulmonale (ICD-10) Right-sided chest wall pain ?R07.89 - Other chest pain (ICD-10) Diabetes mellitus ?E11.9 - Type 2 diabetes mellitus without complications (ICD-10) GERD (gastroesophageal reflux disease) ?K21.9 - Gastro-esophageal reflux disease without esophagitis (ICD-10) High cholesterol ?E78.00 - Pure hypercholesterolemia, unspecified (ICD-10) Hypertension ?I10 - Essential (primary) hypertension (ICD-10) Social History Smoking status: Current every day smoker Highest level of school completed/degree received: high school graduate Little interest or pleasure in doing things: not at all Feeling down, depressed, or hopeless: not at all Exam Narrative Exam Narrative: Nurses note and vital signs reviewed and patient is not hypoxic. General: The patient is not cyanotic, she is not in acute respiratory distress Skin: Warm, dry, no pallor noted. There is no rash noted. Head: Normocephalic, some bruising from a fall a week ago is present Eye: Normal conjunctiva, no drainage, EOMI. PERRL Ears, Nose, Mouth, and Throat: oral mucosa is moist. Nares patent. Cardiovascular: Regular Rate and Rhythm Respiratory: Breath sounds are equal bilaterally. Back: Not apparently tender GI: Soft and not apparently distended Musculoskeletal: No obvious deformity Neurological: Her eyes are closed. She will open her eyes and lift her head up with a sternal rub. She does not follow any commands Psychiatric: Cannot be assessed Constitutional Vital Signs, click to edit/add: Last Vital Signs Temp 95.5 F L 12/14/24 09:08 Pulse 79 12/14/24 10:00 Resp 13 12/14/24 10:00 BP 162/100 H 12/14/24 10:23 Pulse Ox 97 12/14/24 10:00 O2 Del Method Nasal Cannula 12/14/24 09:53 O2 Flow Rate 4 12/14/24 09:53 Course Vital Signs Vital signs: Vital Signs Pulse Oximetry 99 12/14/24 09:03 Temperature 95.5 F L 12/14/24 09:08 Pulse Rate 79 12/14/24 10:00 Respiratory Rate 13 12/14/24 10:00 Blood Pressure 162/100 H 12/14/24 10:23 Pulse Oximetry 97 12/14/24 10:00 Oxygen Delivery Method Nasal Cannula 12/14/24 09:53 Oxygen Delivery Flow Rate 4 12/14/24 09:53 Medical Decision Making MDM Narrative Medical decision making narrative: The patient presented with altered mental status. She was given IV Narcan without change and her blood sugar was normal. CT brain was negative and blood work is essentially unremarkable other than mildly elevated myoglobin and CPK with preserved renal function. White blood cell count is 11,000. Blood cultures were obtained and are pending. Arterial blood gas showed a pH of 7.34, pCO2 of 54, and a pO2 of 75. I do not have reason to suspect any infection or sepsis. CT of the abdomen has been completed and the report is pending at the time of this dictation. I was concerned about airway protection and made plans to intubate the patient. Up to that point she was not responding or speaking to us at all. Shortly before administering the medications for intubation I called out her name and she opened her eyes and sat up and shouted what? Subsequently she was speaking to us more and was able to tell us her name. She was unable to tell us where she is or why she is here. I had a long discussion with her son who reported that he found her this way when he came home from work this morning. Ultimately he called paramedics and they transported her here. He states that nothing like this has ever happened before and she has never overdosed on anything. At this point I do not have suspicion for an overdose. Findings are discussed thoroughly with her son and the patient is being admitted. Differential Diagnosis Differential Diagnosis: Stroke, intracranial hemorrhage, hypothermia, acute kidney injury, anemia Medical Records Medical records reviewed: Yes I reviewed the patient's medical records Lab Data Lab results reviewed: Yes I reviewed the patient's lab results Labs: Lab Results 12/14/24 12/14/24 12/14/24 Range/Units 09:06 09:27 09:34 WBC 11.6 H (4.0-11.0) 10^3/uL RBC 6.27 H (4.20-5.40) 10^6/uL Hgb 19.2 H (12.0-16.0) g/dL Hct 54.2 H (36.0-48.0) % MCV 86.4 (81.0-99.0) fL MCH 30.6 (26.7-34.0) pg MCHC 35.4 H (29.9-35.2) g/dL RDW 13.7 (11.0-15.0) % Plt Count 244 (150-450) 10^3/uL MPV 10.6 (9.5-13.5) fL Neut % (Auto) 85.9 H (43.0-75.0) % Lymph % (Auto) 6.5 L (20.5-60.0) % [place] % (Auto) 6.3 (1.7-12.0) % Eos % (Auto) 0.2 L (0.9-7.0) % Baso % (Auto) 0.5 (0.2-2.0) % Neut # (Auto) 10.0 H (1.4-6.5) 10^3/uL Lymph # (Auto) 0.8 L (1.2-3.8) 10^3/uL [place] # (Auto) 0.7 (0.3-0.8) 10^3/uL Eos # (Auto) 0.0 (0.0-0.7) 10^3/uL Baso # (Auto) 0.1 (0.0-0.1) 10^3/uL Abs Immat Gran (auto) 0.07 H (0.00-0.03) 10^3/uL Imm/Tot Granulo (auto) 0.6 H (0.0-0.5) % Puncture Site ABG pH (7.350-7.450) ABG pCO2 (35.0-45.0) mmHg ABG pO2 (80.0-100.0) mmHg ABG HCO3 (22.0-26.0) mmol/L ABG O2 Saturation % ABG Base Excess (-2.0-2.0) mmol/L Gaudencio Test (POSITIVE) Sodium 136 (136-145) mmol/L Potassium 4.0 (3.5-5.1) mmol/L Chloride 95 L (98-107) mmol/L Carbon Dioxide 27.9 (21.0-32.0) mmol/L Anion Gap 17.1 BUN 20.0 H (7.0-18.0) mg/dL Creatinine 1.32 H (0.55-1.02) mg/dL Est GFR ( Amer) 48 L (>=60 mL/min/1.73m^2) Est GFR (Non-Af Amer) 40 L (>=60 mL/min/1.73m^2) BUN/Creatinine Ratio 15.2 Glucose 331 H (74-106) mg/dL Lactate 3.5 H* (0.4-2.0) mmol/L Calcium 10.1 (8.5-10.1) mg/dL Total Bilirubin 1.0 (0.2-1.0) mg/dL Direct Bilirubin 0.2 (0.0-0.2) mg/dL AST 23 (15-37) U/L ALT 14 (14-59) U/L Alkaline Phosphatase 126 H (46-116) U/L Total Creatine Kinase 472 H* (26-192) U/L Myoglobin 648 H* (9-82) ng/mL Troponin I High Sens 25.2 (4.0-51.3) pg/mL Total Protein 8.5 H (6.4-8.2) g/dL Albumin 3.5 (3.4-5.0) g/dL Globulin 5.0 g/dL Albumin/Globulin Ratio 0.7 TSH & Free T4 Interp 1.327 (0.358-3.740) uIU/mL Urine Color Lt. yellow (YELLOW) Urine Clarity Cloudy A (CLEAR) Urine pH 6.0 (5.0-9.0) Ur Specific [place] 1.020 (1.005-1.025) Urine Protein >=300 A (NEG/TRACE) mg/dL Urine Glucose (UA) >=1000 A (NEGATIVE) mg/dL Urine Ketones 15 A (NEGATIVE) mg/dL Urine Occult Blood Moderate A (NEGATIVE) Urine Nitrite Negative (NEGATIVE) Urine Bilirubin Negative (NEGATIVE) Urine Urobilinogen 1.0 (0.2-1.0) EU/dL Ur Leukocyte Esterase Negative (NEGATIVE) Urine RBC 0-2 (0-2) #/HPF Urine WBC 0-2 A (NONE SEEN) #/HPF Ur Squamous Epith Cells Rare (NONE/RARE) #/LPF Urine Crystals None seen (None Seen) #/HPF Urine Bacteria Large A (NONE SEEN) #/HPF Urine Casts None seen (NONE SEEN) #/LPF Urine Mucus None seen (NONE SEEN) Ur Culture Indicated? Yes-[facility] [place] Salicylates 2.9 (<=19.9) mg/dL Urine Opiates Screen Negative (NEGATIVE) Ur Buprenorphine Scrn Negative (NEGATIVE) Ur Oxycodone Screen Negative (NEGATIVE) Urine Methadone Screen Negative (NEGATIVE) Acetaminophen <2.0 L (10.0-30.0) ug/mL Ur Barbiturates Screen Negative (NEGATIVE) U Tricyclic Antidepress Negative (NEGATIVE) Ur Phencyclidine Scrn Negative (NEGATIVE) Ur Amphetamines Screen Negative (NEGATIVE) U Methamphetamines Scrn Negative (NEGATIVE) U Benzodiazepines Scrn Negative (NEGATIVE) Urine Cocaine Screen Negative (NEGATIVE) U Cannabinoids Screen Negative (NEGATIVE) Ethanol Quant <3 mg/dL POC Glucose 316 H (74-106) mg/dL 12/14/24 Range/Units 10:18 WBC (4.0-11.0) 10^3/uL RBC (4.20-5.40) 10^6/uL Hgb (12.0-16.0) g/dL Hct (36.0-48.0) % MCV (81.0-99.0) fL MCH (26.7-34.0) pg MCHC (29.9-35.2) g/dL RDW (11.0-15.0) % Plt Count (150-450) 10^3/uL MPV (9.5-13.5) fL Neut % (Auto) (43.0-75.0) % Lymph % (Auto) (20.5-60.0) % [place]kinson % (Auto) (1.7-12.0) % Eos % (Auto) (0.9-7.0) % Baso % (Auto) (0.2-2.0) % Neut # (Auto) (1.4-6.5) 10^3/uL Lymph # (Auto) (1.2-3.8) 10^3/uL Atkinson # (Auto) (0.3-0.8) 10^3/uL Eos # (Auto) (0.0-0.7) 10^3/uL Baso # (Auto) (0.0-0.1) 10^3/uL Abs Immat Gran (auto) (0.00-0.03) 10^3/uL Imm/Tot Granulo (auto) (0.0-0.5) % Puncture Site Right radial ABG pH 7.345 L (7.350-7.450) ABG pCO2 54.3 H* (35.0-45.0) mmHg ABG pO2 75.4 L (80.0-100.0) mmHg ABG HCO3 29.6 H (22.0-26.0) mmol/L ABG O2 Saturation 94.9 % ABG Base Excess 4.0 H (-2.0-2.0) mmol/L Gaudencio Test Pos (POSITIVE) Sodium (136-145) mmol/L Potassium (3.5-5.1) mmol/L Chloride (98-107) mmol/L Carbon Dioxide (21.0-32.0) mmol/L Anion Gap BUN (7.0-18.0) mg/dL Creatinine (0.55-1.02) mg/dL Est GFR ( Amer) (>=60 mL/min/1.73m^2) Est GFR (Non-Af Amer) (>=60 mL/min/1.73m^2) BUN/Creatinine Ratio Glucose (74-106) mg/dL Lactate (0.4-2.0) mmol/L Calcium (8.5-10.1) mg/dL Total Bilirubin (0.2-1.0) mg/dL Direct Bilirubin (0.0-0.2) mg/dL AST (15-37) U/L ALT (14-59) U/L Alkaline Phosphatase (46-116) U/L Total Creatine Kinase (26-192) U/L Myoglobin (9-82) ng/mL Troponin I High Sens (4.0-51.3) pg/mL Total Protein (6.4-8.2) g/dL Albumin (3.4-5.0) g/dL Globulin g/dL Albumin/Globulin Ratio TSH & Free T4 Interp (0.358-3.740) uIU/mL Urine Color (YELLOW) Urine Clarity (CLEAR) Urine pH (5.0-9.0) Ur Specific [place] (1.005-1.025) Urine Protein (NEG/TRACE) mg/dL Urine Glucose (UA) (NEGATIVE) mg/dL Urine Ketones (NEGATIVE) mg/dL Urine Occult Blood (NEGATIVE) Urine Nitrite (NEGATIVE) Urine Bilirubin (NEGATIVE) Urine Urobilinogen (0.2-1.0) EU/dL Ur Leukocyte Esterase (NEGATIVE) Urine RBC (0-2) #/HPF Urine WBC (NONE SEEN) #/HPF Ur Squamous Epith Cells (NONE/RARE) #/LPF Urine Crystals (None Seen) #/HPF Urine Bacteria (NONE SEEN) #/HPF Urine Casts (NONE SEEN) #/LPF Urine Mucus (NONE SEEN) Ur Culture Indicated? Salicylates (<=19.9) mg/dL Urine Opiates Screen (NEGATIVE) Ur Buprenorphine Scrn (NEGATIVE) Ur Oxycodone Screen (NEGATIVE) Urine Methadone Screen (NEGATIVE) Acetaminophen (10.0-30.0) ug/mL Ur Barbiturates Screen (NEGATIVE) U Tricyclic Antidepress (NEGATIVE) Ur Phencyclidine Scrn (NEGATIVE) Ur Amphetamines Screen (NEGATIVE) U Methamphetamines Scrn (NEGATIVE) U Benzodiazepines Scrn (NEGATIVE) Urine Cocaine Screen (NEGATIVE) U Cannabinoids Screen (NEGATIVE) Ethanol Quant mg/dL POC Glucose (74-106) mg/dL Imaging Data Chest x-ray, CT brain, CT C-spine: Radiologist's impression: CT brain: No acute intracranial abnormality CT C-spine: Negative for acute fracture or traumatic malalignment Chest x-ray: Mild cardiomegaly and pulmonary vascular congestion ECG Data Attestation: I personally reviewed and interpreted this ECG as follows: (EKG on my interpretation shows first-degree AV block with sinus rhythm and no acute change) Critical Care Time Critical Care Time Critical Care Time: Yes Total Critical Care Time: 45 Attestation: Due to the high probability of sudden and clinically significant deterioration in the patient's condition he/she required the highest level of my preparedness to intervene urgently I provided critical care time including documentation time, medication orders and management, reevaluation, vital sign assessment, ordering and reviewing of lab tests, ordering and reviewing of x-ray studies, and admission orders. Aggregate critical care time is 45 minutes including only time during which I was engaged in work directly related to his/her care and did not include time spent treating other patients simultaneously. Discharge Plan Discharge Chief Complaint: Altered Mental Status Clinical Impression: Altered mental status, Hypothermia, Rhabdomyolysis Patient Disposition: Admitted As Inpatient Time of Disposition Decision: 10:50 Condition: Fair
[2024-12-14 09:16] LABS: Basophils Absolute Auto 0.1 10^3/uL (0.0-0.1); Basophils Percent Auto 0.5 % (0.2-2.0); Eosinophils Percent Auto 0.2 % (0.9-7.0); Hematocrit 54.2 % (36.0-48.0); Hemoglobin 19.2 g/dL (12.0-16.0); Immature Granulocytes Abs Auto 0.07 10^3/uL (0.00-0.03); Immature Granulocytes Pct Auto 0.6 % (0.0-0.5); Lymphocytes Absolute Auto 0.8 10^3/uL (1.2-3.8); Lymphocytes Percent Auto 6.5 % (20.5-60.0); Mean Corpuscular HGB Conc 35.4 g/dL (29.9-35.2); Mean Corpuscular Hemoglobin 30.6 pg (26.7-34.0); Mean Corpuscular Volume 86.4 fL (81.0-99.0); Mean Platelet Volume 10.6 fL (9.5-13.5); Monocytes Absolute Auto 0.7 10^3/uL (0.3-0.8); Monocytes Percent Auto 6.3 % (1.7-12.0); Neutrophils Percent Auto 85.9 % (43.0-75.0); Platelet Count 244 10^3/uL (150-450); Red Blood Count 6.27 10^6/uL (4.20-5.40); Red Cell Distribution Width 13.7 % (11.0-15.0); White Blood Count 11.6 10^3/uL (4.0-11.0)
--- OUTSIDE RECORDS SUMMARY | 2024-12-14 09:26 | XMS_ITS | CCD ---
Author Organization [facility] ion Partnership [facility] Care Team Providers Care Neuroscience Director Na Name Role Phone FAWWAD, QUINTERO H Admitting [...] source) Dextroamphetamine Drug Allergy 10-06-19 16 [facility] (1 source) quiNINE Drug Allergy 06-01-20 13 [facility] (1 source) ALLERGIES NOT ON FILE; Translations: [ALLERGIES NOT ON FILE] Propensity to adverse reactions (disorder) [facility] Repository Problems Active Problems Problem Classification Problem [...] 02-04-2022 Episodic Other aftercare (1 source) 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; Translations: [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] Onset: 01-11-2022 Episodic Other aftercare (1 source) terminologist (current) use of oral hypoglycemic drugs; Translations: [INTERMEDIATE USE ORAL HYPOGLYCEMIC DX] Onset: 01-11-2022 Episodic Other aftercare (1 source) penitentiary (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; Translations: [INTERMEDIATE CURRENT USE OF ASPIRIN] Onset: 01-11-2022 Episodic [...] Test Name Value Interpretation Reference Range Facility Telephoneon 11-15-2024 Telephone [id number] Janes Hernandezon 1955 F Date Provider [facility] Family History Problem Relation Age of Onset Diabetes Father Cancer Sister Family Status - Relation Status Age at Father Sister Normal [facility] Telephoneon 11-02-2024 Telephone [id number] MelodyfunmilayoCarolina 1955 Date Provider Department Center 11/02[facility]2024 [facility] Family History Problem Relation Age of Onset Diabetes Father Cancer Sister Family Status - Relation Status Age at Father Sister Normal [facility] Telephoneon 10-29-2024 Telephone [id number] MelodyfunmilayoCarolina 1955 F Date Provider Department Center 10/29/2024 [facility] Family History Problem Relation Age of Onset Diabetes Father Cancer Sister Family Status - Relation Status Age at Father Sister Normal [facility] Telephoneon 10-17-2024 Telephone [id number] Carolina Hernandez 1955 Date Provider Department Center 10/17/2024 EmmanuelBRANDON RICARDO DCC ONC DCC Family History Problem Relation Age of Onset Diabetes Father Cancer Sister Family Status - Relation Status Age at Father Sister Normal [facility] Telephoneon 10-11-2024 Telephone [id number] Carolina Hernandez 1955 Date Provider Department Center 10/11[facility]2024 [facility] DCC Family History Problem Relation Age of Onset Diabetes Father Cancer Sister Family Status - Relation Status Age at Father Sister Normal [facility] Prep for Procedureon 025 Prep for Procedure [id number] Carolina Hernandez 1955 Date Provider Department Center 09/21/2024 Eva-KOKO FERRELL [facility] [place] Family History Problem Relation Age of Onset Diabetes Father Cancer Sister Family Status - Relation Status Age at Father Sister Normal [facility] Telemedicineon 09-03-2024 Telemedicine [id number] Carolina Hernandez 1955 F Date Provider Department Center 09/03/2024 383-KOKO FERRELL DCC ONC DCC Family History Problem Relation Age of Onset Diabetes Father Cancer Sister Family Status - Relation Status Age at Father Sister Level of Service:87968 [place] PHYS/QHP TELEPHONE EVALUATION 21-30 MIN () Reason for Visit and Comments: 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 Scan in system. ao Normal [facility] Abstracton 08-21-2024 Abstract [id number] Carolina Hernandez 1955 F Date Provider Department Center 08/21/2024 2020-BLACK, SILVINO HVCTS [facility] No family history on file Normal [facility] DIRECT LDLon 11-23-2022 Cholesterol in LDL [Mass/Vol] 66 mg/dL Normal [facility] Comment on above: Performed By: #### C SRIDHAR ARROYOL, LIPID #### [facility] [address] [place] [address] Dr. Jose Miguel Plummer DLDL NORMAL SEE BELOW Normal [facility] Comment on above: Result Comment: <100 mg/dl OPTIMAL 100 - 129 mg/dl NEAR OR ABOVE OPTIMAL 130 - 159 mg/dl BORDERLINE HIGH 160 - 189 mg/dl HIGH >190 mg/dl VERY HIGH Performed By: #### C MP, DLDL, LIPID #### [facility] [address] [address] [address] Jose Miguel Plummer GLYCOHEMOGLOBIN A1Con 2022 ADA RECOMMENDATION SEE BELOW Normal [facility] Comment on above: Result Comment: ADA RECOMMENDED LIMIT 4.0 - 6.0 ADA THERAPEUTIC TARGET < 7.0 ACTION SUGGESTED > 7.0 Performed By: #### A 1C #### [facility] [address] [address] [address] Jose Miguel Plummer Glucose [Mass/Vol] 151 mg/dL Normal [facility] Comment on above: Performed By: #### A 1C #### [facility] [address] [address] [address] Jose Miguel Plummer HbA1c (Bld) [Mass fraction] 6.9 % Critically high 4.5-6.2 [facility] Comment on above: Performed By: #### A 1C #### [facility] [address] [address] [address] Jose Miguel Plummer LIPID PROFILEon 11-23-2022 CHOL-HDL RATIO NORM SEE BELOW Normal [facility] Comment on above: Result Comment: 3.3 - 4.4 LOW RISK 4.4 - 7.1 AVERAGE RISK 7.1 - 11.0 MODERATE RISK >11.0 HIGH RISK Performed By: #### C MP, DLDL, LIPID #### [facility] [address] [address] [address] Jose Miguel Plummer Cholesterol [Mass/Vol] 203 mg/dL Critically high <=200 [facility] Comment on above: Performed By: #### C MP, DLDL, LIPID #### [facility] [address] [address] [address] Jose Miguel Plummer Cholesterol in HDL [Mass/Vol] 22 mg/dL Critically low 40-60 [facility] Comment on above: Performed By: #### C MP, DLDL, LIPID #### [facility] [address] [address] [address] Jose Miguel Plummer Cholesterol.total/Cho lesterol in HDL [Mass ratio] 9.2 {ratio} Normal [facility] Comment on above: Performed By: #### C MP, DLDL, LIPID #### [facility] [address] [address] [address] Jose Miguel Plummer HDL NORMAL > or = 60 mg/dl - LOW CARDIOVASCULAR RISK <40 mg/dl - HIGH CARDIOVASCULAR RISK Normal [facility] Comment on above: Performed By: #### C MP, DLDL, LIPID #### [facility] [address] [address] [address] Jose Miguel Plummer LDL CALC NORMAL SEE BELOW Normal [facility] Comment on above: Result Comment: <100 mg/dl OPTIMAL 100 - 129 mg/dl NEAR OR ABOVE OPTIMAL 130 - 159 mg/dl BORDERLINE HIGH 160 - 189 mg/dl HIGH >190 mg/dl VERY HIGH Performed By: #### C MP, DLDL, LIPID #### [facility] [address] [address] [address] Jose Miguel Plummer Triglyceride [Mass/Vol] mg/dL Critically high <=150 [facility] Comment on above: Performed By: #### C MP, DLDL, LIPID #### [facility] [address] [place] [address] Dr. Jose Miguel Plummer PROF 14(COMP METB)on 023 Albumin [Mass/Vol] 3.3 g/dL Critically low 3.4-5.0 [facility] Comment on above: Performed By: #### C MP, DLDL, LIPID #### [facility] [address] [place] [address] Dr. Jose Miguel Plummer Albumin/Globulin [Mass ratio] 0.8 {ratio} Normal [facility] Comment on above: Performed By: #### C MP, DLDL, LIPID #### [facility] [address] [place] [address] Dr. Jose Miguel Plummer ALP [Catalytic activity/Vol] 115 U/L Normal 46-116 [facility] Comment on above: Performed By: #### C MP, DLDL, LIPID #### [facility] [address] [place] [address] Dr. Jose Miguel Plummer ALT [Catalytic activity/Vol] 20 U/L Normal 14-59 [facility] Comment on above: Performed By: #### C MP, DLDL, LIPID #### [facility] [address] [place] [address] Dr. Jose Miguel Plummer Anion gap [Moles/Vol] 8.9 mmol/L Normal [facility] Comment on above: Performed By: #### C MP, DLDL, LIPID #### [facility] [address] [place] [address] Dr. Jose Miguel Plummer AST [Catalytic activity/Vol] 21 U/L Normal 15-37 [facility] Comment on above: Performed By: #### C MP, DLDL, LIPID #### [facility] [address] [place] [address] Dr. Jose Miguel Plummer Bilirubin [Mass/Vol] 0.3 mg/dL Normal 0.2-1.0 [facility] Comment on above: Performed By: #### C MP, DLDL, LIPID #### [facility] [address] [address] [address] Jose Miguel Plummer Calcium [Mass/Vol] 8.8 mg/dL Normal 8.5-10.1 [facility] Comment on above: Performed By: #### C MP, DLDL, LIPID #### [facility] [address] [address] [address] Jose Miguel Plummer Chloride [Moles/Vol] 103 mmol/L Normal 98-107 [facility] Comment on above: Performed By: #### C MP, DLDL, LIPID #### [facility] [address] [place] [address] Dr. Jose Miguel Plummer CO2 [Moles/Vol] 28.0 mmol/L Normal 21.0-32.0 [facility] Comment on above: Performed By: #### C MP, DLDL, LIPID #### [facility] [address] [place] [address] Dr. Jose Miguel Plummer Creatinine [Mass/Vol] 1.09 mg/dL Critically high 0.55-1.02 [facility] Comment on above: Performed By: #### C MP, DLDL, LIPID #### [facility] [address] [place] [address] Dr. Jose Miguel Plummer EGFR-AF SWEDISH 60 mL/min/1.73m2 Normal >=60 [place] Comment on above: Performed By: #### C MP, DLDL, LIPID #### [facility] [address] [place] [address] Dr. Jose Miguel Plummer EGFR-NON AF SWEDISH 50 mL/min/1.73m2 Critically low >=60 [facility] Comment on above: Performed By: #### C MP, DLDL, LIPID #### [facility] [address] [place] [address] Dr. Jose Miguel Plummer Globulin (S) [Mass/Vol] 4.0 g/dL Normal [facility] Comment on above: Performed By: #### C MP, DLDL, LIPID #### [facility] [address] [place] [address] Dr. Jose Miguel Plummer Glucose [Mass/Vol] 132 mg/dL Critically high 74-106 [facility] Comment on above: Performed By: #### C MP, DLDL, LIPID #### [facility] [address] [place] [address] Dr. Jose Miguel Plummer Potassium [Moles/Vol] 4.9 mmol/L Normal 3.5-5.1 [facility] Comment on above: Performed By: #### C MP, DLDL, LIPID #### [facility] [address] [place] [address] Dr. Jose Miguel Plummer Protein [Mass/Vol] 7.3 g/dL Normal 6.4-8.2 [facility] Comment on above: Performed By: #### C MP, DLDL, LIPID #### [facility] [address] [place] [address] Dr. Jose Miguel Plummer Sodium [Moles/Vol] 135 mmol/L Critically low 136-145 [place] Comment on above: Performed By: #### C MP, DLDL, LIPID #### [facility] [address] [place] [address] Dr. Jose Miguel Plummer Urea nitrogen [Mass/Vol] 20.0 mg/dL Critically high 7.0-18.0 [facility] Comment on above: Performed By: #### C MP, DLDL, LIPID #### [facility] [address] [place] [address] Dr. Jose Miguel Plummer Urea nitrogen/Creatinine [Mass ratio] 18.3 mg/mg Normal [facility] Comment on above: Performed By: #### C MP, DLDL, LIPID #### [facility] [address] [place] [address] Dr. Jose Miguel Plummer CBC AUTO DIFFon 05-25-2022 BASO # 0.1 103/ul Normal 0.0-0.1 [facility] Comment on above: Performed By: #### C BC #### [facility] [address] [place] [address] Dr. Jose Miguel Plummer Basophils/100 WBC (Bld) 1.5 % Normal 0.2-2.0 [facility] Comment on above: Performed By: #### C BC #### [facility] [address] [address] [address] Jose Miguel Plummer EO # 0.2 103/ul Normal 0.0-0.7 [facility] Comment on above: Performed By: #### C BC #### [facility] [address] [place] [address] Dr. Jose Miguel Plummer Eosinophils/100 WBC (Bld) 2.7 % Normal 0.9-7.0 [facility] Comment on above: Performed By: #### C BC #### [facility] [address] [place] [address] Dr. Jose Miguel Plummer Erythrocyte distribution width (RBC) [Ratio] 14.9 % Normal 11.0-15.0 [facility] Comment on above: Performed By: #### C BC #### [facility] [address] [place] [address] Dr. Jose Miguel Plummer Hematocrit (Bld) [Volume fraction] 50.0 % Critically high 36.0-48.0 [facility] Comment on above: Performed By: #### C BC #### [facility] [address] [place] [address] Dr. Jose Miguel Plummer Hemoglobin (Bld) [Mass/Vol] 16.5 g/dL Critically high 12.0-16.0 [facility] Comment on above: Performed By: #### C BC #### [facility] [address] [place] [address] Dr. Jose Miguel Plummer IG # 0.04 10e3/ul Critically high 0.00-0.03 [facility] Comment on above: Performed By: #### C BC #### [facility] [address] [place] [address] Dr. Jose Miguel Plummer IG % 0.5 % Normal 0.0-0.5 [facility] Comment on above: Performed By: #### C BC #### [facility] [address] [place] [address] Dr. Jose Miguel Plummer LYMPH # 1.4 103/ul Normal 1.2-3.8 [facility] Comment on above: Performed By: #### C BC #### [facility] [address] [place] [address] Dr. Jose Miguel Plummer Lymphocytes/100 WBC (Bld) 19.1 % Critically low 20.5-60.0 [facility] Comment on above: Performed By: #### C BC #### [facility] [address] [place] [address] Dr. Jose Miguel Plummer MANUAL DIFF REQ NO Normal [facility] Comment on above: Performed By: #### C BC #### [facility] [address] [place] [address] Dr. Jose Miguel Plummer MCH (RBC) [Entitic mass] 29.9 pg Normal 26.7-34.0 [facility] Comment on above: Performed By: #### C BC #### [facility] [address] [place] [address] Dr. Jose Miguel Plummer MCHC (RBC) [Mass/Vol] 33.0 g/dL Normal 29.9-35.2 [facility] Comment on above: Performed By: #### C BC #### [facility] [address] [place] [address] Dr. Jose Miguel Plummer MCV (RBC) [Entitic vol] 90.7 fL Normal 81.0-99.0 [facility] Comment on above: Performed By: #### C BC #### [facility] [address] [place] [address] Dr. Jose Miguel Plummer MONO # 1.0 103/ul Critically high 0.3-0.8 [facility] Comment on above: Performed By: #### C BC #### [facility] [address] [place] [address] Dr. Jose Miguel Plummer Monocytes/100 WBC (Bld) 14.0 % Critically high 1.7-12.0 [facility] Comment on above: Performed By: #### C BC #### [facility] [address] [place] [address] Dr. Jose Miguel Plummer NEUT # 4.6 103/ul Normal 1.4-6.5 [facility] Comment on above: Performed By: #### C BC #### [facility] [address] [address] [address] Jose Miguel Plummer Neutrophils/100 WBC (Bld) 62.2 % Normal 43.0-75.0 [facility] Comment on above: Performed By: #### C BC #### [facility] [address] [address] [address] Jose Miguel Plummer Platelet mean volume (Bld) [Entitic vol] 10.8 fL Normal 9.5-13.5 [facility] Comment on above: Performed By: #### C BC #### [facility] [address] [address] [address] Jose Miguel Plummer PLT 189 103/ul Normal 150-450 [facility] Comment on above: Performed By: #### C BC #### [facility] [address] [place] [address] Dr. Jose Miguel Plummer RBC 5.51 106/ul Critically high 4.20-5.40 [facility] Comment on above: Performed By: #### C BC #### [facility] [address] [place] [address] Dr. Jose Miguel Plummer WBC 7.4 103/ul Normal 4.0-11.0 [facility] Comment on above: Performed By: #### C BC #### [facility] [address] [place] [address] Dr. Jose Miguel Plummer GLYCOHEMOGLOBIN A1Con 2021 ADA RECOMMENDATION SEE BELOW Normal [facility] Comment on above: Result Comment: ADA RECOMMENDED LIMIT 4.0 - 6.0 ADA THERAPEUTIC TARGET < 7.0 ACTION SUGGESTED > 7.0 Performed By: #### A 1C #### [facility] [address] [place] [address] Dr. Jose Miguel Plummer Glucose [Mass/Vol] 160 mg/dL Normal [facility] Comment on above: Performed By: #### A 1C #### [facility] [address] [place] [address] Dr. Jose Miguel Plummer HbA1c (Bld) [Mass fraction] 7.2 % Critically high 4.5-6.2 [facility] Comment on above: Performed By: #### A 1C #### [facility] [address] [address] [address] Jose Miguel Plummer LIPID PROFILEon 05-25-2022 CHOL-HDL RATIO NORM SEE BELOW Normal [facility] Comment on above: Result Comment: 3.3 - 4.4 LOW RISK 4.4 - 7.1 AVERAGE RISK 7.1 - 11.0 MODERATE RISK >11.0 HIGH RISK Performed By: #### L IPID, CMP #### [facility] [address] [address] [address] Jose Miguel Plummer Cholesterol [Mass/Vol] 155 mg/dL Normal <=200 [facility] Comment on above: Performed By: #### L IPID, CMP #### [facility] [address] [address] [address] Jose Miguel Plummer Cholesterol in HDL [Mass/Vol] 35 mg/dL Critically low 40-60 [facility] Comment on above: Performed By: #### L IPID, CMP #### [facility] [address] [address] [address] Jose Miguel Plummer Cholesterol in LDL [Mass/Vol] 40.8 mg/dL Normal [facility] Comment on above: Performed By: #### L IPID, CMP #### [facility] [address] [address] [address] Jose Miguel Plummer Cholesterol.total/Cho lesterol in HDL [Mass ratio] 4.4 {ratio} Normal [facility] Comment on above: Performed By: #### L IPID, CMP #### [facility] [address] [address] [address] Jose Miguel Plummer HDL NORMAL > or = 60 mg/dl - LOW CARDIOVASCULAR RISK <40 mg/dl - HIGH CARDIOVASCULAR RISK Normal [facility] Comment on above: Performed By: #### L IPID, CMP #### [facility] [address] [address] [address] Jose Miguel Plummer LDL CALC NORMAL SEE BELOW Normal [facility] Comment on above: Result Comment: <100 mg/dl OPTIMAL 100 - 129 mg/dl NEAR OR ABOVE OPTIMAL 130 - 159 mg/dl BORDERLINE HIGH 160 - 189 mg/dl HIGH >190 mg/dl VERY HIGH Performed By: #### L IPID, CMP #### [facility] [address] [place] [address] Dr. Jose Miguel Plummer Triglyceride [Mass/Vol] 396 mg/dL Critically high <=150 [facility] Comment on above: Performed By: #### L IPID, CMP #### [facility] [address] [place] [address] Dr. Jose Miguel Plummer VLDL CALC 79.2 mg/dL Normal [facility] Comment on above: Performed By: #### L IPID, CMP #### [facility] [address] [place] [address] Dr. Jose Miguel Plummer PROF 14(COMP METB)on 022 Albumin [Mass/Vol] 3.4 g/dL Normal 3.4-5.0 [facility] Comment on above: Performed By: #### L IPID, CMP #### [facility] [address] [place] [address] Dr. Jose Miguel Plummer Albumin/Globulin [Mass ratio] 0.8 {ratio} Normal [facility] Comment on above: Performed By: #### L IPID, CMP #### [facility] [address] [place] [address] Dr. Jose Miguel Plummer ALP [Catalytic activity/Vol] 82 U/L Normal 46-116 [facility] Comment on above: Performed By: #### L IPID, CMP #### [facility] [address] [place] [address] Dr. Jose Miguel Plummer ALT [Catalytic activity/Vol] 13 U/L Critically low 14-59 [facility] Comment on above: Performed By: #### L IPID, CMP #### [facility] [address] [place] [address] Dr. Jose Miguel Plummer Anion gap [Moles/Vol] 9.8 mmol/L Normal [facility] Comment on above: Performed By: #### L IPID, CMP #### [facility] [address] [place] [address] Dr. Jose Miguel Plummer AST [Catalytic activity/Vol] 10 U/L Critically low 15-37 [facility] Comment on above: Performed By: #### L IPID, CMP #### [facility] [address] [address] [address] Jose Miguel Plummer Bilirubin [Mass/Vol] 0.6 mg/dL Normal 0.2-1.0 [facility] Comment on above: Performed By: #### L IPID, CMP #### [facility] [address] [place] [address] Dr. Jose Miguel Plummer Calcium [Mass/Vol] 9.5 mg/dL Normal 8.5-10.1 [facility] Comment on above: Performed By: #### L IPID, CMP #### [facility] [address] [place] [address] Dr. Jose Miguel Plummer Chloride [Moles/Vol] 105 mmol/L Normal 98-107 [facility] Comment on above: Performed By: #### L IPID, CMP #### [facility] [address] [place] [address] Dr. Jose Miguel Plummer CO2 [Moles/Vol] 29.4 mmol/L Normal 21.0-32.0 [facility] Comment on above: Performed By: #### L IPID, CMP #### [facility] [address] [place] [address] Dr. Jose Miguel Plummer Creatinine [Mass/Vol] 1.01 mg/dL Normal 0.55-1.02 [facility] Comment on above: Performed By: #### L IPID, CMP #### [facility] [address] [place] [address] Dr. Jose Miguel Plummer EGFR-AF SWEDISH >60 Normal >=60 [facility] Comment on above: Performed By: #### L IPID, CMP #### [facility] [address] [place] [address] Dr. Jose Miguel Plummer EGFR-NON AF SWEDISH 55 mL/min/1.73m2 Critically low >=60 [facility] Comment on above: Performed By: #### L IPID, CMP #### [facility] [address] [place] [address] Dr. Jose Miguel Plummer Globulin (S) [Mass/Vol] 4.2 g/dL Normal [facility] Comment on above: Performed By: #### L IPID, CMP #### [facility] [address] [place] [address] Dr. Jose Miguel Plummer Glucose [Mass/Vol] 125 mg/dL Critically high 74-106 T [facility] Comment on above: Performed By: #### L IPID, CMP #### [facility] [address] [place] [address] Dr. Jose Miguel Plummer Potassium [Moles/Vol] 4.2 mmol/L Normal 3.5-5.1 [facility] Comment on above: Performed By: #### L IPID, CMP #### [facility] [address] [place] [address] Dr. Jose Miguel Plummer Protein [Mass/Vol] 7.6 g/dL Normal 6.4-8.2 [facility] Comment on above: Performed By: #### L IPID, CMP #### [facility] [address] [place] [address] Dr. Jose Miguel Plummer Sodium [Moles/Vol] 140 mmol/L Normal 136-145 [facility] Comment on above: Performed By: #### L IPID, CMP #### [facility] [address] [place] [address] Dr. Jose Miguel Plummer Urea nitrogen [Mass/Vol] 13.0 mg/dL Normal 7.0-18.0 [facility] Comment on above: Performed By: #### L IPID, CMP #### [facility] [address] [place] [address] Dr. Jose Miguel Plummer Urea nitrogen/Creatinine [Mass ratio] 12.9 mg/mg Normal [facility] Comment on above: Performed By: #### L IPID, CMP #### [facility] [address] [place] [address] Dr. Jose Miguel Plummer XR WRIST RT [...] by: SHADI CARRERO Date: 2022-01-08 08:33 Normal [facility] Encounters Encounter Date Encounter Type Care Provider Facility Start: 09-03-2024 ambulatory KOKO FERRELL [facility] Start: 08-23-2024 End: 08-23-2024 ambulatory [facility] Start: 07-05-2024 ambulatory Facility:[facility] Start: 09-01-2023 End: 09-01-2023 ambulatory QUINTERO FAWWAD Not Available Start: 11-23-2022 End: 11-23-2022 ambulatory QUINTERO H FAWWAD Facility:[facility] Start: 05-25-2022 End: 05-26-2022 ambulatory [facility]O H FAWWAD Facility:[facility] Start: 02-04-2022 End: 02-04-2022 ambulatory [facility] H [facility] Facility:[facility] Start: 01-08-2022 End: 01-08-2022 ambulatory [facility]O H [facility]WWAD Facility:[facility] Payers Date Payer Category Payer Medicare [id number] 2022 Medicare [id number] 1961 Medicare [id number] 1961 Medicare [id number] 1955 Unknown [id number] 2.16.84 [id number] 1955 Unknown [id number] 2.16.84 [id number] 1955 Unknown [id number] 2.16.84 [id number] 1955 Unknown [id number] 2.16.84 [id number] 1955 Unknown [id number] Progress note 09-03-2024 Note Date & Type Note Facility 09-03-2024 Note Pulmonary Telehealth Visit Note Patient: Carolina Hernandez Age: 68 y.o. : 1955 Account No.: [id number] Referring physician: Nolvia HORN Chief complaint: Lung nodule Date of phone call: 09/03/2024 HPI Carolina Hernandez is a 68 y.o. female lifelong smoker with a 93-lxii-[id number] smoking history. Patient with a history of [...] , PH , PHART , PHVEN , [id number] , [id number] , [id number] , PO2POC , PO2ART , PO2VEN , [id number] , [id number] Radiology: Chest CT scan as well as PET scan were personally reviewed and there is emphysema. 2 PET avid nodules in the right upper lobe. No significant adenopathy. Findings concerning for primary lung cancer Assessment and Plan: 68-year-old woman with 92-iyhc-[id number] smoking history who was found to have [...] very much Dr. De Souza for sending Total time spent in Medical Discussion: 15 minutes. Total 30 minutes. The visit was initiated by the patient and conducted [id number] with use of audio-only real time telephone communication between patient and provider for a virtual visit. Verbal consent to provide and bill for this service was obtained on 09/03/2024. Koko Ferrell MD Interventional Pulmonary Medicine Pulmonary and Critical Care Medicine [facility] Clinical Note 08-28-2024 Note Date & Type Note Facility 08-28-2024 Note P[employer] Helper spoke with st augustine from Dr. De Souza's office (patient's PCP) regarding referral for pulmonary nodule and the inability to reach the patient to schedule an appt. Staff stated they would inform Dr. De Souza of the closed referral at this time. [facility] Clinical Note 08-28-2024 Note Date & Type Note Facility 08-28-2024 Note The racebook writer has attem pted to contact this patient 3 times to schedule an appt for pulmonary nodule referral. 2 previous voicemail's have been left with return number to call for appt scheduling. The racebook writer was unable to leave a voicemail during this last contact attempt due to voicemail box being full. [facility] Summary Purpose Family History No Family History Records FoundNo Family History Records FoundNo Family History Records FoundNo Family History Records Found Advance Directives No Advanced Directives Records FoundNo Advanced Directives Records FoundNo Advanced Directives Records FoundNo Advanced Directives Records Found Additional Source Comments INFORMATION SOURCE (unrecogn ized section and content) DATE CREATED AUTHOR 11/25/2022 [facility] DATE CREATED AUTHOR AUTHOR'S ORGANIZ ATION 09/03/2023 [facility] DATE CREATED AUTHOR AUTHOR'S ORGANIZ ATION 07/07/2024 [facility] [place] DATE CREATED AUTHOR AUTHOR'S ORGANIZ ATION 11/17/2024 [facility] FOR RECORDS PERTAINING TO PATIENTS WHO [...] BE BASED ON THE PRIMARY CLINICAL RECORDS. [employer] provides no warranty or guarantee of the accuracy or completeness of information in this document.
[2024-12-14 09:34] LABS: Alanine Aminotransferase 14 U/L (14-59); Albumin Globulin Ratio 0.7; Albumin Level 3.5 g/dL (3.4-5.0); Alkaline Phosphatase 126 U/L (46-116); Aspartate Amino Transferase 23 U/L (15-37); Bilirubin Direct 0.2 mg/dL (0.0-0.2); Ethanol <3 mg/dL; Salicylate 2.9 mg/dL (<=19.9); Total Protein 8.5 g/dL (6.4-8.2); Troponin I High Sensitivity 25.2 pg/mL (4.0-51.3)
[2024-12-14 09:35] LABS: Acetaminophen <2.0 ug/mL (10.0-30.0)
[2024-12-14] MEDS: ONDANSETRON PF 4 MG/2 ML VIAL IV ×2 (09:39→15:37)
[2024-12-14] MEDS: NALOXONE HCL 2 MG/2 ML SYRINGE IV (09:40)
[2024-12-14 09:42] LABS: Anion Gap 17.1; BUN Creatinine Ratio 15.2; Calcium 10.1 mg/dL (8.5-10.1); Carbon Dioxide 27.9 mmol/L (21.0-32.0); Chloride 95 mmol/L (98-107); Estimated GFR (African America 48 (>=60 mL/min/1.73m^2); Estimated GFR (Non-African Ame 40 (>=60 mL/min/1.73m^2); Glucose 331 mg/dL (74-106); Sodium 136 mmol/L (136-145)
[2024-12-14 09:45] LABS: Glucometer 316 mg/dL (74-106)
[2024-12-14 09:51] LABS: TSH W/ REFLEX FT4 1.327 uIU/mL (0.358-3.740)
[2024-12-14 09:53] LABS: Creatine Kinase 472 U/L (26-192); Lactate/Lactic Acid 3.5 mmol/L (0.4-2.0); Myoglobin 648 ng/mL (9-82)
--- NOTE | 2024-12-14 09:53 | PC.NURSE ---
Dr. Luther notified of critical CK, Myoglobin and lactic.
[2024-12-14 09:54] LABS: Bilirubin Urine NEGATIVE (NEGATIVE); Blood Urine MODERATE (NEGATIVE); Clarity Urine CLOUDY (CLEAR); Color Urine LT. YELLOW (YELLOW); Glucose Urine UA >=1000 mg/dL (NEGATIVE); Ketones Urine 15 mg/dL (NEGATIVE); Leukocyte Esterase Urine NEGATIVE (NEGATIVE); Nitrite Urine NEGATIVE (NEGATIVE); Protein Urine >=300 mg/dL (NEG/TRACE)
[2024-12-14 10:03] LABS: Amphetamine Screen Urine NEGATIVE (NEGATIVE); Barbiturates Screen Urine NEGATIVE (NEGATIVE); Benzodiazepines Screen Urine NEGATIVE (NEGATIVE); Buprenorphine Screen Urine NEGATIVE (NEGATIVE); Cannabinoid Screen Urine NEGATIVE (NEGATIVE); Cocaine Screen Urine NEGATIVE (NEGATIVE); Methadone Screen Urine NEGATIVE (NEGATIVE); Methamphetamines Screen Urine NEGATIVE (NEGATIVE); Opiate Screen Urine NEGATIVE (NEGATIVE); Oxycodone Screen Urine NEGATIVE (NEGATIVE); Phencyclidine Screen Urine NEGATIVE (NEGATIVE); Tricyclic Antidepressant Urine NEGATIVE (NEGATIVE)
[2024-12-14] MEDS: 0.9 % SODIUM CHLORIDE 1,000 ML 200 ML IV (10:20)
[2024-12-14 10:22] LABS: Allen Test POS (POSITIVE); HCO3 ABG 29.6 mmol/L (22.0-26.0); O2 Mode NC; Oxygen Saturation ABG 94.9 %; PO2 ABG 75.4 mmHg (80.0-100.0); pH ABG 7.345 (7.350-7.450)
[2024-12-14 10:23] LABS: ABG PCO2 54.3 mmHg (35.0-45.0); Puncture Site RIGHT RADIAL
[2024-12-14 10:27] LABS: Bacteria Urine LARGE #/HPF (NONE SEEN); Cast Seen? NONE SEEN #/LPF (NONE SEEN); Crystals Seen? None Seen #/HPF (None Seen); Mucus Urine NONE SEEN (NONE SEEN); RBC Urine 0-2 #/HPF (0-2); Squamous Epithelial Cell Urine RARE #/LPF (NONE/RARE); Urine Culture Indicated YES-FRMC; WBC Urine 0-2 #/HPF (NONE SEEN)
--- OUTSIDE RECORDS SUMMARY | 2024-12-14 12:19 | XMS_ITS | CCD ---
Author Organization [facility] Care Team Providers Care Linux Network Engineer Name Role Phone FAWWAD, QUINTERO H Admitting [...] source) Dextroamphetamine Drug Allergy 10-06-19 16 [facility] Repository (1 source) quiNINE Drug Allergy 06-01-20 13 [facility] Repository (1 source) ALLERGIES NOT ON FILE; Translations: [ALLERGIES NOT ON FILE] Propensity to adverse reactions (disorder) [facility] Repository Problems Active Problems Problem Classification [...] 02-04-2022 Episodic Other aftercare (1 source) 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; Translations: [[employer] CURRENT DRUG THERAPY] Onset: 01-11-2022 Episodic Other aftercare (1 source) 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 C Family History Problem Relation Age of Onset Diabetes Father Cancer Sister Family Status - Relation Status Age at Father Sister Normal [facility] Telephoneon 11-02-2024 Telephone [id number] MelodyfunmilayoCarolina 1955 Date Provider Department Center 11/02/2024 [facility] C Family History Problem Relation Age of Onset Diabetes Father Cancer Sister Family Status - Relation Status Age at Father Sister Normal [facility] Telephoneon 10-29-2024 Telephone [id number] MelodyfunmilayoCarolina 1955 F Date Provider Department Center 10/29/2024 [facility] C Family History Problem Relation Age of Onset Diabetes Father Cancer Sister Family Status - Relation Status Age at Father Sister Normal [facility] Telephoneon 10-17-2024 Telephone [id number] Carolina Hernandez 1955 Date Provider Department Center 10/17/2024 EmmanuelBRANDON RICARDO DCC ONC DCC Family History Problem Relation Age of Onset Diabetes Father Cancer Sister Family Status - Relation Status Age at Father Sister Normal [facility] Telephoneon 10-11-2024 Telephone [id number] Carolina Hernandez 1955 Date Provider Department Center 10/11/2024 [facility] ONC DCC Family History Problem Relation Age of Onset Diabetes Father Cancer Sister Family Status - Relation Status Age at Father Sister Normal [facility] Prep for Procedureon 025 Prep for Procedure [id number] Carolina Hernandez 1955 Date Provider Department Center 09/21/2024 Eva-KOKO [facility]LL [facility] [place] Family History Problem Relation Age of Onset Diabetes Father Cancer Sister Family Status - Relation Status Age at Father Sister Normal [facility] Telemedicineon 09-03-2024 Telemedicine [id number] Carolina Hernandez 1955 F Date Provider Department Center 09/03/2024 [id number] FERRELL DCC ONC DCC Family History Problem Relation Age of Onset Diabetes Father Cancer Sister Family Status - Relation Status Age at Father Sister Level of Service:81542 [place] PHYS/QHP TELEPHONE EVALUATION 21-30 MIN () Reason for Visit and Comments: New Patient [632] - 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 De Souza ([place]), positive LDCT. Scan in system. ao Normal [facility] Abstracton 08-21-2024 Abstract [id number] Carolina Hernandez 1955 F Date Provider Department Center 08/21/2024 2020-BLACK, SILVINO HVCTS [facility] No family history on file Normal [facility] DIRECT LDLon 11-23-2022 Cholesterol in LDL [Mass/Vol] 66 mg/dL Normal [facility] Comment on above: Performed By: #### C SRIDHAR ARROYOL, LIPID #### [facility] [address] [place] [address] Dr. Jose Miguel Plummer DLDL NORMAL SEE BELOW Normal [facility] Comment on above: Result Comment: <100 mg/dl OPTIMAL 100 - 129 mg/dl NEAR OR ABOVE OPTIMAL 130 - 159 mg/dl BORDERLINE HIGH 160 - 189 mg/dl HIGH >190 mg/dl VERY HIGH Performed By: #### C MP, DLDL, LIPID #### [facility] [address] [address] [address] Jose Miguel Plummer GLYCOHEMOGLOBIN A1Con 2022 ADA RECOMMENDATION SEE BELOW Normal [facility] Comment on above: Result Comment: ADA RECOMMENDED LIMIT 4.0 - 6.0 ADA THERAPEUTIC TARGET < 7.0 ACTION SUGGESTED > 7.0 Performed By: #### A 1C #### [facility] [address] [address] [address] Jose Miguel Plummer Glucose [Mass/Vol] 151 mg/dL Normal [facility] Comment on above: Performed By: #### A 1C #### [facility] [address] [address] [address] Jose Miguel Plummer HbA1c (Bld) [Mass fraction] 6.9 % Critically high 4.5-6.2 [facility] Comment on above: Performed By: #### A 1C #### [facility] [address] [address] [address] Jose Miguel Plummer LIPID PROFILEon 11-23-2022 CHOL-HDL RATIO NORM SEE BELOW Normal [facility] Comment on above: Result Comment: 3.3 - 4.4 LOW RISK 4.4 - 7.1 AVERAGE RISK 7.1 - 11.0 MODERATE RISK >11.0 HIGH RISK Performed By: #### C MP, DLDL, LIPID #### [facility] [address] [address] [address] Jose Miguel Plummer Cholesterol [Mass/Vol] 203 mg/dL Critically high <=200 [facility] Comment on above: Performed By: #### C MP, DLDL, LIPID #### [facility] [address] [address] [address] Jose Miguel Plummer Cholesterol in HDL [Mass/Vol] 22 mg/dL Critically low 40-60 [facility] Comment on above: Performed By: #### C MP, DLDL, LIPID #### [facility] [address] [address] [address] Jose Miguel Plummer Cholesterol.total/Cho lesterol in HDL [Mass ratio] 9.2 {ratio} Normal [facility] Comment on above: Performed By: #### C MP, DLDL, LIPID #### [facility] [address] [address] [address] Jose Miguel Plummer HDL NORMAL > or = 60 mg/dl - LOW CARDIOVASCULAR RISK <40 mg/dl - HIGH CARDIOVASCULAR RISK Normal [facility] Comment on above: Performed By: #### C MP, DLDL, LIPID #### [facility] [address] [address] [address] Jose Miguel Plummer LDL CALC NORMAL SEE BELOW Normal [facility] Comment on above: Result Comment: <100 mg/dl OPTIMAL 100 - 129 mg/dl NEAR OR ABOVE OPTIMAL 130 - 159 mg/dl BORDERLINE HIGH 160 - 189 mg/dl HIGH >190 mg/dl VERY HIGH Performed By: #### C MP, DLDL, LIPID #### [facility] [address] [address] [address] Jose Miguel Plummer Triglyceride [Mass/Vol] mg/dL Critically high <=150 [facility] Comment on above: Performed By: #### C MP, DLDL, LIPID #### [facility] [address] [place] [address] Dr. Jose Miguel Plummer PROF 14(COMP METB)on 023 Albumin [Mass/Vol] 3.3 g/dL Critically low 3.4-5.0 [facility] Comment on above: Performed By: #### C MP, DLDL, LIPID #### [facility] [address] [place] [address] Dr. Jose Miguel Plummer Albumin/Globulin [Mass ratio] 0.8 {ratio} Normal [facility] Comment on above: Performed By: #### C MP, DLDL, LIPID #### [facility] [address] [place] [address] Dr. Jose Miguel Plummer ALP [Catalytic activity/Vol] 115 U/L Normal 46-116 [facility] Comment on above: Performed By: #### C MP, DLDL, LIPID #### [facility] [address] [place] [address] Dr. Jose Miguel Plummer ALT [Catalytic activity/Vol] 20 U/L Normal 14-59 [facility] Comment on above: Performed By: #### C MP, DLDL, LIPID #### [facility] [address] [place] [address] Dr. Jose Miguel Plummer Anion gap [Moles/Vol] 8.9 mmol/L Normal [facility] Comment on above: Performed By: #### C MP, DLDL, LIPID #### [facility] [address] [place] [address] Dr. Jose Miguel Plummer AST [Catalytic activity/Vol] 21 U/L Normal 15-37 [facility] Comment on above: Performed By: #### C MP, DLDL, LIPID #### [facility] [address] [place] [address] Dr. Jose Miguel Plummer Bilirubin [Mass/Vol] 0.3 mg/dL Normal 0.2-1.0 [facility] Comment on above: Performed By: #### C MP, DLDL, LIPID #### [facility] [address] [address] [address] Jose Miguel Plummer Calcium [Mass/Vol] 8.8 mg/dL Normal 8.5-10.1 [facility] Comment on above: Performed By: #### C MP, DLDL, LIPID #### [facility] [address] [address] [address] Jose Miguel Plummer Chloride [Moles/Vol] 103 mmol/L Normal 98-107 [facility] Comment on above: Performed By: #### C MP, DLDL, LIPID #### [facility] [address] [place] [address] Dr. Jose Miguel Plummer CO2 [Moles/Vol] 28.0 mmol/L Normal 21.0-32.0 [facility] Comment on above: Performed By: #### C MP, DLDL, LIPID #### [facility] [address] [place] [address] Dr. Jose Miguel Plummer Creatinine [Mass/Vol] 1.09 mg/dL Critically high 0.55-1.02 [facility] Comment on above: Performed By: #### C MP, DLDL, LIPID #### [facility] [address] [place] [address] Dr. Jose Miguel Plummer EGFR-AF GUAMANIAN 60 mL/min/1.73m2 Normal >=60 [facility] Comment on above: Performed By: #### C MP, DLDL, LIPID #### [facility] [address] [place] [address] Dr. Jose Miguel Plummer EGFR-NON AF GUAMANIAN 50 mL/min/1.73m2 Critically low >=60 [facility] Comment on above: Performed By: #### C MP, DLDL, LIPID #### [facility] [address] [place] [address] Dr. Jose Miguel Plummer Globulin (S) [Mass/Vol] 4.0 g/dL Normal [facility] Comment on above: Performed By: #### C MP, DLDL, LIPID #### [facility] [address] [place] [address] Dr. Jose Miguel Plummer Glucose [Mass/Vol] 132 mg/dL Critically high 74-106 T [facility] Comment on above: Performed By: #### C MP, DLDL, LIPID #### [facility] [address] [place] [address] Dr. Jose Miguel Plummer Potassium [Moles/Vol] 4.9 mmol/L Normal 3.5-5.1 [facility] Comment on above: Performed By: #### C MP, DLDL, LIPID #### [facility] [address] [place] [address] Dr. Jose Miguel Plummer Protein [Mass/Vol] 7.3 g/dL Normal 6.4-8.2 [facility] Comment on above: Performed By: #### C MP, DLDL, LIPID #### [facility] [address] [place] [address] Dr. Jose Miguel Plummer Sodium [Moles/Vol] 135 mmol/L Critically low 136-145 [facility] Comment on above: Performed By: #### C MP, DLDL, LIPID #### [facility] [address] [place] [address] Dr. Jose Miguel Plummer Urea nitrogen [Mass/Vol] 20.0 mg/dL Critically high 7.0-18.0 [facility] Comment on above: Performed By: #### C MP, DLDL, LIPID #### [facility] [address] [place] [address] Dr. Jose Miguel Plummer Urea nitrogen/Creatinine [Mass ratio] 18.3 mg/mg Normal [facility] Comment on above: Performed By: #### C MP, DLDL, LIPID #### [facility] [address] [place] [address] Dr. Jose Miguel Plummer CBC AUTO DIFFon 05-25-2022 BASO # 0.1 103/ul Normal 0.0-0.1 [facility] Comment on above: Performed By: #### C BC #### [facility] [address] [place] [address] Dr. Jose Miguel Plummer Basophils/100 WBC (Bld) 1.5 % Normal 0.2-2.0 [facility] Comment on above: Performed By: #### C BC #### [facility] [address] [address] [address] Jose Miguel Plummer EO # 0.2 103/ul Normal 0.0-0.7 [facility] Comment on above: Performed By: #### C BC #### [facility] [address] [place] [address] Dr. Jose Miguel Plummer Eosinophils/100 WBC (Bld) 2.7 % Normal 0.9-7.0 [facility] Comment on above: Performed By: #### C BC #### [facility] [address] [place] [address] Dr. Jose Miguel Plummer Erythrocyte distribution width (RBC) [Ratio] 14.9 % Normal 11.0-15.0 [facility] Comment on above: Performed By: #### C BC #### [facility] [address] [place] [address] Dr. Jose Miguel Plummer Hematocrit (Bld) [Volume fraction] 50.0 % Critically high 36.0-48.0 [facility] Comment on above: Performed By: #### C BC #### [facility] [address] [place] [address] Dr. Jose Miguel Plummer Hemoglobin (Bld) [Mass/Vol] 16.5 g/dL Critically high 12.0-16.0 [facility] Comment on above: Performed By: #### C BC #### [facility] [address] [place] [address] Dr. Jose Miguel Plummer IG # 0.04 10e3/ul Critically high 0.00-0.03 [facility] Comment on above: Performed By: #### C BC #### [facility] [address] [place] [address] Dr. Jose Miguel Plummer IG % 0.5 % Normal 0.0-0.5 [facility] Comment on above: Performed By: #### C BC #### [facility] [address] [place] [address] Dr. Jose Miguel Plummer LYMPH # 1.4 103/ul Normal 1.2-3.8 [facility] Comment on above: Performed By: #### C BC #### [facility] [address] [place] [address] Dr. Jose Miguel Plummer Lymphocytes/100 WBC (Bld) 19.1 % Critically low 20.5-60.0 [facility] Comment on above: Performed By: #### C BC #### [facility] [address] [place] [address] Dr. Jose Miguel Plummer MANUAL DIFF REQ NO Normal [facility] Comment on above: Performed By: #### C BC #### [facility] [address] [place] [address] Dr. Jose Miguel Plummer MCH (RBC) [Entitic mass] 29.9 pg Normal 26.7-34.0 [facility] Comment on above: Performed By: #### C BC #### [facility] [address] [place] [address] Dr. Jose Miguel Plummer MCHC (RBC) [Mass/Vol] 33.0 g/dL Normal 29.9-35.2 [facility] Comment on above: Performed By: #### C BC #### [facility] [address] [place] [address] Dr. Jose Miguel Plummer MCV (RBC) [Entitic vol] 90.7 fL Normal 81.0-99.0 [facility] Comment on above: Performed By: #### C BC #### [facility] [address] [place] [address] Dr. Jose Miguel Plummer MONO # 1.0 103/ul Critically high 0.3-0.[address] [facility] Comment on above: Performed By: #### C BC #### [facility] [address] [place] [address] Dr. Jose Miguel Plummer Monocytes/100 WBC (Bld) 14.0 % Critically high 1.7-12.0 [facility] Comment on above: Performed By: #### C BC #### [facility] [address] [place] [address] Dr. Jose Miguel Plummer NEUT # 4.6 103/ul Normal 1.4-6.5 [facility] Comment on above: Performed By: #### C BC #### [facility] [address] [address] [address] Jose Miguel Plummer Neutrophils/100 WBC (Bld) 62.2 % Normal 43.0-75.0 [facility] Comment on above: Performed By: #### C BC #### [facility] [address] [address] [address] Jose Miguel Plummer Platelet mean volume (Bld) [Entitic vol] 10.8 fL Normal 9.5-13.5 [facility] Comment on above: Performed By: #### C BC #### [facility] [address] [address] [address] Jose Miguel Plummer PLT 189 103/ul Normal 150-450 [facility] Comment on above: Performed By: #### C BC #### [facility] [address] [place] [address] Dr. Jose Miguel Plummer RBC 5.51 106/ul Critically high 4.20-5.40 [facility] Comment on above: Performed By: #### C BC #### [facility] [address] [place] [address] Dr. Jose Miguel Plummer WBC 7.4 103/ul Normal 4.0-11.0 [facility] Comment on above: Performed By: #### C BC #### [facility] [address] [place] [address] Dr. Jose Miguel Plummer GLYCOHEMOGLOBIN A1Con 2021 ADA RECOMMENDATION SEE BELOW Normal [facility] Comment on above: Result Comment: ADA RECOMMENDED LIMIT 4.0 - 6.0 ADA THERAPEUTIC TARGET < 7.0 ACTION SUGGESTED > 7.0 Performed By: #### A 1C #### [facility] [address] [place] [address] Dr. Jose Miguel Plummer Glucose [Mass/Vol] 160 mg/dL Normal [facility] Comment on above: Performed By: #### A 1C #### [facility] [address] [place] [address] Dr. Jose Miguel Plummer HbA1c (Bld) [Mass fraction] 7.2 % Critically high 4.5-6.2 [facility] Comment on above: Performed By: #### A 1C #### [facility] [address] [address] [address] Jose Miguel Plummer LIPID PROFILEon 05-25-2022 CHOL-HDL RATIO NORM SEE BELOW Normal [facility] Comment on above: Result Comment: 3.3 - 4.4 LOW RISK 4.4 - 7.1 AVERAGE RISK 7.1 - 11.0 MODERATE RISK >11.0 HIGH RISK Performed By: #### L IPID, CMP #### [facility] [address] [address] [address] Jose Miguel Plummer Cholesterol [Mass/Vol] 155 mg/dL Normal <=200 [facility] Comment on above: Performed By: #### L IPID, CMP #### [facility] [address] [address] [address] Jose Miguel Plummer Cholesterol in HDL [Mass/Vol] 35 mg/dL Critically low 40-60 [facility] Comment on above: Performed By: #### L IPID, CMP #### [facility] [address] [address] [address] Jose Miguel Plummer Cholesterol in LDL [Mass/Vol] 40.8 mg/dL Normal [facility] Comment on above: Performed By: #### L IPID, CMP #### [facility] [address] [address] [address] Jose Miguel Plummer Cholesterol.total/Cho lesterol in HDL [Mass ratio] 4.4 {ratio} Normal [facility] Comment on above: Performed By: #### L IPID, CMP #### [facility] [address] [address] [address] Jose Miguel Plummer HDL NORMAL > or = 60 mg/dl - LOW CARDIOVASCULAR RISK <40 mg/dl - HIGH CARDIOVASCULAR RISK Normal [facility] Comment on above: Performed By: #### L IPID, CMP #### [facility] [address] [address] [address] Jose Miguel Plummer LDL CALC NORMAL SEE BELOW Normal [facility] Comment on above: Result Comment: <100 mg/dl OPTIMAL 100 - 129 mg/dl NEAR OR ABOVE OPTIMAL 130 - 159 mg/dl BORDERLINE HIGH 160 - 189 mg/dl HIGH >190 mg/dl VERY HIGH Performed By: #### L IPID, CMP #### [facility] [address] [place] [address] Dr. Jose Miguel Plummer Triglyceride [Mass/Vol] 396 mg/dL Critically high <=150 [facility] Comment on above: Performed By: #### L IPID, CMP #### [facility] [address] [place] [address] Dr. Jose Miguel Plummer VLDL CALC 79.2 mg/dL Normal [facility] Comment on above: Performed By: #### L IPID, CMP #### [facility] [address] [place] [address] Dr. Jose Miguel Plummer PROF 14(COMP METB)on 022 Albumin [Mass/Vol] 3.4 g/dL Normal 3.4-5.0 [facility] Comment on above: Performed By: #### L IPID, CMP #### [facility] [address] [place] [address] Dr. Jose Miguel Plummer Albumin/Globulin [Mass ratio] 0.8 {ratio} Normal [facility] Comment on above: Performed By: #### L IPID, CMP #### [facility] [address] [place] [address] Dr. Jose Miguel Plummer ALP [Catalytic activity/Vol] 82 U/L Normal 46-116 [facility] Comment on above: Performed By: #### L IPID, CMP #### [facility] [address] [place] [address] Dr. Jose Miguel Plummer ALT [Catalytic activity/Vol] 13 U/L Critically low 14-59 [facility] Comment on above: Performed By: #### L IPID, CMP #### [facility] [address] [place] [address] Dr. Jose Miguel Plummer Anion gap [Moles/Vol] 9.8 mmol/L Normal [facility] Comment on above: Performed By: #### L IPID, CMP #### [facility] [address] [place] [address] Dr. Jose Miguel Plummer AST [Catalytic activity/Vol] 10 U/L Critically low 15-37 [facility] Comment on above: Performed By: #### L IPID, CMP #### [facility] [address] [address] [address] Jose Miguel Plummer Bilirubin [Mass/Vol] 0.6 mg/dL Normal 0.2-1.0 [facility] Comment on above: Performed By: #### L IPID, CMP #### [facility] [address] [place] [address] Dr. Jose Miguel Plummer Calcium [Mass/Vol] 9.5 mg/dL Normal 8.5-10.1 [facility] Comment on above: Performed By: #### L IPID, CMP #### [facility] [address] [place] [address] Dr. Jose Miguel Plummer Chloride [Moles/Vol] 105 mmol/L Normal 98-107 [facility] Comment on above: Performed By: #### L IPID, CMP #### [facility] [address] [place] [address] Dr. Jose Miguel Plummer CO2 [Moles/Vol] 29.4 mmol/L Normal 21.0-32.0 [facility] Comment on above: Performed By: #### L IPID, CMP #### [facility] [address] [place] [address] Dr. Jose Miguel Plummer Creatinine [Mass/Vol] 1.01 mg/dL Normal 0.55-1.02 [facility] Comment on above: Performed By: #### L IPID, CMP #### [facility] [address] [place] [address] Dr. Jose Miguel Plummer EGFR-AF GUAMANIAN >60 Normal >=60 [facility] Comment on above: Performed By: #### L IPID, CMP #### [facility] [address] [place] [address] Dr. Jose Miguel Plummer EGFR-NON AF GUAMANIAN 55 mL/min/1.73m2 Critically low >=60 [facility] Comment on above: Performed By: #### L IPID, CMP #### [facility] [address] [place] [address] Dr. Jose Miguel Plummer Globulin (S) [Mass/Vol] 4.2 g/dL Normal [facility] Comment on above: Performed By: #### L IPID, CMP #### [facility] [address] [place] [address] Dr. Jose Miguel Plummer Glucose [Mass/Vol] 125 mg/dL Critically high 74-106 T [facility] Comment on above: Performed By: #### L IPID, CMP #### [facility] [address] [place] [address] Dr. Jose Miguel Plummer Potassium [Moles/Vol] 4.2 mmol/L Normal 3.5-5.1 [facility] Comment on above: Performed By: #### L IPID, CMP #### [facility] [address] [place] [address] Dr. Jose Miguel Plummer Protein [Mass/Vol] 7.6 g/dL Normal 6.4-8.2 [facility] Comment on above: Performed By: #### L IPID, CMP #### [facility] [address] [place] [address] Dr. Jose Miguel Plummer Sodium [Moles/Vol] 140 mmol/L Normal 136-145 [facility] Comment on above: Performed By: #### L IPID, CMP #### [facility] [address] [place] [address] Dr. Jose Miguel Plummer Urea nitrogen [Mass/Vol] 13.0 mg/dL Normal 7.0-18.0 [facility] Comment on above: Performed By: #### L IPID, CMP #### [facility] [address] [place] [address] Dr. Jose Miguel Plummer Urea nitrogen/Creatinine [Mass ratio] 12.9 mg/mg Normal [facility] Comment on above: Performed By: #### L IPID, CMP #### [facility] [address] [place] [address] Dr. Jose Miguel Plummer XR WRIST RT [...] Provider Facility Start: 09-03-2024 ambulatory KOKO FERRELL [facility] Start: 08-23-2024 End: 08-23-2024 ambulatory [facility] Start: 07-05-2024 ambulatory Facility:[facility] Start: 09-01-2023 End: 09-01-2023 ambulatory QUINTERO FAWWAD Not Available Start: 11-23-2022 End: 11-23-2022 ambulatory QUINTERO H FAWWAD Facility:[facility] Start: 05-25-2022 End: 05-26-2022 ambulatory QUINTERO H FAWWAD Facility:[facility] Start: 02-04-2022 End: 02-04-2022 ambulatory QUINTERO H FAWWAD Facility:[facility] Start: 01-08-2022 End: 01-08-2022 ambulatory QUINTERO H FAWWAD Facility:[facility] Payers Date Payer Category Payer Medicare [id number] 2022 Medicare [id number] 1961 Medicare [id number] 1961 Medicare [id number] 1955 Unknown [id number] 1955 Unknown [id number] 1955 Unknown [id number] [id number] [id number] 1955 Unknown [id number] [id number] 1955 Unknown [id number] Progress note 09-03-2024 Note Date & Type Note Facility 09-03-2024 Note Pulmonary Telehealth Visit Note Patient: Carolina Hernandez Age: 68 y.o. : 1955 Account No.: [id number] Referring physician: Nolvia HORN Chief complaint: Lung nodule Date of phone call: 09/03/2024 HPI Carolina Hernandez is a 68 y.o. female lifelong smoker with a 90-fgcs-usbx smoking history. Patient with a history of [...] , PH , PHART , PHVEN , KBT9RLP , [id number] , WVW4IXO , PO2POC , PO2ART , PO2VEN , NMU0LSI , SOP9CYK Radiology: Chest CT scan as well as PET scan were personally reviewed and there is emphysema. 2 PET avid nodules in the right upper lobe. No significant adenopathy. Findings concerning for primary lung cancer Assessment and Plan: 68-year-old woman with 96-ltbw-xjko smoking history who was found to have [...] was initiated by the patient and conducted cug-emup-bn-face with use of audio-only real time telephone communication between patient and provider for a virtual visit. Verbal consent to provide and bill for this service was obtained on 09/03/2024. Koko Ferrell MD Interventional Pulmonary Medicine Pulmonary and Critical Care Medicine [facility] Clinical Note 08-28-2024 Note Date & Type Note Facility 08-28-2024 Note [employer] spoke with st augustine from Dr. De Souza's office (patient's PCP) regarding referral for pulmonary nodule and the inability to reach the patient to schedule an appt. Staff stated they would inform Dr. De Souza of the closed referral at this time. [facility] Clinical Note 08-28-2024 Note Date & Type Note Facility 08-28-2024 Note The senior underwriter has attem pted to contact this patient 3 times to schedule an appt for pulmonary nodule referral. 2 previous voicemail's have been left with return number to call for appt scheduling. The senior underwriter was unable to leave a voicemail during this last contact attempt due to voicemail box being full. [facility] Summary Purpose Family History No Family History Records FoundNo Family History Records FoundNo Family History Records FoundNo Family History Records Found Advance Directives No Advanced Directives Records FoundNo Advanced Directives Records FoundNo Advanced Directives Records FoundNo Advanced Directives Records Found Additional Source Comments INFORMATION SOURCE (unrecogn ized section and content) DATE CREATED AUTHOR 11/25/2022 [facility] DATE CREATED AUTHOR AUTHOR'S ORGANIZ ATION 09/03/2023 [facility] DATE CREATED AUTHOR AUTHOR'S ORGANIZ ATION 07/07/2024 [facility] DATE CREATED AUTHOR AUTHOR'S ORGANIZ ATION 11/17/2024 [facility] FOR RECORDS PERTAINING TO PATIENTS WHO [...] BE BASED ON THE PRIMARY CLINICAL RECORDS. [employer] provides no warranty or guarantee of the accuracy or completeness of information in this document.
[2024-12-14 12:25] LABS: Lactate/Lactic Acid 2.1 mmol/L (0.4-2.0)
[2024-12-14] MEDS: HYDRALAZINE HCL 20 MG/ML VIAL 10 MG IVP (12:30)
--- NOTE | 2024-12-14 12:51 | CA_ITS ---
Patient Name: DAVID ANTHONY MR#: [id number] : 1955 Exam Date: 12/14/2024 Ordering Doctor: DR Brennon De Souza . ECHOCARDIOGRAM REPORT PROCEDURE: CA ECHO DOPPLER COMPLETE INDICATIONS: Dyspnea, elevated BNP, hypertension, diabetes COMPARISON: None. DESCRIPTION: COMPLETE ECHOCARDIOGRAM Real-time transthoracic echocardiography with 2D, M-mode, spectral and color flow Doppler performed. QUALITY: Technical quality was good. LEFT VENTRICLE: Normal chamber size. Mild concentric left ventricular hypertrophy. Normal systolic function. LV EF: Normal left ventricular ejection fraction, (>55%). DIASTOLIC: Diastolic function is indeterminate. ATRIAL SEPTUM: LEFT ATRIUM: Normal chamber size. RIGHT ATRIUM: Normal chamber size. RIGHT VENTRICLE: Normal chamber size. Normal right ventricular systolic function. TRICUSPID VALVE: Normal mobility and thickness. No stenosis with no regurgitation. Unable to assess right-sided pressures due to lack of measurable tricuspid regurgitation. MITRAL VALVE: Normal mobility and thickness. No evidence of mitral valve stenosis. There is no mitral annular calcification. Trivial mitral regurgitation. AORTIC VALVE: Normal trileaflet appearance. Normal leaflet mobility. No evidence of aortic valve stenosis. Leaflet calcifications noted. Trivial aortic regurgitation. AORTIC ROOT: Normal diameter and appearance, measuring 3.6 cm. Ascending aorta is normal in size, measuring 3.2 cm. PULMONIC VALVE: Normal thickness and mobility. No stenosis. Trivial regurgitation. PERICARDIUM: No evidence of pericardial effusion. IVC: Collapses with inspirations. IVC is normal in size. PLEURA: CONCLUSION: 1. Mild concentric left ventricular hypertrophy with normal systolic function. LVEF is estimated at 55 to 60%. 2. Normal right ventricular size and systolic function. 3. No significant valvular dysfunction. 4. Unable to assess right-sided pressures due to lack of measurable tricuspid regurgitation. Adult Echocardiography Procedure Report Left Ventricle LVEDD (3.7 - 5.6 cm): 4.20 cm LVESD (2.2 - 4.0 cm): 3.68 cm LVIVS thickness (0.6 - 1.2 cm): 1.31 cm LVPW thickness (0.5 - 1.0 cm): 1.19 cm e': 0.07 m/s E - e': 9.59 LVOT Max Gradient: 2.37 mm[Hg] LVOT Area (cm2): 0.77 m/s Peak Velocity (LVOT): 0.77 m/s Mean Velocity (LVOT): 0.49 m/s LVOT Diameter 2.24 cm Left Atrium LA Volume Index (2D A2C): 30.62 ml/m2 Left Atrium Systolic Dimension: 3.53 cm Mitral Valve MV E to A Ratio: 0.78 Mitral Valve A-Wave Peak Velocity: 0.91 m/s Mitral Valve E-Wave Peak Velocity: 0.71 m/s Right Ventricle Aorta AO Root Diam: 3.56 cm Ascending Ao Diam: 3.21 cm Aortic Valve AoV Area (Peak Manuel): 2.77 cm2, 2.77 cm2 AoV Area (VTI): 2.95 cm2, 2.95 cm2 Peak Velocity(Antegrade Flow): 1.09 m/s Peak Gradient(Antegrade Flow): 4.79 mm[Hg] Mean Velocity(Antegrade Flow): 0.79 m/s Mean Gradient(Antegrade Flow): 2.71 mm[Hg] Velocity Time Integral: 21.89 cm Tricuspid Valve Pulmonic Valve Mean Gradient: 1.55 mm[Hg] Mean Velocity: 0.58 m/s Peak Velocity: 0.85 m/s, 0.91 m/s Peak Gradient: 3.32 mm[Hg], 2.87 mm[Hg] Right Atrium Right Atrium Systolic Pressure: 41.26 ml, 41.26 ml Dictated by: Oleg Brice M.D. on 12/14/2024 at 17:32 Approved by: Oleg Brice M.D. on 12/14/2024 at 17:35
--- NOTE | 2024-12-14 12:59 | P.HP_ITS ---
HPI H&P: HPI History of Present Illness Chief complaint: ALTERED MENTAL STATUS HYPOTHERMIA Narrative: Patient was brought in by ambulance, last known well time was 9:00 last night, she does live with her son, he went to work, when he came home found her on the floor, unable to get her up so called squad and ER workup show patient is very obtunded on admission sinus tachycardia and respiratory distress was significant elevated high blood pressure, was getting ready to intubate and patient woke up sat up and said what he doing, that point on she was coming in and out of consciousness, there were no focal neurological deficits noted at the time in the ER And I saw patient up in the intensive care unit, very obtunded, occasionally respond to loud voice and sternal rub, did appear to have decreased drag sawyer strength on the right, Opioid HPI Opioid Management Most Recent Pain and Opioid Data: Last Pain Scale 8 10/08/24 18:46 10/08/24 Last Pain Assessment 12/14/24 14:00 Last ORT Total Score 0 03/15/24 13:03 03/15/24 Last ORT Risk Category Low Risk 03/15/24 13:03 03/15/24 Ur Phencyclidine Scrn Negative (NEGATIVE) 12/14/24 09:27 0305/13 Review of Systems ROS Status of ROS 10 or more systems reviewed and unremark able except as noted in history and below [facility] Medical History (Updated 12/14/24 @ 11:16 by Jason Luther MD) Bilateral pulmonary embolism ?I26.99 - Other pulmonary embolism without acute cor pulmonale (ICD-10) Right-sided chest wall pain ?R07.89 - Other chest pain (ICD-10) Diabetes mellitus ?E11.9 - Type 2 diabetes mellitus without complications (ICD-10) GERD (gastroesophageal reflux disease) ?K21.9 - Gastro-esophageal reflux disease without esophagitis (ICD-10) High cholesterol ?E78.00 - Pure hypercholesterolemia, unspecified (ICD-10) Hypertension ?I10 - Essential (primary) hypertension (ICD-10) Social History Smoking status: Current every day smoker Highest level of school completed/degree received: high school graduate Little interest or pleasure in doing things: not at all Feeling down, depressed, or hopeless: not at all Meds Home Medications and Allergies Home Medications ?Medication ?Instructions ?Recorded ?Confirmed ?Type rosuvastatin 40 mg tablet 40 mg PO .QHS 08/19/23 12/14/24 History metformin 500 mg tablet 500 mg PO BIDWM 03/15/24 12/14/24 History metoprolol succinate 100 mg 100 mg PO DAILY 03/15/24 12/14/24 History tablet,extended release 24 hr apixaban 5 mg tablet (Eliquis) 5 mg PO BID 12/14/24 12/14/24 History baclofen 20 mg tablet 10 mg PO .qhs PRN muscle spasm 12/14/24 12/14/24 History citalopram 20 mg tablet 20 mg PO DAILY 12/14/24 12/14/24 History glipizide 10 mg tablet 10 mg PO QAM 12/14/24 12/14/24 History Allergies Allergy/AdvReac Type Severity Reaction Status Date / Time No Known Drug Allergies Allergy Verified 10/08/24 18:43 Exam Constitutional Vital Signs, click to edit/add: Last Vital Signs Temp 95.7 F L 12/14/24 11:42 Pulse 76 12/14/24 11:30 Resp 26 H 12/14/24 11:30 BP 177/88 H 12/14/24 11:30 Pulse Ox 96 12/14/24 11:30 O2 Del Method Nasal Cannula 12/14/24 09:53 O2 Flow Rate 4 12/14/24 09:53 Documenting provider has reviewed patient's vital signs: yes Common normals: apparent distress (Obtunded with minimal response to voice and stimuli) Respiratory Common normals: abnormal respiratory effort (Sonorous respirations) Cardio Common normals: regular rate and regular rhythm GI Common normals: negative for Normal to inspection, nondistended, normoactive bowel sounds present (Obese) Neuro Sensorium/orientation: not awake, not alert, not oriented to person, not oriented to place, not oriented to time and orientation not impaired Results Labs Labs: Short CBC 12/14/24 Range/Units 09:06 WBC 11.6 H (4.0-11.0) 10^3/uL Hgb 19.2 H (12.0-16.0) g/dL Hct 54.2 H (36.0-48.0) % Plt Count 244 (150-450) 10^3/uL BMP 12/14/24 09:06 Sodium 136 Potassium 4.0 Chloride 95 L Carbon Dioxide 27.9 BUN 20.0 H Creatinine 1.32 H Glucose 331 H Calcium 10.1 Cardiac Enzymes 12/14/24 Range/Units 09:06 Total Creatine Kinase 472 H* (26-192) U/L Liver Function 12/14/24 Range/Units 09:06 Total Bilirubin 1.0 (0.2-1.0) mg/dL Direct Bilirubin 0.2 (0.0-0.2) mg/dL AST 23 (15-37) U/L ALT 14 (14-59) U/L Alkaline Phosphatase 126 H (46-116) U/L Albumin 3.5 (3.4-5.0) g/dL Urine 12/14/24 Range/Units 09:27 Urine Color Lt. yellow (YELLOW) Urine Clarity Cloudy A (CLEAR) Urine pH 6.0 (5.0-9.0) Ur Specific [place] 1.020 (1.005-1.025) Urine Protein >=300 A (NEG/TRACE) mg/dL Urine Glucose (UA) >=1000 A (NEGATIVE) mg/dL ABG ABG results: 12/14/24 10:18 ABG pH 7.345 L ABG pCO2 54.3 H* ABG pO2 75.4 L ABG HCO3 29.6 H ABG O2 Saturation 94.9 ABG Base Excess 4.0 H Assessment and Plan Assessment and Plan (1) Rhabdomyolysis: (2) Hypothermia: (3) Altered mental status: (4) Acute strain of neck muscle: Qualifiers: Encounter type: initial encounter Qualified Code(s): S16.1XXA - Strain of muscle, fascia and tendon at neck level, initial encounter (5) Diabetes mellitus: (6) Bilateral pulmonary embolism: (7) GERD (gastroesophageal reflux disease): Plan Admission findings: Hypothermia, tachycardia, respiratory distress, hypertensive urgency, leukocytosis, lactic acidosis elevated liver function tests secondary to severe sepsis due to uncertain etiology at this time, altered mental status concerning for CVA with potentially right-sided weakness although difficult to assess secondary to patient's waxing and waning mental status, also meeting criteria for multisystem organ dysfunction with elevated BNP, liver test and altered mental status Severe sepsis without shock with multisystem organ dysfunction as outlined above-she does appear dry so we will give another liter of fluids, broad-sp ectrum antibiotics, panculture, potential sources lungs that she has some pulmonary vascular congestion?may be consistent with bronchitis versus pneumonia Right-sided weakness with altered mental status-unable to assess for sure the right-sided weakness secondary to patient's altered mental status-planning on MRA of head and CTA head and neck and discussing case with telestroke Acute elevation creatinine consistent with dehydration consistent with the above-maintenance fluids Elevated BNP within normal high-sensitivity troponin-I think the BNP may be elevated with mild elevation in creatinine as patient does appear to be dry Elevated liver function test-repeat in a.m. likely related to the sepsis as outlined above Poorly controlled diabetes mellitus sugar is 300-does not appear to be DKA as her pH is not low History of pulmonary embolism -according to records does not appear she is taking the Eliquis currently Admission findings: Altered mental status severe sepsis with multisystem organ dysfunction medically necessary treatment will span 2 midnights. Inpatient status Urinary Catheter Management Urinary Catheter Management Urethral: Cath placed during this visit: yes Urethral indwelling: Yes Reason for continuing: measure accurate output Insertion date: 12/14/24 Insertion time: 09:29
[2024-12-14 13:23] LABS: Ammonia 17 umol/L (11-32)
[2024-12-14 13:24] LABS: Glucometer 349 mg/dL (74-106)
[2024-12-14 13:29] LABS: INR 1.03; Partial Thromboplastin Time 25.1 sec (22.3-36.2); Prothrombin Time 10.9 sec (9.0-11.6)
[2024-12-14] MEDS: 0.9 % SODIUM CHLORIDE 1,000 ML 1000 ML IV (13:29)
[2024-12-14] MEDS: VANCOMYCIN HCL 1,250 MG in 0.9 % SODIUM CHLORIDE 250 ML 166.667 MG IV (13:29)
[2024-12-14] MEDS: PANTOPRAZOLE SODIUM 40 MG VIAL IV (13:30)
[2024-12-14 13:32] LABS: Magnesium 1.4 mg/dL (1.8-2.4); Phosphorus 3.8 mg/dL (2.6-4.7); Troponin I High Sensitivity 40.5 pg/mL (4.0-51.3)
[2024-12-14 13:45] LABS: ABG PCO2 47.9 mmHg (35.0-45.0); Allen Test POSITIVE (POSITIVE); O2 Mode NC; Oxygen Saturation ABG 97.8 %; PO2 ABG 92.1 mmHg (80.0-100.0)
[2024-12-14 13:46] LABS: Liters per Minute 4; Puncture Site L RAD
--- NOTE | 2024-12-14 13:58 | SWNOTE1 ---
SW went back to see if family was here to review IMM, but no family at this time. special education secretary said the son will be here in a little bit.
--- NOTE | 2024-12-14 15:28 | SWNOTE1 ---
Family still not in to complete IMM.
--- NOTE | 2024-12-14 15:28 | SWNOTE1 ---
SW to complete assessment Tuesday if pt still here.
[2024-12-14] MEDS: INSULIN ASPART 300 UNIT/3 ML PEN SUBQ ×2 (16:03→21:28)
[2024-12-14] MEDS: LACTATED RINGER'S SOLUTION 1,000 ML 100 ML IV (16:03)
[2024-12-14 16:05] LABS: Glucometer 274 mg/dL (74-106)
[2024-12-14] MEDS: PROMETHAZINE HCL 25 MG in 0.9 % SODIUM CHLORIDE 50 ML 204 MG IV (16:13)
[2024-12-14] MEDS: MAGNESIUM SULFATE IN WATER 4 GM/100 ML PIGGYBACK IV (18:28)
[2024-12-14] MEDS: PIPERACILLIN SODIUM/TAZOBACTAM 3.375 GM in 0.9 % SODIUM CHLORIDE 50 ML IV (21:25)
[2024-12-14] MEDS: LEVETIRACETAM 500 MG in 0.9 % SODIUM CHLORIDE 100 ML 420 MG IV (21:26)
[2024-12-14 21:33] LABS: Glucometer 199 mg/dL (74-106)
[2024-12-14] MEDS: IPRATROPIUM/ALBUTEROL SULFATE 3 ML AMPUL.NEB IH (23:58)
[2024-12-15] VITALS (113 sets, daily range): BP systolic 122–154; BP diastolic 57–88; PULSE 82–105; TEMP 36.5–37.3; O2SAT 88–100
[2024-12-15] MEDS: LACTATED RINGER'S SOLUTION 1,000 ML 100 ML IV (03:32)
[2024-12-15] MEDS: PIPERACILLIN SODIUM/TAZOBACTAM 3.375 GM in 0.9 % SODIUM CHLORIDE 50 ML IV ×3 (04:00→22:34)
[2024-12-15] MEDS: IPRATROPIUM/ALBUTEROL SULFATE 3 ML AMPUL.NEB IH ×4 (05:39→22:28)
[2024-12-15 06:18] LABS: Hemoglobin 15.5 g/dL (12.0-16.0); Mean Corpuscular HGB Conc 34.4 g/dL (29.9-35.2); Mean Corpuscular Hemoglobin 30.3 pg (26.7-34.0); Mean Corpuscular Volume 88.1 fL (81.0-99.0); Mean Platelet Volume 10.3 fL (9.5-13.5); Platelet Count 229 10^3/uL (150-450); Red Blood Count 5.11 10^6/uL (4.20-5.40); Red Cell Distribution Width 14.1 % (11.0-15.0); White Blood Count 15.6 10^3/uL (4.0-11.0)
[2024-12-15 06:32] LABS: Monocytes Absolute Manual 2.18 10^3/uL (0.30-0.80); Segmented Neut Absolute Manual 12.01 10^3/uL (1.4-6.5)
[2024-12-15 06:53] LABS: Alanine Aminotransferase <6 U/L (14-59); Albumin Globulin Ratio 0.7; Albumin Level 2.8 g/dL (3.4-5.0); Alkaline Phosphatase 95 U/L (46-116); Anion Gap 11.8; Aspartate Amino Transferase 29 U/L (15-37); BUN Creatinine Ratio 13.2; Calcium 9.1 mg/dL (8.5-10.1); Carbon Dioxide 29.6 mmol/L (21.0-32.0); Chloride 103 mmol/L (98-107); Creatine Kinase MB 3.19 ng/mL (<=3.60); Estimated GFR (African America 49 (>=60 mL/min/1.73m^2); Estimated GFR (Non-African Ame 41 (>=60 mL/min/1.73m^2); Glucose 166 mg/dL (74-106); Potassium 3.4 mmol/L (3.5-5.1); Sodium 141 mmol/L (136-145); Total Protein 6.8 g/dL (6.4-8.2)
[2024-12-15 06:55] LABS: Creatine Kinase 502 U/L (26-192); Myoglobin 451 ng/mL (9-82); Troponin I High Sensitivity 77.2 pg/mL (4.0-51.3)
[2024-12-15 08:01] LABS: Magnesium 2.3 mg/dL (1.8-2.4)
[2024-12-15] MEDS: INSULIN ASPART 300 UNIT/3 ML PEN SUBQ ×4 (08:35→22:37)
[2024-12-15] MEDS: POTASSIUM CHLORIDE 40 MEQ in 0.9 % SODIUM CHLORIDE 250 ML 67.5 MEQ IV (08:35)
[2024-12-15 08:38] LABS: Glucometer 168 mg/dL (74-106)
--- NOTE | 2024-12-15 08:47 | P.PN_ITS ---
Progress Note: Subjective Subjective Interval history: Patient much more awake and alert this morning, does remember my name now, still some word finding issues when talking to her, no focal neurological deficits Exam Constitutional Vital Signs, click to edit/add: Last Vital Signs Temp 98.6 F 12/15/24 07:41 Pulse 92 H 12/15/24 08:00 Resp 18 12/15/24 07:40 BP 138/75 12/15/24 07:30 Pulse Ox 88 L 12/15/24 07:41 O2 Del Method Room Air 12/15/24 07:41 O2 Flow Rate 2 12/15/24 05:37 Documenting provider has reviewed patient's vital signs: yes Common normals: no apparent distress Chest Common normals: inspection of chest normal Respiratory Common normals: normal respiratory effort and no use of accessory muscles Auscultation: rhonchi Cardio Common normals: regular rate, regular rhythm and no murmurs GI Common normals: soft to palpation, non-tender and no masses; negative for Normal to inspection, nondistended, normoactive bowel sounds present (ObeseEyes:) Progress Note: Objective Labs Labs: Short CBC 12/14/24 12/15/24 Range/Units 09:06 05:39 WBC 11.6 H 15.6 H (4.0-11.0) 10^3/uL Hgb 19.2 H 15.5 (12.0-16.0) g/dL Hct 54.2 H 45.0 (36.0-48.0) % Plt Count 244 229 (150-450) 10^3/uL BMP 12/14/24 12/15/24 09:06 05:39 Sodium 136 141 Potassium 4.0 3.4 L Chloride 95 L 103 Carbon Dioxide 27.9 29.6 BUN 20.0 H 17.0 Creatinine 1.32 H 1.29 H Glucose 331 H 166 H Calcium 10.1 9.1 Cardiac Enzymes 12/14/24 12/15/24 Range/Units 09:06 05:39 Total Creatine Kinase 472 H* 502 H* (26-192) U/L CK-MB (CK-2) 3.19 (<=3.60) ng/mL Liver Function 12/14/24 12/15/24 Range/Units 09:06 05:39 Total Bilirubin 1.0 1.0 (0.2-1.0) mg/dL Direct Bilirubin 0.2 (0.0-0.2) mg/dL AST 23 29 (15-37) U/L ALT 14 <6 L (14-59) U/L Alkaline Phosphatase 126 H 95 (46-116) U/L Albumin 3.5 2.8 L (3.4-5.0) g/dL Urine 12/14/24 Range/Units 09:27 Urine Color Lt. yellow (YELLOW) Urine Clarity Cloudy A (CLEAR) Urine pH 6.0 (5.0-9.0) Ur Specific [place] 1.020 (1.005-1.025) Urine Protein >=300 A (NEG/TRACE) mg/dL Urine Glucose (UA) >=1000 A (NEGATIVE) mg/dL Progress Note: A&P Assessment and Plan (1) Rhabdomyolysis: (2) Hypothermia: (3) Altered mental status: (4) Acute strain of neck muscle: Qualifiers: Encounter type: initial encounter Qualified Code(s): S16.1XXA - Strain of muscle, fascia and tendon at neck level, initial encounter (5) Diabetes mellitus: (6) Bilateral pulmonary embolism: (7) GERD (gastroesophageal reflux disease): Plan Admission findings: Hypothermia, tachycardia, respiratory distress, hypertensive urgency, leukocytosis, rhabdomyolysis, lactic acidosis elevated liver function tests secondary to severe sepsis due to uncertain etiology at this time, altered mental status concerning for CVA with potentially right-sided weakness although difficult to assess secondary to patient's waxing and waning mental status, also meeting criteria for multisystem organ dysfunction with elevated BNP, liver test and altered mental status Severe sepsis without shock with multisystem organ dysfunction as outlined above-improved today, maintain current antibiotic dosing white blood cell count is elevated however, cultures pending Altered mental status-much improved today, maintain plan with seizure precautions Acute rhabdomyolysis-CK somewhat elevated today, continue to monitor Polycythemia-improved today to baseline Hypokalemia-supplement Hypomagnesemia-supplement and improved today Right-sided weakness with altered mental status-no further right-sided weakness, CTA, MRI is all negative, maintain anticoagulation Acute elevation creatinine consistent with dehydration consistent with the above-improved today, saline lock with patient more awake Elevated BNP within normal high-sensitivity yaihvlkl-fhnd-rhfktjeardo troponin not elevated so possible acute NSTEMI type II, repeat troponin later today, BNP further elevated so will saline lock echocardiogram with good ejection fraction Elevated liver function test-repeat in a.m. continue to monitor Poorly controlled diabetes mellitus sugar is 300-improved today, restart home medications but at lower dose History of pulmonary embolism-maintain anticoagulation Moderate protein calorie malnutrition-diet management Morbid obesity-diet management Admission findings: Altered mental status severe sepsis with multisystem organ dysfunction medically necessary treatment will span 2 midnights. Inpatient status Urinary Catheter Management Urinary Catheter Management Urethral: Cath placed during this visit: yes Urethral indwelling: Yes Reason for continuing: measure accurate output Insertion date: 12/14/24 Insertion time: 09:29
[2024-12-15] MEDS: PROSTAT 15 GM PROTEIN/100 CAL 30 ML LIQUID PACKET PO ×2 (08:50→22:33)
[2024-12-15] MEDS: CITALOPRAM HYDROBROMIDE 20 MG TABLET PO (08:50)
[2024-12-15] MEDS: APIXABAN 5 MG TABLET PO ×2 (08:50→22:33)
[2024-12-15] MEDS: LEVETIRACETAM 500 MG TABLET PO ×2 (08:50→22:33)
[2024-12-15] MEDS: METFORMIN HCL 500 MG TABLET PO ×2 (08:50→17:03)
[2024-12-15 10:23] LABS: Troponin I High Sensitivity 62.4 pg/mL (4.0-51.3)
[2024-12-15 11:44] LABS: Glucometer 180 mg/dL (74-106)
[2024-12-15] MEDS: PANTOPRAZOLE SODIUM 40 MG VIAL IV (12:46)
--- NOTE | 2024-12-15 14:08 | PC.NURSE ---
transferred to room 217, report given to juan carlos abraham. pt taken in wheelchair with belongings.
[2024-12-15] MEDS: VANCOMYCIN HCL 1,250 MG in 0.9 % SODIUM CHLORIDE 250 ML 125 MG IV (14:35)
[2024-12-15 16:48] LABS: Glucometer 165 mg/dL (74-106)
[2024-12-15 22:01] LABS: Glucometer 216 mg/dL (74-106)
[2024-12-15] MEDS: ENSURE HP 237 ML LIQUID PO (22:33)
[2024-12-16] VITALS (21 sets, daily range): BP systolic 129–187; BP diastolic 71–98; PULSE 67–90; TEMP 36.2–36.6; O2SAT 91–95
[2024-12-16] MEDS: IPRATROPIUM/ALBUTEROL SULFATE 3 ML AMPUL.NEB IH ×4 (04:49→22:02)
[2024-12-16] MEDS: PIPERACILLIN SODIUM/TAZOBACTAM 3.375 GM in 0.9 % SODIUM CHLORIDE 50 ML IV ×3 (05:14→20:29)
[2024-12-16 06:28] LABS: Basophils Absolute Auto 0.1 10^3/uL (0.0-0.1); Basophils Percent Auto 0.9 % (0.2-2.0); Eosinophils Absolute Auto 0.3 10^3/uL (0.0-0.7); Eosinophils Percent Auto 3.4 % (0.9-7.0); Hematocrit 41.9 % (36.0-48.0); Hemoglobin 14.2 g/dL (12.0-16.0); Immature Granulocytes Abs Auto 0.02 10^3/uL (0.00-0.03); Immature Granulocytes Pct Auto 0.2 % (0.0-0.5); Mean Corpuscular HGB Conc 33.9 g/dL (29.9-35.2); Mean Corpuscular Hemoglobin 30.8 pg (26.7-34.0); Mean Corpuscular Volume 90.9 fL (81.0-99.0); Mean Platelet Volume 10.1 fL (9.5-13.5); Monocytes Absolute Auto 1.1 10^3/uL (0.3-0.8); Monocytes Percent Auto 13.1 % (1.7-12.0); Neutrophils Absolute Auto 5.1 10^3/uL (1.4-6.5); Neutrophils Percent Auto 59.4 % (43.0-75.0); Platelet Count 190 10^3/uL (150-450); Red Blood Count 4.61 10^6/uL (4.20-5.40); Red Cell Distribution Width 14.2 % (11.0-15.0); White Blood Count 8.6 10^3/uL (4.0-11.0)
[2024-12-16 07:07] LABS: Alanine Aminotransferase 10 U/L (14-59); Albumin Globulin Ratio 0.6; Albumin Level 2.4 g/dL (3.4-5.0); Alkaline Phosphatase 74 U/L (46-116); Aspartate Amino Transferase 21 U/L (15-37); BUN Creatinine Ratio 18.6; Calcium 8.6 mg/dL (8.5-10.1); Carbon Dioxide 29.1 mmol/L (21.0-32.0); Chloride 103 mmol/L (98-107); Creatine Kinase 199 U/L (26-192); Creatine Kinase MB 2.21 ng/mL (<=3.60); Estimated GFR (African America 57 (>=60 mL/min/1.73m^2); Estimated GFR (Non-African Ame 47 (>=60 mL/min/1.73m^2); Globulin 3.7 g/dL; Glucose 95 mg/dL (74-106); Myoglobin 151 ng/mL (9-82); Potassium 3.1 mmol/L (3.5-5.1); Sodium 138 mmol/L (136-145); Total Protein 6.1 g/dL (6.4-8.2); Troponin I High Sensitivity 39.1 pg/mL (4.0-51.3)
[2024-12-16 07:33] LABS: Magnesium 1.8 mg/dL (1.8-2.4)
[2024-12-16 09:08] LABS: Vitamin B12 243 pg/mL (232-1245)
[2024-12-16] MEDS: METFORMIN HCL 500 MG TABLET PO ×2 (09:21→17:43)
[2024-12-16] MEDS: LEVETIRACETAM 500 MG TABLET PO ×2 (09:21→20:28)
[2024-12-16] MEDS: POTASSIUM CHLORIDE 10 MEQ ER TABLET 20 MEQ PO ×2 (09:21→20:28)
[2024-12-16] MEDS: APIXABAN 5 MG TABLET PO ×2 (09:21→20:28)
[2024-12-16] MEDS: GLIPIZIDE 5 MG TABLET PO (09:21)
[2024-12-16] MEDS: CITALOPRAM HYDROBROMIDE 20 MG TABLET PO (09:21)
--- NOTE | 2024-12-16 09:57 | P.PN_ITS ---
Progress Note: Subjective Subjective Interval history: Patient much more awake and alert this morning, does remember my name now, still some word finding issues when talking to her, no focal neurological deficits Exam Constitutional Vital Signs, click to edit/add: Last Vital Signs Temp 97.2 F L 12/16/24 07:45 Pulse 79 12/16/24 07:45 Resp 18 12/16/24 04:49 BP 146/81 H 12/16/24 07:45 Pulse Ox 92 L 12/16/24 04:49 O2 Del Method Room Air 12/16/24 04:49 O2 Flow Rate 2 12/15/24 05:37 Progress Note: Objective Labs Labs: Short CBC 12/16/24 Range/Units 05:54 WBC 8.6 (4.0-11.0) 10^3/uL Hgb 14.2 (12.0-16.0) g/dL Hct 41.9 (36.0-48.0) % Plt Count 190 (150-450) 10^3/uL BMP 12/16/24 05:54 Sodium 138 Potassium 3.1 L Chloride 103 Carbon Dioxide 29.1 BUN 21.0 H Creatinine 1.13 H Glucose 95 Calcium 8.6 Cardiac Enzymes 12/16/24 Range/Units 05:54 Total Creatine Kinase 199 H (26-192) U/L CK-MB (CK-2) 2.21 (<=3.60) ng/mL Liver Function 12/16/24 Range/Units 05:54 Total Bilirubin 1.0 (0.2-1.0) mg/dL AST 21 (15-37) U/L ALT 10 L (14-59) U/L Alkaline Phosphatase 74 (46-116) U/L Albumin 2.4 L (3.4-5.0) g/dL Progress Note: A&P Assessment and Plan (1) Rhabdomyolysis: (2) Hypothermia: (3) Altered mental status: (4) Acute strain of neck muscle: Qualifiers: Encounter type: initial encounter Qualified Code(s): S16.1XXA - Strain of muscle, fascia and tendon at neck level, initial encounter (5) Diabetes mellitus: (6) Bilateral pulmonary embolism: (7) GERD (gastroesophageal reflux disease): Plan Admission findings: Hypothermia, tachycardia, respiratory distress, hypertensive urgency, leukocytosis, rhabdomyolysis, lactic acidosis elevated liver function tests secondary to severe sepsis due to uncertain etiology at this time, altered mental status concerning for CVA with potentially right-sided weakness although difficult to assess secondary to patient's waxing and waning mental status, also meeting criteria for multisystem organ dysfunction with elevated BNP, liver test and altered mental status Severe sepsis without shock with multisystem organ dysfunction as outlined above-improved today, maintain current antibiotic dosing white blood cell count is elevated however, cultures pending Altered mental status-much improved today, maintain plan with seizure precautions Acute rhabdomyolysis-CK somewhat elevated today, continue to monitor Polycythemia-improved today to baseline Hypokalemia-supplement Hypomagnesemia-supplement and improved today Right-sided weakness with altered mental status-no further right-sided weakness, CTA, MRI is all negative, maintain anticoagulation Acute elevation creatinine consistent with dehydration consistent with the above-improved today, saline lock with patient more awake Elevated BNP within normal high-sensitivity fvkigceo-ertp-myepfrljluo troponin not elevated so possible acute NSTEMI type II, repeat troponin later today, BNP further elevated so will saline lock echocardiogram with good ejection fraction Elevated liver function test-repeat in a.m. continue to monitor Poorly controlled diabetes mellitus sugar is 300-improved today, restart home medications but at lower dose History of pulmonary embolism-maintain anticoagulation Moderate protein calorie malnutrition-diet management Morbid obesity-diet management Admission findings: Altered mental status severe sepsis with multisystem organ dysfunction medically necessary treatment will span 2 midnights. Inpatient status Urinary Catheter Management Urinary Catheter Management Urethral: Cath placed during this visit: yes, but has since been removed by the nurse Urethral indwelling: Yes Insertion date: 12/14/24 Insertion time: 09: Removal date: 12/15/24 Removal time: 10:28
--- NOTE | 2024-12-16 10:00 | P.DS_ITS ---
DS: Providers Provider Date of admission: 12/14/24 11:57 Primary care physician: Brennon D eSouza MD Consults: 12/14/24 12:47 Consult to Pharmacy Routine Consulting Provider: Reason for consultation: Please Dakota me when Med Rec is Updated Has provider been notified: No Consult to Telestroke Routine Reason for consultation: Altered mental status Occupational Therapy Eval and Treat Routine Reason for consultation: Only if needed for Rehab Has provider been notified: No Physical Therapy Eval and Treat Routine Reason for consultation: Eval and Treat Has provider been notified: No 12/16/24 09:59 Consult to [facility]ler Routine Reason for consult:: Long Term DS: Diagnosis Discharge Diagnosis (1) Rhabdomyolysis: (2) Hypothermia: (3) Altered mental status: (4) Acute strain of neck muscle: Qualifiers: Encounter type: initial encounter Qualified Code(s): S16.1XXA - Strain of muscle, fascia and tendon at neck level, initial encounter (5) Diabetes mellitus: (6) Bilateral pulmonary embolism: (7) GERD (gastroesophageal reflux disease): Plan Admission findings: Hypothermia, tachycardia, respiratory distress, hypertensive urgency, leukocytosis, rhabdomyolysis, lactic acidosis elevated liver function tests secondary to severe sepsis due to uncertain etiology at this time, altered mental status concerning for CVA with potentially right-sided weakness although difficult to assess secondary to patient's waxing and waning mental status, also meeting criteria for multisystem organ dysfunction with elevated BNP, liver test and altered mental status Severe sepsis without shock with multisystem organ dysfunction as outlined above-improved today, maintain current antibiotic dosing white blood cell count is elevated however, cultures pending Altered mental status-much improved today, maintain plan with seizure precautions Acute rhabdomyolysis-CK somewhat elevated today, continue to monitor Polycythemia-improved today to baseline Hypokalemia-supplement Hypomagnesemia-supplement and improved today Right-sided weakness with altered mental status-no further right-sided weakness, CTA, MRI is all negative, maintain anticoagulation Acute elevation creatinine consistent with dehydration consistent with the above-improved today, saline lock with patient more awake Elevated BNP within normal high-sensitivity ginemgsn-neah-hvfuiiivtpn troponin not elevated so possible acute NSTEMI type II, repeat troponin later today, BNP further elevated so will saline lock echocardiogram with good ejection fraction Elevated liver function test-repeat in a.m. continue to monitor Poorly controlled diabetes mellitus sugar is 300-improved today, restart home medications but at lower dose History of pulmonary embolism-maintain anticoagulation Moderate protein calorie malnutrition-diet management Morbid obesity-diet management Admission findings: Altered mental status severe sepsis with multisystem organ dysfunction medically necessary treatment will span 2 midnights. Inpatient status DS: Summary Time Spent with Patient Time attestation: Total time spent providing and/or coordinating discharge services: Exam Constitutional Vital Signs, click to edit/add: Last Vital Signs Temp 97.2 F L 12/16/24 07:45 Pulse 79 12/16/24 07:45 Resp 18 12/16/24 04:49 BP 146/81 H 12/16/24 07:45 Pulse Ox 92 L 12/16/24 04:49 O2 Del Method Room Air 12/16/24 04:49 O2 Flow Rate 2 12/15/24 05:37 DS: Data Data Completed and Pending Labs on day of discharge: Labs from last 24 hours 12/16/24 12/15/24 12/15/24 05:54 21:59 16:46 WBC 8.6 RBC 4.61 Hgb 14.2 Hct 41.9 MCV 90.9 MCH 30.8 MCHC 33.9 RDW 14.2 Plt Count 190 MPV 10.1 Neut % (Auto) 59.4 Lymph % (Auto) 23.0 Cedar % (Auto) 13.1 H Eos % (Auto) 3.4 Baso % (Auto) 0.9 Neut # (Auto) 5.1 Lymph # (Auto) 2.0 Cedar # (Auto) 1.1 H Eos # (Auto) 0.3 Baso # (Auto) 0.1 Abs Immat Gran (auto) 0.02 Imm/Tot Granulo (auto) 0.2 Sodium 138 Potassium 3.1 L Chloride 103 Carbon Dioxide 29.1 Anion Gap 9.0 BUN 21.0 H Creatinine 1.13 H Est GFR ( Amer) 57 L Est GFR (Non-Af Amer) 47 L BUN/Creatinine Ratio 18.6 Glucose 95 Calcium 8.6 Magnesium 1.8 Total Bilirubin 1.0 AST 21 ALT 10 L Alkaline Phosphatase 74 Total Creatine Kinase 199 H CK-MB (CK-2) 2.21 Myoglobin 151 H Troponin I High Sens 39.1 NT-Pro-B Natriuret Pep 1929.0 H* Total Protein 6.1 L Albumin 2.4 L Globulin 3.7 Albumin/Globulin Ratio 0.6 Vitamin B12 POC Glucose 216 H 165 H 12/15/24 12/15/24 12/15/24 11:42 09:58 05:39 WBC RBC Hgb Hct MCV MCH MCHC RDW Plt Count MPV Neut % (Auto) Lymph % (Auto) Cedar % (Auto) Eos % (Auto) Baso % (Auto) Neut # (Auto) Lymph # (Auto) Cedar # (Auto) Eos # (Auto) Baso # (Auto) Abs Immat Gran (auto) Imm/Tot Granulo (auto) Sodium Potassium Chloride Carbon Dioxide Anion Gap BUN Creatinine Est GFR ( Amer) Est GFR (Non-Af Amer) BUN/Creatinine Ratio Glucose Calcium Magnesium Total Bilirubin AST ALT Alkaline Phosphatase Total Creatine Kinase CK-MB (CK-2) Myoglobin Troponin I High Sens 62.4 H* NT-Pro-B Natriuret Pep Total Protein Albumin Globulin Albumin/Globulin Ratio Vitamin B12 243 POC Glucose 180 H Preliminary micro results at discharge 12/14/24 09:27 Urine Culture - Preliminary Urine,Clean Catch Pending - Specimen sent to [facility] Discharge Plan Discharge Condition: Fair Discharge Medications: No Action rosuvastatin 40 mg tablet 40 mg PO .QHS metformin 500 mg tablet 500 mg PO BIDWM metoprolol succinate 100 mg tablet extended release 24 hr 100 mg PO DAILY baclofen 20 mg tablet 10 mg PO .qhs PRN (Reason: muscle spasm) citalopram 20 mg tablet 20 mg PO DAILY glipizide 10 mg tablet 10 mg PO QAM Eliquis 5 mg Tablet 5 mg PO BID Print Language: Guamanian
--- NOTE | 2024-12-16 10:03 | P.PN_ITS ---
Progress Note: Subjective Subjective Interval history: Patient still improved today, she does not recall me being there yesterday, she did not know who I was and where she was located today Exam Constitutional Vital Signs, click to edit/add: Last Vital Signs Temp 97.2 F L 12/16/24 07:45 Pulse 79 12/16/24 07:45 Resp 18 12/16/24 04:49 BP 146/81 H 12/16/24 07:45 Pulse Ox 92 L 12/16/24 04:49 O2 Del Method Room Air 12/16/24 04:49 O2 Flow Rate 2 12/15/24 05:37 Documenting provider has reviewed patient's vital signs: yes Common normals: no apparent distress Chest Common normals: inspection of chest normal Respiratory Common normals: normal respiratory effort and clear to auscultation bilaterally Auscultation: rhonchi Cardio Common normals: regular rate, regular rhythm, S1 normal heart sound and S2 normal heart sound GI Common normals: soft to palpation and non-tender; negative for Normal to inspection, nondistended, normoactive bowel sounds present (ObeseEyes:) Neuro Common normals: oriented x3, CN's II-XII intact bilaterally, moves all extremities and no focal motor deficits Progress Note: Objective Labs Labs: Short CBC 12/16/24 Range/Units 05:54 WBC 8.6 (4.0-11.0) 10^3/uL Hgb 14.2 (12.0-16.0) g/dL Hct 41.9 (36.0-48.0) % Plt Count 190 (150-450) 10^3/uL BMP 12/16/24 05:54 Sodium 138 Potassium 3.1 L Chloride 103 Carbon Dioxide 29.1 BUN 21.0 H Creatinine 1.13 H Glucose 95 Calcium 8.6 Cardiac Enzymes 12/16/24 Range/Units 05:54 Total Creatine Kinase 199 H (26-192) U/L CK-MB (CK-2) 2.21 (<=3.60) ng/mL Liver Function 12/16/24 Range/Units 05:54 Total Bilirubin 1.0 (0.2-1.0) mg/dL AST 21 (15-37) U/L ALT 10 L (14-59) U/L Alkaline Phosphatase 74 (46-116) U/L Albumin 2.4 L (3.4-5.0) g/dL Progress Note: A&P Assessment and Plan (1) Rhabdomyolysis: (2) Hypothermia: (3) Altered mental status: (4) Acute strain of neck muscle: Qualifiers: Encounter type: initial encounter Qualified Code(s): S16.1XXA - Strain of muscle, fascia and tendon at neck level, initial encounter (5) Diabetes mellitus: (6) Bilateral pulmonary embolism: (7) GERD (gastroesophageal reflux disease): Plan Admission findings: Hypothermia, tachycardia, respiratory distress, hypertensive urgency, leukocytosis, rhabdomyolysis, lactic acidosis elevated liver function tests secondary to severe sepsis due to uncertain etiology at this time, altered mental status concerning for CVA with potentially right-sided weakness although difficult to assess secondary to patient's waxing and waning mental status, also meeting criteria for multisystem organ dysfunction with elevated BNP, liver test and altered mental status Severe sepsis without shock with multisystem organ dysfunction as outlined above -continues to improve today, maintained antibiotics, white blood cell count improved, cultures pending Altered mental status-much improved today, maintain plan with seizure precautions, continues to improve, EEG in a.m. Acute rhabdomyolysis-resolved almost to normal Polycythemia-improved today to baseline Hypokalemia-supplement Hypomagnesemia-supplement Right-sided weakness with altered mental status-no further right-sided weakness, CTA, MRI is all negative, maintain anticoagulation Acute elevation creatinine consistent with dehydration consistent with the above-improved to get more today Elevated BNP within normal high-sensitivity ooalizdj-shzp-xhzavgpzfyd troponin not elevated so possible acute NSTEMI type II, repeat troponin later today,- improved today Elevated liver function test-repeat in a.m. continue to monitor Poorly controlled diabetes mellitus sugar is 300-improved today, restart home medications but at lower dose History of pulmonary embolism-maintain anticoagulation Moderate protein calorie malnutrition-diet management Morbid obesity-diet management Admission findings: Altered mental status severe sepsis with multisystem organ dysfunction medically necessary treatment will span 2 midnights. Inpatient status Urinary Catheter Management Urinary Catheter Management Urethral: Cath placed during this visit: yes, but has since been removed by the nurse Urethral indwelling: Yes Insertion date: 12/14/24 Insertion time: 09: Removal date: 12/15/24 Removal time: 10:28
[2024-12-16 11:34] LABS: Glucometer 233 mg/dL (74-106)
[2024-12-16] MEDS: PANTOPRAZOLE SODIUM 40 MG VIAL IV (11:44)
[2024-12-16] MEDS: INSULIN ASPART 300 UNIT/3 ML PEN SUBQ ×2 (11:48→21:01)
[2024-12-16] MEDS: VANCOMYCIN HCL 1,250 MG in 0.9 % SODIUM CHLORIDE 250 ML 125 MG IV (13:49)
[2024-12-16] MEDS: 0.9 % SODIUM CHLORIDE 250 ML 10 ML IV (13:55)
[2024-12-16 16:26] LABS: Glucometer 151 mg/dL (74-106)
[2024-12-16 20:29] LABS: Glucometer 222 mg/dL (74-106)
--- NOTE | 2024-12-16 21:32 | PC.NURSE ---
On first rounds the patient was very upset, asking about her 4 gold rings. She states they were missing and she knows she had them here. Nurse looked through chart and saw nothing about rings noted, and also checked pts room and belongings. The client service supervisor was then made aware and checked the safe, where there was nothing. The client service supervisor then went to the patients previous room in ICU, room 273. The client service supervisor found the rings, loose, not labeled, in room 273 that was already being occupied by another patient. The rings were put in a specimen cup and returned to the correct patient. The patient was very happy to have them back but upset that they did not follow her out to the floor and could have been stolen or thrown away by mistake.
[2024-12-17] VITALS (17 sets, daily range): BP systolic 145–162; BP diastolic 81–104; PULSE 75–87; TEMP 36.4–36.7; O2SAT 92–97
[2024-12-17] MEDS: PIPERACILLIN SODIUM/TAZOBACTAM 3.375 GM in 0.9 % SODIUM CHLORIDE 50 ML IV ×2 (04:14→12:59)
[2024-12-17] MEDS: IPRATROPIUM/ALBUTEROL SULFATE 3 ML AMPUL.NEB IH ×3 (05:08→16:46)
--- NOTE | 2024-12-17 06:29 | P.PN_ITS ---
Progress Note: Subjective Subjective Interval history: Patient more awake and alert this morning, she does recall me being here yesterday so that sounds like progress Exam Constitutional Vital Signs, click to edit/add: Last Vital Signs Temp 97.6 F 12/17/24 04:24 Pulse 82 12/17/24 05:53 Resp 18 12/17/24 05:08 BP 162/104 H 12/17/24 04:24 Pulse Ox 92 L 12/17/24 05:08 O2 Del Method Room Air 12/17/24 05:08 O2 Flow Rate 2 12/15/24 05:37 Documenting provider has reviewed patient's vital signs: yes Common normals: no apparent distress Chest Common normals: inspection of chest normal Respiratory Common normals: normal respiratory effort, no retractions and no use of accessory muscles; not clear to ascultation bilaterally Auscultation: rhonchi (Unchanged) Cardio Common normals: regular rate, regular rhythm, S1 normal heart sound and S2 normal heart sound GI Common normals: soft to palpation and no masses; negative for Normal to inspection, nondistended, normoactive bowel sounds present (ObeseEyes:) Neuro Common normals: oriented x3, CN's II-XII intact bilaterally, moves all extremities and no focal motor deficits Progress Note: Objective Labs Labs: Short CBC 12/16/24 Range/Units 05:54 WBC 8.6 (4.0-11.0) 10^3/uL Hgb 14.2 (12.0-16.0) g/dL Hct 41.9 (36.0-48.0) % Plt Count 190 (150-450) 10^3/uL BMP 12/16/24 05:54 Sodium 138 Potassium 3.1 L Chloride 103 Carbon Dioxide 29.1 BUN 21.0 H Creatinine 1.13 H Glucose 95 Calcium 8.6 Cardiac Enzymes 12/16/24 Range/Units 05:54 Total Creatine Kinase 199 H (26-192) U/L CK-MB (CK-2) 2.21 (<=3.60) ng/mL Liver Function 12/16/24 Range/Units 05:54 Total Bilirubin 1.0 (0.2-1.0) mg/dL AST 21 (15-37) U/L ALT 10 L (14-59) U/L Alkaline Phosphatase 74 (46-116) U/L Albumin 2.4 L (3.4-5.0) g/dL Progress Note: A&P Assessment and Plan (1) Rhabdomyolysis: (2) Hypothermia: (3) Altered mental status: (4) Acute strain of neck muscle: Qualifiers: Encounter type: initial encounter Qualified Code(s): S16.1XXA - Strain of muscle, fascia and tendon at neck level, initial encounter (5) Diabetes mellitus: (6) Bilateral pulmonary embolism: (7) GERD (gastroesophageal reflux disease): Plan Admission findings: Hypothermia, tachycardia, respiratory distress, hypertensive urgency, leukocytosis, rhabdomyolysis, lactic acidosis elevated liver function tests secondary to severe sepsis due to uncertain etiology at this time, altered mental status concerning for CVA with potentially right-sided weakness although difficult to assess secondary to patient's waxing and waning mental status, also meeting criteria for multisystem organ dysfunction with elevated BNP, liver test and altered mental status Severe sepsis without shock with multisystem organ dysfunction as outlined above-continue with current medications as patient continues to improve Altered mental status-much improved today, maintain plan with seizure precautions,-check on EEG today, physical therapy to work with patient as well for possible rehab assessment Vertigo this morning-will try patient on meclizine Acute rhabdomyolysis-resolved almost to normal Polycythemia-improved today to baseline Hypokalemia-supplement Stqnzolzpwokui-hpslhubdii-ilvqtkbo Right-sided weakness with altered mental status-no further right-sided weakness, CTA, MRI is all negative, maintain anticoagulation Acute elevation creatinine consistent with dehydration consistent with the above-improved today Elevated BNP within normal high-sensitivity kpaatvjf-bbzn-lhdknatyyvf troponin not elevated so possible acute NSTEMI type II,-check BNP tomorrow, troponin imp roved Elevated liver function test-repeat in a.m. continue to monitor Poorly controlled diabetes mellitus sugar-improved History of pulmonary embolism-maintain anticoagulation Moderate protein calorie malnutrition-diet management Morbid obesity-diet management Admission findings: Altered mental status severe sepsis with multisystem organ dysfunction medically necessary treatment will span 2 midnights. Inpatient status Urinary Catheter Management Urinary Catheter Management Urethral: Cath placed during this visit: yes, but has since been removed by the nurse Urethral indwelling: Yes Insertion date: 12/14/24 Insertion time: 09: Removal date: 12/15/24 Removal time: 10:28
[2024-12-17 06:34] LABS: Basophils Absolute Auto 0.1 10^3/uL (0.0-0.1); Basophils Percent Auto 1.1 % (0.2-2.0); Eosinophils Absolute Auto 0.3 10^3/uL (0.0-0.7); Eosinophils Percent Auto 3.9 % (0.9-7.0); Hematocrit 43.2 % (36.0-48.0); Immature Granulocytes Abs Auto 0.03 10^3/uL (0.00-0.03); Immature Granulocytes Pct Auto 0.4 % (0.0-0.5); Lymphocytes Absolute Auto 1.4 10^3/uL (1.2-3.8); Lymphocytes Percent Auto 17.9 % (20.5-60.0); Mean Corpuscular HGB Conc 34.7 g/dL (29.9-35.2); Mean Corpuscular Hemoglobin 30.9 pg (26.7-34.0); Mean Corpuscular Volume 89.1 fL (81.0-99.0); Mean Platelet Volume 9.9 fL (9.5-13.5); Monocytes Percent Auto 12.8 % (1.7-12.0); Neutrophils Absolute Auto 5.1 10^3/uL (1.4-6.5); Neutrophils Percent Auto 63.9 % (43.0-75.0); Platelet Count 178 10^3/uL (150-450); Red Blood Count 4.85 10^6/uL (4.20-5.40); White Blood Count 7.9 10^3/uL (4.0-11.0)
[2024-12-17 06:53] LABS: Alanine Aminotransferase 10 U/L (14-59); Albumin Globulin Ratio 0.7; Albumin Level 2.6 g/dL (3.4-5.0); Alkaline Phosphatase 82 U/L (46-116); Aspartate Amino Transferase 22 U/L (15-37); BUN Creatinine Ratio 15.5; Bilirubin Total 0.8 mg/dL (0.2-1.0); Calcium 8.8 mg/dL (8.5-10.1); Carbon Dioxide 29.9 mmol/L (21.0-32.0); Chloride 104 mmol/L (98-107); Estimated GFR (African America 59 (>=60 mL/min/1.73m^2); Estimated GFR (Non-African Ame 49 (>=60 mL/min/1.73m^2); Globulin 3.9 g/dL; Glucose 97 mg/dL (74-106); Potassium 3.9 mmol/L (3.5-5.1); Sodium 140 mmol/L (136-145); Total Protein 6.5 g/dL (6.4-8.2)
--- NOTE | 2024-12-17 08:20 | CM.NOTE ---
Rounds made with Dr. De Souza, PT and OT will evaluate pt for discharge planning. Pt states she was independent at home and did not use assistive devices. Pt c/o dizziness and spinning this AM. Dr. De Souza discussed AM labs and plan of care for today.
--- NOTE | 2024-12-17 08:25 | CM.NOTE ---
Important Message From Medicare discussed with pt, pt verbalizes understanding and signs paper. Original given to pt and copy placed in pt's chart.
[2024-12-17] MEDS: PROSTAT 15 GM PROTEIN/100 CAL 30 ML LIQUID PACKET PO (09:55)
[2024-12-17] MEDS: METFORMIN HCL 500 MG TABLET PO ×2 (09:56→16:40)
[2024-12-17] MEDS: LEVETIRACETAM 500 MG TABLET PO (09:56)
[2024-12-17] MEDS: CITALOPRAM HYDROBROMIDE 20 MG TABLET PO (09:56)
[2024-12-17] MEDS: MECLIZINE HCL 12.5 MG TABLET 25 MG PO ×2 (09:56→15:45)
[2024-12-17] MEDS: LISINOPRIL 10 MG TABLET PO (09:56)
[2024-12-17] MEDS: APIXABAN 5 MG TABLET PO (09:56)
[2024-12-17] MEDS: POTASSIUM CHLORIDE 10 MEQ ER TABLET 20 MEQ PO (09:56)
[2024-12-17] MEDS: GLIPIZIDE 5 MG TABLET PO (10:00)
[2024-12-17 11:20] LABS: Glucometer 211 mg/dL (74-106)
--- NOTE | 2024-12-17 11:32 | SWNOTE1 ---
Pt is recommended to go to SNF at discharge. SW stopped in to speak with pt about discharge plans. Nurse was in room as well. Nurse did voice that she does not want rehab, she wants home health or home. SW did speak with pt about this. SW did explain to pt that rehab would only be short term and that if she does not like it she can leave at any point. Pt initially voiced she will do that just no retirement. SW did explain that rehab would be at a retirement and that she would just be in the rehab part of the retirement, not the termite helper or memory unit. SW explained that she would have to stay there and could not leave daily and come back. Pt voiced she does not want to do that. SW asked what she is worried about or why she does not want to? Pt stated her sister was put in one and she also voiced concerns about money. SW attempted to explain that insurance would cover, but pt again voiced she is going home and does not want rehab. SW then spoke with her about home health. SW asked if she has ever had HH in past? She stated her did and it was a waste. Pt voiced she can do the exercises on her own at home. She asked SW if she had the list of exercises to do at home? SW stated no, but can ask therapy to get her some exercises to complete at home. SW did state she can try home health and if she does not like it after a few visits, she can cancel. Pt voiced she will do it on her own and does not want it. At this time pt is refusing SNF and HH.
--- NOTE | 2024-12-17 11:44 | CM.NOTE ---
Ben txt sent to Dr. De Souza about final urine culture.
--- NOTE | 2024-12-17 11:45 | PT.DAILY ---
Physical Therapy Daily Note PT Daily Note/Assess Start: 12/17/24 09:58 Freq: Status: Active Protocol: Document 12/17/24 11:30 JAIRO (Rec: 12/17/24 11:45 JAIRO [id number]) Visit Not Completed Visit Not Completed Visit Not Completed Pt refusing Due to: Other Reason Visit Attempted treatment at 11:10 and 11:40, patient stating Not Completed already doing exercises and ambulation today and refusing treatment both times. Notified nursing of patient's refusal. Physical Therapy Daily Note/Assessment Time In/Time Out Time In 11:30 Time Out 11:30 GG. Functional Abilities and Goals-Complete for Swing Bed Patients Only [id number]. Self-Care [id number]. Mobility
--- NOTE | 2024-12-17 12:38 | P.DS_ITS ---
DS: Providers Provider Date of admission: 12/14/24 11:57 Primary care physician: Brennon De Souza MD Consults: 12/14/24 12:47 Consult to Pharmacy Routine Consulting Provider: Reason for consultation: Please [place] me when Med Rec is Updated Has provider been notified: No Consult to Tel[place] Routine Reason for consultation: Altered mental status Occupational Therapy Eval and Treat Routine Reason for consultation: Only if needed for Rehab Has provider been notified: No Physical Therapy Eval and Treat Routine Reason for consultation: Eval and Treat Has provider been notified: No 12/16/24 09:59 Consult to Construction Materials Tester Routine Reason for consult:: Retirement 12/17/24 08:08 Physical Therapy Eval and Treat Routine Reason for consultation: Rehab eval and Hallpike maneuver Has provider been notified: No DS: Diagnosis Discharge Diagnosis (1) Rhabdomyolysis: (2) Hypothermia: (3) Altered mental status: (4) Acute strain of neck muscle: Qualifiers: Encounter type: initial encounter Qualified Code(s): S16.1XXA - Strain of muscle, fascia and tendon at neck level, initial encounter (5) Diabetes mellitus: (6) Bilateral pulmonary embolism: (7) GERD (gastroesophageal reflux disease): Assessment and plan: Admission findings: Hypothermia, tachycardia, respiratory distress, hypertensive urgency, leukocytosis, rhabdomyolysis, lactic acidosis elevated liver function tests secondary to severe sepsis due to uncertain etiology at this time, altered mental status concerning for CVA with potentially right-sided weakness although difficult to assess secondary to patient's waxing and waning mental status, also meeting criteria for multisystem organ dysfunction with elevated BNP, liver test and altered mental status Severe sepsis without shock with multisystem organ dysfunction as outlined above-continue with current medications as patient continues to improve Altered mental status-much improved today, maintain plan with seizure precautions,-check on EEG today, physical therapy to work with patient as well for possible rehab assessment L Vertigo this morning-will try patient on meclizine Acute rhabdomyolysis-resolved almost to normal Polycythemia-improved today to baseline Hypokalemia-supplement Nllgelrzpxviwx-wdypgpdhxj-mrqbwhkq Right-sided weakness with altered mental status-no further right-sided weakness, CTA, MRI is all negative, maintain anticoagulation Acute elevation creatinine consistent with dehydration consistent with the above-improved today Elevated BNP within normal high-sensitivity rkfoknkc-bzar-ywddwmmlzqx troponin not elevated so possible acute NSTEMI type II,-check BNP tomorrow, troponin improved Elevated liver function test-repeat in a.m. continue to monitor Poorly controlled diabetes mellitus sugar-improved History of pulmonary embolism-maintain anticoagulation Moderate protein calorie malnutrition-diet management Morbid obesity-diet management Admission findings: Altered mental status severe sepsis with multisystem organ dysfunction medically necessary treatment will span 2 midnights. Inpatient status DS: Summary Hospital Course Hospital Course: Patient with Admission findings: Hypothermia, tachycardia, respiratory distress, hypertensive urgency, leukocytosis, rhabdomyolysis, lactic acidosis elevated liver function tests secondary to severe sepsis due to uncertain etiology at this time, altered mental status concerning for CVA with potentially right-sided weakness although difficult to assess secondary to patient's waxing and waning mental status, also meeting criteria for multisystem organ dysfunction with elevated BNP, liver test and altered mental status. She was treated aggressively with IV antibiotics, physical therapy evaluated and treated, slowly patient improved back to her baseline mentation. Laboratory results also improved significantly close to baseline. At this point she is ambulating well in the hallway, she can be discharged home in improving condition. Medications see list. Follow-up with me in the office later this week. Time Spent with Patient Time attestation: Total time spent providing and/or coordinating discharge services: Exam Constitutional Vital Signs, click to edit/add: Last Vital Signs Temp 97.8 F 12/17/24 11:14 Pulse 85 03/31/25 11:54 Resp 16 12/17/24 11:14 BP 145/81 H 12/17/24 11:14 Pulse Ox 92 L 12/17/24 11:14 O2 Del Method Room Air 12/17/24 11:14 O2 Flow Rate 2 12/15/24 05:37 Documenting provider has reviewed patient's vital signs: yes Common normals: no apparent distress Chest Common normals: inspection of chest normal Respiratory Common normals: normal respiratory effort, no retractions and no use of accessory muscles; not clear to ascultation bilaterally Auscultation: rhonchi (Unchanged) Cardio Common normals: regular rate, regular rhythm, S1 normal heart sound and S2 normal heart sound GI Common normals: soft to palpation and no masses; negative for Normal to inspection, nondistended, normoactive bowel sounds present (ObeseEyes:) Neuro Common normals: oriented x3, CN's II-XII intact bilaterally, moves all extremities and no focal motor deficits DS: Data Data Completed and Pending Labs on day of discharge: Labs from last 24 hours 12/17/24 12/17/24 12/16/24 11:19 06:23 20:27 WBC 7.9 RBC 4.85 Hgb 15.0 Hct 43.2 MCV 89.1 MCH 30.9 MCHC 34.7 RDW 14.0 Plt Count 178 MPV 9.9 Neut % (Auto) 63.9 Lymph % (Auto) 17.9 L [place] % (Auto) 12.8 H Eos % (Auto) 3.9 Baso % (Auto) 1.1 Neut # (Auto) 5.1 Lymph # (Auto) 1.4 [place] # (Auto) 1.0 H Eos # (Auto) 0.3 Baso # (Auto) 0.1 Abs Immat Gran (auto) 0.03 Imm/Tot Granulo (auto) 0.4 Sodium 140 Potassium 3.9 Chloride 104 Carbon Dioxide 29.9 Anion Gap 10.0 BUN 17.0 Creatinine 1.10 H Est GFR ( Amer) 59 L Est GFR (Non-Af Amer) 49 L BUN/Creatinine Ratio 15.5 Glucose 97 Calcium 8.8 Total Bilirubin 0.8 AST 22 ALT 10 L Alkaline Phosphatase 82 Total Protein 6.5 Albumin 2.6 L Globulin 3.9 Albumin/Globulin Ratio 0.7 POC Glucose 211 H 222 H 12/16/24 16:15 WBC RBC Hgb Hct MCV MCH MCHC RDW Plt Count MPV Neut % (Auto) Lymph % (Auto) [place] % (Auto) Eos % (Auto) Baso % (Auto) Neut # (Auto) Lymph # (Auto) [place] # (Auto) Eos # (Auto) Baso # (Auto) Abs Immat Gran (auto) Imm/Tot Granulo (auto) Sodium Potassium Chloride Carbon Dioxide Anion Gap BUN Creatinine Est GFR ( Amer) Est GFR (Non-Af Amer) BUN/Creatinine Ratio Glucose Calcium Total Bilirubin AST ALT Alkaline Phosphatase Total Protein Albumin Globulin Albumin/Globulin Ratio POC Glucose 151 H Preliminary micro results at discharge 12/14/24 09:38 Blood Culture Result 2 - Preliminary Blood - Right Forearm NO GROWTH AT 36-48 HOURS. FINAL TO FOLLOW. 12/14/24 09:30 Blood Culture Result 1 - Preliminary Blood - Left Forearm NO GROWTH AT 36-48 HOURS. FINAL TO FOLLOW. Discharge Plan Discharge Disposition: Home, Self-Care Condition: Fair Discharge Medications: New lisinopril 10 mg Tablet 10 mg PO QD Qty: 30 0RF amoxicillin-pot clavulanate 875-125 mg tablet 1 tab PO Q12H Qty: 20 0RF levetiracetam 500 mg Tablet 500 mg PO BID Qty: 60 11RF Continued rosuvastatin 40 mg tablet 40 mg PO .QHS metformin 500 mg tablet 500 mg PO BIDWM baclofen 20 mg tablet 10 mg PO .qhs PRN (Reason: muscle spasm) citalopram 20 mg tablet 20 mg PO DAILY glipizide 10 mg tablet 10 mg PO QAM Eliquis 5 mg Tablet 5 mg PO BID Discontinued metoprolol succinate 100 mg tablet extended release 24 hr 100 mg PO DAILY Activity: increase activity as tolerated Activity Detail: Ambulate with walker when feeling unsteady. Diet: advance to your usual diet Print Language: Slovak Patient Instructions: Lisinopril (By mouth), Amoxicillin (By mouth), Levetiracetam (By mouth), Muscle Strain (DC), Rhabdomyolysis (DC), Sciatica (DC), Concussion (DC), Fall Prevention for Older Adults (DC), Acute Hypothermia (DC), Contusion in Adults (DC), Altered Mental Status (ED) Forms: Portal Instructions Follow Up Appointments: Call Dr. De Souza's office at [phone] in the morning to set up a follow up appointment this week. Discharge Date/Time: 12/17/24 19:18
[2024-12-17] MEDS: INSULIN ASPART 300 UNIT/3 ML PEN SUBQ ×2 (12:56→16:41)
[2024-12-17] MEDS: PANTOPRAZOLE SODIUM 40 MG VIAL IV (12:59)
[2024-12-17] MEDS: VANCOMYCIN HCL 1,250 MG in 0.9 % SODIUM CHLORIDE 250 ML 166.667 MG IV (16:40)
[2024-12-17 16:49] LABS: Glucometer 169 mg/dL (74-106)
--- NOTE | 2024-12-25 14:32 | CM.DCFOLLOWU ---
Person spoke with:patient How are you feeling?well How is your pain?none Did you understand your discharge instructions?yes Do you have any questions about your discharge instructions?no Were you given any prescriptions at discharge?yes Were you able to get your prescriptions filled?yes Do you understand how to take your medications as ordered?yes Do you have any questions about your follow up appointment and do you plan to keep your follow up appointment? no question, follow up already completed Is there anything else that you would like to discuss?no Questions/Comments/Concerns/Other:none
== END 2024-12-17 19:18 | disposition home or self-care (01) | DRG 871 ==
LOC: ER 11:44 → MS 12:00 → ICU 12:22 → MS 12-15 14:19
PROVIDERS: Admitting Provider Family Medicine; Emergency Provider Emergency Medicine; PCP Family Medicine; Visit Provider Family Medicine
DX: A41.9 Sepsis, unspecified organism (principal); G93.41 Metabolic encephalopathy; I21.A1 Myocardial infarction type 2; M62.82 Rhabdomyolysis; E44.0 Moderate protein-calorie malnutrition; N39.0 Urinary tract infection, site not specified; I67.4 Hypertensive encephalopathy; R65.20 Severe sepsis without septic shock; I16.0 Hypertensive urgency; I10 Essential (primary) hypertension; R42 Dizziness and giddiness; E87.6 Hypokalemia; E83.42 Hypomagnesemia; E11.65 Type 2 diabetes mellitus with hyperglycemia; B96.20 Unspecified Escherichia coli [E. coli] as the cause of diseases classified elsewhere; E66.01 Morbid (severe) obesity due to excess calories; E78.00 Pure hypercholesterolemia, unspecified; E86.0 Dehydration; K21.9 Gastro-esophageal reflux disease without esophagitis; F17.200 Nicotine dependence, unspecified, uncomplicated; D75.1 Secondary polycythemia; R53.1 Weakness; S16.1XXA Strain of muscle, fascia and tendon at neck level, initial encounter; W01.0XXA Fall on same level from slipping, tripping and stumbling without subsequent striking against object, initial encounter; Z68.27 Body mass index [BMI] 27.0-27.9, adult; Z86.711 Personal history of pulmonary embolism; Z79.01 Long term (current) use of anticoagulants; Z79.84 Long term (current) use of oral hypoglycemic drugs; Z79.899 Other long term (current) drug therapy
CPT/HCPCS: 36415; 36600; 51702; 51798; 70450; 70496; 70498; 70551; 71045; 72125; 74177; 80048; 80053; 80076; 80179; 80307; 80320; 80329; 81001; 82140; 82550; 82553; 82607; 82746; 82805; 82948; 83605; 83735; 83874; 83880; 84100; 84425; 84443; 84484; 85007; 85025; 85027; 85610; 85730; 87040; 87070; 87086; 87150; 87186; 87205; 93005; 93306; 94640; 94667; 94668; 94761; 96361; 96374; 96375; 97161; 97165; 97535; 99285; J0360; J1230; J1953; J2405; J2543; J2550; J3370; J3475; J3480; Q9967

== ENCOUNTER 2025-02-15 11:04 | Outpatient (RCR) | payer MEDICARE, SELFPAY | END 2025-02-16 23:59 | disposition home or self-care (01) | LOC: MM 11:04 | PROVIDERS: PCP Family Medicine; Visit Provider Family Medicine | DX: I26.99 Other pulmonary embolism without acute cor pulmonale (principal) | CPT/HCPCS: 85610; G0463 ==

== ENCOUNTER 2025-02-20 12:15 | Outpatient (RCR) | payer MEDICARE, SELFPAY | END 2025-03-14 14:45 | disposition home or self-care (01) | LOC: MM 12:15 | PROVIDERS: PCP Family Medicine; Visit Provider Family Medicine | DX: Z51.81 Encounter for therapeutic drug level monitoring (principal); Z79.01 Long term (current) use of anticoagulants | CPT/HCPCS: 85610; G0463 ==

== ENCOUNTER 2025-03-19 02:35 | Outpatient (RCR) | payer MEDICARE, SELFPAY | END 2025-04-18 16:52 | disposition home or self-care (01) | LOC: MM 02:35 | PROVIDERS: PCP Family Medicine; Visit Provider Family Medicine | DX: Z51.81 Encounter for therapeutic drug level monitoring (principal); Z79.01 Long term (current) use of anticoagulants; I26.99 Other pulmonary embolism without acute cor pulmonale ==

== ENCOUNTER 2025-04-01 16:10 | Emergency (ER) | payer MEDICARE, SELFPAY ==
--- OUTSIDE RECORDS SUMMARY | 2024-12-28 09:15 | XMS_ITS ---
Author Organization [facility] in [place] Address [address] [place] [address] Care Team Providers Care Form Designer Name Role Phone Mitch De Souza Primary Care Provider REASON FOR VISIT -3 Month Follow Up- Encounters Encounter Location Date Provider Diagnosis [facility] [address] [place] [address] 12/28/2024 Mitch De Souza Plan Of Treatment No Information Progress Notes * Carolina ANTHONY ADOB: 3 (69 yo F)Acc No.[id number]:12/28/2024 UNLOCKED PROGRESS NOTE Progress Note Patient: Carolina DOW Provider: Lori De Souza MD (TTC) :1955 A ge:69 Y S ex:Female Date:12/28/2024 Address:[address] [place], [place] [id number] Subjective: * Chief Complaints: * 1 . -3 Month Follow Up-. * Medical History: Objective: * Vitals: Assessment: Plan: * Treatment: * * Electronic signature of Mitch De Souza MD, [id number] on 04/01/2025 at 04:15 PM EDT Sign off status: Pending Visit Status: C ANC (Cancelled) * Provider: Lori De Souza MD (TTC) Date: 0 12/28/2024 Generated for Printi ng/Faxing/eTransmitting on: 04/01/2025 04:15 PM EDT
--- OUTSIDE RECORDS SUMMARY | 2025-01-04 09:30 | XMS_ITS ---
Author Organization [facility] in [place] Address [address] [place] [address] Care Team Providers Care Earth Moving Machine Operator Name Role Phone Mitch De Souza Primary Care Provider [phone] REASON FOR VISIT 3mon Encounters Encounter Location Date Provider Diagnosis [facility] [address] [place] [address] 01/04/2025 Mitch De Souza Plan Of Treatment No Information Progress Notes * Carolina ANTHONY ADOB: 3 (69 yo F)Acc No.[id number]:01/04/2025 UNLOCKED PROGRESS NOTE Progress Note Patient: Carolina DOW Provider: Lori De Souza MD (TTC) :1955 A ge:69 Y S ex:Female Date:01/04/2025 Address:[address] [place], [place] [id number] Subjective: * Chief Complaints: * 1 . 3mon. * Medical History: Objective: * Vitals: Assessment: Plan: * Treatment: * * Electronic signature of Mitch De Souza MD, [id number] on 04/01/2025 at 04:15 PM EDT Sign off status: Pending Visit Status: O FF CANC (OFFICE CANCEL) * Provider: Lori De Souza MD (TTC) Date: 01/04/2025 Generated for Printi ng/Faxing/eTransmitting on: 04/01/2025 04:15 PM EDT
--- OUTSIDE RECORDS SUMMARY | 2025-01-25 09:30 | XMS_ITS ---
Author Organization [facility] in [place] Address [address] [place] [address] Care Team Providers Care Pest Technician Name Role Phone Nolvia Mitch Primary Care Provider Allergies No Known Allergies Reason For Referral Reason comadin Diagnosis 1 Pulmonary embolism ( I26.99) Referral Organization [facility] Medicine Referring Provider First Name Mitch Referring Provider Last Name Nolvia Referring Provider Speciality Family Med icine Referred Provider [facility], [facility] Referred Provider Specialty Clinic or [facility] practice Referral Priority Routine REASON FOR VISIT check up- wants to switch from Eliquis to Coumadin, DM med to expensive doesnt know which one- but isnt taking it Medications Medication SIG (Take, Route, Frequency, Duration) Notes Start Date End Date Status metFORMIN HCl 500 MG TAKE 1 TABLET (500 MG) BY MOUTH IN THE MORNING AND IN THE EVENING WITH MEALS for 90 Active Metoprolol Succinate ER 100 MG TAKE 1 TABLET BY MOUTH EVERY DAY for 90 Active Rosuvastatin Calcium 40 MG TAKE 1 TABLET BY MOUTH AT BEDTIME for 90 Active Omeprazole 40 MG 1 capsule 30 minutes before morning meal Orally Once a day Active Lisinopril 10 MG 1 tablet Orally Once a day Active glipiZIDE 10 MG 1 tablet 30 minutes before breakfast Orally Once a day Active Fenofibrate 145 MG 1 tablet Orally Once a day Active Baclofen 20 MG 1-2 tabs Orally qhs 10/12/2024 Active Ezetimibe 10 MG 1 tablet Orally Once a day Active Citalopram Hydrobromide 20 MG TAKE 1 TABLET BY MOUTH EVERY DAY FOR 30 DAYS for 30 Active Aspirin 81 81 MG 1 tablet Orally Once a day Active Vitamin D3 25 MCG (1000 UT) 1 capsule Or ally Once a day Active Warfarin Sodium 5 MG 1 tablet Orally Onc e a day for 30 day(s) 01/25/2025 Active Social History Tobacco Use: Social History Observation Description Date Details (start date - stop date) Current Smoker NA - NA Tobacco Control (Standard) Question Answer Notes Tobacco use: Current smoker Problems Problem Type SNOMED Code ICD Code Onset Dates Problem Status W/U Status Risk Notes Problem Pulmonary embolism (26561170) Pulmonary embolism (I26.99) Active confirmed Vital Signs Blood pressure systolic 130 mm Hg 01/26/20 25 Blood pressure diastolic 84 mm Hg 025 Height 63 in 01/25/2025 Weight 165.8 lbs 01/25/2025 BMI 29.37 kg/m2 01/25/2025 Encounters Encounter Location Date Provider Diagnosis [facility] [address] [place] [address] 01/25/2025 Mitch Hoy Pulmonary embolism I 26.99 ; COPD (chronic obstructive pulmonary disease) J44.9 ; Hypertension I10 ; Diabetes E11.9 and Hypercholesterolemia E78.00 Assessments Encounter Date Diagnosis (ICD Code) Assessment Notes Treatment Notes Treatment Clinical Notes Section Notes 01/25/2025 Pulmonary embolism (ICD-10 - I26.99) setting up [facility] 01/25/2025 COPD (chronic obstructive pulmonary disease) (ICD-10 - J44.9) sc]table on meds 01/25/2025 Hypertension (ICD-10 - I10) good contrl 01/25/2025 Diabetes (ICD-10 - E11.9) 20's 01/25/2025 Hypercholesterolemia (ICD-10 - E78.00) on meds - reviewed labs Plan Of Treatment Medication Medication Name Sig Start Date Stop Date Notes Warfarin Sodium 5 MG 1 tablet Orally Onc e a day for 30 day(s) 01/25/2025 Treatment Notes Assessment Notes Pulmonary embolism setting up [facility] COPD (chronic obstructive pulmonary dise ase) sc]table on meds Hypertension good contrl Diabetes 20's Hypercholesterolemia on meds - reviewed labs Referrals Referral Date Details 01/25/2025 01/25/2025, polly, [facility] Progress Notes * Carolina ANTHONY ADOB: 3 (69 yo F)Acc No.[id number]:01/25/2025 Progress Note Patient: Carolina DOW Provider: Lori De Souza ([facility])MD :1955 A ge:69 Y S ex:Female Date:01/25/2025 Address:[address] [place] [address] , [place], [id number] Check In:01:16 PM ESTCheck O ut:02:37 PM EST Subjective: * Chief Complaints: * c heck up- wants to switch from Eliquis to CoumadinDM med to expensive doesnt know which one- but isnt taking it * HPI: G eneral: Want [facility] to [facility] - dev set [facility] DM - 120's - even withotu the pricey med Pulmom=nary embolism with blood colots on diff occasions X2. * ROS: E ENT: hearing changes d enies. v isual changes d enies.?non-healing mouth sores d enies. s wollen glands or neck lumps d enies. h oarseness d enies. s ore throat d enies. d ifficulty swallowing d enies. n ose bleeds d enies. n mildred congestion d enies. e ar ache d enies. e ar discharge?denies. r inging in ears d enies. l ight sensitivity d enies. e ye pain d enies. b lurring d enies. e ye irritation d enies. d ouble vision d enies.?vision loss d enies. G eneral/Constitutional: Sweats: D enies. F atigue d enies. S leep problems d enies. A norexia d enies. M alaise d enies. W eight loss d enies.?Fatigue or Weakness d enies. F ever or Chills d enies. C ardiovascular: Shortness of Breath w/lying flat d enies. L ightheadedness/dizziness d enies. C hest tightness/ heavy pressure d enies. S welling of legs, ankles, or feet d enies. W aking up with shortness of breath d enies. C hest pain denies. P alpitations d enies. W eight gain d enies. R espiratory: Chronic or frequent cough d enies. C oughing up blood?denies. D ifficulty breathing d enies. P roductive cough d enies. S noring?denies. S hortness of breath that awakens from sleep (PND) d enies. C hest pain d enies. S putum production d enies. W heezing d enies. M usculoskeletal: Joint pain d enies. J oint Fluid d enies. B ack pain d enies. K nee pain d enies. N lori pain d enies. J oint Stiffness d enies. M uscle cramps d enies. W eakness of muscles d enies. A rthritis d enies. M uscle aches d enies. P ain in shoulder(s) d enies. S wollen joints d enies. * Active Problem List J44.9 COPD (chronic obstru ctive pulmonary disease) Modified On:03/21/2024U Status:confirmed I10 Hypertension Modified On:03/21/2024 Status:confirmed E11.9 Diabetes Modified On:03/21/2024 Status:confirmed E11.9 Diabetes mellitus Modified On:04/04/2024U Status:confirmed J44.9 Advanced COPD Modified On:04/04/2024U Status:confirmed I10 BP (high blood press ure) Modified On:04/04/2024 Status:confirmed E78.00 Hypercholesterolemia Modified On:04/04/2024U Status:confirmed D64.9 Low hemoglobin Modified On:07/04/2024U Status:confirmed F17.200 Smoker Modified On:07/09/2024U Status:confirmed R91.8 Lung nodules Modified On:07/18/2024U Status:confirmed S46.819A Trapezius muscle str ain Modified On:10/12/2024U Status:confirmed A41.9 Sepsis Modified On:12/18/2024U Status:confirmed R41.82 Altered mental statu s Modified On:05/02/2025W/U Status:confirmed K21.9 GERD (gastroesophage al reflux disease) Modified On:01/18/2025W/U Status:confirmed D72.829 Leukocytosis Modified On:01/18/2025W/U Status:confirmed I26.99 Pulmonary embolism Modified On:01/25/2025W/U Status:confirmed * Medical History: * Surgical History: g allbladder removed open heart quad * Hospitalization/Major Diagno stic Procedure: F all 11/2024 * Family History: F ather: , diagnosed with Diabetes mellitus without mention of complication, type II or unspecified type, not stated as uncontrolled. M other: , diagnosed with Unspecified heart disease. S on(s): alive. 1 son(s) . . * Social History: T obacco Use: T obacco Control (Standard) T obacco use: C urrent smoker * Medications: T akingAspirin 81(Aspirin) 81 MG Tablet Chewable 1 tablet Orally Once a day Baclofen 20 MG Tablet 1-2 tabs Orally qhs Citalopram Hydrobromide 20 MG Tablet TAKE 1 TABLET BY MOUTH EVERY DAY FOR 30 DAYS Ezetimibe 10 MG Tablet 1 tablet Orally Once a day Fenofibrate 145 MG Tablet 1 tablet Orally Once a day glipiZIDE 10 MG Tablet 1 tablet 30 minutes before breakfast Orally Once a day Lisinopril 10 MG Tablet 1 tablet Orally Once a day metFORMIN HCl 500 MG Tablet TAKE 1 TABLET (500 MG) BY MOUTH IN THE MORNING AND IN THE EVENING WITH MEALS Metoprolol Succinate ER 100 MG Tablet Extended Release 24 Hour TAKE 1 TABLET BY MOUTH EVERY DAY Omeprazole 40 MG Capsule Delayed Release 1 capsule 30 minutes before morning meal Orally Once a day Rosuvastatin Calcium 40 MG Tablet TAKE 1 TABLET BY MOUTH AT BEDTIME Vitamin D3 25 MCG (1000 UT) Capsule 1 capsule Orally Once a day Taking Aspirin 81(Aspirin) 81 MG Tablet Chewable 1 tablet Orally Once a day Taking Baclofen 20 MG Tablet 1-2 tabs Orally qhs Taking Citalopram Hydrobromide 20 MG Tablet TAKE 1 TABLET BY MOUTH EVERY DAY FOR 30 DAYS Taking Ezetimibe 10 MG Tablet 1 tablet Orally Once a day Taking Fenofibrate 145 MG Tablet 1 tablet Orally Once a day Taking glipiZIDE 10 MG Tablet 1 tablet 30 minutes before breakfast Orally Once a day Taking Lisinopril 10 MG Tablet 1 tablet Orally Once a day Taking metFORMIN HCl 500 MG Tablet TAKE 1 TABLET (500 MG) BY MOUTH IN THE MORNING AND IN THE EVENING WITH MEALS Taking Metoprolol Succinate ER 100 MG Tablet Extended Release 24 Hour TAKE 1 TABLET BY MOUTH EVERY DAY Taking Omeprazole 40 MG Capsule Delayed Release 1 capsule 30 minutes before morning meal Orally Once a day Taking Rosuvastatin Calcium 40 MG Tablet TAKE 1 TABLET BY MOUTH AT BEDTIME Taking Vitamin D3 25 MCG (1000 UT) Capsule 1 capsule Orally Once a day DiscontinuedEliquis(Apixaban) 5 MG Tablet 1 tablet Orally Twice a day Farxiga(Dapagliflozin Propanediol) 10 MG Tablet 1 tablet Orally Once a day Hyoscyamine Sulfate 0.125 MG Tablet 1-2 tabs SL SL every 4 hrs PRN abd pain Meclizine HCl 25 MG Tablet 1 tablet as needed Orally Q 6 hours predniSONE 20 MG Tablet 2 tablets Orally Once a day Medication List reviewed and reconciled with the patientDiscontinued Eliquis(Apixaban) 5 MG Tablet 1 tablet Orally Twice a day Discontinued Farxiga(Dapagliflozin Propanediol) 10 MG Tablet 1 tablet Orally Once a day Discontinued Hyoscyamine Sulfate 0.125 MG Tablet 1-2 tabs SL SL every 4 hrs PRN abd pain Discontinued Meclizine HCl 25 MG Tablet 1 tablet as needed Orally Q 6 hours Discontinued predniSONE 20 MG Tablet 2 tablets Orally Once a day Medication List reviewed and reconciled with the patient * Allergies: N .K.D.A.no[Allergies Verified] Objective: * Vitals: W t:165.8lbs, Ht: 63 in, BP:130/84mm Hg, BMI:29.37Index, Ht-cm: 160.02 cm, Wt-k.21 kg. * Examination: P hysical Exam: GENERAL: w ell developed, well nourished, in no acute distress. HEAD: n ormocephalic/atraumatic. EYES: p upils equal, round and reactive to light, conjunctivae and sclerae normal. EARS: n o deformity or lesion of external ear, canals and TM appear normal bilaterally, TM's intact, not inflamed with normal light reflex, hearing grossly normal to conversational speech. NOSE: n o deformity, discharge, inflammation, or lesions.? MOUTH: m ucous membranes moist, normal oropharynx and posterior pharynx without lesions or exudates, tongue normal, dentition normal. NECK: n lori supple, no masses or palpable cervical nodes, trachea midline, thyroid without nodules, masses, tenderness, or enlargement. CHEST: n o chest wall deformity, no chest wall tenderness.? LUNGS: n ormal respiratory effort and clear to auscultation, no wheezes, rales, or rhonchi, good air exchange. CARDIO: r egular rate and rhythm, normal S1 and S2, nor murmur, rub, or gallop. PULSES: n ormal capillary refill. ABDOMEN: s oft, non-distended, non-tender, no masses. MUSCULOSKELETAL: n o deformity or scoliosis noted, normal range of motion, joints normal, no erythema, edema, effusion, or ecchymosis. EXTREMITY: n o clubbing, cyanosis, edema, or deformity with normal ROM in both upper and lower bilateral extremities. NEUROLOGIC: g rossly normal. SKIN: n o rashes, ulcerations, or suspicious lesions. LYMPH NODES: n o cervical adenopathy, nodes normal. MENTAL STATUS: a lert and oriented x3, normal mood and affect. Assessment: * Assessment: 1. P ulmonary embolism - I26.99 (Primary) 2 . C OPD (chronic obstructive pulmonary disease) - J44.9 3 . H ypertension - I10 4 . D iabetes - E11.9 5 . H ypercholesterolemia - E78.00 Plan: * Treatment: 2. C OPD (chronic obstructive pulmonary disease) Notes: sc]table on meds 3. H ypertension Notes: good contrl 4. D iabetes Notes: 20's 5. H ypercholesterolemia Notes: on meds - reviewed labs * Procedure Codes: * * Sign off status: Completed Visit Status: C HK (Check Out) true * Provider: Lori De Souza ([facility])MD Date: 0 01/25/2025 Generated for Ml jimenez/Rochelle/Emeralditting on: 0 04/01/2025 04:15 PM EDT History and Physical Notes * HPI (History of Present Illness) Category Sub-Category Detail Notes Category Not es General Want [facility] to [facility] - [facility] DM - 120's - even withotu the pricey med Pulmom=nary embolism with blood colots on diff occasions X2 Examination Category Sub-Category Detail Notes Category Not es Physical Exam GENERAL: well developed, well nourished, in no acute distress HEAD: normocephalic/atraum atic EYES: pupils equal, round and reactive to light, conjunctivae and sclerae normal EARS: no deformity or lesi on of external ear, canals and TM appear normal bilaterally, TM's intact, not inflamed with normal light reflex, hearing grossly normal to conversational speech NOSE: no deformity, discha rge, inflammation, or lesions MOUTH: mucous membranes [facility], normal oropharynx and posterior pharynx without lesions or exudates, tongue normal, dentition normal NECK: neck supple, no mass es or palpable cervical nodes, trachea midline, thyroid without nodules, masses, tenderness, or enlargement CHEST: no chest wall deform ity, no chest wall tenderness LUNGS: normal respiratory e ffort and clear to auscultation, no wheezes, rales, or rhonchi, good air exchange CARDIO: regular rate and rhy thm, normal S1 and S2, nor murmur, rub, or gallop PULSES: normal capillary ref ill ABDOMEN: soft, non-distended, non-tender, no masses RECTAL: MUSCULOSKELETAL: no deformity or scol iosis noted, normal range of motion, joints normal, no erythema, edema, effusion, or ecchymosis EXTREMITY: no clubbing, cyanosi s, edema, or deformity with normal ROM in both upper and lower bilateral extremities NEUROLOGIC: grossly normal SKIN: no rashes, ulceratio ns, or suspicious lesions LYMPH NODES: no cervical adenopat hy, nodes normal MENTAL STATUS: alert and oriented x 3, normal mood and affect Consultation Request Notes Referral Date Referring Provider Referred Provider Not es 01/25/2025 Mitch De Souza [facility], [facility] Management Clinic c omadin
[2025-04-01 16:15] VITALS: PULSE 93; TEMP 36.6; O2SAT 98; BMI 29.2
--- OUTSIDE RECORDS SUMMARY | 2025-04-01 16:15 | XMS_ITS | Clinical Summary ---
Author Organization [facility] Address [address] [place] [address] Care Team Providers Care Educational Technology Specialist Name Role Phone Unavailable Primary Care Provider Unavailabl e Allergies No known active allergies Medications Eliquis 5 mg tablet TAKE 2 TABLETS BY MOUTH TWICE A DAY FOR 6 DAYS, THEN 1 TABLET TWICE A DAY 4 Active aspirin 81 mg chewable tablet Chew 81 mg in the morning. 3 Active buPROPion XL (Wellbutrin XL) 150 mg 24 hr tablet TAKE 1 TABLET BY MOUTH EVERY DAY IN THE MORNING FOR 30 DAYS 4 Active citalopram (CeleXA) 20 mg tablet Take 20 mg by mouth in the morning. 4 Active Farxiga 10 mg Take 10 mg by mouth in the morning. Active glipiZIDE (Glucotrol) 10 mg tablet TAKE 1 TABLET DAILY 30 MINUTES BEFORE BREAKFAST 4 Active metFORMIN (Glucophage) 500 mg tablet Take 1,000 mg by mouth with breakfast. Active metoprolol succinate XL (Toprol-XL) 100 mg 24 hr tablet Take 100 mg by mouth in the morning. Active rosuvastatin (Crestor) 40 mg tablet TAKE 1 TABLET BY MOUTH EVERYDAY AT BEDTIME Active omeprazole (PriLOSEC) [address] capsule Take by mouth in the morning. Active fenofibrate (Tricor) 145 mg tablet Take 145 mg by mouth in the morning. Active ezetimibe (Zetia) 10 mg tablet Take 10 mg by mouth in the morning. Active Encounters Date Type Department Care Team Description 12/31/2024 Telephone [facility] Main Operating Room [address] [place] [phone] Michael Eubanks MA from Last 3 Months Family History Medical History Relation Name Comments Diabetes Father Cancer Sister Relation Name Status Comments Father Sister Social History Tobacco Use Types Packs/Day Years Used Date Smoking Tobacco: Every Day Cigarettes Smokeless Tobacco: Never Tobacco Cessation:Ready to Q uit: Not Asked; Counseling Given: Not Answered Alcohol Use Standard Drinks/Week Comments Never 0 (1 standard drink = 0.6 oz pur e alcohol) PHQ-2 Answer Date Recorded Patient Health Questionnaire-2 Score 0 09/03/2024 Comments Unknown Sex and Gender Information Value Date Recorded Sex Assigned at Not on file Legal Sex Female 3:13 PM EST Gender Identity Not on file Sexual Orientation Not on file Last Filed Vital Signs Vital Sign Reading Time Taken Comments Blood Pressure - - Pulse - - Temperature - - Respiratory Rate - - Oxygen Saturation - - Inhaled Oxygen Concentration - - Weight 72.6 kg (160 lb) 09/03/2024 9:56 AM EST Height 161.3 cm (5' 3.5 ) 09/03/2024 9:56 AM EST Body Mass Index 27.9 09/03/2024 9:56 AM EST Plan of Treatment Health Maintenance Due Date Last Done Comments CT Colonography 1955 Colonoscopy 1955 Colorectal Cancer Screening 1955 Diabetes: Hemoglobin A1C 1955 FIT-DNA 1955 FIT 1955 FOBT 1955 Medicare Annual Wellness (AWV) 1955 Sigmoidoscopy 1955 Diabetes: Retinopathy Screening 1963 Diabetes: Urine Protein Screening 1972 Pneumococcal Vaccine: 50+ Years (1 of 2 - PCV) 1972 Adult Tetanus 1975 Mammogram 1993 Zoster Vaccines (1 of 2) 2003 COVID-19 Vaccine (3 2023-2 5 season) 2024 12/19/2020, 11/28/2020 Influenza Vaccine (#1) 2025 Depression Screening 09/03/2025 09/03/2024 Fall Risk Screening 09/03/2025 09/03/2024 HIB Vaccines Aged Out No longer eligi ble based on patient's age to complete this topic HPV Vaccines Aged Out No longer eligi ble based on patient's age to complete this topic IPV Vaccines Aged Out No longer eligi ble based on patient's age to complete this topic Meningococcal B Vaccine Aged Out No l onger eligible based on patient's age to complete this topic Meningococcal Vaccine Aged Out No marilu jose eligible based on patient's age to complete this topic Rotavirus Vaccines Aged Out No longer eligible based on patient's age to complete this topic Insurance [facility]
--- OUTSIDE RECORDS SUMMARY | 2025-04-01 16:15 | XMS_ITS | Encounter Summary ---
Author Organization [employer] Address [id number] [address] [place] [address] Care Team Providers Care Porter [employer] Car [employer] Name Role Phone Brennon De Souza MD Primary Care Provider [phone] Encounter Details Date Type Department Care Team ([facility] st Contact Info) Description 12/14/2024 Orders Only [facility] [employer] [address] [place] [address] Transcribe, Orders Support User Pain (Primary Dx) Social History Tobacco Use Types Packs/Day Years Used Date Smoking Tobacco: Never Assessed Childcare Answer Date Recorded Childcare Unknown 02/28/2019 Employment Answer Date Recorded Employment Unknown 02/28/2019 Comments Unknown Sex and Gender Information Value Date Recorded Sex Assigned at Not on file Legal Sex Female 12:00 PM EDT Gender Identity Not on file Sexual Orientation Not on file documented as of this encounter Plan of Treatment Not on file documented as of this encounter Results * CT angiogram carotid (12/14/2024 5:25 PM EDT) us Scanning Provider External IMG CT ORDERABLES Fin al Result * CT angiogram head (12/14/2024 5:20 PM EDT) us Scanning Provider External IMG CT ORDERABLES Fin al Result documented in this encounter Visit Diagnoses Diagnosis Pain- Primary Generalized pain documented in this encounter Care Teams [employer] Relationship Specialty Start Date End Date Brennon De Souza MD [address] [facility], [place] [address] PCP - General Family Medicine 12/14/24 documented as of this encounter
--- OUTSIDE RECORDS SUMMARY | 2025-04-01 16:15 | XMS_ITS | Clinical Summary ---
Author Organization [facility] Address [id number] [address] [place] [address] Care Team Providers Care Clipper Machine Name Role Phone Brennon De Souza MD Primary Care Provider [phone] Social History Tobacco Use Types Packs/Day Years Used Date Smoking Tobacco: Never Assessed Childcare Answer Date Recorded Childcare Unknown 02/28/2019 Employment Answer Date Recorded Employment Unknown 02/28/2019 Comments Unknown Sex and Gender Information Value Date Recorded Sex Assigned at Not on file Legal Sex Female 12:00 PM EDT Gender Identity Not on file Sexual Orientation Not on file Plan of Treatment Health Maintenance Due Date Last Done Comments Depression Screening 1965 Tobacco Screening 1965 Adult BMI Screening 1971 DTaP,Tdap and Td Vaccines (1 - Tdap) 1972 Zoster (Shingles) Vaccine (1 of 2) 2003 Fall Risk Screening 2018 COVID-19 Vaccine ( season) 05/20/202410/2020, 11/28/2020 Influenza Vaccine 05/20/2025 Medical Devices Not on file Insurance [employer] Care Teams Clipper Machine Relationship Specialty Start Date End Date Brennon De Souza MD [address] [place] [address] PCP - General Family Medicine 12/14/24
--- OUTSIDE RECORDS SUMMARY | 2025-04-01 16:15 | XMS_ITS | Clinical Summary ---
Author Organization [facility] Address [facility] [place] [address] Care Team Providers Care Physical Education Specialist Name Role Phone Huang Headley DO Primary Care Provider Allergies Active Allergy Reactions Criticality Noted Date Comments Atorvastatin Calcium Swelling Medium 10/06/2015 Pregabalin Unknown 07/10/2014 Quinine Unknown 07/10/2014 Medications aspirin 325 mg tablet Take 325 mg by mouth once daily. Active nitroglycerin sublingual (NITROSTAT) 0.4 mg SL tablet Dissolve 0.4 mg under the tongue every 5 minutes as needed. Active insulin aspart (NOVOLOG) 100 unit/mL soln Inject 100 Units subcutaneously three times daily with meals. Active metFORMIN (GLUCOPHAGE) 1,000 mg tablet Take 1,000 mg by mouth twice daily with meals. Active INSULIN GLARGINE,HUM.R EC.ANLOG (LANTUS SUBCUTANEOUS) Inject 71 Units subcutaneously daily at bedtime. Active gabapentin (NEURONTIN) 600 mg tablet Take 1 tablet by mouth daily at bedtime. Not currently taking 90 tablet 3 6 Active simvastatin (ZOCOR) 40 mg tablet Take 1 tablet by mouth once daily. 90 tablet 3 6 Active metoprolol tartrate, short acting, (LOPRESSOR) 50 mg tablet Take 1 tablet by mouth twice daily. 180 tablet 3 6 Active lisinopril (ZESTRIL, PRINIVIL) 10 mg tablet Take 1 tablet by mouth once daily. 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 Family History Medical History Relation Comments Diabetes Father Heart Father Osteoporosis Mother Relation Status Comments Father Alive Mother Social History Tobacco Use Types Packs/Day Years Used Date Smoking Tobacco: Former Cigarettes 0 09/19/1990 - 09/19/2011 Smokeless Tobacco: Never Alcohol Use Standard Drinks/Week Comments Yes 0 (1 standard drink = 0.6 oz pur e alcohol) occasionally Comments Unknown Sex and Gender Information Value Date Recorded Sex Assigned at Not on file Legal Sex Female 2:29 PM EDT Gender Identity Not on file Sexual Orientation Not on file Occupation Industry Job Start Date Job End Date [employer] Not on file Not on file Not on file Last Filed Vital Signs Vital Sign Reading Time Taken Comments Blood Pressure 146/94 11/03/2015 10:42 AM EST Pulse 71 11/03/2015 10:42 AM EST Temperature 36.8 C (98.3 F) 11/03/2015 10:42 AM EST Respiratory Rate 14 11/03/2015 10:42 AM EST Oxygen Saturation 95% 11/03/2015 10:42 AM EST Inhaled Oxygen Concentration - - Weight 80 kg (176 lb 6.4 oz) 11/03/2015 10:42 AM EST Height 161.3 cm (5' 3.5 ) 11/03/2015 10:42 AM ES T Body Mass Index 30.76 11/03/2015 10:42 AM EST Plan of Treatment Health Maintenance Due Date Last Done Comments Anxiety Screening 1971 Depression Screening 1971 Hepatitis C Screening 1971 DTaP,Tdap,Td Vaccine (1 - Tdap) [address] Colonography 1998 Cologuard (FIT-DNA) 1998 Colonoscopy 1998 Colorectal Cancer Screening 1998 Diabetes Screening 1998 Fecal Occult Blood 1998 Lipid Screening 1998 Sigmoidoscopy 1998 Pneumococcal Vaccine: 50+ (1 of 1 - PCV) 2003 Shingrix Vaccine (1 of 2) 2003 Bone Density Screening 2018 Covid-19 Vaccine ( - 2023- season) 2024 Advance Directive Discussion 09/19/2024 Influenza Vaccine (#1) 2025 RSV Vaccine (1 - 1-dose 75+ series) 2028 Insurance MEDICARE Care Teams Physical Education Specialist Relationship Specialty Start Date End Date Huang Headley DO PCP - General Family Medicine 07/03/14
[2025-04-01 16:21] VITALS: BP 160/98
--- NOTE | 2025-04-01 16:24 | ED.GENADUL1 ---
HPI HPI - General Adult General Chief complaint: Extremity Problem, Nontraumatic Stated complaint: UPPER EXTREMITY SWELLING AND PAIN Time Seen by Provider: 04/01/25 16:20 Source: patient Mode of arrival: walk-in Limitations: no limitations History of Present Illness HPI narrative: 69-year-old female presents for left hand pain which she has had for 5 days. There was no injury. She thinks it might be gout which she has had in the past. It started at the base of her thumb and now the redness is spread onto the dorsum of her hand. The pain is moderate and continuous. Related Data Home Medications ?Medication ?Instructions ?Recorded ?Confirmed rosuvastatin 40 mg tablet 40 mg PO .QHS 08/19/23 12/14/24 metformin 500 mg tablet 500 mg PO BIDWM 03/15/24 12/14/24 apixaban 5 mg tablet (Eliquis) 5 mg PO BID 12/14/24 12/14/24 baclofen 20 mg tablet 10 mg PO .qhs PRN muscle spasm 12/14/24 12/14/24 citalopram 20 mg tablet 20 mg PO DAILY 12/14/24 12/14/24 glipizide 10 mg tablet 10 mg PO QAM 12/14/24 12/14/24 Previous Rx's ?Medication ?Instructions ?Recorded amoxicillin 875 mg-potassium 1 tab PO Q12H #20 tabs 12/17/24 clavulanate 125 mg tablet levetiracetam 500 mg tablet 500 mg PO BID #60 tabs 12/17/24 lisinopril 10 mg tablet 10 mg PO QD #30 tabs 12/17/24 acetaminophen 300 mg-codeine 30 mg 1 tab PO Q6H PRN pain 5 days #20 04/01/25 tablet tabs Allergies Allergy/AdvReac Type Severity Reaction Status Date / Time No Known Drug Allergies Allergy Verified 04/01/25 16:19 Opioid HPI Opioid Management Most Recent Opioid Data: Last Pain Scale 10 Today, 16:22 Last ORT Total Score 0 03/15/24, 13:03 Last ORT Risk Category Low Risk 03/15/24, 13:03 Ur Phencyclidine Scrn, (NEGATIVE) Negative 12/14/24, 09:27 Review of Systems ROS Narrative A ten point review of systems is negative except as noted above. PFSH PFSH Medical History Bilateral pulmonary embolism ?I26.99 - Other pulmonary embolism without acute cor pulmonale (ICD-10) Right-sided chest wall pain ?R07.89 - Other chest pain (ICD-10) Diabetes mellitus ?E11.9 - Type 2 diabetes mellitus without complications (ICD-10) GERD (gastroesophageal reflux disease) ?K21.9 - Gastro-esophageal reflux disease without esophagitis (ICD-10) High cholesterol ?E78.00 - Pure hypercholesterolemia, unspecified (ICD-10) Hypertension ?I10 - Essential (primary) hypertension (ICD-10) Social History Smoking status: Current every day smoker Highest level of school completed/degree received: high school graduate Little interest or pleasure in doing things: not at all Feeling down, depressed, or hopeless: not at all Exam Narrative Exam Narrative: Nurses note and vital signs reviewed and patient is not hypoxic. General: The patient appears well and in no apparent distress. Patient is resting comfortably on cart. Skin: Warm, dry, no pallor noted. There is no rash noted. Head: Normocephalic, atraumatic Eye: Normal conjunctiva, no drainage Ears, Nose, Mouth, and Throat: oral mucosa is moist. Nares patent. Cardiovascular: Regular Rate and Rhythm Respiratory: Patient is in no distress, no accessory muscle use, lungs are clear to auscultation, no wheezing, rales or rhonchi Back: non-tender GI: Soft and nontender Musculoskeletal: The left hand is examined. There are no breaks in the skin. There is erythema on the dorsum of her hand particularly at the first MCP joint. Fingers have good range of motion. No open area or drainage Neurological: A&O, normal speech Psychiatric: Cooperative Constitutional Vital Signs, click to edit/add: Last Vital Signs Temp 97.9 F 04/01/25 16:15 Pulse 93 H 04/01/25 16:15 Resp 16 04/01/25 16:15 BP 160/98 H 04/01/25 16:21 Pulse Ox 98 04/01/25 16:15 O2 Del Method Room Air 04/01/25 16:15 Course Vital Signs Vital signs: Vital Signs Temperature 97.9 F 04/01/25 16:15 Pulse Rate 93 H 04/01/25 16:15 Respiratory Rate 16 04/01/25 16:15 Pulse Oximetry 98 04/01/25 16:15 Oxygen Delivery Method Room Air 04/01/25 16:15 Temperature 97.9 F 04/01/25 16:15 Pulse Rate 93 H 04/01/25 16:15 Respiratory Rate 16 04/01/25 16:15 Blood Pressure 160/98 H 04/01/25 16:21 Pulse Oximetry 98 04/01/25 16:15 Oxygen Delivery Method Room Air 04/01/25 16:15 Medical Decision Making MDM Narrative Medical decision making narrative: X-ray shows no acute findings. My clinical impression is that she has gout. I do not suspect cellulitis. She will be treated with Tylenol 3. She is on Eliquis so we will avoid anti-inflammatories and she is diabetic so we will avoid prednisone. Treatment diagnosis and follow-up were discussed with the patient. Differential Diagnosis Differential Diagnosis: Gout, arthritis, cellulitis Imaging Data Left hand x-ray: Radiologist's impression: ITS Impressions Hand X-Ray 04/01/25 17:05 IMPRESSION: There is diffuse soft tissue swelling. No significant erosive changes. Degenerative changes are noted, greatest at the base of the thumb. Impression dictated by: Enrike Moore M.D. 04/01/2025 5:28 PM Dictation Location: [place] [address] Electronically authenticated by: [id number] Y Date: 04/01/2025 17:28 Discharge Plan Discharge Chief Complaint: Extremity Problem, Nontraumatic Clinical Impression: Gout Patient Disposition: Home, Self-Care Time of Disposition Decision: 17:37 Condition: Good Mode of Transportation: Private Vehicle Prescriptions / Home Meds: New acetaminophen-codeine 300-30 mg tablet 1 tab PO Q6H PRN (Reason: pain) 5 Days Qty: 20 0RF No Action rosuvastatin 40 mg tablet 40 mg PO .QHS metformin 500 mg tablet 500 mg PO BIDWM baclofen 20 mg tablet 10 mg PO .qhs PRN (Reason: muscle spasm) citalopram 20 mg tablet 20 mg PO DAILY glipizide 10 mg tablet 10 mg PO QAM Eliquis 5 mg Tablet 5 mg PO BID lisinopril 10 mg Tablet 10 mg PO QD Qty: 30 0RF amoxicillin-pot clavulanate 875-125 mg tablet 1 tab PO Q12H Qty: 20 0RF levetiracetam 500 mg Tablet 500 mg PO BID Qty: 60 11RF Print Language: Greek Instructions: Gout (ED) Referrals: Brennon De Souza MD [Primary Care Provider, Family Practice] - 1 week
--- NOTE | 2025-04-01 17:05 | XR_ITS ---
The [address] [address] Patient Name: DAVID ANTHONY MRN: [id number] date: 1955 Sex: F Assigned Patient Location: ER Current Patient Location: ER Accession/Order Number: [id number] Exam Date: 04/01/2025 17:26 Report Date: 04/01/2025 17:28 At the request of: JORDAN VÁSQUEZ MD Procedure: XR hand LT min 3V XR hand LT min 3V 04/01/2025 5:12 PM SIGNS AND SYMPTOMS: Left hand pain, possible gout PROTOCOL: Frontal, lateral, and oblique radiographs of the left hand COMPARISON: None FINDINGS: There is mild narrowing of the distal interphalangeal joints. There is narrowing of the first carpometacarpal junction. There is no fracture or dislocation. There is diffuse soft tissue swelling. No significant erosive changes. XR/XR hand LT min 3V IMPRESSION: There is diffuse soft tissue swelling. No significant erosive changes. Degenerative changes are noted, greatest at the base of the thumb. Impression dictated by: Enrike Moore M.D. 04/01/2025 5:28 PM Dictation Location: [place] [address] Electronically authenticated by: [id number] Y Date: 04/01/2025 17:28
== END 2025-04-01 17:45 | disposition home or self-care (01) ==
PROVIDERS: Emergency Provider Emergency Medicine; PCP Family Medicine
DX: M10.9 Gout, unspecified (principal); F17.200 Nicotine dependence, unspecified, uncomplicated; Z79.01 Long term (current) use of anticoagulants; E11.9 Type 2 diabetes mellitus without complications; Z79.84 Long term (current) use of oral hypoglycemic drugs
CPT/HCPCS: 73130; 99283

== ENCOUNTER 2025-04-19 00:36 | Outpatient (RCR) | payer MEDICARE, SELFPAY | END 2025-05-16 12:44 | disposition home or self-care (01) | LOC: MM 00:36 | PROVIDERS: PCP Family Medicine; Visit Provider Family Medicine | DX: Z51.81 Encounter for therapeutic drug level monitoring (principal); Z79.01 Long term (current) use of anticoagulants; I26.99 Other pulmonary embolism without acute cor pulmonale ==

== ENCOUNTER 2025-05-20 03:04 | Outpatient (RCR) | payer MEDICARE, SELFPAY | END 2025-06-18 15:35 | disposition home or self-care (01) | LOC: MM 03:04 | PROVIDERS: PCP Family Medicine; Visit Provider Family Medicine | DX: Z51.81 Encounter for therapeutic drug level monitoring (principal); Z79.01 Long term (current) use of anticoagulants; I26.99 Other pulmonary embolism without acute cor pulmonale ==

== ENCOUNTER 2025-06-19 05:20 | Outpatient (RCR) | payer MEDICARE, SELFPAY | END 2025-07-19 23:59 | disposition home or self-care (01) | LOC: MM 05:20 | PROVIDERS: PCP Family Medicine; Visit Provider Family Medicine | DX: Z51.81 Encounter for therapeutic drug level monitoring (principal); Z79.01 Long term (current) use of anticoagulants; I26.99 Other pulmonary embolism without acute cor pulmonale ==

== ENCOUNTER 2025-07-19 12:03 | Outpatient (OUT) | payer MEDICARE, SELFPAY ==
--- OUTSIDE RECORDS SUMMARY | 2025-07-19 12:10 | XMS_ITS | CCD ---
Author Organization [facility] ion [facility] Care Team Providers Care Sewer Pipe Sorter Name Role Phone FAWWAD, QUINTERO H Admitting [...] KEBEDE Attending Unavailable SHADI CARRERO Consulting Unavailable REIDD, QUINTERO Attending Unavailable Costa Luther DO Attending Provider Unavailab Costa Meng Admitting Unavailable Costa Luther Attending Unavailable KOKO FERRELL Referring Unavailable KOKO FERRELL Attending Unavailable NOLVIA, ANA M Referring Unavailable HOY, ANA M Primary Care Unavailable HOY, ANA M Referring Unavailable HOY, ANA M Primary Care Unavailable HOY, ANA M Primary Care Unavailable Allergies Allergy ClassificationReported Allergen(s)Allergy TypeDate of OnsetReaction(s) Facility (1 source)DextroamphetamineDrug Eqxqruy37-37-8716Cwf [facility] Repository (1 source)quiNINEDrug Zxrakgk48-01-8429Gxa [facility] Repository (1 source)ALLERGIES NOT ON FILE; Translations: [ALLERGIES NOT ON FILE]Propensity to adverse reactions (disorder)[facility] Repository Problems Active Problems Problem ClassificationProblemDateDocumented DateEpisodic/ChronicAcute cerebrovascular disease (1 source)Acute cerebrovascular diseaseOnset: 84-89-9006Ssxhaagx atherosclerosis and other heart disease (1 source)Old myocardial infarction; Translations: [OLD MYOCARDIAL INFARCTION] Onset: 79-02-5738OqgdxfsPcybvuio mellitus with complications (4 sources)Type 2 diabetes mellitus with diabetic chronic kidney disease; Translations: [TYPE 2 DM W/DIABETIC CKD]Onset: 02-67-1727WajvvoqNrooviqh mellitus without complication (1 source)Type 2 diabetes mellitus without complications; Translations: [TYPE 2 DM WITHOUT COMPLICATIONS]Onset: 12-84-9752CjfxxkvQeiqmnaoj of lipid metabolism (5 sources)Hyperlipidemia, unspecified; Translations: [HYPERLIPIDEMIA UNSPECIFIED]Onset: 32-03-1223AhlnxyrFyufyiifk hypertension (1 source)Essential (primary) hypertension; Translations: [ESSENTIAL PRIMARY HYPERTENSION]Onset: 41-27-9009YjezyxaKmgvpxnv codes; unclassified (1 source)Pain, unspecified; Translations: [Pain, unspecified]Onset: 12-14-2024 EpisodicUnclassified (1 source)CHRN KIDNEY DISEASE STG 3 UNSP; Translations: [CHRN KIDNEY DISEASE STG 3 UNSP]Onset: 32-34-2368Zyivw infection (1 source)COVID-19; Translations: [COVID-19]Onset: 02-08-2022 Past or Other Problems Problem ClassificationProblemDateDocumented DateEpisodic/ChronicCoronary atherosclerosis and other heart disease (1 source)Presence of aortocoronary bypass graft; Translations: [PRESENCE AORTOCORONARY BYPASS GRAFT]Onset: 81-22-1871NewcfxrsYlmrcgyhdupqi and screening for infectious disease (4 sources)Encounter for immunization; Translations: [ENCOUNTER FOR IMMUNIZATION]Onset: 25-44-4446CxdboldgYjbjr aftercare (1 source)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; Translations: [OTH PROPRIETARY TRADER CURRENT DRUG THERAPY]Onset: 23-63-0091JjecqccrIectv aftercare (1 source)alf (current) use of oral hypoglycemic drugs; Translations: [LONG-TERM USE ORAL HYPOGLYCEMIC DX]Onset: 04-49-7177DdffmjbdLpngw aftercare (1 source)terminal gauger (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; Translations: [LONG-TERM CURRENT USE OF ASPIRIN]Onset: 89-33-2821HenchuguNwray connective tissue disease (1 source)Pain in right hand; Translations: [PAIN IN RIGHT HAND]Onset: 79-66-8269BwjndnbwFygwt lower respiratory disease (2 sources)Solitary pulmonary nodule; Translations: [Solitary pulmonary nodule] Onset: 31-42-7350DexrxezdQcvhd non-traumatic joint disorders (4 sources)Pain in right wrist; Translations: [PAIN IN RIGHT WRIST]Onset: 01-52-0168VavwxjkjLsdzrcora; thrombophlebitis and thromboembolism (1 source)Personal history of other venous thrombosis and embolism; Translations: [PERS HX OTH VENOUS THROMBOSIS AND EMBO]Onset: 25-51-4574Jikusaaq Results Test NameValueInterpretationReference RangeFacilityTelephoneon 12-31-2024 [id number] Carolina Hernandez 1955 F Date Provider Department Center 12/31/2024 [facility] Family History Problem Relation Age of Onset Diabetes Father Cancer Sister Family Status - Relation Status Age at Father SisterNormalUniversity of [facility] Cultureon 12-14-2024 Bacteria identified Cx Nom (U)ORGANISM: Escherichia coli (O:ESCCOL) [place] Count >100,000 Aerobic KVNG Charge (NMIC56) SUSCEPTIBILITY ORGANISM: O:ESCCOL ANTIBIOTIC INTERPRETATION KVNG Amikacin S <16 Amoxacillin/K Clavulanate S <8 Ampicillin S <8 Ampicillin/Sulbactam S <4 Aztreonam S <4 Cefazolin S <2 Cefepime S <2 Ceftazidime S <1 Ceftazidime/Avibactam S <4 Ceftolozane/Tazobactam S <2 Ceftriaxone S <1 Cefuroxime S <4 Ciprofloxacin S <0.25 Ertapenem S <0.5 Gentamicin S <2 Levofloxacin S <0.5 Meropenem S <1 Meropenem/Vaborbactam S <2 Nitrofurantoin S <32 Piperacillin/Tazobactam S <8 Tetracycline S <4 Tigecycline S <2 Tobramycin S <2 Trimethoprim/Sulfamethoxazole S <0.5 S = SUSCEPTIBLE I = INTERMEDIATE R = RESISTANT BLANK = DATA NOT AVAILABLE, OR DRUG NOT ADVISABLE OR TESTED R* = RESISTANCE DUE TO EXTENDED SPECTRUM BETA-LACTAMASES ESBL = EXTENDED SPECTRUM BETA-LACTAMASE TFG = THYMIDINE-DEPENDENT STRAIN MERRY = BETA-LACTAMASE POSITIVE IB = INDUCIBLE BETA-LACTAMASE. APPEARS IN PLACE OF 'S' WITH SPECIES KNOWN TO POSSESS INDUCIBLE BETA-LACTAMASES. POTENTIALLY THEY MAY BECOME RESISTANT TO ALL B-LACTAM DRUGS. PERFORMED BY: [place] [address] PATHOLOGIST BAG MAKING MACHINE OPERATOR KOKO MALAGON M.D.[facility] Physician GroupComment on above: Performed By: #### CUU #### [address] [address] [facility] FACILITYTelephone [phone] Carolina Hernandez 1955 F Date Provider Department Center 11/15/[address] [place] [address] OR [facility] Family History Problem Relation Age of Onset Diabetes Father Cancer Sister Family Status - Relation Status Age at Father SisterNormalUniversity of South [place] Spine [facility] Surgical HospitalTephone 65-86-3755Eevdmphmx [id number] Carolina Hernandez 1955 Date Provider Department Center 11/02/[address] [place] [address] OR [facility] Family History Problem Relation Age of Onset Diabetes Father Cancer Sister Family Status - Relation Status Age at Father SisterNormalUniversmercy health [facility] of [facility] [place] [facility] Surgical HospitalTephone 59-49-0948Fgcdqktqg [id number] Carolina Hernandez 1955 Date Provider Department Center 10/29/[address] [place] [address] OR [facility] Family History Problem Relation Age of Onset Diabetes Father Cancer Sister Family Status - Relation Status Age at Father SisterNormalUniversity of [facility] [place] [facility] Surgical HospitalTelephoneon 63-75-5730Phphpwlcq [id number] Janes Hernandezon 1955 Provider Department Center 10/17/2024 BRANDON WILSON ONC DCC Family History Problem Relation Age of Onset Diabetes Father Cancer Sister Family Status - Relation Status Age at Father SisterNormalUniversity of [facility] [place] Spine [facility] Surgical HospitalTelephoneon 80-01-6934Avttnnfcq [id number] Janes Hernandezon 1955 Provider Department Center 10/11/2024 BRANDON WILSON ONC DCC Family History Problem Relation Age of Onset Diabetes Father Cancer Sister Family Status - Relation Status Age at Father SisterNormalUniversity of [facility] [place] Spine & Surgical HospitalPrep for Procedureon 09-21-2024 Prep for [id number] DavidCarolina 1955 Provider Department [place] 09/21/2024 KOKO MULLEN [facility] Family History Problem Relation Age of Onset Diabetes Father Cancer Sister Family Status - Relation Status Age at Father SisterNormalUniversity of [facility] [place] [facility] Surgical HospitalTelemedicineon 09-03-2024 [id number] Carolina Hernandez 1955 Provider Department Center 09/03/2024 KOKO MULLEN ONC DCC Family History Problem Relation Age of Onset Diabetes Father Cancer Sister Family Status - Relation Status Age at Father Sister Level of Service:34446 [place] PHYS/QHP TELEPHONE EVALUATION 21-30 MIN () Reason for Visit and Comments: 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 Scan in system. aoNormalUniversity of South [place] Spine & Surgical HospitalAbstracton 10-15-3046Otqrtpdg [id number] Janes Hernandezon 1955 Provider Department Center 08/21/2024 2020-SILVINO BLACK HVCTS [place] HeartVAS No family history on fileNormalUniversmercy health fair[facility] hospital of [facility] [place] Spine & Surgical HospitalDIRECT LDLon 48-28-2620Wkfdalfoica in LDL [Mass/Vol]66 mg/dLMercy Health St. [facility] Medical Center Comment on above:Performed By: #### CMP, DLDL, LIPID #### [facility] [address] [address] [address] Jose Miguel PlummerDLDL NORMALSEE Marymount HospitalComment on above: Result Comment: <100 mg/dl OPTIMAL 100 - 129 mg/dl NEAR OR ABOVE OPTIMAL 130 - 159 mg/dl BORDERLINE HIGH 160 - 189 mg/dl HIGH >190 mg/dl VERY HIGHPerformed By: #### CMP, DLDL, LIPID #### [facility] [address] [address] [address] Jose Miguel PlummerGLYCOHEMOGLOBIN A1Con 34-19-0453ZOC RECOMMENDATIONSEE [facility] HospitalComascension [place] on above:Result Comment: ADA RECOMMENDED LIMIT 4.0 - 6.0 ADA THERAPEUTIC TARGET < 7.0 ACTION SUGGESTED > 7.0Performed By: #### A1C #### [facility] [address] [place] [address] Dr. Jose Miguel PlummerGlucose [Mass/Vol]151 mg/dLNoKettering Health HamiltonComment on above:Performed By: #### A1C #### [facility] [address] [place] [address] Dr. Jose Miguel PlummerHbA1c (Bld) [Mass fraction]6.9 %Critically high4.5-6.2Lutheran HospitalComment on above:Performed By: #### A1C #### [facility] [address] [place] [address] Dr. Jose Miguel PlummerLIPID PROFILEon [id number]-HDL RATIO NORMSEE [facility] HospitalComascension [place] on above:Result Comment: 3.3 - 4.4 LOW RISK 4.4 - 7.1 AVERAGE RISK 7.1 - 11.0 MODERATE RISK >11.0 HIGH RISKPerformed By: #### CMP, DLDL, LIPID #### [facility] [address] [place] [address] Dr. Jose Miguel PlummerCholesterol [Mass/Vol]203 mg/dLCritically high<=200The [facility] HospitalComascension [place] on above:Performed By: #### CMP, DLDL, LIPID #### [facility] [address] [address] [address] Jose Miguel PlummerCholesterol in HDL [Mass/Vol]22 mg/dLCritically rdy66-47Lhk [facility] on above:Performed By: #### CMP, DLDL, LIPID #### [facility] [address] [address] [address] Jose Miguel Osorio.total/Cholesterol in HDL [Mass ratio]9.2 {ratio} NormalThe [facility] on above:Performed By: #### CMP, DLDL, LIPID #### [facility] [address] [address] [address] Jose Miguel PlummerHDL NORMAL> or = 60 mg/dl - LOW CARDIOVASCULAR RISK <40 mg/dl - HIGH CARDIOVASCULAR RISKMercy Health St. Vincent Medical CenterComascension [place] on above:Performed By: #### CMP, DLDL, LIPID #### [facility] [address] [place] [address] Dr. Jose Miguel PlummerLDL CALC NORMALSEE BELOWMercy Health St. Vincent Medical CenterComment on above:Result Comment: <100 mg/dl OPTIMAL 100 - 129 mg/dl NEAR OR ABOVE OPTIMAL 130 - 159 mg/dl BORDERLINE HIGH 160 - 189 mg/dl HIGH >190 mg/dl VERY HIGH Performed By: #### CMP, DLDL, LIPID #### [facility] [address] [place] [address] Dr. Jose Miguel PlummerTriglyceride [Mass/Vol]mg/dLCritically high<=150The [facility] on above:Performed By: #### CMP, DLDL, LIPID #### [facility] [address] [place] [address] Dr. Jose Miguel PlummerPROF 14(COMP METB)on 77-06-1694Gmaqtcq [Mass/Vol]3.3 g/dL Critically low3.4-5.0The [facility] on above:Performed By: #### CMP, DLDL, LIPID #### [facility] [address] [place] [address] Dr. Jose Miguel PlummerAlbumin/Globulin [Mass ratio]0.8 {ratio}NormalThe Marycruz HospitalComment on above:Performed By: #### CMP, DLDL, LIPID #### [facility] [address] [address] [address] Jose Miguel Morillo [Catalytic activity/Vol]115 U/CZudckv99-026Fdb [facility] HospitalComment on above:Performed By: #### CMP, DLDL, LIPID #### [facility] [address] [address] [address] Jose Miguel Lindsay [Catalytic activity/Vol]20 U/NEpwwmw93-99Rhv [facility] HospitalComment on above:Performed By: #### CMP, DLDL, LIPID #### [facility] [address] [place] [address] Dr. Jose Miguel Bloom gap [Moles/Vol]8.9 mmol/LNormalThe [facility] HospitalComment on above:Performed By: #### CMP, DLDL, LIPID #### [facility] [address] [place] [address] Dr. Jose Miguel Sosa [Catalytic activity/Vol]21 U/WQhgzna33-89Zhm [facility] HospitalComment on above:Performed By: #### CMP, DLDL, LIPID #### [facility] [address] [place] [address] Dr. Jose Miguel PlummerBilirubin [Mass/Vol]0.3 mg/dLNormal0.2-1.0The [facility] Comment on above:Performed By: #### CMP, DLDL, LIPID #### [facility] [address] [place] [address] Dr. Jose Miguel PlummerCalcium [Mass/Vol]8.8 mg/dLNormal8.5-10.1The [facility] Comment on above:Performed By: #### CMP, DLDL, LIPID #### [facility] [address] [place] [address] Dr. Jose Miguel Álvarezide [Moles/Vol]103 mmol/BAflgzb16-521Ozh [facility] Comment on above:Performed By: #### CMP, DLDL, LIPID #### [facility] [address] [place] [address] Dr. Jose Miguel PlummerCO2 [Moles/Vol]28.0 mmol/XPmqcvp94.0-32.0The [facility] Comment on above:Performed By: #### CMP, DLDL, LIPID #### [facility] [address] [address] [address] Jose Miguel PlummerCreatinine [Mass/Vol]1.09 mg/dLCritically high0.55-1.02The [facility] HospitalComment on above:Performed By: #### CMP, DLDL, LIPID #### [facility] [address] [place] [address] Dr. Gillespie ChangEGFR-AF HPNXRLZB37 mL/min/1.19v3Cazlbe>=60The [facility] Comment on above:Performed By: #### CMP, DLDL, LIPID #### [facility] [address] [place] [address] Dr. Jose Miguel KunhGFR-NON AF TCJXMGHC54 mL/min/1.29z4Vgwdrufdzk low>=60The [facility] HospitalComment on above:Performed By: #### CMP, DLDL, LIPID #### [facility] [address] [place] [address] Dr. Jose Miguel PlummerGlobulin (S) [Mass/Vol]4.0 g/dLNormalThe [facility] HospitalComment on above:Performed By: #### CMP, DLDL, LIPID #### [facility] [address] [place] [address] Dr. Jose Miguel PlummerGlucose [Mass/Vol]132 mg/dLCritically ufjj74-293Omb [facility] HospitalComment on above:Performed By: #### CMP, DLDL, LIPID #### [facility] [address] [place] [address] Dr. Jose Miguel PlummerPotassium [Moles/Vol]4.9 mmol/LNormal3.5-5.1The [facility] Comment on above:Performed By: #### CMP, DLDL, LIPID #### [facility] [address] [place] [address] Dr. Jose Miguel PlummerProtein [Mass/Vol]7.3 g/dLNormal6.4-8.2The [facility] Comment on above:Performed By: #### CMP, DLDL, LIPID #### [facility] [address] [address] [address] Jose Miguel Pinzondium [Moles/Vol]135 mmol/LCritically mni289-462Rhh [facility] HospitalComment on above:Performed By: #### CMP, DLDL, LIPID #### [facility] [address] [address] [address] Jose Miguel Smith nitrogen [Mass/Vol]20.0 mg/dLCritically high7.0-18.0The [facility] HospitalComment on above:Performed By: #### CMP, DLDL, LIPID #### [facility] [address] [place] [address] Dr. Jose Miguel Smith nitrogen/Creatinine [Mass ratio]18.3 mg/mgNormalThe [facility] HospitalComment on above:Performed By: #### CMP, DLDL, LIPID #### [facility] [address] [place] [address] Dr. Jose Miguel Banks AUTO DIFFon [id number] #0.1 103/ulNormal0.0-0.1Lutheran HospitalComment on above:Performed By: #### CBC #### [facility] [address] [place] [address] Dr. Jose Miguel PlummerBasophils/100 WBC (Bld)1.5 %Normal0.2-2.0[facility] Comment on above:Performed By: #### CBC #### [facility] [address] [place] [address] Dr. Jose Miguel Fish #0.2 103/ulNormal0.0-0.7The [facility] HospitalComment on above: Performed By: #### CBC #### [facility] [address] [place] [address] Dr. Jose Miguel Kuhnosinophils/100 WBC (Bld)2.7 %Normal0.9-7.0[facility] Comment on above:Performed By: #### CBC #### [facility] [address] [place], [place] [id number] Dr. Jose Miguel Kuhnrythrocyte distribution width (RBC) [Ratio]14.9 %Gawbww46.0-15.0 [facility] Hospitalment on above:Performed By: #### CBC #### [facility] [address] [place] [address] Dr. Jose Miguel PlummerHematocrit (Bld) [Volume fraction]50.0 %Critically high36.0-48.0 The [facility] HospitalComment on above:Performed By: #### CBC #### [facility] [address] [place] [address] Dr. Jose Miguel PlummerHemoglobin (Bld) [Mass/Vol]16.5 g/dLCritically high12.0-16.0[facility] Hospitalment on above:Performed By: #### CBC #### [facility] [address] [place] [address] Dr. Jose Miguel Prado #0.04 10e3/ulCritically high0.00-0.03The [facility] Comment on above:Performed By: #### CBC #### [facility] [address] [place] [address] Dr. Jose Miguel Prado %0.5 %Normal0.0-0.5The [facility] on above: Performed By: #### CBC #### [facility] [address] [place] [address] Dr. Jose Miguel RomeroH #1.4 103/ulNormal1.2-3.8The [facility] Orthopedic Centerment on above:Performed By: #### CBC #### [facility] [address] [place] [address] Dr. Jose Miguel Lemphocytes/100 WBC (Bld)19.1 %Critically low20.5-60.0[facility] Hospitalment on above:Performed By: #### CBC #### [facility] [address] [place] [address] Dr. Jose Miguel JohnsonUAL DIFF REQNONormalThe [facility] HospitalComment on above: Performed By: #### CBC #### [facility] [address] [address] [address] Jose Miguel Burch (RBC) [Entitic mass]29.9 xvNcqlel26.7-34.0The [facility] HospitalComment on above:Performed By: #### CBC #### [facility] [address] [place] [address] Dr. Jose Miguel Burch (RBC) [Mass/Vol]33.0 g/mDJiqflo26.9-35.2The [facility] HospitalComment on above:Performed By: #### CBC #### [facility] [address] [place] [address] Dr. Jose Miguel BurchV (RBC) [Entitic vol]90.7 lCPegnvd12.0-99.0The [facility] HospitalComment on above:Performed By: #### CBC #### [facility] [address] [place] [address] Dr. Jose Miguel Acosta #1.0 103/ulCritically high0.3-0.8The [facility] Comment on above:Performed By: #### CBC #### [facility] [address] [place] [address] Dr. Jose Miguel Kenneyocytes/100 WBC (Bld)14.0 %Critically high1.7-12.0The [facility] HospitalComment on above:Performed By: #### CBC #### [facility] [address] [place] [address] Dr. Jose Miguel Vora #4.6 103/ulNormal1.4-6.5The [facility] HospitalComment on above:Performed By: #### CBC #### [facility] [address] [place] [address] Dr. Jose Miguel Davenportutrophils/100 WBC (Bld)62.2 %Dhgdqz43.0-75.0The [facility] HospitalComment on above:Performed By: #### CBC #### [facility] [address] [place] [address] Dr. Jose Miguel Cervanteslet mean volume (Bld) [Entitic vol]10.8 fLNormal9.5-13.5The [facility] HospitalComment on above:Performed By: #### CBC #### [facility] [address] [address] [address] Jose Miguel PlummerPLT189 103/cbBelsfh675-348Gdv [facility] HospitalComment on above: Performed By: #### CBC #### [facility] [address] [address] [address] Jose Miguel PlummerRBC5.51 106/ulCritically high4.20-5.40The [facility] Comment on above:Performed By: #### CBC #### [facility] [address] [address] [address] Jose Miguel PlummerWBC7.4 103/ulNormal4.0-11.0The [facility] on above: Performed By: #### CBC #### [facility] [address] [place] [address] Dr. Jose Miguel PlummerGLYCOHEMOGLOBIN A1Con 42-04-0078NFO RECOMMENDATIONSEE [facility] HospitalComascension [place] on above:Result Comment: ADA RECOMMENDED LIMIT 4.0 - 6.0 ADA THERAPEUTIC TARGET < 7.0 ACTION SUGGESTED > 7.0Performed By: #### A1C #### [facility] [address] [place] [address] Dr. Jose Miguel PlummerGlucose [Mass/Vol]160 mg/dLNoKettering Health HamiltonComment on above:Performed By: #### A1C #### [facility] [address] [place] [address] Dr. Jose Miguel PlummerHbA1c (Bld) [Mass fraction]7.2 %Critically high4.5-6.2The [facility] on above:Performed By: #### A1C #### [facility] [address] [place] [address] Dr. Jose Miguel PlummerLIPID PROFILEon [id number]-HDL RATIO NORMSEE [facility] on above:Result Comment: 3.3 - 4.4 LOW RISK 4.4 - 7.1 AVERAGE RISK 7.1 - 11.0 MODERATE RISK >11.0 HIGH RISKPerformed By: #### LIPID, CMP #### [facility] [address] [address] [address] Jose Miguel PlummerCholesterol [Mass/Vol]155 mg/dLNormal<=200[facility] Comment on above:Performed By: #### LIPID, CMP #### [facility] [address] [address] [address] Jose Miguel PlummerCholesterol in HDL [Mass/Vol]35 mg/dLCritically ayh11-71Fqh [facility] HospitalComment on above:Performed By: #### LIPID, CMP #### [facility] [address] [place] [address] Dr. Jose Miguel PlummerCholesterol in LDL [Mass/Vol]40.8 mg/dLMercy Health St. Vincent Medical CenterComment on above:Performed By: #### LIPID, CMP #### [facility] [address] [place] [address] Dr. Jose Miguel Gargesteryessi.total/Cholesterol in HDL [Mass ratio]4.4 {ratio} NormalThe [facility] HospitalComment on above:Performed By: #### LIPID, CMP #### [facility] [address] [place] [address] Dr. Jose Miguel Ho NORMAL> or = 60 mg/dl - LOW CARDIOVASCULAR RISK <40 mg/dl - HIGH CARDIOVASCULAR RISKMercy Health St. Vincent Medical CenterComment on above:Performed By: #### LIPID, CMP #### [facility] [address] [place] [address] Dr. Jose Miguel PlummerLDL CALC NORMALSEE BELOWNoKettering Health HamiltonComment on above:Result Comment: <100 mg/dl OPTIMAL 100 - 129 mg/dl NEAR OR ABOVE OPTIMAL 130 - 159 mg/dl BORDERLINE HIGH 160 - 189 mg/dl HIGH >190 mg/dl VERY HIGH Performed By: #### LIPID, CMP #### [facility] [address] [place] [address] Dr. Jose Miguel PlummerTriglyceride [Mass/Vol]396 mg/dLCritically high<=150The [facility] Orthopedic Centerment on above:Performed By: #### LIPID, CMP #### [facility] [address] [address] [address] Jose Miguel MelvinLDL CALC79.2 mg/dLNormalThe [facility] HospitalComment on above: Performed By: #### LIPID, CMP #### [facility] [address] [address] [address] Jose Miguel Olmos 14(COMP METB)on 94-68-6592Nhekqne [Mass/Vol]3.4 g/dLNormal 3.4-5.0The [facility] HospitalComment on above:Performed By: #### LIPID, CMP #### [facility] [address] [address] [address] Jose Miguel PlummerAlbumin/Globulin [Mass ratio]0.8 {ratio}NormalThe [facility] HospitalComment on above:Performed By: #### LIPID, CMP #### [facility] [address] [place] [address] Dr. Jose Miguel Morillo [Catalytic activity/Vol]82 U/YIkxulb41-629Szw [facility] HospitalComment on above:Performed By: #### LIPID, CMP #### [facility] [address] [place] [address] Dr. Jose Miguel Lindsay [Catalytic activity/Vol]13 U/LCritically arj41-51Iud [facility] HospitalComment on above:Performed By: #### LIPID, CMP #### [facility] [address] [place] [address] Dr. Jose Miguel Bloom gap [Moles/Vol]9.8 mmol/LNormalThe [facility] HospitalComment on above:Performed By: #### LIPID, CMP #### [facility] [address] [place] [address] Dr. Jose Miguel Sosa [Catalytic activity/Vol]10 U/LCritically smg78-12Jfo [facility] HospitalComment on above:Performed By: #### LIPID, CMP #### [facility] [address] [place] [address] Dr. Jose Miguel PlummerBilirubin [Mass/Vol]0.6 mg/dLNormal0.2-1.0The [facility] Comment on above:Performed By: #### LIPID, CMP #### [facility] [address] [address] [address] Jose Miguel PlummerCalcium [Mass/Vol]9.5 mg/dLNormal8.5-10.1The [facility] Comment on above:Performed By: #### LIPID, CMP #### [facility] [address] [address] [address] Jose Miguel PlummerChloride [Moles/Vol]105 mmol/PLyzmny85-490Jyx [facility] Comment on above:Performed By: #### LIPID, CMP #### [facility] [address] [address] [address] Jose Miguel PlummerCO2 [Moles/Vol]29.4 mmol/QQeqzjr09.0-32.0The [facility] Comment on above:Performed By: #### LIPID, CMP #### [facility] [address] [place] [address] Dr. Jose Miguel PlummerCreatinine [Mass/Vol]1.01 mg/dLNormal0.55-1.02The [facility] HospitalComment on above:Performed By: #### LIPID, CMP #### [facility] [address] [place] [address] Dr. Jose Miguel KuhnGFR-AF THAI>60Normal>=60The [facility] HospitalComment on above:Performed By: #### LIPID, CMP #### [facility] [address] [place] [address] Dr. Jose Miguel KuhnGFR-NON AF QITDQWTL48 mL/min/1.76p1Tmoaenvdxg low>=60The [facility] HospitalComment on above:Performed By: #### LIPID, CMP #### [facility] [address] [place] [address] Dr. Jose Miguel PlummerGlobulin (S) [Mass/Vol]4.2 g/dLNormalThe [facility] HospitalComment on above:Performed By: #### LIPID, CMP #### [facility] [address] [place] [address] Dr. Jose Miguel PlummerGlucose [Mass/Vol]125 mg/dLCritically tqow84-793Ayi Marycruz HospitalComment on above:Performed By: #### LIPID, CMP #### [facility] [address] [address] [address] Jose Miguel PlummerPotassium [Moles/Vol]4.2 mmol/LNormal3.5-5.1The [facility] Comment on above:Performed By: #### LIPID, CMP #### [facility] [address] [address] [address] Jose Miguel PlummerProtein [Mass/Vol]7.6 g/dLNormal6.4-8.2[facility] Comment on above:Performed By: #### LIPID, CMP #### [facility] [address] [address] [address] Jose Miguel PlummerSodium [Moles/Vol]140 mmol/OHfrhob766-943Ivo [facility] Comment on above:Performed By: #### LIPID, CMP #### [facility] [address] [address] [address] Jose Miguel PlummerUrea nitrogen [Mass/Vol]13.0 mg/dLNormal7.0-18.0[facility] HospitalComment on above:Performed By: #### LIPID, CMP #### [facility] [address] [address] [address] Jose Miguel Smith nitrogen/Creatinine [Mass ratio]12.9 mg/mgNoKettering Health HamiltonComment on above:Performed By: #### LIPID, CMP #### [facility] [address] [address] [address] Jose Miguel PlummerXR WRIST RT MIN 3 Von 00-20-6425NT WRIST RT MIN 3 VEXAM: Right wrist HISTORY: Pain since an injury yesterday. TECHNIQUE: 3 views of the right wrist were obtained. FINDINGS: There is no evidence of fracture or dislocation. There are no suspicious bone lesions. There are scattered degenerative changes. Soft tissues are normal. IMPRESSION: No acute findings. Electronically authenticated by: SHADI CARRERO Date: 2022-01-08 08:33[facility] Encounters Encounter DateEncounter TypeCare ProviderFacilityStart: 32-05-3372lbrzrubrptHuron [facility] Ambulatory PPGStart: 12-14-2024 End: 57-82-2059Azbbdnjdc department patient visitDODOM [facility] Ambulatory PPGStart: 12-14-2024 End: 83-75-1120olvmwtxatoXkpqfkv D [facility] Work Phone: Start: 12-14-2024 End: 14-40-0239Puwjdpzd JulianaBathkwasi [facility]- LAB Path Spec [facility] HospStart: 74-43-8112yxukyjjoisWFYLPRGMadison Healthtart: 08-23-2024 End: 40-46-8395xjrbceqsuqUYTFSHCThe Jewish Hospital Start: 63-32-8447bjqphtssfaUmwwjkrl: BellfeliceueStart: 09-01-2023 End: 13-94-6862ccanudmmlgEVOKSP FAWWADNot AvailableStart: 11-23-2022 End: 44-70-7238vonpahthpxITQWOX H FAWWADFacility:U7Rfric: 05-25-2022 End: 21-58-9582mummmatsrnSQLLZX H FAWWADFacility:W9Qjwvw: 02-04-2022 End: 77-50-0590ehmdcxzktqWUPEFX H FAWWADFacility:I5Puiew: 01-08-2022 End: 85-77-1083ufzmeyivafNBTMYP H FAWWADFacility:H1 Plan of Treatment DateCare ActivityDetailAuthorStart: 66-81-8227Jviyixbu identified in Urine by CultureCleveland Clinic Foundationtart: 55-23-7508DaqouMercy Health [facility] Payers DatePayer CategoryPayerPolicy [id number] Health [id number] 2023Medicare [id number]/HFA/FAP [id number] 1962 [id number] [id number] 2.16.840.1.099777.3.579.2.593 [id number] 2.16.840.1.075693.3.57[id number] 2.16.840.1.496265.3.57[id number] 2.16.840.1.693385.3.57[id number] 2.16.840.1.087207.3.57[id number] 2.16.840.1.480773.3.57[id number] 2.16.840.1.192160.3.57[id number] 2.16.840.1.135256.3.57[id number] [id number] 2.16.840.1.995611.3.579.2.531 Social History DateTypeDetailFacilityStart: 52-40-9507Eirrpnr smoking status NHISEx-smoker (finding)[facility] Hospitaltart: 63-54-8834HozRkwvgg (finding) [facility] Hospitaltart: 08-02-1145Ebc Assigned At BirthFeChildren's [facility] Progress note 09-03-2024 Note Date & VcbcMcgmIptihmbd21-10-0370 NotePulmonary Telehealth Visit Note Patient: Carolina Hernandez Age: 68 y.o. : 1955 Account No.: [id number] Referring physician: Nolvia HORN Chief complaint: Lung nodule Date of phone call: 09/03/2024 HPI Carolina Hernandez is a 68 y.o. female lifelong smoker with a 67-zdne-rvcl smoking history. Patient with a history of [...] , PH , PHART , PHVEN , GMC5FLV , ZEI2TQZ , VII3YZG , PO2POC , PO2ART , PO2VEN , JLM2IMG , WDY6HRZ Radiology: Chest CT scan as well as PET scan were personally reviewed and there is emphysema. 2 PET avid nodules in the right upper lobe. No significant adenopathy. Findings concerning for primary lung cancer Assessment and Plan: 68-year-old woman with 67-mnai-rebl smoking history who was found to have [...] was initiated by the patient and conducted xge-cysj-nj-face with use of audio-only real time telephone communication between patient and provider for a virtual visit. Verbal consent to provide and bill for this service was obtained on 09/03/2024. Koko Ferrell MD Interventional Pulmonary Medicine Pulmonary and Critical Care Medicine [facility] Clinical Note 08-28-2024 Note Date & KninMijrUuuckwws30-22-2816 NoteWriter spoke with staff from Dr. De Souza's office (patient's PCP) regarding referral for pulmonary nodule and the inability to reach the patient to schedule an appt. Staff stated they would inform Dr. De Souza of the closed referral at this time. [facility] Clinical Note 08-28-2024 Note Date & KgryHbizUsijambl88-69-4989 NoteThe sheet writer has attempted to contact this patient 3 times to schedule an appt for pulmonary nodule referral. 2 previous voicemail's have been left with return number to call for appt scheduling. The sheet writer was unable to leave a voicemail during this last contact attempt due to voicemail box being full.[facility] Evaluation note Note Date & TypeNoteFacilityEvaluation noteNo assessment information available [facility] Work Phone: Summary Purpose Family History No Family History Records Found Relationship Condition Age at Onset Recorded Date/T blanche mother Unknown sisterAneurysmUnknownDeceasedUnknown Advance Directives No Advanced Directives Records Found Advance Directive Response Recorded Date/ Time Advance Directives No May 15, 2024 1:55pm Additional Source Comments INFORMATION SOURCE (unrecogn ized section and content) DATE CREATED AUTHOR 11/25/2022 [facility] DATE CREATED AUTHOR AUTHOR'S ORGANIZ ATION 09/03/2023 [facility] DATE CREATED AUTHOR AUTHOR'S ORGANIZ ATION 07/07/2024 [facility] DATE CREATED AUTHOR AUTHOR'S ORGANIZ ATION 12/16/2024 [facility] DATE CREATED AUTHOR AUTHOR'S ORGANIZ ATION 01/01/2025 [facility] DATE CREATED AUTHOR AUTHOR'S ORGANIZ ATION 01/11/2025 [facility] Care Teams (unrecognized sec tion and content) Team Status: Inactive Member Role Status Dates Costa Luther DO Attending Provider Active S tart: December 14, 2024 End: December 14, 2024 Goals (unrecognized section and content) Goals may be documented in a n alternate section FOR RECORDS PERTAINING TO PATIENTS WHO ARE [...] BE BASED ON THE PRIMARY CLINICAL RECORDS. [facility]. provides no warranty or guarantee of the accuracy or completeness of information in this document.
[2025-07-19 12:50] LABS: Hematocrit 50.2 % (36.0-48.0); Hemoglobin 17.0 g/dL (12.0-16.0); Immature Granulocytes Abs Auto 0.04 10^3/uL (0.00-0.03); Immature Granulocytes Pct Auto 0.4 % (0.0-0.5); Lymphocytes Absolute Auto 1.3 10^3/uL (1.2-3.8); Mean Corpuscular HGB Conc 33.9 g/dL (29.9-35.2); Mean Corpuscular Hemoglobin 29.7 pg (26.7-34.0); Mean Corpuscular Volume 87.8 fL (81.0-99.0); Platelet Count 247 10^3/uL (150-450); Red Blood Count 5.72 10^6/uL (4.20-5.40); White Blood Count 10.8 10^3/uL (4.0-11.0)
[2025-07-19 13:22] LABS: Iron 27.0 ug/dL (50.0-170.0)
[2025-07-19 13:23] LABS: Alanine Aminotransferase 16 U/L (14-59); Albumin Globulin Ratio 0.5; Albumin Level 2.7 g/dL (3.4-5.0); Alkaline Phosphatase 98 U/L (46-116); Anion Gap 12.9; Aspartate Amino Transferase 20 U/L (15-37); Blood Urea Nitrogen 23.0 mg/dL (7.0-18.0); Calcium 10.4 mg/dL (8.5-10.1); Carbon Dioxide 32.2 mmol/L (21.0-32.0); Chloride 101 mmol/L (98-107); Cholesterol 198 mg/dL (<=200); Estimated GFR (African America >60 (>=60 mL/min/1.73m^2); Estimated GFR (Non-African Ame 56 (>=60 mL/min/1.73m^2); Free T3 1.07 pg/mL (2.18-3.98); Globulin 5.2 g/dL; Glucose 241 mg/dL (74-106); HDL Cholesterol 46 mg/dL (40-60); Potassium 3.1 mmol/L (3.5-5.1); Sodium 143 mmol/L (136-145); Thyroid Stimulating Hormone 1.254 uIU/mL (0.358-3.740); Total Protein 7.9 g/dL (6.4-8.2); Triglycerides 123 mg/dL (<=150); VLDL CHOLESTEROL 24.6 mg/dL
== END 2025-07-19 12:04 | disposition home or self-care (01) ==
LOC: LAB 12:05
PROVIDERS: PCP Family Medicine; Visit Provider Family Medicine
DX: M62.81 Muscle weakness (generalized) (principal); I10 Essential (primary) hypertension; E78.5 Hyperlipidemia, unspecified; R73.09 Other abnormal glucose; D64.9 Anemia, unspecified; E03.9 Hypothyroidism, unspecified; D50.9 Iron deficiency anemia, unspecified
CPT/HCPCS: 36415; 80053; 80061; 83036; 83540; 84436; 84443; 84481; 85025

== ENCOUNTER 2025-07-20 | Outpatient (RCR) | payer MEDICARE, SELFPAY | END 2025-08-18 23:59 | disposition home or self-care (01) | LOC: MM | PROVIDERS: PCP Family Medicine; Visit Provider Internal Medicine | DX: Z51.81 Encounter for therapeutic drug level monitoring (principal); Z79.01 Long term (current) use of anticoagulants ==

== ENCOUNTER 2025-07-26 14:06 | Outpatient (RCR) | payer MEDICARE, SELFPAY | END 2025-07-27 08:44 | disposition home or self-care (01) | LOC: PT 14:06 | PROVIDERS: PCP Family Medicine; Visit Provider Family Medicine | DX: M62.81 Muscle weakness (generalized) (principal) | CPT/HCPCS: 97163 ==

== ENCOUNTER 2025-08-02 10:14 | Outpatient (OUT) | payer MEDICARE, SELFPAY ==
--- OUTSIDE RECORDS SUMMARY | 2025-08-02 10:17 | XMS_ITS | Clinical Summary ---
Author Organization [facility] Address [address] [place] [address] Care Team Providers Care [employer] Service Technician Name Role Phone Unavailable Primary Care Provider Unavailabl e Allergies No known active allergies Medications MedicationSigDispense QuantityRefillsLast FilledStart DateEnd DateStatus Eliquis 5 mg tablet TAKE 2 TABLETS BY MOUTH TWICE A DAY FOR 6 DAYS, THEN 1 TABLET TWICE A DAY 05/26/2024ctive aspirin 81 mg chewable tablet Chew 81 mg in the morning.11/06/2022ctive buPROPion XL (Wellbutrin XL) 150 mg 24 hr tablet TAKE 1 TABLET BY MOUTH EVERY DAY IN THE MORNING FOR 30 DAYS04/17/2024ctive citalopram (CeleXA) 20 mg tablet Take 20 mg by mouth in the morning.08/28/2024ctive Farxiga 10 mg Take 10 mg by mouth in the morning.Active glipiZIDE (Glucotrol) 10 mg tablet TAKE 1 TABLET DAILY 30 MINUTES BEFORE AUOBPLRPO20/10/2024ctive metFORMIN (Glucophage) 500 mg tablet Take 1,000 mg by mouth with breakfast.Active metoprolol succinate XL (Toprol-XL) 100 mg 24 hr tablet Take 100 mg by mouth in the morning.Active rosuvastatin (Crestor) 40 mg tablet TAKE 1 TABLET BY MOUTH EVERYDAY AT BEDTIMEActive omeprazole (PriLOSEC) [address] capsule Take by mouth in the morning.Active fenofibrate (Tricor) 145 mg tablet Take 145 mg by mouth in the morning.Active ezetimibe (Zetia) 10 mg tablet Take 10 mg by mouth in the morning.Active Family History Medical HistoryRelationNameCommentsDiabetesFatherCancerSisterRelationNameStatus CommentsFatherSister Social History Tobacco UseTypesPacks/DayYears UsedDateSmoking Tobacco: Every DayCigarettes Smokeless Tobacco: Never Tobacco Cessation:Ready to Q uit: Not Asked; Counseling Given: Not Answered Alcohol UseStandard Drinks/WeekCommentsNever0 (1 standard drink = 0.6 oz pure alcohol)PHQ-2AnswerDate RecordedPatient Health Questionnaire-2 Gopob40611/04/2023 CommentsUnknownSex and Gender InformationValueDate RecordedSex Assigned at BirthNot on fileLegal DjrDjfwow82/03/2024 3:13 PM ESTGender IdentityNot on fileSexual OrientationNot on file Last Filed Vital Signs Vital SignReadingTime TakenCommentsBlood Pressure--Pulse--Temperature-- Respiratory Rate--Oxygen Saturation--Inhaled Oxygen Concentration--Mavjgr05.6 kg (160 lb)09/03/2024 9:56 AM UWXDbzoca094.3 cm (5' 3.5 )09/03/2024 9:56 AM ESTBody Mass Index27.9111/04/2023 9:56 AM EST Plan of Treatment Health MaintenanceDue DateLast DoneCommentsCT Ozcoerltzorr1955Colonoscopy 1955olorectal Cancer Cvvgwyfzf1955iabetes: Hemoglobin A1C 1955FIT-DNA1955FIT1955FOBT1955Medicare Annual Wellness (AWV)1955Shbfxmarwsrky1955Diabetes: Retinopathy Oqfrlzthn07/26/1963 Diabetes: Urine Protein Zgzpkmygy10/26/1972Pneumococcal Vaccine: 50+ Years (1 of 2 - PCV)1972Adult Dgasngh8009/13/19752576Paohhixmk57/26/1993Zoster Vaccines (1 of 2)2003COVID-19 Vaccine (3 - season)/10/2020, 11/28/2020Influenza Vaccine (#1)2025Depression Jlbfgmtms23/16/2025 09/03/2024Fall Risk Mhzrzymad90HIB VaccinesAged OutNo longer eligible based on patient's age to complete this topicHPV VaccinesAged OutNo longer eligible based on patient's age to complete this topicIPV VaccinesAged OutNo longer eligible based on patient's age to complete this topicMeningococcal B VaccineAged OutNo longer eligible based on patient's age to complete this topicMeningococcal VaccineAged OutNo longer eligible based on patient's age to complete this topicRotavirus VaccinesAged OutNo longer eligible based on patient's age to complete this topic Insurance
--- OUTSIDE RECORDS SUMMARY | 2025-08-02 10:17 | XMS_ITS | Clinical Summary ---
Author Organization [employer] [facility] tem Address [id number] [address] [place] [address] Care Team Providers Care [employer] Tutor Name Role Phone Brennon eD Souza MD Primary Care Provider [phone] Social History Tobacco UseTypesPacks/DayYears UsedDateSmoking Tobacco: Never AssessedChildcare AnswerDate FcxdqtffUiweoqabuQzefmvp94/12/2019EmploymentAnswerDate Recorded OyqkgrqjyoYckybzk03/12/2019CommentsUnknownSex and Gender Information ValueDate RecordedSex Assigned at BirthNot on fileLegal HjfDcvbut88/06/2015 12:00 PM EDTGender IdentityNot on fileSexual OrientationNot on file Plan of Treatment Health MaintenanceDue DateLast DoneCommentsDepression Oeytdhsfx88/26/1965Tobacco Boyzicorl87/26/1965Adult BMI Enaooaerc96/26/1971DTaP,Tdap and Td Vaccines (1 - Tdap)1972Zoster (Shingles) Vaccine (1 of 2)2003Fall Risk Screening 2018COVID-19 Vaccine (3 - season)504/10/2020, 11/28/2020 Influenza Xaxufmc9305/20/2025RSV ( or age 60+ yrs) (1 - 1-dose 75+ series) 2028 [employer] Not on file Insurance Care Teams Team MemberRelationshipSpecialtyStart DateEnd Date Brennon De Souza MD [address] [place] [address] PCP - GeneralFamily Medicine12/14/24
--- OUTSIDE RECORDS SUMMARY | 2025-08-02 10:17 | XMS_ITS | Clinical Summary ---
Author Organization [facility] Healthcare Address [address] [place] [address] Care Team Providers Care Corrugated Fastener Driver Name Role Phone Unavailable Primary Care Provider Unavailabl e Allergies Active AllergyReactionsCriticalityNoted DateCommentsAtorvastatinSwellingMedium 10/06/20158488OlzqgyvqmoDggvfhb30/22/5981SucsiptTspczyh71/22/2014 Medications MedicationSigDispense QuantityRefillsLast FilledStart DateEnd DateStatus CVS Aspirin Adult Low Dose 81 MG chewable tablet Chew 81 mg in the morning.11/06/2022ctive metFORMIN (Glucophage) 500 MG tablet Indications:Type 2 diabetes mellitus with stage 3a chronic kidney disease, without long-term current use of insulin (HCC)Take 1 tablet (500 mg) by mouth in the morning and 1 tablet (500 mg) in the evening. Take with meals. 180 tablet ctive glipiZIDE XL (Glucotrol XL) 5 MG 24 hr tablet Indications:Type 2 diabetes mellitus with stage 3a chronic kidney disease, without long-term current use of insulin (HCC)Take 1 tablet (5 mg) by mouth Daily 90 tablet ctive rosuvastatin (Crestor) 40 MG tablet Indications:DyslipidemiaTake 1 tablet (40 mg) by mouth at bedtime 90 tablet ctive omeprazole (PriLOSEC) [address] capsule Indications:Gastroesophageal reflux disease without esophagitisTake 1 capsule (40 mg) by mouth Daily 90 capsule ctive fenofibrate (Tricor) 145 MG tablet Indications:DyslipidemiaTake 1 tablet (145 mg) by mouth Daily 90 tablet ctive metoprolol succinate XL (Toprol-XL) 100 MG 24 hr tablet Indications:Essential hypertension,Essential (primary) hypertensionTake 1 tablet (100 mg) by mouth Daily 90 tablet ctive escitalopram (Lexapro) 10 MG tablet Indications:Current moderate episode of major depressive disorder without prior episode (HCC)Take 1 tablet (10 mg) by mouth in the morning. 90 tablet ctive dapagliflozin (Farxiga) 10 MG Indications:Type 2 diabetes mellitus with stage 3a chronic kidney disease, without long-term current use of insulin (HCC)Take 1 tablet (10 mg) by mouth Daily 90 tablet ctive lisinopril 10 MG tablet Indications:Essential hypertensionTake 1 tablet (10 mg) by mouth Daily 90 tablet ctive Active Problems ProblemNoted DateDiagnosed DateType 2 diabetes mellitus with stage 3a chronic kidney disease, without long-term current use of npzfrnm5909/01/2023 Assessment & Plan (02/27/2024 1:31 PM EDT): No episode of hypoglycemia No medication adverse effects reported by the patient. C/w metformin, Farxiga and Glipizide. A1C 7.1 , Repeat labs ordered Assessment & Plan (09/01/2023 3:15 PM EST): No episode of hypoglycemia No medication adverse effects reported by the patient. Patient educated on lifestyle modifications, dietary restrictions, signs and symptoms of hypoglycemia/hyperglycemia and importance of eating regular consistent meals. Stressed upon importance of checking blood glucose at home and bring blood glucose log to appointments. All questions, concerns answered and addressed. Encouraged to call office if persistent hypoglycemia/hyperglycemia on home glucose monitoring noted. C/w metformin, Farxiga and Glipizide. Stage 3a chronic kidney lgevijz3609/01/2023 Assessment & Plan (02/27/2024 1:31 PM EDT): Due to CKD3, T2 DM. Stable. On Farxiga and Lisinopril Assessment & Plan (09/01/2023 3:14 PM EST): Due to CKD3, T2 DM. Stable. On Farxiga and Lisinopril Check labs, urine protein/creatinine Current moderate episode of major depressive disorder without prior episode 09/01/2023 Assessment & Plan (02/27/2024 1:32 PM EDT): Doing well on Lexapor 10 mg. Started after she reported feeling low, depressed, anhedonia, frequentcrying ever since her twin sister . Denies SI/HI. Stable mood. Assessment & Plan (09/01/2023 3:16 PM EST): New Diagnosis. Reports feeling low, depressed, anhedonia, frequent crying ever since her twin sister . Denies SI/HI. Start patient on Lexapro 5 mg daily. Patient counseled and educated on adverse effects, drug interactions and to reach out to office/pharmacy if questions or concerns related to new medications. Encounter for Medicare annual wellness exam09/01/2023 Assessment & Plan (09/01/2023 3:20 PM EST): Medicare wellness. Not interested in Cancer Screening. Refusing Vaccinations. Reviewed medical, surgical and social hx. Reviewed medications, discussed labs with patient. Ordering routine labs for her chronic medical conditions. Hogcyrlrxanj28/15/2016 Assessment & Plan (02/27/2024 1:31 PM EDT): Noe Crestor, Fenofibrate. Assessment & Plan (09/01/2023 3:15 PM EST): Poorly controlled. Check Fasting Lipid panel Cw Crestor, Fenofibrate. Essential vjbnnzqazffn40/18/2016 Assessment & Plan (02/27/2024 1:31 PM EDT): Home BP log reviewed. BP well controlled. On average less than 130/90. Tolerating Anti hypertensive w/o adverse effects. C/w same medications. Assessment & Plan (09/01/2023 3:13 PM EST): Home BP log reviewed. BP well controlled. On average less than 130/90. Tolerating Anti hypertensive w/o adverse effects. Denies lightheadedness, dizziness, syncope, presyncope. Patient encouraged to continue with home BP monitoring and call office if he experiences orthostatic symptoms or persistently elevated BP. C/w same medications. S/P CABG (coronary artery bypass graft)10/06/2015 Assessment & Plan (09/01/2023 3:13 PM EST): Stable. C/w ASA, Statin. Denies CP, SOB, palpitations. Family History Medical HistoryRelationNameCommentsDiabetesFatherHeart diseaseFatherRelationName StatusCommentsFather Social History Tobacco UseTypesPacks/DayYears UsedDateSmoking Tobacco: Every DayCigarettes Passive Smoke Exposure: CurrentSmokeless Tobacco: Never Tobacco Cessation:Ready to Q uit: No; Counseling Given: Yes Alcohol UseStandard Drinks/WeekCommentsNever0 (1 standard drink = 0.6 oz pure alcohol)Humiliation, Afraid, Rape, and Kick questionnaireAnswerDate Recorded Within the last year, have you been afraid of your partner or ex-partner?Patient ufwejpcy41/14/2023Within the last year, have you been humiliated or emotionally abused in other ways by your partner or ex-partner?Patient cpxrmomw83/14/2023 Within the last year, have you been kicked, hit, slapped, or otherwise physically hurt by your partner or ex-partner?Patient /14/2023Within the last year, have you been raped or forced to have any kind of sexual activity by your partner or ex-partner?Patient /14/2023Social Connection and Isolation PanelAnswerDate RecordedIn a typical week, how many times do you talk on the phone with family, friends, or neighbors?Patient ajqvsnoa97/14/2023How often do you get together with friends or relatives?Patient wgtorylc59/14/2023 How often do you attend mandaen or yazdanism services?Patient bajltddt99/14/2023 Do you belong to any clubs or organizations such as mandaen groups, unions, fraternal or athletic groups, or school groups?Patient /14/2023How often do you attend meetings of the clubs or organizations you belong to?Patient uhcnshuv74/14/2023re you , , , , never , or living with a partner?Patient hhevzpkx82/14/2023UDIT-CAnswerDate RecordedQ1: How often do you have a drink containing alcohol?Patient gqqolmzg93/14/2023Q2: How many drinks containing alcohol do you have on a typical day when you are drinking?Patient drqyawua07/14/2023Q3: How often do you have six or more drinks on one occasion?Patient dsufgzrv41/14/2023Overall Financial Resource Strain (CARDIA)AnswerDate RecordedHow hard is it for you to pay for the very basics like food, housing, medical care, and heating?Patient durvaovz31/14/2023HQ-2 AnswerDate RecordedPatient Health Questionnaire-2 Kpxtx025[facility] [place] of Occupational Health - Occupational Stress QuestionnaireAnswerDate RecordedDo you feel stress - tense, restless, nervous, or anxious, or unable to sleep at night because yourmind is troubled all the time - these days?Patient eewhscsh05/14/2023Exercise Vital SignAnswerDate RecordedOn average, how many days per week do you engage in moderate to strenuous exercise (like a brisk wal k)?Patient sroqmmfl30/14/2023On average, how many minutes do you engage in exercise at this level?Patient pimkltqp28/14/2023Hunger Vital SignAnswerDate RecordedWithin the past 12 months, you worried that your food would run out before you got the money to buymore.Patient aoqkkvnr10/14/2023Within the past 12 months, the food you bought just didn't last and you didn't have money to get more.Patient cgqlujmr83/14/2023RAPARE - TransportationAnswerDate RecordedIn the past 12 months, has lack of transportation kept you from medical appointments or from getting medications?Patient uoirrwga59/14/2023In the past 12 months, has lack of transportation kept you from meetings, work, or from getting things needed for daily living?Patient uofmotse63/14/2023Housing Stability Vital Sign AnswerDate RecordedIn the last 12 months, was there a time when you were not able to pay the mortgage or rent on time?Patient xqfmztt6209/01/2023Number of Places Lived in the Last YearNot on file09/01/2023In the last 12 months, was there a time when you did not have a steady place to sleep or slept in [facility] (including now)?Patient cezjctz54/14/2023CommentsUnknownSex and Gender InformationValueDate RecordedSex Assigned at BirthNot on fileLegal SexFemale 01/17/2023 8:35 PM EDTGender IdentityNot on fileSexual OrientationNot on file Last Filed Vital Signs Vital SignReadingTime TakenCommentsBlood Fekwbsig997/90002/27/2024 1:02 PM EDT Szqxc954502/27/2024 1:02 PM EDT96% U4Tniwbjixftj08.2 ??C (97.2 ??F)02/27/2024 1:02 PM EDTRespiratory Rate--Oxygen Ocyjwvfgfv22%09/01/2023 2:04 PM ESTInhaled Oxygen Concentration--Hqycew00.4 kg (164 lb)02/27/2024 1:02 PM YZPWnrxvk900.3 cm (5' 3.5 )02/27/2024 1:02 PM EDTBody Mass Index28.6002/27/2024 1:02 PM EDT Plan of Treatment Not on file Insurance
--- OUTSIDE RECORDS SUMMARY | 2025-08-02 10:17 | XMS_ITS | Clinical Summary ---
Author Organization [facility] Address [address] [place] [id number] Care Team Providers Care Supervisor Receiving And Processing Name Role Phone Huang Headley DO Primary Care Provider Allergies Active AllergyReactionsCriticalityNoted DateCommentsAtorvastatin CalciumSwelling Zgywgl5810/06/20156670AhmjkwwumuXbaeoew01/22/9497TdovstiZhojauk06/22/2014 Medications MedicationSigDispense QuantityRefillsLast FilledStart DateEnd DateStatus aspirin 325 mg tablet Take 325 mg by mouth once daily.Active nitroglycerin sublingual (NITROSTAT) 0.4 mg SL tablet Dissolve 0.4 mg under the tongue every 5 minutes as needed.Active insulin aspart (NOVOLOG) 100 unit/mL soln Inject 100 Units subcutaneously three times daily with meals.Active metFORMIN (GLUCOPHAGE) 1,000 mg tablet Take 1,000 mg by mouth twice daily with meals.Active INSULIN GLARGINE,HUM.REC.ANLOG (LANTUS SUBCUTANEOUS) Inject 71 Units subcutaneously daily at bedtime.Active gabapentin (NEURONTIN) 600 mg tablet Take 1 tablet by mouth daily at bedtime. Not currently taking 90 tablet Active simvastatin (ZOCOR) 40 mg tablet Take 1 tablet by mouth once daily. 90 tablet Active metoprolol tartrate, short acting, (LOPRESSOR) 50 mg tablet Take 1 tablet by mouth twice daily. 180 tablet Active lisinopril (ZESTRIL, PRINIVIL) 10 mg tablet Take 1 tablet by mouth once daily. 90 tablet Active Active Problems ProblemNoted DateDiagnosed StctBrlsrwhduyiv11/15/2016S/P CABG (coronary artery bypass graft)10/06/2015Angina wowcrlak07/18/2016Essential yfmdjpgimdoq15/18/2016 Type 2 diabetes mellitus with circulatory ipvhzhij48/18/2016 Family History Medical HistoryRelationCommentsDiabetesFatherHeartFatherOsteoporosisMother RelationStatusCommentsFatherAliveMotherDeceased Social History Tobacco UseTypesPacks/DayYears UsedDateSmoking Tobacco: FormerCigarettes 09/19/1990 - 09/19/2011Smokeless Tobacco: NeverAlcohol UseStandard Drinks/Week CommentsYes0 (1 standard drink = 0.6 oz pure alcohol)occasionally CommentsUnknownSex and Gender InformationValueDate RecordedSex Assigned at Not on fileLegal KcqAesyim28/15/2014 2:29 PM EDTGender IdentityNot on fileSexual OrientationNot on fileOccupationIndustryJob Start DateJob End DateMcDonaldsNot on fileNot on fileNot on file Last Filed Vital Signs Vital SignReadingTime TakenCommentsBlood Uwbsyder684/9411/03/2015 10:42 AM EST Hofjr521611/03/2015 10:42 AM TRBUhlgyjsloap84.8 ??C (98.3 ??F)11/03/2015 10:42 AM ESTRespiratory Jpww838411/03/2015 10:42 AM ESTOxygen Awrmrubzkv65%11/03/2015 10:42 AM ESTInhaled Oxygen Concentration--Rcmgzt34 kg (176 lb 6.4 oz)11/03/2015 10:42 AM LMGNxbqlz536.3 cm (5' 3.5 )11/03/2015 10:42 AM ESTBody Mass Index30.76 11/03/2015 10:42 AM EST Plan of Treatment Health MaintenanceDue DateLast DoneCommentsAnxiety Khqhcctam23/26/1971Depression Krmefrnxt93/26/1971Hepatitis C Jbnnqluqc35/26/1971DTaP,Tdap,Td Vaccine (1 - Tdap)1972Mammogram Khujmpdzr43/26/1993CT Astwxryjnoov99/26/1998Cologuard (FIT-DNA)09/13/19988401Xvjtuwhawcl36/26/1998Colorectal Cancer Xeohhhxxi36/26/1998 Diabetes Rnupdpjgs94/26/1998Fecal Occult Blood1998Lipid Screening 09/13/19982385Zdbzinvzyarex22/26/1998Pneumococcal Vaccine: 50+ (1 of 1 - PCV) 2003Shingrix Vaccine (1 of 2)2003Bone Density Ookyrssea05/26/2018 Advance Directive Mkuxsdpkdg60/01/2025ovid-19 Vaccine (1 - 2024- season) 2025Influenza Vaccine (#1)2025RSV Vaccine (1 - 1-dose 75+ series) 2028 Insurance * Guarantor: Carolina Hernandez TypeRelation to PatientDate of BirthPhone Billing AddressPersonal/LrsctjTccb1955 [id number] [place] [address] * Guarantor: Carolina Hernandez TypeRelation to PatientDate of BirthPhone Billing AddressSelf OjuWctq1955 [id number] [place] [address] Care Teams Team MemberRelationshipSpecialtyStart DateEnd Date Huang Headley DO PCP - GeneralFamily Aqgvjygn56/15/14
--- NOTE | 2025-08-02 10:19 | CA_ITS ---
Patient Name: DAVID ANTHONY MR#: [id number] : 1955 Exam Date: 08/02/2025 Ordering Doctor: DR ANA MORENO . ECHOCARDIOGRAM REPORT PROCEDURE: CA ECHO DOPPLER COMPLETE INDICATIONS: Right sided weakness, hypertension, diabetes, DE, CABG COMPARISON: None. DESCRIPTION: COMPLETE ECHOCARDIOGRAM Real-time transthoracic echocardiography with 2D, M-mode, spectral and color flow Doppler performed. QUALITY: Technical quality was good. LEFT VENTRICLE: Normal chamber size. Mild concentric left ventricular hypertrophy. LV EF: Global left ventricular systolic function is difficult to assess but appears preserved; visually estimated ejection fraction is 55%. Unable to assess regional wall motion abnormality; recommend contrast study for better delineation of endocardial borders. DIASTOLIC: Unable to assess diastolic function. ATRIAL SEPTUM: Visually appears intact. LEFT ATRIUM: Normal chamber size. RIGHT ATRIUM: Normal chamber size. RIGHT VENTRICLE: Normal chamber size. Normal right ventricular systolic function. TRICUSPID VALVE: Normal mobility and thickness. No stenosis with no regurgitation. Unable to assess right-sided pressures due to lack of measurable tricuspid regurgitation. MITRAL VALVE: Normal mobility and thickness. No evidence of mitral valve stenosis. There is no mitral annular calcification. Mild to moderate mitral regurgitation. AORTIC VALVE: Normal trileaflet appearance. Mildly calcified aortic valve. No evidence of aortic valve stenosis. Trivial aortic regurgitation. AORTIC ROOT: Normal diameter and appearance. Ascending aorta is dilated (3.7 cm). PULMONIC VALVE: Normal thickness and mobility. No stenosis. Trivial regurgitation. PERICARDIUM: No evidence of pericardial effusion. IVC: Collapses with inspiration. IVC is normal in size. CONCLUSION: 1. Global left ventricular systolic function is normal; visually estimated ejection fraction is 55% 2. Mild left ventricular hypertrophy 3. The left atrium is normal in size 4. The right ventricle is normal in size and systolic function 5. Mild to moderate mitral regurgitation 6. The ascending aorta is mildly dilated Adult Echocardiography Procedure Report Left Ventricle LVEDD (3.7 - 5.6 cm): 4.45 cm LVESD (2.2 - 4.0 cm): 3.04 cm LVIVS thickness (0.6 - 1.2 cm): 1.43 cm LVPW thickness (0.5 - 1.0 cm): 1.21 cm e': 0.07 m/s E - e': 9.36 LVOT Max Gradient: 1.99 mm[Hg] LVOT Area (cm2): 0.71 m/s Peak Velocity (LVOT): 0.71 m/s Mean Velocity (LVOT): 0.43 m/s LVOT Diameter 2.00 cm Left Atrium LA Volume Index (2D A2C): 22.51 ml/m2 Left Atrium Systolic Dimension: 3.63 cm Mitral Valve MV E to A Ratio: 0.84 Mitral Valve A-Wave Peak Velocity: 0.80 m/s Mitral Valve E-Wave Peak Velocity: 0.67 m/s Right Ventricle Aorta AO Root Diam: 3.17 cm Ascending Ao Diam: 3.75 cm Aortic Valve AoV Area (Peak Manuel): 1.95 cm2, 1.95 cm2 AoV Area (VTI): 2.08 cm2, 2.08 cm2 Peak Velocity(Antegrade Flow): 1.14 m/s Peak Gradient(Antegrade Flow): 5.18 mm[Hg] Mean Velocity(Antegrade Flow): 0.70 m/s Mean Gradient(Antegrade Flow): 2.38 mm[Hg] Velocity Time Integral: 19.53 cm Tricuspid Valve Pulmonic Valve Mean Gradient: 1.91 mm[Hg] Mean Velocity: 0.63 m/s Peak Velocity: 1.04 m/s Peak Gradient: 4.33 mm[Hg] Right Atrium Right Atrium Systolic Pressure: 53.18 ml, 53.18 ml Dictated by: Deuce Hurt M.D. on 08/06/2025 at 14:40 Approved by: Deuce Hurt M.D. on 08/06/2025 at 14:50
--- NOTE | 2025-08-02 10:24 | MR_ITS ---
The [address] [address] Patient Name: DAVID ANTHONY MRN: [facility]:[id number] date: 1955 Sex: F Assigned Patient Location: CARD Current Patient Location: CARD Accession/Order Number: [id number] Exam Date: 08/02/2025 11:50 Report Date: 08/02/2025 12:43 At the request of: ANA MORENO MD Procedure: MR head/brain wo con MR head/brain wo con 08/02/2025 12:00 PM SIGN AND SYMPTOMS: ^right sided weakness PROTOCOL: Multiplanar multisequence MR images of the brain without IV contrast COMPARISON: 12/14/2024 FINDINGS: Extra axial spaces: There is age-related cortical atrophy. Hemorrhage: None. Ventricular system: Within normal limits. Basal cisterns: Within normal limits and not effaced. Cerebral parenchyma: Multiple foci of diffusion restriction are noted in the cerebral hemispheres bilaterally involving the left frontal cortex, left frontal subcortical white matter, left posterior and medial temporal lobe/posterior limb of the internal capsule, right splenium of the corpus callosum, and right temporal cortical and subcortical white matter. These suggest central embolic source is an area consistent with acute to subacute ischemia. T2 and FLAIR hyperintense foci are noted in the periventricular and subcortical white matter. Remote lacunar infarcts are noted in the right frontal periventricular white matter. Remote lacunar infarcts are noted in the right parietal and occipital periventricular white matter. There is a remote lacunar infarct in the thalamus on the left. Midline shift: None.. Cerebellum: Remote lacunar infarcts are noted in the cerebellar hemispheres. Brainstem: Within normal limits. OTHER: Calvarium: Normal marrow signal. Vascular system: Satisfactory flow voids within the anterior and posterior circulation. Visualized Paranasal sinuses: Within normal limits. Visualized Orbits: Within normal limits. Visualized upper cervical spine: Within normal limits. Sella and skull base: Within normal limits. MR/MR head/brain wo con IMPRESSION: Multiple foci of diffusion restriction are noted in the cerebral hemispheres bilaterally involving the left frontal cortex, left frontal subcortical white matter, left posterior and medial temporal lobe/posterior limb of the internal capsule, right splenium of the corpus callosum, and right temporal cortical and subcortical white matter. These suggest central embolic source is an area consistent with acute to subacute ischemia. 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 Impression dictated by: Enrike Moore M.D. 08/02/2025 12:43 PM Dictation Location: [place] [address] Electronically authenticated by: [id number] Date: 08/02/2025 12:43
== END 2025-08-02 10:15 | disposition home or self-care (01) ==
LOC: CARD 10:15
PROVIDERS: PCP Family Medicine; Visit Provider Family Medicine
DX: M62.81 Muscle weakness (generalized) (principal); I67.82 Cerebral ischemia; I65.23 Occlusion and stenosis of bilateral carotid arteries
CPT/HCPCS: 70551; 93306; 93880